=== PATIENT | female | born 1935 | race Caucasian/White ===

== ENCOUNTER 2017-02-03 12:07 | Inpatient (IN) | payer MEDICARE ==
[~2017-02-03] VITALS: Ht 172.7 cm; Wt 65.2 kg
[~2017-02-03 12:07] MED LIST: AMIO200T PO; ASCO500C PO; ASPI81CH CHEW; CALCCHW9 CHEW; CART180C PO; CERTTAB2 PO; COUM3TAB PO; ENOX80P SQ; FERR1TAB36 PO; FLUT1SPR9 EACH NARE; FORM20NE INH; GABA100C4 PO; METO-426 PO; MONT10TA4 PO; SLOWTAB PO
[2017-02-03] MEDS ORDERED: MORPHINE SULFATE 4 MG/ML INJ IV PUSH ONE (13:15)
[2017-02-03] MEDS ORDERED: ONDANSETRON HCL 4 MG/2 ML VIAL IVP ONE (13:15)
[2017-02-03] MEDS ORDERED: SODIUM CHLORIDE 0.9% FLUSH 10 ML FLUSH IV FLUSH PRN ×2 (13:15→16:00)
[2017-02-03] MEDS ORDERED: SODIUM CHLORID 0.9% 500 ML INJ 500 ML IV ONE (13:15)
--- NOTE | 2017-02-03 13:16 | PD ---
HPI Chief Complaint: FALL Time Seen by Provider: 13:16 Travel History International Travel<30 days: No Contact w/Intl Traveler<30days: No History of Present Illness HPI 81-year-old female with a history of hypertension, hyperlipidemia, A. fib anticoagulated on Coumadin presents to the emergency department by EMS for evaluation of fall with right hip pain. Patient states that she was sitting in the recliner in her living room and scooted to the edge, leaning forward to grab her phone off the table when she accidentally fell from the chair onto her right side. States that she landed on her right hip and hit the right side of her head on the ground. Denies loss of consciousness. States that she was unable to get up from the ground secondary to severe pain in her right hip. States that she has a hematoma on the right side of her head that is formed since the fall. Pain in the hip is aggravated with movement and alleviated with sitting still. Denies any lightheadedness, dizziness, nausea, vomiting, numbness or tingling, weakness, chest pain, shortness breath, abdominal pain. PCP is Dr. Dodd. No other complaints. 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) Deep Vein Thrombosis: Yes (LEFT LEG) Endocrine: No Gastrointestinal Disorders: Yes ((HX ONLY)BLOOD IN STOOL 2 YRS AGO) GERD: No Glaucoma: No Genitourinary: Yes Headaches: No Hepatitis: No Hiatal Hernia: No Hypertension: Yes Immune Disorder: No Implanted Vascular Access Dvce: Yes (LEFT CHEST) Kidney Stones: No Musculoskeletal: Yes Psychiatric: No Reproductive: No Respiratory: Yes Immunizations Current: Yes Migraines: No Pneumonia: Yes Radiation Therapy: Yes Renal Failure: No Seizures: No Sickle Cell Disease: No Sleep Apnea: No Thyroid Disease: No Ulcer: No Menopausal: Yes : 4 Para: 3 Miscarriage: 1 Past Surgical History Abdominal Surgery: Yes (COLOSTOMY, COLON/UTERUS ABSCESS DRAINED) AICD: No Appendectomy: No Arteriovenous Shunt: No Body Medical Devices: LEFT CHEST PORT Cardiac Surgery: No Section: Yes (x 2) Cholecystectomy: No Ear Surgery: No Endocrine Surgery: No Eye Surgery: Yes (CATARACT) Genitourinary Surgery: No Gynecologic Surgery: Yes (C- SECTION X 2) Insulin Pump: No Joint Replacement: Yes (RIGHT ELBOW WIRES AND SCREWS) Oral Surgery: No Pacemaker: No Thoracic Surgery: No Other Surgery: Yes (PORT INSERTION-LEFT CHEST) Social History Alcohol Use: No Tobacco Use: No (QUIT 2008) Substance Use: No Allergies-Medications (Allergen,Severity, Reaction): Coded Allergies: Adhesives (Verified Allergy, Severe, 02/03/17) Codeine (Verified Allergy, Severe, N/V, 02/03/17) Penicillin (Verified Allergy, Intermediate, rash, 02/03/17) Robitussin (Verified Adverse Reaction, Mild, Flushing, 02/03/17) PATIENT STATES THAT AFTER SHE WAS ADMINISTERED ROBITSSIN, BL PALM OF HER HANDS TURNED RED. 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 Uncoded Allergies: plastic bandages (Adverse Reaction, Intermediate, reddness , 10/01/14) Reported Meds & Prescriptions Reported Meds & Active Scripts Active Metoprolol Tartrate 75 Mg Tab 75 Mg PO BID Coumadin (Warfarin) 3 Mg Tab 3.5 Mg PO DAILY Reported Propranolol (Propranolol HCl) 60 Mg Tab 60 Mg PO Q8HR Perforomist Neb (Formoterol Fumarate) 20 Mcg/2 Ml Neb 1 Nebule INH BID Vitamin C (Ascorbic Acid) 500 Mg Cap 500 Mg PO DAILY Slow-Mag (Magnesium Chloride-Calcium Carbonate) 71.5-119 Mg Tab 143 Mg PO DAILY Certavite/Antioxidants (Multiple Vitamins W/ Minerals) 1 Tab Tab 1 Tab PO DAILY Calcium 1200 (Calcium Carbonate-Vitamin D W/Minerals) 1,200-1,000 Mg-Unit Chew 1 Tab CHEW BID Aspirin 81 Mg Chew 81 Mg CHEW DAILY Montelukast (Montelukast Sodium) 10 Mg Tab 10 Mg PO DAILY Gabapentin 100 Mg Cap 100 Mg PO TID Cartia Xt (Diltiazem ER 24 HR) 180 Mg Caper 180 Mg PO DAILY Amiodarone (Amiodarone HCl) 200 Mg Tab 200 Mg PO DAILY Review of Systems Except as stated in HPI: all other systems reviewed are Neg Physical Exam Narrative GENERAL: Well-nourished and well-developed pleasant elderly female patient in no acute distress. SKIN: No obvious lacerations or abrasions noted. HEAD: Normocephalic and atraumatic. Contusion noted to right scalp with tenderness to palpation. EYES: No scleral icterus, injection, or drainage. PERRLA. EOMI. No hyphema present. ENT: No septal hematoma or hemotympanum noted. Oropharynx is clear and the airway is patent. NECK: Supple and the trachea is midline. No obvious deformities, crepitus, or midline tenderness noted. CARDIOVASCULAR: Regular rate and rhythm. RESPIRATORY: Breath sounds are equal bilaterally with no accessory muscle use, wheezing, rhonchi, or crackles. GASTROINTESTINAL: Abdomen is soft, non-tender, and nondistended. MUSCULOSKELETAL: Tenderness to palpation of right hip with decreased range of motion. Right leg is slightly externally rotated. DP pulses are palpable bilaterally. Capillary refill and sensation is within normal limits. No obvious deformities, swelling, cyanosis, or ecchymosis is present throughout the upper and lower extremities. Patient has full range of motion in all other extremities without any signs of neurovascular compromise. NEUROLOGICAL: Awake, alert, and oriented. Normal speech. Cranial nerves are grossly intact. Data Data Last Documented VS Vital Signs Date Time Temp Pulse Resp B/P Pulse Ox O2 Delivery O2 Flow Rate FiO2 02/03/17 14:18 63 16 95 Nasal Cannula 2 02/03/17 14:09 98.5 226/93 Orders Chest, Single Ap (02/03/17 13:12) Pelvis, Ap Only (Routine) (02/03/17 13:12) Femur (Ap & Lat/2vws) (02/03/17 13:12) Ct Brain W/O Iv Contrast(Rout) (02/03/17 13:12) Ct Cerv Spine W/O Contrast (02/03/17 13:12) Complete Blood Count With Diff (02/03/17 13:12) Comprehensive Metabolic Panel (02/03/17 13:12) Prothrombin Time / Inr (Pt) (02/03/17 13:12) Act Partial Throm Time (Ptt) (02/03/17 13:12) Iv Access Insert/Monitor (02/03/17 13:12) Ecg Monitoring (02/03/17 13:12) Oximetry (02/03/17 13:12) Morphine Inj (Morphine Inj) (02/03/17 13:15) Ondansetron Inj (Zofran Inj) (02/03/17 13:15) Sodium Chloride 0.9% Flush (Ns Flush) (02/03/17 13:15) Sodium Chlorid 0.9% 500 Ml Inj (Ns 500 M (02/03/17 13:15) Urinary Catheter Insert/Apply (02/03/17 14:37) Admit To Inpatient (02/03/17 ) Code Status (02/03/17 15:52) Vital Signs (Adult) Q4H (02/03/17 15:52) Activity Bed Rest (02/03/17 15:52) Diet Npo (02/03/17 Dinner) Sodium Chloride 0.9% Flush (Ns Flush) (02/03/17 16:00) Sodium Chloride 0.9% Flush (Ns Flush) (02/03/17 21:00) Acetaminophen (Tylenol) (02/03/17 16:00) Ondansetron Inj (Zofran Inj) (02/03/17 16:00) Bisacodyl Supp (Dulcolax Supp) (02/03/17 16:00) Magnesium Hydroxide Liq (Milk Of Magnesi (02/03/17 16:00) Temazepam (Restoril) (02/03/17 16:00) Basic Metabolic Panel (Bmp) (02/04/17 06:00) Complete Blood Count With Diff (02/04/17 06:00) Electrocardiogram (02/03/17 15:52) Pt Request For Service (02/03/17 15:52) Scd Bilateral/Knee High SHARI.BID (02/03/17 15:52) Naloxone Inj (Narcan Inj) (02/03/17 16:00) Inpatient Certification (02/03/17 ) Consult Orthopedic (02/03/17 ) Admit Order (Ed Use Only) (02/03/17 15:55) 1/2 Ns + Kcl 20 Meq Inj (1/2 Ns + Kcl 20 (02/03/17 17:00) Labs Laboratory Tests Test 02/03/17 13:36 White Blood Count 12.2 TH/MM3 Red Blood Count 4.31 MIL/MM3 Hemoglobin 12.0 GM/DL Hematocrit 37.8 % Mean Corpuscular Volume 87.7 FL Mean Corpuscular Hemoglobin 27.9 PG Mean Corpuscular Hemoglobin 31.8 % Concent Red Cell Distribution Width 16.1 % Platelet Count 172 TH/MM3 Mean Platelet Volume 8.7 FL Neutrophils (%) (Auto) 83.3 % Lymphocytes (%) (Auto) 8.6 % Monocytes (%) (Auto) 6.0 % Eosinophils (%) (Auto) 1.6 % Basophils (%) (Auto) 0.5 % Neutrophils # (Auto) 10.2 TH/MM3 Lymphocytes # (Auto) 1.0 TH/MM3 Monocytes # (Auto) 0.7 TH/MM3 Eosinophils # (Auto) 0.2 TH/MM3 Basophils # (Auto) 0.1 TH/MM3 CBC Comment DIFF FINAL Differential Comment Prothrombin Time 29.3 SEC Prothromb Time International 2.5 RATIO Ratio Activated Partial 37.3 SEC Thromboplast Time Sodium Level 141 MEQ/L Potassium Level 3.9 MEQ/L Chloride Level 102 MEQ/L Carbon Dioxide Level 33.7 MEQ/L Anion Gap 5 MEQ/L Blood Urea Nitrogen 17 MG/DL Creatinine 1.13 MG/DL Estimat Glomerular Filtration 46 ML/MIN Rate Random Glucose 83 MG/DL Calcium Level 8.6 MG/DL Total Bilirubin 0.6 MG/DL Aspartate Amino Transf 36 U/L (AST/SGOT) Alanine Aminotransferase 27 U/L (ALT/SGPT) Alkaline Phosphatase 84 U/L Total Protein 6.7 GM/DL Albumin 2.7 GM/DL [facility] Medical Decision Making Medical Screen Exam Complete: Yes Emergency Medical Condition: Yes Differential Diagnosis Hip fracture versus intracranial hemorrhage versus contusion Narrative Course 81-year-old female presents to the emergency room by EMS for evaluation of mechanical fall with right hip pain and right scalp contusion. Patient is afebrile, vital signs are stable. She has significant pain in the right hip and is unable to move it, slight external rotation noted. IV access is obtained , labs were drawn and sent. Patient is placed on cart telemetry and pulse oximetry monitoring. X-ray and CT imaging has been ordered and is pending. Patient is administered IV morphine and Zofran. CBC is unremarkable. CMP is unremarkable. Coags show INR is therapeutic at 2.5. X-ray of the right femur and pelvis shows right intertrochanteric femur fracture. Head CT shows right frontal scalp hematoma but is otherwise unremarkable. CT of the cervical spine is negative for any acute abnormalities. Patient will be admitted to medicine service with orthopedic consultation for hip fracture. I discussed the case with my attending physician Dr. Cobb who is aware of the patients history, physical examination findings, and treatment plan. Physician Communication Physician Communication I spoke with Dr. Elena [facility] plans who agrees to admit the patient to his service. I spoke with Dr. Pichardo orthopedic surgeon who states that because patient is anticoagulated they will not operate tonight and therefore she can be NPO at midnight. Diagnosis Primary Impression: Closed right hip fracture Qualified Code: S72.001A - Closed right hip fracture, initial encounter Additional Impression: Scalp hematoma Qualified Code: S00.03XA - Scalp hematoma, initial encounter Admitting Information Admitting Physician Requests: Admit Sasha Lerma Feb 03, 2017 13:16
[2017-02-03 13:50] LABS: AUTOMATED NEUTROPHIL # 10.2 TH/MM3 (1.8-7.7); BASOPHIL # 0.1 TH/MM3 (0-0.2); BASOPHIL % 0.5 % (0.0-2.0); EOSINOPHIL # 0.2 TH/MM3 (0-0.4); EOSINOPHIL % 1.6 % (0.0-4.0); HEMATOCRIT 37.8 % (35.0-46.0); HEMO FLAGS DIFF FINAL; LYMPH % 8.6 % (9.0-44.0); MEAN CELL VOLUME 87.7 FL (80.0-100.0); MEAN CORPUSCULAR HEMOGLOBIN 27.9 PG (27.0-34.0); MEAN CORPUSCULAR HGB CONC 31.8 % (32.0-36.0); NEUT % 83.3 % (16.0-70.0); PLATELET COUNT 172 TH/MM3 (150-450); RED BLOOD COUNT 4.31 MIL/MM3 (4.00-5.30); RED CELL DISTRIBUTION WIDTH 16.1 % (11.6-17.2); WHITE BLOOD COUNT 12.2 TH/MM3 (4.0-11.0)
[2017-02-03 14:05] LABS: ANION GAP 5 MEQ/L (5-15); AST (GOT) 36 U/L (15-37); BICARBONATE 33.7 MEQ/L (21.0-32.0); BLOOD UREA NITROGEN 17 MG/DL (7-18); CHLORIDE 102 MEQ/L (98-107); GLOMERULAR FILTRATION RATE 46 ML/MIN (>89); POTASSIUM 3.9 MEQ/L (3.5-5.1); SODIUM (NA) 141 MEQ/L (136-145)
[2017-02-03 14:06] LABS: APTT (PATIENT) 37.3 SEC (24.3-30.1); INTERNATIONAL NORMALIZED RATIO 2.5 RATIO; PROTHROMBIN TIME - PATIENT 29.3 SEC (9.8-11.6)
[2017-02-03 14:08] LABS: ALKALINE PHOSPHATASE 84 U/L (45-117); ALT (GPT) 27 U/L (10-53); TOTAL BILIRUBIN ADULT 0.6 MG/DL (0.2-1.0)
[2017-02-03 14:09] VITALS: BP 226/93; PULSE 63; RESP 18; TEMP 98.5; O2SAT 89
[2017-02-03 14:15] VITALS: O2SAT 93
--- NOTE | 2017-02-03 14:15 | RADRPT ---
EXAM DATE/TIME: 02/03/2017 13:47 [facility] COMPARISON: CHEST SINGLE AP, September 02, 2016, 20:29. INDICATIONS : Short of breath MEDICAL HISTORY : Carcinoma, lung. SURGICAL HISTORY : None. ENCOUNTER: Initial ACUITY: 1 day PAIN SCORE: 0/10 LOCATION: Bilateral chest FINDINGS: Left-sided portacatheter is noted in the right SVC. The patient has a known right lung malignancy the upper lobe with right upper lobe collapse. There is cardiomegaly. Kyphoplasty has been performed at the mid thoracic spine. CONCLUSION: Right upper lobe collapse and right upper lobe lung cancer. Demar Booth MD on February 03, 2017 at 14:12 Board Certified Radiologist. This report was verified electronically.
--- NOTE | 2017-02-03 14:19 | RADRPT ---
EXAM DATE/TIME: 02/03/2017 13:48 [facility] COMPARISON: No previous studies available for comparison. INDICATIONS : Right side pelvic pain after fall MEDICAL HISTORY : Carcinoma, lung. 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 Prominent calcifications of the aorta and iliac vessels are see n. Calcified uterine fibroid overlies the pelvis. There is a comminuted fracture of the right proxima l femur at the trochanteric level. There is mild displacement. CONCLUSION: Right proximal femur fracture. Demar Booth MD on February 03, 2017 at 14:16 Board Certified Radiologist. This report was verified electronically.
--- NOTE | 2017-02-03 14:21 | RADRPT ---
EXAM DATE/TIME: 02/03/2017 13:50 [facility] COMPARISON: PELVIS AP ONLY, February 03, 2017, 13:48. INDICATIONS : Right side leg pain after fall MEDICAL HISTORY : Carcinoma, lung. SURGICAL HISTORY : Colostomy bag ENCOUNTER: Initial ACUITY: 1 day PAIN SCORE: 10/10 LOCATION: Right hip FINDINGS: Vertebral and iliac artery calcifications. There is an intramedullary sclerotic lesion of the right f emoral head laterally which is nonspecific. There is a comminuted mildly displaced fracture of the ri ght proximal femur at the level of the trochanters. CONCLUSION: Indeterminate sclerotic narrow zone of transition lesion right proximal femur. Comminuted right femor al trochanteric fracture. Demar Booth MD on February 03, 2017 at 14:17 Board Certified Radiologist. This report was verified electronically.
--- NOTE | 2017-02-03 15:18 | RADRPT ---
EXAM DATE/TIME: 02/03/2017 15:00 [facility] COMPARISON: CT BRAIN W/O CONTRAST, October 11, 2015, 21:42. INDICATIONS : Trauma. Patient fell today, hit head. RADIATION DOSE: 56.36 CTDIvol (mGy) MEDICAL HISTORY : Hypertension. Carcinoma, lung. A-Fib. SURGICAL HISTORY : None. ENCOUNTER: Initial ACUITY: 1 day PAIN SCALE: 5/10 LOCATION: cranial TECHNIQUE: Multiple contiguous axial images were obtained of the head. Using automated exposure control and adj ustment of the mA and/or kV according to patient size, radiation dose was kept as low as reasonably a chievable to obtain optimal diagnostic quality images. FINDINGS: There is mild line loss and patchy periventricular white matter disease which is stable. No signs of acute infarct, hemorrhage, or mass. No fractures. Right frontal scalp hematoma. CONCLUSION: Mild atrophy and white matter disease. Right frontal scalp hematoma. Demar Booth MD on February 03, 2017 at 15:16 Board Certified Radiologist. This report was verified electronically.
--- NOTE | 2017-02-03 15:40 | RADRPT ---
EXAM DATE/TIME: 02/03/2017 15:02 [facility] COMPARISON: No previous studies available for comparison. INDICATIONS : Trauma. Fell today. RADIATION DOSE: 31.71 CTDIvol (mGy) MEDICAL HISTORY : Hypertension. Carcinoma, lung. A-fib. SURGICAL HISTORY : None. ENCOUNTER: Initial ACUITY: 1 day PAIN SCALE: 5/10 LOCATION: neck TECHNIQUE: Volumetric scanning of the cervical spine was performed. Multiplanar reconstructions in the sagittal, coronal and oblique axial planes were performed. Using automated exposure control and adjustment o f the mA and/or kV according to patient size, radiation dose was kept as low as reasonably achievable to obtain optimal diagnostic quality images. FINDINGS: Normal alignment. No prevertebral soft tissue swelling or compression deformity. The odontoid process is intact. Uncovertebral hypertrophy at C5-6 identified. Cervicothoracic junction is approximated. N o fractures are seen. There is a known history of lung carcinoma and visualized lungs demonstrate com plete opacification of the right lung apex with soft tissue density. CONCLUSION: Right upper lobe collapse this patient with history of lung carcinoma. No fractures are seen. Mild de generative changes of the spine. Demar Booth MD on February 03, 2017 at 15:36 Board Certified Radiologist. This report was verified electronically.
[2017-02-03 16:00] VITALS: BP 172/80; PULSE 62; RESP 18; O2SAT 94
[2017-02-03] MEDS ORDERED: TEMAZEPAM 15 MG CAP PO PRN (16:00)
[2017-02-03] MEDS ORDERED: ACETAMINOPHEN 325 MG TAB PO PRN (16:00)
[2017-02-03] MEDS ORDERED: NALOXONE HCL 0.4 MG/ML AMP IV PRN (16:00)
[2017-02-03] MEDS ORDERED: MAGNESIUM HYDROXIDE SUSP 30 ML CUP PO PRN (16:00)
[2017-02-03] MEDS ORDERED: BISACODYL 10 MG SUPP RECTAL PRN (16:00)
[2017-02-03] MEDS ORDERED: PROP60TA PO (16:33)
--- NOTE | 2017-02-03 17:20 | PD.CONS ---
cc: Ghanshyam Pichardo MD HPI Service Orthopedic Surgeons Consult Requested By ED physician Reason for Consult Right hip fracture Primary Care Physician Muna Perea MD Admission Diagnosis Right Hip Fracture, Scalp Hematoma, Fall Diagnoses: (1) Intertrochanteric fracture of right femur (2) Atrial fibrillation (3) COPD (chronic obstructive pulmonary disease) (4) HTN (hypertension) (5) H/O: lung cancer Chief Complaint: Right hip pain History of Present Illness This 81-year-old female fell reaching for her phone well-seated. She had immediate pain in the right hip with inability ambulate. She presented to [facility]. X-rays revealed an intertrochanteric fracture of the right proximal femur. She was admitted to the medical service with orthopedic consultation requested. Patient has multiple other medical problems including atrial fibrillation and is anticoagulated. She denies other extremity injury at the time of her fall. She states she is walking normally without limitation prior to her fall. Review of Systems Reviewed and well outlined in the medical record Past Family Social History Past Medical History PFSH Past Medical History Hx Anticoagulant Therapy: Yes (coumadin) Arthritis: No Asthma: Yes Atrial Fibrillation: Yes Autoimmune Disease: No Blood Disorders: No Anxiety: Yes Depression: No Heart Rhythm Problems: Yes (AFIB) Cancer: Yes (LUNG CANCER) Cardiac Catheterization: Yes Cardiovascular Problems: Yes High Cholesterol: Yes Chemotherapy: Yes Chest Pain: No Congestive Heart Failure: No COPD: Yes Cerebrovascular Accident: No Diabetes: No Diminished Hearing: Yes ([facility]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) Deep Vein Thrombosis: Yes (LEFT LEG) Endocrine: No Gastrointestinal Disorders: Yes ((HX ONLY)BLOOD IN STOOL 2 YRS AGO) GERD: No Glaucoma: No Genitourinary: Yes Headaches: No Hepatitis: No Hiatal Hernia: No Hypertension: Yes Immune Disorder: No Implanted Vascular Access Dvce: Yes (LEFT CHEST) Kidney Stones: No Musculoskeletal: Yes Psychiatric: No Reproductive: No Respiratory: Yes Immunizations Current: Yes Migraines: No Pneumonia: Yes Radiation Therapy: Yes Renal Failure: No Seizures: No Sickle Cell Disease: No Sleep Apnea: No Thyroid Disease: No Ulcer: No Menopausal: Yes : 4 Para: 3 Miscarriage: 1 Past Surgical History Abdominal Surgery: Yes (COLOSTOMY, COLON/UTERUS ABSCESS DRAINED) AICD: No Appendectomy: No Arteriovenous Shunt: No Body Medical Devices: LEFT CHEST PORT Cardiac Surgery: No Section: Yes (x 2) Cholecystectomy: No Ear Surgery: No Endocrine Surgery: No Eye Surgery: Yes (CATARACT) Genitourinary Surgery: No Gynecologic Surgery: Yes (C- SECTION X 2) Insulin Pump: No Joint Replacement: Yes (RIGHT ELBOW WIRES AND SCREWS) Oral Surgery: No Pacemaker: No Thoracic Surgery: No Other Surgery: Yes (PORT INSERTION-LEFT CHEST) Social History Alcohol Use: No Tobacco Use: No (QUIT 2008) Substance Use: No Allergies-Medications (Allergen,Severity, Reaction): Coded Allergies: Adhesives (Verified Allergy, Severe, 02/03/17) Codeine (Verified Allergy, Severe, N/V, 02/03/17) Penicillin (Verified Allergy, Intermediate, rash, 02/03/17) Robitussin (Verified Adverse Reaction, Mild, Flushing, 02/03/17) PATIENT STATES THAT AFTER SHE WAS ADMINISTERED ROBITSSIN, BL PALM OF HER HANDS TURNED RED. 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 Uncoded Allergies: plastic bandages (Adverse Reaction, Intermediate, reddness , 10/01/14) Reported Meds & Prescriptions Reported Meds & Active Scripts Active Metoprolol Tartrate 75 Mg Tab 75 Mg PO BID Coumadin (Warfarin) 3 Mg Tab 3.5 Mg PO DAILY Reported Propranolol (Propranolol HCl) 60 Mg Tab 60 Mg PO Q8HR Perforomist Neb (Formoterol Fumarate) 20 Mcg/2 Ml Neb 1 Nebule INH BID Vitamin C (Ascorbic Acid) 500 Mg Cap 500 Mg PO DAILY Slow-Mag (Magnesium Chloride-Calcium Carbonate) 71.5-119 Mg Tab 143 Mg PO DAILY Certavite/Antioxidants (Multiple Vitamins W/ Minerals) 1 Tab Tab 1 Tab PO DAILY Calcium 1200 (Calcium Carbonate-Vitamin D W/Minerals) 1,200-1,000 Mg-Unit Chew 1 Tab CHEW BID Aspirin 81 Mg Chew 81 Mg CHEW DAILY Montelukast (Montelukast Sodium) 10 Mg Tab 10 Mg PO DAILY Gabapentin 100 Mg Cap 100 Mg PO TID Cartia Xt (Diltiazem ER 24 HR) 180 Mg Caper 180 Mg PO DAILY Amiodarone (Amiodarone HCl) 200 Mg Tab 200 Mg PO DAILY Review of Systems Except as stated in HPI: all other systems reviewed are Neg Allergies: Coded Allergies: Adhesives (Verified Allergy, Severe, 02/03/17) Codeine (Verified Allergy, Severe, N/V, 02/03/17) Penicillin (Verified Allergy, Intermediate, rash, 02/03/17) Robitussin (Verified Adverse Reaction, Mild, Flushing, 02/03/17) PATIENT STATES THAT AFTER SHE WAS ADMINISTERED ROBITSSIN, BL PALM OF HER HANDS TURNED RED. 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4 mg UNSCH PRN IV 02/03/17 16:00 (1/2 NS + KCl 20 Meq Inj) 1,000 ml @ 84 mls/hr [id number] IV 02/03/17 17:00 Reported Meds & Active Scripts Active Metoprolol Tartrate 75 Mg Tab 75 Mg PO BID Coumadin (Warfarin) 3 Mg Tab 3.5 Mg PO DAILY Reported Propranolol (Propranolol HCl) 60 Mg Tab 60 Mg PO Q8HR Perforomist Neb (Formoterol Fumarate) 20 Mcg/2 Ml Neb 1 Nebule INH BID Vitamin C (Ascorbic Acid) 500 Mg Cap 500 Mg PO DAILY Slow-Mag (Magnesium Chloride-Calcium Carbonate) 71.5-119 Mg Tab 143 Mg PO DAILY Certavite/Antioxidants (Multiple Vitamins W/ Minerals) 1 Tab Tab 1 Tab PO DAILY Calcium 1200 (Calcium Carbonate-Vitamin D W/Minerals) 1,200-1,000 Mg-Unit Chew 1 Tab CHEW BID Aspirin 81 Mg Chew 81 Mg CHEW DAILY Montelukast (Montelukast Sodium) 10 Mg Tab 10 Mg PO DAILY Gabapentin 100 Mg Cap 100 Mg PO TID Cartia Xt (Diltiazem ER 24 HR) 180 Mg Caper 180 Mg PO DAILY Amiodarone (Amiodarone HCl) 200 Mg Tab 200 Mg PO DAILY Physical Exam Vital Signs Vital Signs Date Time Temp Pulse Resp B/P Pulse Ox O2 Delivery O2 Flow Rate FiO2 02/03/17 16:00 62 18 172/80 94 Nasal Cannula 2 02/03/17 14:18 63 16 95 Nasal Cannula 2 02/03/17 14:15 93 Nasal Cannula 2 02/03/17 14:09 98.5 63 18 226/93 89 Physical Exam The patient is awake and alert and answers questions appropriately. There is family at the bedside. She has pain with any attempted range of motion of the right hip. The leg lengths are equal although the right side is slightly internally rotated. There is no overlying skin change. She moves her toes and ankle freely and has good capillary refill and sensation. There are no other localizing signs of extremity injury. Laboratory Laboratory Tests Test 02/03/17 13:36 White Blood Count 12.2 Red Blood Count 4.31 Hemoglobin 12.0 Hematocrit 37.8 Mean Corpuscular Volume 87.7 Mean Corpuscular Hemoglobin 27.9 Mean Corpuscular Hemoglobin 31.8 Concent Red Cell Distribution Width 16.1 Platelet Count 172 Mean Platelet Volume 8.7 Neutrophils (%) (Auto) 83.3 Lymphocytes (%) (Auto) 8.6 Monocytes (%) (Auto) 6.0 Eosinophils (%) (Auto) 1.6 Basophils (%) (Auto) 0.5 Neutrophils # (Auto) 10.2 Lymphocytes # (Auto) 1.0 Monocytes # (Auto) 0.7 Eosinophils # (Auto) 0.2 Basophils # (Auto) 0.1 CBC Comment DIFF FINAL Differential Comment Prothrombin Time 29.3 Prothromb Time International 2.5 Ratio Activated Partial 37.3 Thromboplast Time Sodium Level 141 Potassium Level 3.9 Chloride Level 102 Carbon Dioxide Level 33.7 Anion Gap 5 Blood Urea Nitrogen 17 Creatinine 1.13 Estimat Glomerular Filtration 46 Rate Random Glucose 83 Calcium Level 8.6 Total Bilirubin 0.6 Aspartate Amino Transf 36 (AST/SGOT) Alanine Aminotransferase 27 (ALT/SGPT) Alkaline Phosphatase 84 Total Protein 6.7 Albumin 2.7 Result Diagram: 02/03/17 1336 02/03/17 1336 Imaging Last 24 hours Impressions Pelvis X-Ray 02/03/171311 Signed Impressions: Service Date/Time: Friday, February 03, 2017 13:48 - CONCLUSION: Right proximal femur fracture. Demar Booth MD Head CT 02/03/171311 Signed Impressions: Service Date/Time: Friday, February 03, 2017 15:00 - CONCLUSION: Mild atrophy and white matter disease. Right frontal scalp hematoma. Demar Booth MD Femur X-Ray 02/03/171311 Signed Impressions: Service Date/Time: Friday, February 03, 2017 13:50 - CONCLUSION: Indeterminate sclerotic narrow zone of transition lesion right proximal femur. Comminuted right femoral trochanteric fracture. Demar Booth MD Chest X-Ray 02/03/171311 Signed Impressions: Service Date/Time: Friday, February 03, 2017 13:47 - CONCLUSION: Right upper lobe collapse and right upper lobe lung cancer. Demar Booth MD Cervical Spine CT 02/03/171311 Signed Impressions: Service Date/Time: Friday, February 03, 2017 15:02 - CONCLUSION: Right upper lobe collapse this patient with history of lung carcinoma. No fractures are seen. Mild degenerative changes of the spine. Demar Booth MD Assessment & Plan Problem List: (1) Intertrochanteric fracture of right femur (2) Afib (3) COPD (chronic obstructive pulmonary disease) (4) HTN (hypertension) (5) Atrial fibrillation (6) COPD (chronic obstructive pulmonary disease) (7) H/O: lung cancer Assessment and Plan The findings were discussed with the patient and her family. Recommendations are given for internal fixation to allow mobilization and pain control. The nature of the planned surgical procedure, the risks, the expected benefits, as well as the postoperative expectations have been discussed with him in detail. In addition, the alternatives to treatment and risk of same were discussed. They acknowledged full understanding and consent to it. The patient currently is anticoagulated with an INR of 2.5. The medical service as not evaluated the patient yet and medical clearance will be required as well as possible cardiology clearance. They understand she may require chemical reversal of her anticoagulation. Ghanshyam Pichardo MD Feb 03, 2017 17:20
[2017-02-03 18:13] VITALS: BP 186/81; PULSE 59; RESP 17; TEMP 97.2; O2SAT 90
[2017-02-03] MEDS: ONDANSETRON HCL 4 MG/2 ML VIAL IVP PRN (18:13)
[2017-02-03] MEDS: 1/2 NS + KCL 20 MEQ INJ 1,000 ML IV SCH (18:14)
[2017-02-03] MEDS ORDERED: HYDROmorphone HCL PF 1 MG/ML VIAL IV PUSH PRN (18:45)
[2017-02-03 19:13] LABS: AUTOMATED NEUTROPHIL # 13.7 TH/MM3 (1.8-7.7); BASOPHIL # 0.1 TH/MM3 (0-0.2); BASOPHIL % 0.3 % (0.0-2.0); EOSINOPHIL # 0.1 TH/MM3 (0-0.4); EOSINOPHIL % 0.8 % (0.0-4.0); HEMO FLAGS DIFF FINAL; LYMPH % 5.9 % (9.0-44.0); LYMPHOCYTE # 0.9 TH/MM3 (1.0-4.8); MEAN CELL VOLUME 88.2 FL (80.0-100.0); MEAN CORPUSCULAR HEMOGLOBIN 28.4 PG (27.0-34.0); MEAN CORPUSCULAR HGB CONC 32.2 % (32.0-36.0); MONO % 6.3 % (0.0-8.0); NEUT % 86.7 % (16.0-70.0); PLATELET COUNT 146 TH/MM3 (150-450); RED BLOOD COUNT 4.31 MIL/MM3 (4.00-5.30); WHITE BLOOD COUNT 15.8 TH/MM3 (4.0-11.0)
[2017-02-03] MEDS: PHYTONADIONE 5 MG TAB PO SCH (19:27)
[2017-02-03] MEDS: traMADol HCL 50 MG TAB PO PRN (19:27)
--- NOTE | 2017-02-03 19:35 | HHI.HP ---
HPI Service [facility] Hospitalists Primary Care Physician Muna Perea MD Admission Diagnosis Right Hip Fracture, Scalp Hematoma, Fall Chief Complaint: right hip pain Travel History International Travel<30 Days: No Contact w/Intl Traveler <30 Da: No Traveled to Known Affected Are: No History of Present Illness Pt is a 81 y/o F with h/o multiple medical problems including history of lung cancer, history DVT history of pelvic abscess history of diverticular disease with diverting sigmoid colostomy and chronic abdominal open wounds, COPD with chronic respiratory failure requiring supplemental oxygen and paroxysmal Atrial fibrillation. Pt was most recently admitted at [place] d/t pneumonia 08/01/16 to 08/09/16. Pt has chronic b/l pleural effusions and changes at RUL. These findings were reviewed with Radiology and are unchanged from prior admission. Pt has colostomy and chronic abdominal wound. On this occasion, pt fell at home with right hip pain. Pt fell off of her recliner while scooting forward to get her phone off a table. Pt landed on her right hip with immediate pain. Pt also struck the right side of her head with resulting hematoma. Pt denies LOC. Pt could NOT get off the floor d/t her right hip pain. Pelvic x-ray in the ER confirmed right hip fracture. Pt admitted to [place] for surgical repair of her right hip fracture. Pt on coumadin therapy for chronic atrial fibrillation. On admission pt was give Vitamin K 5mg for an INR of 2.5. Review of Systems Constitutional: DENIES: Diaphoretic episodes, Fatigue, Fever, Weight gain, Weight loss, Chills, Dizziness, Change in appetite, Night Sweats Endocrine: DENIES: Heat/cold intolerance, Polydipsia, Polyuria, Polyphagia Eyes: DENIES: Blurred vision, Diplopia, Eye inflammation, Eye pain, Vision loss , Photosensitivity, Double Vision Ears, nose, mouth, throat: DENIES: Tinnitus, Hearing loss, Vertigo, Nasal discharge, Oral lesions, Throat pain, Hoarseness, Ear Pain, Running Nose, Epistaxis, Sinus Pain, Toothache, Odynophagia Respiratory: DENIES: Apneas, Cough, Snoring, Wheezing, Hemoptysis, Sputum production, Shortness of breath Cardiovascular: DENIES: Chest pain, Palpitations, Syncope, Dyspnea on Exertion , PND, Lower Extremity Edema, Orthopnea, Claudication Gastrointestinal: DENIES: Abdominal pain, Black stools, Bloody stools, BRB per rectum, Constipation, Diarrhea, GERD, Nausea, Reflux, Vomiting, Difficulty Swallowing, Anorexia Genitourinary: DENIES: Urinary frequency, Urinary incontinence, Urgency, Hematuria, Dysuria, Nocturia Musculoskeletal: COMPLAINS OF: Joint pain, DENIES: Muscle aches, Stiffness, Joint Swelling, Back pain, Neck pain Integumentary: DENIES: Abnormal pigmentation, Pruritus, Rash, Nail changes, Breast masses, Breast skin changes, Nipple discharge Hematologic/lymphatic: DENIES: Bruising, Lymphadenopathy Immunologic/allergic: DENIES: Eczema, Urticaria Neurologic: COMPLAINS OF: Abnormal gait, DENIES: Headache, Localized weakness , Paresthesias, Seizures, Speech Problems, Tremor, Poor Balance Psychiatric: DENIES: Anxiety, Confusion, Mood changes, Depression, Hallucinations, Agitation, Suicidal Ideation, Homicidal Ideation, Delusions, History of Bipolar, History of Schizophrenia Past Family Social History Past Medical History Aortic atherosclerosis Anxiety Essential tremor Coronary artery disease Chronic DVT of lower extremity COPD with chronic respiratory failure Chronic kidney disease stage III GERD Hyperlipidemia Hypertensive chronic kidney disease Paroxysmal atrial fibrillation Osteoporosis Chronic open wound Pulmonary hypertension h/o sepsis hypertension Past Surgical History Diverting sigmoid colostomy performed in February 2015 with subsequent revision to transverse colostomy March 2015 Chronic abdominal wounds and prior incision and drainage Lipoma removal right arm Lumbar laminectomy 1974 Cataract surgery section Excision of malignant melanoma from the neck Reported Medications Reported Meds & Active Scripts Active Metoprolol Tartrate 75 Mg Tab 75 Mg PO BID Coumadin (Warfarin) 3 Mg Tab 3.5 Mg PO DAILY Reported Propranolol (Propranolol HCl) 60 Mg Tab 60 Mg PO Q8HR Perforomist Neb (Formoterol Fumarate) 20 Mcg/2 Ml Neb 1 Nebule INH BID Vitamin C (Ascorbic Acid) 500 Mg Cap 500 Mg PO DAILY Slow-Mag (Magnesium Chloride-Calcium Carbonate) 71.5-119 Mg Tab 143 Mg PO DAILY Certavite/Antioxidants (Multiple Vitamins W/ Minerals) 1 Tab Tab 1 Tab PO DAILY Calcium 1200 (Calcium Carbonate-Vitamin D W/Minerals) 1,200-1,000 Mg-Unit Chew 1 Tab CHEW BID Aspirin 81 Mg Chew 81 Mg CHEW DAILY Montelukast (Montelukast Sodium) 10 Mg Tab 10 Mg PO DAILY Gabapentin 100 Mg Cap 100 Mg PO TID Cartia Xt (Diltiazem ER 24 HR) 180 Mg Caper 180 Mg PO DAILY Amiodarone (Amiodarone HCl) 200 Mg Tab 200 Mg PO DAILY Allergies: Coded Allergies: Adhesives (Verified Allergy, Severe, 02/03/17) Codeine (Verified Allergy, Severe, N/V, 02/03/17) Penicillin (Verified Allergy, Intermediate, rash, 02/03/17) Robitussin (Verified Adverse Reaction, Mild, Flushing, 02/03/17) PATIENT STATES THAT AFTER SHE WAS ADMINISTERED ROBITSSIN, BL PALM OF HER HANDS TURNED RED. 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 SKIN: No rashes, ecchymoses or lesions. Cool and dry. HEAD: Atraumatic. Normocephalic. No temporal or scalp tenderness. EYES: Pupils equal round and reactive. Extraocular motions intact. No scleral icterus. No injection or drainage. ENT: Nose without bleeding, purulent drainage or septal hematoma. Throat without erythema, tonsillar hypertrophy or exudate. Uvula midline. Airway patent. NECK: Trachea midline. No JVD or lymphadenopathy. Supple, nontender, no meningeal signs. CARDIOVASCULAR: Regular rate and rhythm without murmurs, gallops, or rubs. RESPIRATORY: Clear to auscultation. Breath sounds equal bilaterally. No wheezes , rales, or rhonchi. GASTROINTESTINAL: Abdomen soft, non-tender, nondistended. No hepato-splenomegaly , or palpable masses. No guarding. MUSCULOSKELETAL: Extremities without clubbing, cyanosis, or edema. No joint tenderness, effusion, or edema noted. No calf tenderness. Negative Homans sign bilaterally. NEUROLOGICAL: Awake and alert. Cranial nerves II through XII intact. Motor and sensory grossly within normal limits. Five out of 5 muscle strength in all muscle groups. Normal speech. Laboratory Laboratory Tests Test 02/03/17 02/03/17 13:36 19:03 White Blood Count 12.2 15.8 Red Blood Count 4.31 4.31 Hemoglobin 12.0 12.2 Hematocrit 37.8 38.0 Mean Corpuscular Volume 87.7 88.2 Mean Corpuscular Hemoglobin 27.9 28.4 Mean Corpuscular Hemoglobin 31.8 32.2 Concent Red Cell Distribution Width 16.1 16.0 Platelet Count 172 146 Mean Platelet Volume 8.7 8.5 Neutrophils (%) (Auto) 83.3 86.7 Lymphocytes (%) (Auto) 8.6 5.9 Monocytes (%) (Auto) 6.0 6.3 Eosinophils (%) (Auto) 1.6 0.8 Basophils (%) (Auto) 0.5 0.3 Neutrophils # (Auto) 10.2 13.7 Lymphocytes # (Auto) 1.0 0.9 Monocytes # (Auto) 0.7 1.0 Eosinophils # (Auto) 0.2 0.1 Basophils # (Auto) 0.1 0.1 CBC Comment DIFF FINAL DIFF FINAL Differential Comment Prothrombin Time 29.3 Prothromb Time International 2.5 Ratio Activated Partial 37.3 Thromboplast Time Sodium Level 141 Potassium Level 3.9 Chloride Level 102 Carbon Dioxide Level 33.7 Anion Gap 5 Blood Urea Nitrogen 17 Creatinine 1.13 Estimat Glomerular Filtration 46 Rate Random Glucose 83 Calcium Level 8.6 Total Bilirubin 0.6 Aspartate Amino Transf 36 (AST/SGOT) Alanine Aminotransferase 27 (ALT/SGPT) Alkaline Phosphatase 84 Total Protein 6.7 Albumin 2.7 Result Diagram: 02/03/17 19002/03/17 1336 Imaging Last Impressions Pelvis X-Ray 02/03/17 1312 Signed Impressions: Service Date/Time: Friday, February 03, 2017 13:48 - CONCLUSION: Right proximal femur fracture. Demar Booth MD Head CT 02/03/17 1312 Signed Impressions: Service Date/Time: Friday, February 03, 2017 15:00 - CONCLUSION: Mild atrophy and white matter disease. Right frontal scalp hematoma. Demar Booth MD Femur X-Ray 02/03/172 Signed Impressions: Service Date/Time: Friday, February 03, 2017 13:50 - CONCLUSION: Indeterminate sclerotic narrow zone of transition lesion right proximal femur. Comminuted right femoral trochanteric fracture. Demar Booth MD Chest X-Ray 02/03/171311 Signed Impressions: Service Date/Time: Friday, February 03, 2017 13:47 - CONCLUSION: Right upper lobe collapse and right upper lobe lung cancer. Demar Booth MD Cervical Spine CT 02/03/172 Signed Impressions: Service Date/Time: Friday, February 03, 2017 15:02 - CONCLUSION: Right upper lobe collapse this patient with history of lung carcinoma. No fractures are seen. Mild degenerative changes of the spine. Demar Booth MD Septic Shock Reassessment Heart: Regular rate and rhythm Lungs: Clear Skin: Warm Peripheral Pulses: Bounding Right Radial Bounding Left Radial Bounding Right Popliteal Bounding Left Popliteal Bounding Right Dorsalis Pedis Bounding Left Dorsalis Pedis Bounding Right Posterior Tibial Bounding Left Posterior Tibial Capillary Refill: Brisk Assessment and Plan Problem List: (1) Intertrochanteric fracture of right femur Status: Acute Plan: - pt to undergo surgical repair with Dr. Pichardo - INR on admission 2.5 (02/04/16). Pt received Vitamin K 5mg. - INR 2.1 (02/05/16). Pt will receive additional 5mg Vitamin K. - repeat INR in AM - Pt has been cleared for surgery by Cardiology - I agree that pt requires surgical repair of right hip, but patient has a moderately increased risk of perioperative morbidity and mortality due to her advanced age and multiple chronic medical problems. - toradol/dilaudid prn (2) Atrial fibrillation Status: Chronic Plan: - rate is controlled - coumadin is being reversed for surgery - anticoagulation will need to be resumed after surgery - metoprolol, Diltiazem ER (3) COPD (chronic obstructive pulmonary disease) Status: Chronic Plan: - Formoterol - duonebs prn (4) HTN (hypertension) Status: Chronic Plan: - metoprolol, diltiazem ER (5) H/O: lung cancer Status: Chronic Plan: - cxr reviewed with radiology & findings are unchanged from prior hospitalization - Pt follows with Dr. Box Physician Certification 2 Midnight Certification Type: Admission for Inpatient Services Order for Inpatient Services The services are ordered in accordance with Medicare regulations or non- Medicare payer requirements, as applicable. In the case of services not specified as inpatient-only, they are appropriately provided as inpatient services in accordance with the 2-midnight benchmark. Estimated LOS (days): 3 3 days is the estimated time the patient will need to remain in the hospital, assuming treatment plan goals are met and no additional complications. Post-Hospital Plan: SNF Problem Qualifiers (1) Intertrochanteric fracture of right femur: Qualified Code: S72.141A - Intertrochanteric fracture of right femur, closed, initial encounter (2) Atrial fibrillation: Qualified Code: I48.2 - Chronic atrial fibrillation (3) HTN (hypertension): Qualified Code: I10 - Essential hypertension Papito Elena DO Feb 03, 2017 19:35
[2017-02-03 20:00] VITALS: BP 139/59; PULSE 58; RESP 22; TEMP 97.3; O2SAT 96
[2017-02-03 20:09] VITALS: O2SAT 97
[2017-02-04] VITALS (10 sets, daily range): BP systolic 117–183; BP diastolic 54–80; PULSE 57–75; RESP 16–22; TEMP 96.9–99; O2SAT 91–96
[2017-02-04] MEDS: traMADol HCL 50 MG TAB PO PRN ×2 (01:28→11:33)
[2017-02-04] MEDS: SODIUM CHLORIDE 0.9% FLUSH 10 ML FLUSH IV FLUSH SCH ×3 (01:28→19:56)
[2017-02-04] MEDS: 1/2 NS + KCL 20 MEQ INJ 1,000 ML IV SCH ×2 (04:55→13:15)
[2017-02-04 07:27] LABS: INTERNATIONAL NORMALIZED RATIO 2.1 RATIO; PROTHROMBIN TIME - PATIENT 24.1 SEC (9.8-11.6)
[2017-02-04 07:35] LABS: BASOPHIL # 0.1 TH/MM3 (0-0.2); BASOPHIL % 0.8 % (0.0-2.0); EOSINOPHIL # 0.4 TH/MM3 (0-0.4); EOSINOPHIL % 3.8 % (0.0-4.0); HEMATOCRIT 33.3 % (35.0-46.0); HEMO FLAGS DIFF FINAL; LYMPH % 6.9 % (9.0-44.0); LYMPHOCYTE # 0.8 TH/MM3 (1.0-4.8); MEAN CELL VOLUME 87.6 FL (80.0-100.0); MEAN CORPUSCULAR HEMOGLOBIN 29.1 PG (27.0-34.0); MEAN CORPUSCULAR HGB CONC 33.2 % (32.0-36.0); MONO % 6.7 % (0.0-8.0); NEUT % 81.8 % (16.0-70.0); PLATELET COUNT 138 TH/MM3 (150-450)
[2017-02-04 07:41] LABS: BICARBONATE 33.4 MEQ/L (21.0-32.0); POTASSIUM 3.8 MEQ/L (3.5-5.1)
--- NOTE | 2017-02-04 08:50 | PD.ORT.PN ---
Subjective Subjective Remarks Patient laying comfortably in bed, accompanied by son. Patient NPO. Awaiting medical and cardiac clearance for orthopedic surgery. Admits right hip pain is controlled at this point. No new complaints. Objective Vitals Vital Signs Date Time Temp Pulse Resp B/P Pulse Ox O2 Delivery O2 Flow Rate FiO2 02/04/17 04:00 98.0 59 22 119/54 96 02/04/17 00:00 96.9 57 20 123/56 96 02/03/17 20:09 97 Nasal Cannula 3.00 02/03/17 20:00 97.3 58 22 139/59 96 02/03/17 18:13 97.2 59 17 186/81 90 02/03/17 16:00 62 18 172/80 94 Nasal Cannula 2 02/03/17 14:18 63 16 95 Nasal Cannula 2 02/03/17 14:15 93 Nasal Cannula 2 02/03/17 14:09 98.5 63 18 226/93 89 I/O 02/03/17 02/03/17 02/03/17 02/04/17 02/04/17 02/04/17 07:00 15:00 23:00 07:00 15:00 23:00 Intake Total 240 ml Output Total 100 ml 225 ml Balance 140 ml -225 ml Intake Oral 240 ml Output Urine Total 100 ml 225 ml # Bowel Movements 0 Result Diagram: 02/04/17 0707 02/04/17 0707 Other Results Laboratory Tests Test 02/03/17 02/04/17 13:36 07:07 Prothrombin Time 29.3 SEC 24.1 SEC (9.8-11.6) (9.8-11.6) Prothromb Time International 2.5 RATIO 2.1 RATIO Ratio Imaging Last 24 hours Impressions Pelvis X-Ray 02/03/171311 Signed Impressions: Service Date/Time: Friday, February 03, 2017 13:48 - CONCLUSION: Right proximal femur fracture. Demar Booth MD Head CT 02/03/171311 Signed Impressions: Service Date/Time: Friday, February 03, 2017 15:00 - CONCLUSION: Mild atrophy and white matter disease. Right frontal scalp hematoma. Demar Booth MD Femur X-Ray 02/03/171311 Signed Impressions: Service Date/Time: Friday, February 03, 2017 13:50 - CONCLUSION: Indeterminate sclerotic narrow zone of transition lesion right proximal femur. Comminuted right femoral trochanteric fracture. Demar Booth MD Chest X-Ray 02/03/172 Signed Impressions: Service Date/Time: Friday, February 03, 2017 13:47 - CONCLUSION: Right upper lobe collapse and right upper lobe lung cancer. Demar Booth MD Cervical Spine CT 02/03/172 Signed Impressions: Service Date/Time: Friday, February 03, 2017 15:02 - CONCLUSION: Right upper lobe collapse this patient with history of lung carcinoma. No fractures are seen. Mild degenerative changes of the spine. Demar Booth MD Objective Remarks RLE: Swelling and tenderness noted over right hip. NVI. Assessment & Plan Problem List: (1) Intertrochanteric fracture of right femur (2) Afib (3) COPD (chronic obstructive pulmonary disease) (4) HTN (hypertension) (5) Atrial fibrillation (6) COPD (chronic obstructive pulmonary disease) (7) H/O: lung cancer Assessment and Plan Recommendations are given for internal fixation of right hip to allow mobilization and pain control. Awaiting cardiac and medical clearance. The patient currently is anticoagulated with an INR of 2.1. Vitamin K was given last night. Further chemical reversal of her anticoagulation may be necessary this AM per medical's recommendation. Would like to proceed forward with orthopedic surgery this afternoon once her INR levels are at an appropriate level. Toya Valadez Feb 04, 2017 08:50
[2017-02-04] MEDS ORDERED: PHYTONADIONE 5 MG TAB PO ONE (09:30)
[2017-02-04] MEDS ORDERED: PERFOROMIST INH SCH (09:45)
[2017-02-04] MEDS: METOPROLOL TARTRATE 25 MG TAB PO SCH ×2 (09:59→19:56)
[2017-02-04] MEDS: DILTIAZEM-CD 180 MG CAP ER PO SCH (09:59)
[2017-02-04] MEDS: AMIODARONE 200 MG TAB PO SCH (09:59)
[2017-02-04] MEDS: PHYTONADIONE 5 MG TAB PO SCH (09:59)
[2017-02-04] MEDS ORDERED: PROPOFOL 200 MG/20 ML AMP IV ONE (10:21)
[2017-02-04] MEDS ORDERED: SODIUM CHLOR 0.9% 250 ML INJ 250 ML IV ONE (10:21)
[2017-02-04] MEDS: GABAPENTIN 100 MG CAP PO SCH ×2 (11:36→16:36)
[2017-02-04] MEDS ORDERED: PROTHROMBIN COMPLEX CONC INJ 1,500 UNITS in SYRINGE/BAG 1 EA IV ONE (12:00)
[2017-02-04] MEDS: RESP: ALBUTEROL 2.5 MG/IPRATROPIUM 0.5 MG NEB (PRN) NEB ×2 (12:56→23:11)
[2017-02-04 13:45] LABS: PROTHROMBIN TIME - PATIENT 11.6 SEC (9.8-11.6)
--- NOTE | 2017-02-04 13:58 | EKG ---
Date Performed: 02/03/2017 Time Performed: 21:17:13 PTAGE: 81 years EKG: SINUS BRADYCARDIA WITH FIRST DEGREE AV BLOCK NONSPECIFIC T-WAVE ABNORMALITY Since previous tracing, no significant change noted ABNORMAL ECG PREVIOUS TRACING : 09/02/2016 21.20 DOCTOR: Ghanshyam Harley Interpretating Date/Time 02/04/2017 13:58:26
--- NOTE | 2017-02-04 15:52 | HHI.PR ---
Subjective Remarks right hip pain controlled with narcotics Objective Vitals Vital Signs Date Time Temp Pulse Resp B/P Pulse Ox O2 Delivery O2 Flow Rate FiO2 02/04/17 12:58 92 Nasal Cannula 2.00 02/04/17 11:36 98.6 63 18 160/61 92 02/04/17 08:15 97.9 64 18 149/62 92 02/04/17 04:00 98.0 59 22 119/54 96 02/04/17 00:00 96.9 57 20 123/56 96 02/03/17 20:09 97 Nasal Cannula 3.00 02/03/17 20:00 97.3 58 22 139/59 96 02/03/17 18:13 97.2 59 17 186/81 90 02/03/17 16:00 62 18 172/80 94 Nasal Cannula 2 02/03/17 02/03/17 02/04/17 15:00 23:00 07:00 Intake Total 240 ml 758 ml Output Total 100 ml 225 ml Balance 140 ml 533 ml Intake Oral 240 ml IV Total 758 ml Output Urine Total 100 ml 225 ml # Bowel Movements 0 Result Diagram: 02/04/17 0707 02/04/17 0707 Imaging Last Impressions Pelvis X-Ray 02/03/171311 Signed Impressions: Service Date/Time: Friday, February 03, 2017 13:48 - CONCLUSION: Right proximal femur fracture. Demar Booth MD Head CT 02/03/171311 Signed Impressions: Service Date/Time: Friday, February 03, 2017 15:00 - CONCLUSION: Mild atrophy and white matter disease. Right frontal scalp hematoma. Demar Booth MD Femur X-Ray 02/03/171311 Signed Impressions: Service Date/Time: Friday, February 03, 2017 13:50 - CONCLUSION: Indeterminate sclerotic narrow zone of transition lesion right proximal femur. Comminuted right femoral trochanteric fracture. Demar Booth MD Chest X-Ray 02/03/171311 Signed Impressions: Service Date/Time: Friday, February 03, 2017 13:47 - CONCLUSION: Right upper lobe collapse and right upper lobe lung cancer. Demar Booth MD Cervical Spine CT 02/03/171311 Signed Impressions: Service Date/Time: [place], February 03, 2017 15:02 - CONCLUSION: Right upper lobe collapse this patient with history of lung carcinoma. No fractures are seen. Mild degenerative changes of the spine. Demar Booth MD Objective Remarks GENERAL: This is a well-nourished, well-developed patient, in no apparent distress. CARDIOVASCULAR: Regular rate and rhythm without murmurs, gallops, or rubs. RESPIRATORY: Clear to auscultation. Breath sounds equal bilaterally. No wheezes , rales, or rhonchi. GASTROINTESTINAL: Abdomen soft, non-tender, nondistended. Normal active bowel sounds, colostomy noted, MUSCULOSKELETAL: Extremities without clubbing, cyanosis, or edema. NEURO: Alert & Oriented x4 to person, place, time, situation. Moves all ext x4 A/P Problem List: (1) Intertrochanteric fracture of right femur Status: Acute Plan: - pt to undergo surgical repair with Dr. Pichardo - INR on admission 2.5 (02/04/16). Pt received Vitamin K 5mg. - INR 2.1 (02/05/16). - Pt received Vitamin K 10mg, and kcentra - repeat INR 1.0 (02/04/17) - Pt has been cleared for surgery by Cardiology - I agree that pt requires surgical repair of right hip, but patient has a moderately increased risk of perioperative morbidity and mortality due to her advanced age and multiple chronic medical problems. - toradol/dilaudid prn - surgery planned for this afternoon (2) Atrial fibrillation Status: Chronic Plan: - rate is controlled - coumadin is being reversed for surgery - anticoagulation will need to be resumed after surgery - metoprolol, Diltiazem ER (3) COPD (chronic obstructive pulmonary disease) Status: Chronic Plan: - Formoterol - duonebs prn (4) HTN (hypertension) Status: Chronic Plan: - metoprolol, diltiazem ER (5) H/O: lung cancer Status: Chronic Plan: - cxr reviewed with radiology & findings are unchanged from prior hospitalization - Pt follows with Dr. Box Problem Qualifiers (1) Intertrochanteric fracture of right femur: Qualified Code: S72.141A - Intertrochanteric fracture of right femur, closed, initial encounter (2) Atrial fibrillation: Qualified Code: I48.2 - Chronic atrial fibrillation (3) HTN (hypertension): Qualified Code: I10 - Essential hypertension Papito Elena DO Feb 04, 2017 15:52
[2017-02-04] MEDS: ONDANSETRON HCL 4 MG/2 ML VIAL IVP PRN (16:37)
[2017-02-04] MEDS ORDERED: GENTAMICIN SULFATE 80 MG/2 ML VIAL IRRIGATION ONE (22:17)
--- NOTE | 2017-02-04 22:39 | PD.OP ---
cc: Ghanshyam Pichardo MD Operative Report Preoperative Diagnosis: (1) Intertrochanteric fracture of right femur Postoperative Diagnosis: (1) Intertrochanteric fracture of right femur Procedure: Closed reduction with trochanteric nail fixation right proximal femur fracture Implants used: Synthes trochanteric nail 10 x 125 Anesthesia: Gen. Surgeon: Ghanshyam Pichardo Automation Qa Tester(s): Toya Valadez PA-C ([place]) The surgical procedure was assisted by my physician's sales and marketing assistant. Her presence was necessary throughout the case for manipulation and positioning of the surgical extremity. My PA was assisting me throughout the duration of this procedure. The skill set of the physician sales and marketing assistant was medically necessary to complete this procedure. During the surgical case the surgical assistant certified was working at the back table and the physician sales and marketing assistant was directly assisting me. Operation and Findings: Indications: This 81-year-old female fell injuring her right hip. She had pain and inability ambulate. She presented to [facility]. X-rays revealed an intertrochanteric fracture of the right proximal femur. Her surgery was delayed secondary to being anticoagulated for atrial fibrillation. Given the alternatives of the treatment she presents for internal fixation to allow mobilization and pain control. Procedure and findings: The patient was taken to the operative suite and after undergoing an adequate level of general anesthesia was placed supine on the fracture table. The right lower extremity was positioned in skin traction and the preoperative reduction checked in both the AP and lateral planes with the C- arm. It was then prepped and draped in usual sterile fashion with alcohol, Hibiclens and ChloraPrep. Preoperative antibiotic consisted of Ancef 2 g IV. An incision was made over the lateral aspect of the hip extending from the greater trochanter for distance approximately 3 cm. This was carried down to skin and subcutaneous tense tissue with a knife. Hemostasis was obtained electrocautery. The muscular fascia was incised and split longitudinally. An entry point was selected at the tip of the greater trochanter. This was entered with a threaded guidepin. The position was checked in both the AP and lateral planes with the C-arm. It was subsequently overdrilled. An 10 x 125 Synthes trochanteric nail was then impacted in the place. Utilizing the outrigger device an additional incision was made distally. A threaded guidepin was advanced through the lateral cortex, across the nail, into the femoral neck and seated in the subchondral bone of the femoral head. The position was checked in both the AP and lateral planes with the C-arm. A measurement was then made. An 85 helical blade was selected. The lateral cortex was overdrilled. The helical blade was then impacted in the place. The locking mechanism was then seated proximally. Utilizing the outrigger device a percutaneous incision was made distally. A trocar was placed against the lateral cortex. The distal interlocking screw hole was drilled and the appropriate length screw placed. The position of the fracture reduction and placement of the internal fixation were checked in both the AP and lateral planes with the C-arm. The wounds were then thoroughly irrigated. They were closed in layers utilizing 0 Vicryl suture on the muscular fascia, 2-0 Vicryl suture on the subcutaneous tense tissue and mariya on the skin. Sterile dressings were applied, the patient was awakened, transferred to the hospital bed and taken to the recovery room in stable condition. Estimated blood loss: 75 cc Complications: None Ghanshyam Pichardo MD Feb 04, 2017 22:38
[2017-02-04] MEDS ORDERED: TEMAZEPAM 15 MG CAP PO PRN (22:45)
[2017-02-04] MEDS ORDERED: ONDANSETRON HCL 4 MG/2 ML VIAL IVP PRN (22:45)
[2017-02-04] MEDS ORDERED: Post-op Orders (for Pharmacy) MISC XX ONE (22:45)
[2017-02-04] MEDS ORDERED: BISACODYL 10 MG SUPP RECTAL PRN (22:45)
[2017-02-04] MEDS ORDERED: SODIUM CHLORIDE 0.9% FLUSH 10 ML FLUSH IV FLUSH PRN (22:45)
[2017-02-04] MEDS ORDERED: MORPHINE SULFATE 8 MG/ML INJ IV PUSH PRN (22:45)
[2017-02-04] MEDS ORDERED: ACETAMINOPHEN/HYDROcodone 325 MG/5 MG TAB PO PRN ×2 (22:45)
[2017-02-04] MEDS ORDERED: ALUMINUM/MAGNESIUM/SIMETH 30 ML CUP PO PRN (22:45)
[2017-02-04] MEDS ORDERED: POVIDONE IODINE 10% SOLN 118 ML BOTTLE TOPICAL PRN (22:45)
[2017-02-04] MEDS ORDERED: fentaNYL CITRATE 250 MCG/5 ML AMP ONE (23:00)
[2017-02-04] MEDS ORDERED: *morphine SULFATE 8 MG/ML PERIprocedure ONLY ONE (23:12)
--- NOTE | 2017-02-04 23:16 | RADRPT ---
EXAM DATE/TIME: 02/04/2017 22:18 [facility] COMPARISON: No previous studies available for comparison. INDICATIONS : Open reduction right hip. MEDICAL HISTORY : None. SURGICAL HISTORY : None. ENCOUNTER: Subsequent ACUITY: 2 days PAIN SCORE: Non-responsive. LOCATION: Right pelvis FINDINGS: There are postsurgical changes with operative reduction and internal fixation of the previously seen fracture. The alignment is anatomic. CONCLUSION: Postsurgical changes as above. Liban Garnica MD on February 04, 2017 at 23:14 Board Certified Radiologist. This report was verified electronically.
[2017-02-04] MEDS: LACTATED RINGER'S 1000 ML INJ 1,000 ML IV SCH (23:17)
[2017-02-05] VITALS (11 sets, daily range): BP systolic 136–166; BP diastolic 53–71; PULSE 58–64; RESP 16–20; TEMP 95.6–98.7; O2SAT 91–98
[2017-02-05] MEDS ORDERED: *ONDANSETRON 4 MG VIAL PERIprocedural Use ONLY ONE (00:03)
[2017-02-05] MEDS: ceFAZolin 2 GM PREMIX 50 ML IV SCH ×3 (01:39→14:04)
[2017-02-05 07:43] LABS: AUTOMATED NEUTROPHIL # 12.7 TH/MM3 (1.8-7.7); BASOPHIL # 0.1 TH/MM3 (0-0.2); BASOPHIL % 0.4 % (0.0-2.0); EOSINOPHIL # 0.3 TH/MM3 (0-0.4); EOSINOPHIL % 1.8 % (0.0-4.0); HEMATOCRIT 29.9 % (35.0-46.0); HEMO FLAGS DIFF FINAL; LYMPH % 6.3 % (9.0-44.0); LYMPHOCYTE # 0.9 TH/MM3 (1.0-4.8); MEAN CELL VOLUME 87.5 FL (80.0-100.0); MEAN CORPUSCULAR HEMOGLOBIN 29.5 PG (27.0-34.0); MEAN CORPUSCULAR HGB CONC 33.7 % (32.0-36.0); MONO % 6.8 % (0.0-8.0); NEUT % 84.7 % (16.0-70.0); PLATELET COUNT 125 TH/MM3 (150-450); RED BLOOD COUNT 3.41 MIL/MM3 (4.00-5.30); RED CELL DISTRIBUTION WIDTH 16.1 % (11.6-17.2); WHITE BLOOD COUNT 14.9 TH/MM3 (4.0-11.0)
[2017-02-05 07:48] LABS: INTERNATIONAL NORMALIZED RATIO 1.1 RATIO
[2017-02-05 08:06] LABS: MAGNESIUM 1.6 MG/DL (1.5-2.5); POTASSIUM 4.3 MEQ/L (3.5-5.1)
--- NOTE | 2017-02-05 08:15 | PD.ORT.PN ---
Subjective Post Op Day #: 1 Subjective Remarks Patient laying comfortably in bed, answering questions appropriately. Admits right hip pain is controlled at this point. Admits to nausea. Rebreather mask on. No new complaints. Objective Vitals Vital Signs Date Time Temp Pulse Resp B/P Pulse Ox O2 Delivery O2 Flow Rate FiO2 02/05/17 04:54 95 Venturi Mask 6.00 40 02/05/17 04:00 96.2 59 18 152/67 95 02/05/17 01:37 98 Venturi Mask 6.00 40 02/05/17 01:00 95 Venturi Mask 40 02/05/17 00:54 95 02/05/17 00:40 95.6 60 18 142/59 96 02/05/17 00:00 97.7 60 15 158/69 94 Venturi Mask 40 02/04/17 23:45 59 15 158/70 93 Venturi Mask 40 02/04/17 23:30 58 15 165/74 92 Venturi Mask 40 02/04/17 23:17 15 02/04/17 23:15 60 14 162/76 93 Nasal Cannula 3 02/04/17 23:00 76 14 179/73 92 Nasal Cannula 3 02/04/17 22:52 98.0 96 16 163/70 100 Simple Mask 10 02/04/17 20:59 98.8 69 19 162/77 94 02/04/17 20:00 94 Nasal Cannula 3.00 02/04/17 19:20 99.0 67 20 183/77 94 02/04/17 18:00 Nasal Cannula 2.00 02/04/17 17:48 92 Nasal Cannula 2.00 02/04/17 16:18 97.6 60 18 142/64 91 02/04/17 12:58 92 Nasal Cannula 2.00 02/04/17 11:36 98.6 63 18 160/61 92 02/04/17 08:15 97.9 64 18 149/62 92 I/O 02/04/17 02/04/17 02/04/17 02/05/17 02/05/17 02/05/17 07:00 15:00 23:00 07:00 15:00 23:00 Intake Total 758 ml 295 ml 1000 ml 1237 ml Output Total 225 ml 325 ml 400 ml 475 ml Balance 533 ml -30 ml 600 ml 762 ml Intake Oral 240 ml IV Total 758 ml 295 ml 997 ml Other 1000 ml Output Urine Total 225 ml 325 ml 300 ml 475 ml Estimated Blood Loss 100 ml Result Diagram: 02/05/17 0701 02/05/17 07 Other Results Laboratory Tests Test 02/04/17 02/05/17 12:37 07:01 Prothrombin Time 11.6 SEC 12.0 SEC (9.8-11.6) (9.8-11.6) Prothromb Time International 1.0 RATIO 1.1 RATIO Ratio Imaging Last 24 hours Impressions Pelvis X-Ray 02/03/171311 Signed Impressions: Service Date/Time: Friday, February 03, 2017 13:48 - CONCLUSION: Right proximal femur fracture. Demar Booth MD Head CT 02/03/171311 Signed Impressions: Service Date/Time: Friday, February 03, 2017 15:00 - CONCLUSION: Mild atrophy and white matter disease. Right frontal scalp hematoma. Demar Booth MD Femur X-Ray 02/03/171311 Signed Impressions: Service Date/Time: Friday, February 03, 2017 13:50 - CONCLUSION: Indeterminate sclerotic narrow zone of transition lesion right proximal femur. Comminuted right femoral trochanteric fracture. Demar Booth MD Chest X-Ray 02/03/171311 Signed Impressions: Service Date/Time: Friday, February 03, 2017 13:47 - CONCLUSION: Right upper lobe collapse and right upper lobe lung cancer. Demar Booth MD Cervical Spine CT 02/03/171311 Signed Impressions: Service Date/Time: Friday, February 03, 2017 15:02 - CONCLUSION: Right upper lobe collapse this patient with history of lung carcinoma. No fractures are seen. Mild degenerative changes of the spine. Demar Booth MD Procedures Closed reduction with trochanteric nail fixation left proximal femur fracture () Objective Remarks RLE: Dressing dry and intact.Tender to palpation with mild swelling around incision site. Appropriate range of motion expected post operatively. Freely able to move distal digits. No calf pain. Negative Leti's sign. Good cap refill. 2+ pedal pulses. Neurovascular intact. Assessment & Plan Ortho Post Op Day #: 1 Problem List: (1) Intertrochanteric fracture of right femur (2) Afib (3) COPD (chronic obstructive pulmonary disease) (4) HTN (hypertension) (5) Atrial fibrillation (6) COPD (chronic obstructive pulmonary disease) (7) H/O: lung cancer Assessment and Plan Closed reduction with trochanteric nail fixation left proximal femur fracture Ortho status stable POD #1. Weight bearing to tolerance. Progress rehab. Coumadin for DVT prophylaxis per medical's recommendation. Zofran for nausea. CM for HHC vs rehab. Discharge planning. Toya Valadez Feb 05, 2017 08:15
[2017-02-05] MEDS: SODIUM CHLORIDE 0.9% FLUSH 10 ML FLUSH IV FLUSH SCH ×2 (08:32→21:00)
[2017-02-05] MEDS: GABAPENTIN 100 MG CAP PO SCH ×3 (08:33→19:04)
[2017-02-05] MEDS: AMIODARONE 200 MG TAB PO SCH (08:34)
[2017-02-05] MEDS: DILTIAZEM-CD 180 MG CAP ER PO SCH (08:34)
[2017-02-05] MEDS: MONTELUKAST SODIUM 10 MG TAB PO SCH (08:35)
[2017-02-05] MEDS: ASPIRIN 81 MG CHEW TAB CHEW SCH (08:35)
[2017-02-05] MEDS: METOPROLOL TARTRATE 25 MG TAB PO SCH ×2 (08:35→21:12)
[2017-02-05] MEDS ORDERED: MULTIVITAMINS/MINERALS THERAPEUTIC TAB PO SCH (09:00)
[2017-02-05] MEDS ORDERED: ONDANSETRON HCL 4 MG/2 ML VIAL IV PUSH ONE (10:00)
--- NOTE | 2017-02-05 10:13 | HHI.PR ---
Subjective Remarks Following surgery pt extubated, but remained on Venti mask. Pt weaned to 4L NC this AM with oxygen saturation running in the low 90s Pt refusing PO pain mediations. Pt using morphine for pain. Pt c/o nausea despite zofran 4mg. Objective Vitals Vital Signs Date Time Temp Pulse Resp B/P Pulse Ox O2 Delivery O2 Flow Rate FiO2 02/05/17 09:43 91 Nasal Cannula 4.00 Humidified 02/05/17 09:27 95 Nasal Cannula 4.00 02/05/17 09:21 95 Nasal Cannula 4.00 02/05/17 04:54 95 Venturi Mask 6.00 40 02/05/17 04:00 96.2 59 18 152/67 95 02/05/17 01:37 98 Venturi Mask 6.00 40 02/05/17 01:00 95 Venturi Mask 40 02/05/17 00:54 95 02/05/17 00:40 95.6 60 18 142/59 96 02/05/17 00:00 97.7 60 15 158/69 94 Venturi Mask 40 02/04/17 23:45 59 15 158/70 93 Venturi Mask 40 02/04/17 23:30 58 15 165/74 92 Venturi Mask 40 02/04/17 23:17 15 02/04/17 23:15 60 14 162/76 93 Nasal Cannula 3 02/04/17 23:00 76 14 179/73 92 Nasal Cannula 3 02/04/17 22:52 98.0 96 16 163/70 100 Simple Mask 10 02/04/17 20:59 98.8 69 19 162/77 94 02/04/17 20:00 94 Nasal Cannula 3.00 02/04/17 19:20 99.0 67 20 183/77 94 02/04/17 18:00 Nasal Cannula 2.00 02/04/17 17:48 92 Nasal Cannula 2.00 02/04/17 16:18 97.6 60 18 142/64 91 02/04/17 12:58 92 Nasal Cannula 2.00 02/04/17 11:36 98.6 63 18 160/61 92 02/04/17 02/04/17 02/05/17 15:00 23:00 07:00 Intake Total 295 ml 1000 ml 1237 ml Output Total 325 ml 400 ml 475 ml Balance -30 ml 600 ml 762 ml Intake Oral 240 ml IV Total 295 ml 997 ml Other 1000 ml Output Urine Total 325 ml 300 ml 475 ml Estimated Blood Loss 100 ml Result Diagram: 02/05/17 0701 02/05/17 0701 Imaging Last Impressions Hip X-Ray 02/04/17 0000 Signed Impressions: Service Date/Time: Saturday, February 04, 2017 22:18 - CONCLUSION: Postsurgical changes as above. Liban Garnica MD Pelvis X-Ray 02/03/171311 Signed Impressions: Service Date/Time: Friday, February 03, 2017 13:48 - CONCLUSION: Right proximal femur fracture. Demar Booth MD Head CT 02/03/171311 Signed Impressions: Service Date/Time: Friday, February 03, 2017 15:00 - CONCLUSION: Mild atrophy and white matter disease. Right frontal scalp hematoma. Demar Booth MD Femur X-Ray 02/03/171311 Signed Impressions: Service Date/Time: Friday, February 03, 2017 13:50 - CONCLUSION: Indeterminate sclerotic narrow zone of transition lesion right proximal femur. Comminuted right femoral trochanteric fracture. Demar Booth MD Chest X-Ray 02/03/171311 Signed Impressions: Service Date/Time: Friday, February 03, 2017 13:47 - CONCLUSION: Right upper lobe collapse and right upper lobe lung cancer. Demar Booth MD Cervical Spine CT 02/03/171311 Signed Impressions: Service Date/Time: Friday, February 03, 2017 15:02 - CONCLUSION: Right upper lobe collapse this patient with history of lung carcinoma. No fractures are seen. Mild degenerative changes of the spine. Demar Booth MD Objective Remarks GENERAL: This is a well-nourished, well-developed patient, in no apparent distress. CARDIOVASCULAR: Regular rate and rhythm without murmurs, gallops, or rubs. RESPIRATORY: Clear to auscultation. Breath sounds equal bilaterally. No wheezes , rales, or rhonchi. GASTROINTESTINAL: Abdomen soft, non-tender, nondistended. Normal active bowel sounds, colostomy noted, MUSCULOSKELETAL: Extremities without clubbing, cyanosis, or edema. NEURO: Alert & Oriented x4 to person, place, time, situation. Moves all ext x4 A/P Problem List: (1) Intertrochanteric fracture of right femur Status: Acute Plan: - Closed reduction with trochanteric nail fixation left proximal femur fracture (02/04/17) performed by Dr. Ghanshyam Pichardo 02/04/17 - POD #1 - INR was reversed prior to surgery with Vitamin K and Kcentra - repeat INR in AM - Pt was cleared for surgery by Cardiology prior to procedure. - dilaudid/norco/ultram prn pain - constipation precautions - pt has h/o lung CA - Pt required venti mask postoperatively, and now on 4L - obtain f/u CXR - encourage incentive spirometer - closely monitor oxygen saturation - constipation precautions - DVT prophylaxis - start lovenox 30mg SubQ this evening - will resume pt's outpt coumadin dosing - follow INR, stop lovenox when INR above 2 - May take a few days for coumadin to become therapeutic since pt received Vitamin K (2) Atrial fibrillation Status: Chronic Plan: - rate is controlled - resume coumadin - metoprolol, Diltiazem ER (3) COPD (chronic obstructive pulmonary disease) Status: Acute Plan: - Formoterol - duonebs prn (4) HTN (hypertension) Status: Chronic Plan: - metoprolol, diltiazem ER (5) H/O: lung cancer Status: Chronic Plan: - cxr reviewed with radiology & findings are unchanged from prior hospitalization - Pt follows with Dr. Box Problem Qualifiers (1) Intertrochanteric fracture of right femur: Qualified Code: S72.141A - Intertrochanteric fracture of right femur, closed, initial encounter (2) Atrial fibrillation: Qualified Code: I48.2 - Chronic atrial fibrillation (3) HTN (hypertension): Qualified Code: I10 - Essential hypertension Papito Elena DO Feb 05, 2017 10:12
--- NOTE | 2017-02-05 10:41 | RADRPT ---
EXAM DATE/TIME: 02/05/2017 10:12 [facility] COMPARISON: CHEST SINGLE AP, February 03, 2017, 13:47. INDICATIONS : Shortness of breath. MEDICAL HISTORY : Hypertension. Carcinoma, lung. A-fib. SURGICAL HISTORY : Colostomy. ENCOUNTER: Subsequent ACUITY: 1 day PAIN SCORE: 2/10 LOCATION: Bilateral chest FINDINGS: Left subclavian [id number] is present with tip overlapping the expected region of the SVC. Right a pical density, tenting of the hemidiaphragm and vertebroplasty of upper thoracic vertebra have not ch anged. There is mild interstitial process not significantly changed. CONCLUSION: No appreciable change. Roselyn Brooke MD on February 05, 2017 at 10:36 Board Certified Radiologist. This report was verified electronically.
[2017-02-05] MEDS ORDERED: ONDANSETRON HCL 4 MG/2 ML VIAL IVP PRN (10:45)
[2017-02-05] MEDS ORDERED: ONDANSETRON INJ 8 MG in DEXTROSE 5% IN WATER INJ 50 ML IV PRN ×2 (16:00)
[2017-02-05] MEDS: LACTATED RINGER'S 1000 ML INJ 1,000 ML IV SCH (18:48)
[2017-02-05] MEDS: WARFARIN SOD 3 MG TAB PO SCH (19:04)
[2017-02-05] MEDS: ENOXAPARIN SODIUM 30 MG/0.3 ML SYRINGE SQ SCH (19:04)
[2017-02-05] MEDS ORDERED: SODIUM CHLORIDE FLUSH IV FLUSH PRN (20:15)
[2017-02-05] MEDS: MAGNESIUM HYDROXIDE SUSP 30 ML CUP PO PRN (21:12)
[2017-02-05] MEDS ORDERED: SODIUM CHLORID 0.9% 500 ML INJ 500 ML IV PRN (22:45)
[2017-02-06] VITALS (9 sets, daily range): BP systolic 107–160; BP diastolic 50–74; PULSE 63–76; RESP 16–22; TEMP 97.5–99.7; O2SAT 92–97
--- NOTE | 2017-02-06 07:29 | PD.ORT.PN ---
Subjective Post Op Day #: 2 Subjective Remarks Patient laying comfortably in bed, answering questions appropriately. Admits right hip pain is controlled at this point. Admits to nausea and feeling faint the last 24 hours. She has not tried walking yet. No new complaints. Objective Vitals Vital Signs Date Time Temp Pulse Resp B/P Pulse Ox O2 Delivery O2 Flow Rate FiO2 02/06/17 04:00 99.6 74 22 160/53 92 02/06/17 00:00 99.7 70 20 154/68 93 02/05/17 21:11 92 Nasal Cannula 4.00 Humidified 02/05/17 20:35 94 Nasal Cannula 4.00 02/05/17 20:00 98.5 64 16 142/67 92 02/05/17 17:00 98.7 58 20 139/53 91 02/05/17 12:28 95.7 61 18 136/58 92 02/05/17 09:43 91 Nasal Cannula 4.00 Humidified 02/05/17 09:27 95 Nasal Cannula 4.00 02/05/17 09:21 95 Nasal Cannula 4.00 02/05/17 08:06 98.3 63 17 166/71 96 I/O 02/05/17 02/05/17 02/05/17 02/06/17 02/06/17 02/06/17 07:00 15:00 23:00 07:00 15:00 23:00 Intake Total 1237 ml 240 ml Output Total 475 ml 100 ml 175 ml 80 ml Balance 762 ml 140 ml -175 ml -80 ml Intake Oral 240 ml 240 ml IV Total 997 ml Output Urine Total 475 ml 100 ml 175 ml 80 ml Result Diagram: 02/05/17 0702/05/17 07 Imaging Last 24 hours Impressions Pelvis X-Ray 02/03/171311 Signed Impressions: Service Date/Time: Friday, February 03, 2017 13:48 - CONCLUSION: Right proximal femur fracture. Demar Booth MD Head CT 02/03/171311 Signed Impressions: Service Date/Time: Friday, February 03, 2017 15:00 - CONCLUSION: Mild atrophy and white matter disease. Right frontal scalp hematoma. Demar Booth MD Femur X-Ray 02/03/171311 Signed Impressions: Service Date/Time: Friday, February 03, 2017 13:50 - CONCLUSION: Indeterminate sclerotic narrow zone of transition lesion right proximal femur. Comminuted right femoral trochanteric fracture. Demar Booth MD Chest X-Ray 02/03/17 1312 Signed Impressions: Service Date/Time: Friday, February 03, 2017 13:47 - CONCLUSION: Right upper lobe collapse and right upper lobe lung cancer. Demar Booth MD Cervical Spine CT 02/03/17 1312 Signed Impressions: Service Date/Time: Friday, February 03, 2017 15:02 - CONCLUSION: Right upper lobe collapse this patient with history of lung carcinoma. No fractures are seen. Mild degenerative changes of the spine. Demar Booth MD Procedures Closed reduction with trochanteric nail fixation left proximal femur fracture () Objective Remarks RLE: Dressing dry and intact.Tender to palpation with mild swelling around incision site. Appropriate range of motion expected post operatively. Freely able to move distal digits. No calf pain. Negative Leti's sign. Good cap refill. 2+ pedal pulses. Neurovascular intact. Assessment & Plan Ortho Post Op Day #: 2 Problem List: (1) Intertrochanteric fracture of right femur (2) Afib (3) COPD (chronic obstructive pulmonary disease) (4) HTN (hypertension) (5) Atrial fibrillation (6) COPD (chronic obstructive pulmonary disease) (7) H/O: lung cancer Assessment and Plan Closed reduction with trochanteric nail fixation left proximal femur fracture Ortho status stable POD #2. Weight bearing to tolerance. Progress rehab. Daily dressing changes. Coumadin for DVT prophylaxis per medical's recommendation. Zofran for nausea. Discharge planning - d/c when medically stable, most likely rehab. Toya Valadez Feb 06, 2017 07:29
[2017-02-06 07:43] LABS: AUTOMATED NEUTROPHIL # 10.7 TH/MM3 (1.8-7.7); BASOPHIL % 0.3 % (0.0-2.0); EOSINOPHIL # 0.2 TH/MM3 (0-0.4); EOSINOPHIL % 1.8 % (0.0-4.0); HEMO FLAGS DIFF FINAL; LYMPH % 5.1 % (9.0-44.0); LYMPHOCYTE # 0.7 TH/MM3 (1.0-4.8); MEAN CELL VOLUME 87.5 FL (80.0-100.0); MEAN CORPUSCULAR HEMOGLOBIN 29.6 PG (27.0-34.0); MEAN CORPUSCULAR HGB CONC 33.9 % (32.0-36.0); NEUT % 83.8 % (16.0-70.0); PLATELET COUNT 123 TH/MM3 (150-450); RED BLOOD COUNT 3.08 MIL/MM3 (4.00-5.30); RED CELL DISTRIBUTION WIDTH 15.5 % (11.6-17.2); WHITE BLOOD COUNT 12.8 TH/MM3 (4.0-11.0)
[2017-02-06 07:49] LABS: INTERNATIONAL NORMALIZED RATIO 1.1 RATIO; PROTHROMBIN TIME - PATIENT 12.4 SEC (9.8-11.6)
[2017-02-06] MEDS: MONTELUKAST SODIUM 10 MG TAB PO SCH (07:54)
[2017-02-06] MEDS: GABAPENTIN 100 MG CAP PO SCH ×3 (07:54→17:07)
[2017-02-06] MEDS: DOCUSATE SODIUM 100 MG CAP PO SCH ×2 (07:54→19:45)
[2017-02-06] MEDS: AMIODARONE 200 MG TAB PO SCH (07:54)
[2017-02-06] MEDS: MULTIVITAMINS/MINERALS THERAPEUTIC TAB PO SCH ×2 (07:54→19:45)
[2017-02-06] MEDS: PROMETHAZINE HCL 25 MG TAB PO PRN (07:55)
[2017-02-06] MEDS: ASPIRIN 81 MG CHEW TAB CHEW SCH (07:55)
[2017-02-06] MEDS: DILTIAZEM-CD 180 MG CAP ER PO SCH (07:55)
[2017-02-06] MEDS: METOPROLOL TARTRATE 25 MG TAB PO SCH ×2 (07:56→19:45)
[2017-02-06] MEDS: MAGNESIUM HYDROXIDE SUSP 30 ML CUP PO PRN (07:56)
[2017-02-06 08:04] LABS: BICARBONATE 31.5 MEQ/L (21.0-32.0); MAGNESIUM 1.7 MG/DL (1.5-2.5); POTASSIUM 3.6 MEQ/L (3.5-5.1)
[2017-02-06] MEDS: SODIUM CHLORIDE 0.9% FLUSH 10 ML FLUSH IV FLUSH SCH ×2 (09:00→19:46)
[2017-02-06 10:09] LABS: BLOOD GAS BASE EXCESS 4.1 mmol/L (-2-2); BLOOD GAS CARBOXYHEMOGLOBIN 2.3 % (0-4); BLOOD GAS HCO3 29 mmol/L (22-26); BLOOD GAS METHEMOGLOBIN 0.6 % (0-2); BLOOD GAS O2 HGB SATURATION 78 % (90-100); BLOOD GAS OXYGEN CONTENT 11.4 Vol % (12.0-20.0); BLOOD GAS PCO2 48 mmHg (38-42); BLOOD GAS PO2 46 mmHg (61-120); BLOOD GAS TOTAL HGB 10.3 G/DL (12.0-16.0); CRITICAL VALUE YES; DRAW SITE RRA; LITER FLOW 6 L/M; NUMBER OF ARTERIAL PUNCTURES 1; OXYGEN DEVICE MASK; TEMP CORR TO 98.6
[2017-02-06 10:10] LABS: STAT YES; ULNAR PULSE PRESENT
--- NOTE | 2017-02-06 10:40 | HHI.PR ---
Subjective Remarks Pt had an episode this morning of increased SOB and increased O2 requirements with lethargy She was seen by respiratory therapy for deep suctioning and a large mucous plug was removed. Pt has been more alert and has been able to be weaned back down to simple mask but with increased crackles at the bases bilaterally. Pt is not eating much and requesting nutrition supplements Objective Vitals Vital Signs Date Time Temp Pulse Resp B/P Pulse Ox O2 Delivery O2 Flow Rate FiO2 02/06/17 08:59 94 Nasal Cannula 4.00 02/06/17 07:42 99.0 76 17 142/61 92 02/06/17 07:35 91 Nasal Cannula 4.00 Humidified 02/06/17 04:00 99.6 74 22 160/53 92 02/06/17 00:00 99.7 70 20 154/68 93 02/05/17 21:11 92 Nasal Cannula 4.00 Humidified 02/05/17 20:35 94 Nasal Cannula 4.00 02/05/17 20:00 98.5 64 16 142/67 92 02/05/17 17:00 98.7 58 20 139/53 91 02/05/17 12:28 95.7 61 18 136/58 92 02/05/17 02/05/17 02/06/17 15:00 23:00 07:00 Intake Total 240 ml 1027 ml Output Total 100 ml 175 ml 80 ml Balance 140 ml -175 ml 947 ml Intake Oral 240 ml IV Total 1027 ml Output Urine Total 100 ml 175 ml 80 ml Result Diagram: 02/06/17 0715 02/06/17 0715 Other Results Laboratory Tests Test 02/04/17 02/05/17 02/06/17 02/06/17 12:37 07:01 07:15 09:54 Prothrombin Time 11.6 SEC 12.0 SEC 12.4 SEC Prothromb Time International 1.0 RATIO 1.1 RATIO 1.1 RATIO Ratio White Blood Count 14.9 TH/MM3 12.8 TH/MM3 Red Blood Count 3.41 MIL/MM3 3.08 MIL/MM3 Hemoglobin 10.1 GM/DL 9.1 GM/DL Hematocrit 29.9 % 27.0 % Mean Corpuscular Volume 87.5 FL 87.5 FL Mean Corpuscular Hemoglobin 29.5 PG 29.6 PG Mean Corpuscular Hemoglobin 33.7 % 33.9 % Concent Red Cell Distribution Width 16.1 % 15.5 % Platelet Count 125 TH/MM3 123 TH/MM3 Mean Platelet Volume 9.3 FL 9.3 FL Neutrophils (%) (Auto) 84.7 % 83.8 % Lymphocytes (%) (Auto) 6.3 % 5.1 % Monocytes (%) (Auto) 6.8 % 9.0 % Eosinophils (%) (Auto) 1.8 % 1.8 % Basophils (%) (Auto) 0.4 % 0.3 % Neutrophils # (Auto) 12.7 TH/MM3 10.7 TH/MM3 Lymphocytes # (Auto) 0.9 TH/MM3 0.7 TH/MM3 Monocytes # (Auto) 1.0 TH/MM3 1.2 TH/MM3 Eosinophils # (Auto) 0.3 TH/MM3 0.2 TH/MM3 Basophils # (Auto) 0.1 TH/MM3 0.0 TH/MM3 CBC Comment DIFF FINAL DIFF FINAL Differential Comment Sodium Level 138 MEQ/L 139 MEQ/L Potassium Level 4.3 MEQ/L 3.6 MEQ/L Chloride Level 102 MEQ/L 102 MEQ/L Carbon Dioxide Level 30.0 MEQ/L 31.5 MEQ/L Anion Gap 6 MEQ/L 6 MEQ/L Blood Urea Nitrogen 19 MG/DL 18 MG/DL Creatinine 0.92 MG/DL 0.84 MG/DL Estimat Glomerular Filtration 59 ML/MIN 65 ML/MIN Rate Random Glucose 91 MG/DL 144 MG/DL Calcium Level 8.1 MG/DL 7.7 MG/DL Magnesium Level 1.6 MG/DL 1.7 MG/DL Blood Gas Puncture Site RRA Blood Gas Patient Temperature 98.6 Blood Gas HCO3 29 mmol/L Blood Gas Base Excess 4.1 mmol/L Blood Gas Oxygen Saturation 78 % Arterial Blood pH 7.39 Arterial Blood Partial 48 mmHg Pressure CO2 Arterial Blood Partial 46 mmHg Pressure O2 Arterial Blood Oxygen Content 11.4 Vol % Arterial Blood 2.3 % Carboxyhemoglobin Arterial Blood Methemoglobin 0.6 % Blood Gas Hemoglobin 10.3 G/DL Oxygen Delivery Device MASK Blood Gas Liter Flow 6 L/M Imaging Last Impressions Hip X-Ray 02/04/17 0000 Signed Impressions: Service Date/Time: Saturday, February 04, 2017 22:18 - CONCLUSION: Postsurgical changes as above. Liban Garnica MD Pelvis X-Ray 4/14/17 1312 Signed Impressions: Service Date/Time: Friday, February 03, 2017 13:48 - CONCLUSION: Right proximal femur fracture. Demar Booth MD Head CT 02/03/171311 Signed Impressions: Service Date/Time: Friday, February 03, 2017 15:00 - CONCLUSION: Mild atrophy and white matter disease. Right frontal scalp hematoma. Demar Booth MD Femur X-Ray 02/03/171311 Signed Impressions: Service Date/Time: Friday, February 03, 2017 13:50 - CONCLUSION: Indeterminate sclerotic narrow zone of transition lesion right proximal femur. Comminuted right femoral trochanteric fracture. Demar Booth MD Chest X-Ray 02/03/171311 Signed Impressions: Service Date/Time: Friday, February 03, 2017 13:47 - CONCLUSION: Right upper lobe collapse and right upper lobe lung cancer. Demar Booth MD Cervical Spine CT 02/03/171311 Signed Impressions: Service Date/Time: Friday, February 03, 2017 15:02 - CONCLUSION: Right upper lobe collapse this patient with history of lung carcinoma. No fractures are seen. Mild degenerative changes of the spine. Demar Booth MD Objective Remarks General: NAD, AAOx3 Chest: Crackles at the bases (L>R) Cardiac: Irregular Abd: +BS, soft ND/NT Ext: No edema A/P Problem List: (1) Intertrochanteric fracture of right femur Status: Acute Plan: - Closed reduction with trochanteric nail fixation left proximal femur fracture (02/04/17) performed by Dr. Ghanshyam Pichardo - POD #2 - INR was reversed prior to surgery with Vitamin K and K-centra - repeat INR in AM - Pt was cleared for surgery by Cardiology prior to procedure. - Dilaudid/Henderson/Ultram prn pain - constipation precautions - pt has h/o lung CA - Pt required venti mask postoperatively, and now on 4L - Post-op CXR stable - encourage incentive spirometer - closely monitor oxygen saturation - Lovenox 30mg SubQ started on 02/05 - Coumadin 3mg po daily resumed on 02/05 - follow INR, stop Lovenox when INR above 2 - May take a few days for Coumadin to become therapeutic since pt received Vitamin K - DVT prophylaxis (2) Atrial fibrillation Status: Chronic Plan: - rate is controlled - Coumadin resumed - metoprolol, Diltiazem ER (3) COPD (chronic obstructive pulmonary disease) Status: Chronic Plan: - Pt had increased O2 requirements and some mucous plugging requiring deep suctioning this morning - RT following and pt given Duonebs and O2 requirements back to simple mask - CXR with left perihilar infiltrate - Start Levaquin - Formoterol - duonebs prn (4) HTN (hypertension) Status: Chronic Plan: - metoprolol, diltiazem ER (5) H/O: lung cancer Status: Chronic Plan: - cxr reviewed with radiology & findings are unchanged from prior hospitalization - Pt follows with Dr. Box Assessment and Plan Patient examined. Assessment and plan formulated with Nat Dickerson PA-C. I agree with the above. more lung congestion today. hypoxia and nrb placed. mucus plugging suctioned. nebs given question pna left lung. abx initiated. weaning down on o2. will plan for snf once down to nasal cannula. Problem Qualifiers (1) Intertrochanteric fracture of right femur: Qualified Code: S72.141A - Intertrochanteric fracture of right femur, closed, initial encounter (2) Atrial fibrillation: Qualified Code: I48.2 - Chronic atrial fibrillation (3) HTN (hypertension): Qualified Code: I10 - Essential hypertension Nat Dickerson Feb 06, 2017 10:40 Ghanshyam Mock MD Feb 06, 2017 19:39
--- NOTE | 2017-02-06 11:17 | RADRPT ---
EXAM DATE/TIME: 02/06/2017 10:23 [facility] COMPARISON: CHEST SINGLE AP, February 05, 2017, 10:12. INDICATIONS : Short of breath MEDICAL HISTORY : None. SURGICAL HISTORY : None. ENCOUNTER: Initial ACUITY: 1 day PAIN SCORE: 0/10 LOCATION: Bilateral chest FINDINGS: A left subclavian Laxuax-T-Sgla has its tip in the superior vena cava. No pneumothorax is noted. Th ere is persistent right apical consolidation which is unchanged. Right basilar scarring is also unch anged. The heart is mildly prominent. Minimal scattered left perihilar infiltrate is noted consiste nt with possible developing pneumonia. CONCLUSION: 1. Minimal scattered left perihilar infiltrate consistent with possible developing pneumonia. Clini riky correlation is recommended. 2. Cardiomegaly. Indio Cuevas MD on February 06, 2017 at 11:10 Board Certified Radiologist. This report was verified electronically.
[2017-02-06] MEDS: RESP: ALBUTEROL 2.5 MG/IPRATROPIUM 0.5 MG NEB (SCH) NEB ×4 (11:54→23:47)
[2017-02-06] MEDS: ACETAMINOPHEN 325 MG TAB PO PRN (12:23)
[2017-02-06] MEDS: WARFARIN SOD 3 MG TAB PO SCH (15:20)
[2017-02-06] MEDS: LEVOFLOXACIN 500 MG PREMIX INJ 100 ML IV SCH (15:21)
[2017-02-06] MEDS: traMADol HCL 50 MG TAB PO PRN (17:07)
[2017-02-06] MEDS: ENOXAPARIN SODIUM 30 MG/0.3 ML SYRINGE SQ SCH (17:07)
[2017-02-07] VITALS (8 sets, daily range): BP systolic 100–162; BP diastolic 50–72; PULSE 72–87; RESP 16–22; TEMP 96.5–99.6; O2SAT 91–100
[2017-02-07] MEDS: RESP: ALBUTEROL 2.5 MG/IPRATROPIUM 0.5 MG NEB (SCH) NEB ×6 (03:28→23:37)
[2017-02-07 06:03] LABS: AUTOMATED NEUTROPHIL # 10.2 TH/MM3 (1.8-7.7); BASOPHIL % 0.4 % (0.0-2.0); EOSINOPHIL # 0.3 TH/MM3 (0-0.4); EOSINOPHIL % 2.3 % (0.0-4.0); HEMATOCRIT 26.1 % (35.0-46.0); HEMO FLAGS DIFF FINAL; LYMPH % 5.2 % (9.0-44.0); LYMPHOCYTE # 0.6 TH/MM3 (1.0-4.8); MEAN CELL VOLUME 88.8 FL (80.0-100.0); MEAN CORPUSCULAR HEMOGLOBIN 28.9 PG (27.0-34.0); MEAN CORPUSCULAR HGB CONC 32.6 % (32.0-36.0); MONO % 7.4 % (0.0-8.0); NEUT % 84.7 % (16.0-70.0); PLATELET COUNT 110 TH/MM3 (150-450); RED BLOOD COUNT 2.94 MIL/MM3 (4.00-5.30); RED CELL DISTRIBUTION WIDTH 15.7 % (11.6-17.2)
[2017-02-07 06:08] LABS: INTERNATIONAL NORMALIZED RATIO 1.1 RATIO; PROTHROMBIN TIME - PATIENT 12.2 SEC (9.8-11.6)
[2017-02-07 06:34] LABS: BICARBONATE 33.5 MEQ/L (21.0-32.0); POTASSIUM 3.6 MEQ/L (3.5-5.1)
--- NOTE | 2017-02-07 06:49 | PD.ORT.PN ---
Subjective Post Op Day #: 3 Subjective Remarks Patient laying comfortably in bed, answering questions appropriately. Admits right hip pain is controlled at this point. She admits she is feeling much better, and is able to move around better. She has interest in being discharged to rehab. No new complaints. Objective Vitals Vital Signs Date Time Temp Pulse Resp B/P Pulse Ox O2 Delivery O2 Flow Rate FiO2 02/07/17 04:00 99.4 81 16 133/62 100 02/07/17 00:40 99.6 75 18 123/57 100 02/06/17 20:58 94 Partial Rebreather 10.00 02/06/17 19:00 99.2 76 16 136/74 97 02/06/17 16:36 97.5 64 16 107/50 92 02/06/17 15:05 63 02/06/17 11:32 99.4 70 18 133/61 96 02/06/17 10:10 Non-Rebreather 02/06/17 08:59 94 Nasal Cannula 4.00 02/06/17 07:42 99.0 76 17 142/61 92 02/06/17 07:35 91 Nasal Cannula 4.00 Humidified I/O 02/06/17 02/06/17 02/06/17 02/07/17 02/07/17 02/07/17 07:00 15:00 23:00 07:00 15:00 23:00 Intake Total 1027 ml 120 ml 240 ml 250 ml Output Total 80 ml 150 ml Balance 947 ml 120 ml 90 ml 250 ml Intake Oral 120 ml 240 ml 250 ml IV Total 1027 ml Output Urine Total 80 ml Stool Total 150 ml # Voids 1 2 3 # Bowel Movements 0 0 Result Diagram: 02/07/17 0550 02/07/17 0550 Other Results Laboratory Tests Test 02/06/17 02/07/17 07:15 05:50 Prothrombin Time 12.4 SEC 12.2 SEC (9.8-11.6) (9.8-11.6) Prothromb Time International 1.1 RATIO 1.1 RATIO Ratio Imaging Last 24 hours Impressions Pelvis X-Ray 02/03/17 1312 Signed Impressions: Service Date/Time: Friday, February 03, 2017 13:48 - CONCLUSION: Right proximal femur fracture. Demar Booth MD Head CT 4/14/17 1312 Signed Impressions: Service Date/Time: Friday, February 03, 2017 15:00 - CONCLUSION: Mild atrophy and white matter disease. Right frontal scalp hematoma. Demar Booth MD Femur X-Ray 02/03/171311 Signed Impressions: Service Date/Time: Friday, February 03, 2017 13:50 - CONCLUSION: Indeterminate sclerotic narrow zone of transition lesion right proximal femur. Comminuted right femoral trochanteric fracture. Demar Booth MD Chest X-Ray 02/03/171311 Signed Impressions: Service Date/Time: Friday, February 03, 2017 13:47 - CONCLUSION: Right upper lobe collapse and right upper lobe lung cancer. Demar Booth MD Cervical Spine CT 02/03/171311 Signed Impressions: Service Date/Time: Friday, February 03, 2017 15:02 - CONCLUSION: Right upper lobe collapse this patient with history of lung carcinoma. No fractures are seen. Mild degenerative changes of the spine. Demar Booth MD Procedures Closed reduction with trochanteric nail fixation left proximal femur fracture () Objective Remarks RLE: Dressing dry and intact.Tender to palpation with mild swelling around incision site. Appropriate range of motion expected post operatively. Freely able to move distal digits. No calf pain. Negative Leti's sign. Good cap refill. 2+ pedal pulses. Neurovascular intact. Assessment & Plan Ortho Post Op Day #: 3 Problem List: (1) Intertrochanteric fracture of right femur (2) Afib (3) COPD (chronic obstructive pulmonary disease) (4) HTN (hypertension) (5) Atrial fibrillation (6) COPD (chronic obstructive pulmonary disease) (7) H/O: lung cancer Assessment and Plan Closed reduction with trochanteric nail fixation left proximal femur fracture Ortho status stable POD #3. Weight bearing to tolerance. Progress rehab. Daily dressing changes. Coumadin for DVT prophylaxis per medical's recommendation. Discharge from an orthopedic standpoint - d/c when medically stable, most likely rehab. Toya Valadez Feb 07, 2017 06:49
[2017-02-07] MEDS: GABAPENTIN 100 MG CAP PO SCH ×3 (09:52→17:06)
[2017-02-07] MEDS: DOCUSATE SODIUM 100 MG CAP PO SCH ×2 (09:52→21:56)
[2017-02-07] MEDS: ASPIRIN 81 MG CHEW TAB CHEW SCH (09:52)
[2017-02-07] MEDS: MAGNESIUM HYDROXIDE SUSP 30 ML CUP PO PRN (09:52)
[2017-02-07] MEDS: METOPROLOL TARTRATE 25 MG TAB PO SCH ×2 (09:52→21:56)
[2017-02-07] MEDS: DILTIAZEM-CD 180 MG CAP ER PO SCH (09:53)
[2017-02-07] MEDS: MULTIVITAMINS/MINERALS THERAPEUTIC TAB PO SCH ×2 (09:53→21:56)
[2017-02-07] MEDS: SODIUM CHLORIDE 0.9% FLUSH 10 ML FLUSH IV FLUSH SCH ×2 (09:53→21:56)
[2017-02-07] MEDS: AMIODARONE 200 MG TAB PO SCH (09:53)
[2017-02-07] MEDS: MONTELUKAST SODIUM 10 MG TAB PO SCH (09:53)
--- NOTE | 2017-02-07 12:05 | HHI.PR ---
Subjective Remarks Pt states that she is feeling better but still requiring nonrebreather this morning but is weaned down to simple mask currently @ 6L. She states that she coughed up some yellow mucous this morning Afebrile Objective Vitals Vital Signs Date Time Temp Pulse Resp B/P Pulse Ox O2 Delivery O2 Flow Rate FiO2 02/07/17 08:00 98.7 77 18 121/55 99 02/07/17 07:48 99 Partial Rebreather 13.00 02/07/17 04:00 99.4 81 16 133/62 100 02/07/17 00:40 99.6 75 18 123/57 100 02/06/17 20:58 94 Partial Rebreather 10.00 02/06/17 19:00 99.2 76 16 136/74 97 02/06/17 16:36 97.5 64 16 107/50 92 02/06/17 15:05 63 02/06/17 02/06/17 02/07/17 15:00 23:00 07:00 Intake Total 120 ml 240 ml 250 ml Output Total 150 ml Balance 120 ml 90 ml 250 ml Intake Oral 120 ml 240 ml 250 ml Stool Total 150 ml # Voids 1 2 3 # Bowel Movements 0 0 Result Diagram: 02/07/17 0550 02/07/17 0550 Other Results Laboratory Tests Test 02/06/17 02/06/17 02/07/17 07:15 09:54 05:50 White Blood Count 12.8 TH/MM3 12.0 TH/MM3 Red Blood Count 3.08 MIL/MM3 2.94 MIL/MM3 Hemoglobin 9.1 GM/DL 8.5 GM/DL Hematocrit 27.0 % 26.1 % Mean Corpuscular Volume 87.5 FL 88.8 FL Mean Corpuscular Hemoglobin 29.6 PG 28.9 PG Mean Corpuscular Hemoglobin 33.9 % 32.6 % Concent Red Cell Distribution Width 15.5 % 15.7 % Platelet Count 123 TH/MM3 110 TH/MM3 Mean Platelet Volume 9.3 FL 9.5 FL Neutrophils (%) (Auto) 83.8 % 84.7 % Lymphocytes (%) (Auto) 5.1 % 5.2 % Monocytes (%) (Auto) 9.0 % 7.4 % Eosinophils (%) (Auto) 1.8 % 2.3 % Basophils (%) (Auto) 0.3 % 0.4 % Neutrophils # (Auto) 10.7 TH/MM3 10.2 TH/MM3 Lymphocytes # (Auto) 0.7 TH/MM3 0.6 TH/MM3 Monocytes # (Auto) 1.2 TH/MM3 0.9 TH/MM3 Eosinophils # (Auto) 0.2 TH/MM3 0.3 TH/MM3 Basophils # (Auto) 0.0 TH/MM3 0.0 TH/MM3 CBC Comment DIFF FINAL DIFF FINAL Differential Comment Prothrombin Time 12.4 SEC 12.2 SEC Prothromb Time International 1.1 RATIO 1.1 RATIO Ratio Sodium Level 139 MEQ/L 141 MEQ/L Potassium Level 3.6 MEQ/L 3.6 MEQ/L Chloride Level 102 MEQ/L 102 MEQ/L Carbon Dioxide Level 31.5 MEQ/L 33.5 MEQ/L Anion Gap 6 MEQ/L 6 MEQ/L Blood Urea Nitrogen 18 MG/DL 17 MG/DL Creatinine 0.84 MG/DL 0.83 MG/DL Estimat Glomerular Filtration 65 ML/MIN 66 ML/MIN Rate Random Glucose 144 MG/DL 86 MG/DL Calcium Level 7.7 MG/DL 7.6 MG/DL Magnesium Level 1.7 MG/DL 2.0 MG/DL Blood Gas Puncture Site RRA Blood Gas Patient Temperature 98.6 Blood Gas HCO3 29 mmol/L Blood Gas Base Excess 4.1 mmol/L Blood Gas Oxygen Saturation 78 % Arterial Blood pH 7.39 Arterial Blood Partial 48 mmHg Pressure CO2 Arterial Blood Partial 46 mmHg Pressure O2 Arterial Blood Oxygen Content 11.4 Vol % Arterial Blood 2.3 % Carboxyhemoglobin Arterial Blood Methemoglobin 0.6 % Blood Gas Hemoglobin 10.3 G/DL Oxygen Delivery Device MASK Blood Gas Liter Flow 6 L/M Imaging Last Impressions Hip X-Ray 02/04/17 0000 Signed Impressions: Service Date/Time: Saturday, February 04, 2017 22:18 - CONCLUSION: Postsurgical changes as above. Liban Garnica MD Pelvis X-Ray 02/03/171311 Signed Impressions: Service Date/Time: Friday, February 03, 2017 13:48 - CONCLUSION: Right proximal femur fracture. Demar Booth MD Head CT 02/03/171311 Signed Impressions: Service Date/Time: Friday, February 03, 2017 15:00 - CONCLUSION: Mild atrophy and white matter disease. Right frontal scalp hematoma. Demar Booth MD Femur X-Ray 02/03/172 Signed Impressions: Service Date/Time: Friday, February 03, 2017 13:50 - CONCLUSION: Indeterminate sclerotic narrow zone of transition lesion right proximal femur. Comminuted right femoral trochanteric fracture. Demar Booth MD Chest X-Ray 02/03/172 Signed Impressions: Service Date/Time: Friday, February 03, 2017 13:47 - CONCLUSION: Right upper lobe collapse and right upper lobe lung cancer. Demar Booth MD Cervical Spine CT 02/03/171311 Signed Impressions: Service Date/Time: Friday, February 03, 2017 15:02 - CONCLUSION: Right upper lobe collapse this patient with history of lung carcinoma. No fractures are seen. Mild degenerative changes of the spine. Demar Booth MD Objective Remarks General: NAD, AAOx3 Chest: Crackles at the bases (L>R) Cardiac: Irregular Abd: +BS, soft ND/NT Ext: No edema A/P Problem List: (1) Intertrochanteric fracture of right femur Status: Acute Plan: - Closed reduction with trochanteric nail fixation left proximal femur fracture (02/04/17) performed by Dr. Ghanshyam Pichardo - POD #2 - INR was reversed prior to surgery with Vitamin K and K-centra - repeat INR in AM - Pt was cleared for surgery by Cardiology prior to procedure. - Dilaudid/Harvey/Ultram prn pain - constipation precautions - pt has h/o lung CA - Post-op CXR stable - encourage incentive spirometer - Lovenox 30mg SubQ started on 02/05 - Coumadin 3mg po daily resumed on 02/05 - follow INR, stop Lovenox when INR above 2 - May take a few days for Coumadin to become therapeutic since pt received Vitamin K - DVT prophylaxis (2) Atrial fibrillation Status: Chronic Plan: - rate is controlled - Coumadin resumed - metoprolol, Diltiazem ER (3) COPD (chronic obstructive pulmonary disease) Status: Chronic Plan: - Pt had increased O2 requirements and some mucous plugging requiring deep suctioning on 02/06 - Pt has had - RT following and pt given Duonebs and O2 requirements back to simple mask - CXR with left perihilar infiltrate - Levaquin 500mg started on on 02/06 - Check sputum culture - Formoterol - Duonebs Q4H - Pt has been requiring either partial nonrebreather or simple mask (4) HTN (hypertension) Status: Chronic Plan: - metoprolol, diltiazem ER (5) H/O: lung cancer Status: Chronic Plan: - cxr reviewed with radiology & findings are unchanged from prior hospitalization - Pt follows with Dr. Box Assessment and Plan Patient examined. Assessment and plan formulated with Nat Dickerson PA-C. I agree with the above. left lung pna. hypoxia. nebs. abx. added mucomyst. consider chest ct. Problem Qualifiers (1) Intertrochanteric fracture of right femur: Qualified Code: S72.141A - Intertrochanteric fracture of right femur, closed, initial encounter (2) Atrial fibrillation: Qualified Code: I48.2 - Chronic atrial fibrillation (3) HTN (hypertension): Qualified Code: I10 - Essential hypertension Nat Dickerson Feb 07, 2017 12:05 Ghanshyam Mock MD Feb 07, 2017 16:43
[2017-02-07] MEDS: guaiFENesin E.R. 600 MG TAB PO SCH ×2 (14:57→21:56)
[2017-02-07] MEDS: LEVOFLOXACIN 500 MG PREMIX INJ 100 ML IV SCH (14:57)
[2017-02-07] MEDS: RESP: ACETYLCYSTEINE 20% 30 ML NEB NEB SCH ×3 (16:00→23:37)
[2017-02-07] MEDS: ENOXAPARIN SODIUM 30 MG/0.3 ML SYRINGE SQ SCH (17:06)
[2017-02-07] MEDS: WARFARIN SOD 3 MG TAB PO SCH (17:06)
[2017-02-08] VITALS (10 sets, daily range): BP systolic 108–132; BP diastolic 46–63; PULSE 67–83; RESP 18–22; TEMP 97–99.4; O2SAT 93–98
[2017-02-08] MEDS: ACETAMINOPHEN 325 MG TAB PO PRN (02:29)
[2017-02-08] MEDS: RESP: ACETYLCYSTEINE 20% 30 ML NEB NEB SCH ×5 (03:44→20:00)
[2017-02-08] MEDS: RESP: ALBUTEROL 2.5 MG/IPRATROPIUM 0.5 MG NEB (SCH) NEB ×5 (03:44→20:35)
--- NOTE | 2017-02-08 07:54 | PD.ORT.PN ---
Subjective Post Op Day #: 4 Subjective Remarks Patient laying comfortably in bed, answering questions appropriately. Admits right hip pain is controlled at this point. She admits she is feeling much better, and is able to move around better. She has interest in being discharged to rehab. No new complaints. Objective Vitals Vital Signs Date Time Temp Pulse Resp B/P Pulse Ox O2 Delivery O2 Flow Rate FiO2 02/08/17 07:49 Venturi Mask 6.00 02/08/17 05:50 72 02/08/17 04:44 97.0 77 18 126/61 94 02/08/17 00:40 99.4 81 19 132/63 93 02/07/17 21:56 Venturi Mask 6.00 02/07/17 20:10 98.9 87 22 162/72 95 02/07/17 16:26 96.5 72 18 136/63 95 02/07/17 16:25 91 Venturi Mask 6.00 50 02/07/17 12:00 99.2 73 18 100/50 98 02/07/17 12:00 74 02/07/17 08:00 77 02/07/17 08:00 98.7 77 18 121/55 99 I/O 02/07/17 02/07/17 02/07/17 02/08/17 02/08/17 02/08/17 07:00 15:00 23:00 07:00 15:00 23:00 Intake Total 250 ml 480 ml 240 ml 60 ml Balance 250 ml 480 ml 240 ml 60 ml Intake Oral 250 ml 480 ml 240 ml 60 ml # Voids 3 2 1 2 # Bowel Movements 0 0 0 0 Result Diagram: 02/07/17 0550 02/07/17 0550 Imaging Last 24 hours Impressions Pelvis X-Ray 02/03/171311 Signed Impressions: Service Date/Time: Friday, February 03, 2017 13:48 - CONCLUSION: Right proximal femur fracture. Demar Booth MD Head CT 02/03/171311 Signed Impressions: Service Date/Time: Friday, February 03, 2017 15:00 - CONCLUSION: Mild atrophy and white matter disease. Right frontal scalp hematoma. Demar Booth MD Femur X-Ray 02/03/171311 Signed Impressions: Service Date/Time: Friday, February 03, 2017 13:50 - CONCLUSION: Indeterminate sclerotic narrow zone of transition lesion right proximal femur. Comminuted right femoral trochanteric fracture. Demar Booth MD Chest X-Ray 02/03/17 1312 Signed Impressions: Service Date/Time: Friday, February 03, 2017 13:47 - CONCLUSION: Right upper lobe collapse and right upper lobe lung cancer. Demar Booth MD Cervical Spine CT 02/03/17 1312 Signed Impressions: Service Date/Time: Friday, February 03, 2017 15:02 - CONCLUSION: Right upper lobe collapse this patient with history of lung carcinoma. No fractures are seen. Mild degenerative changes of the spine. Demar Booth MD Procedures Closed reduction with trochanteric nail fixation left proximal femur fracture () Objective Remarks RLE: Dressing dry and intact.Tender to palpation with mild swelling around incision site. Appropriate range of motion expected post operatively. Freely able to move distal digits. No calf pain. Negative Leti's sign. Good cap refill. 2+ pedal pulses. Neurovascular intact. Assessment & Plan Ortho Post Op Day #: 4 Problem List: (1) Intertrochanteric fracture of right femur (2) Afib (3) COPD (chronic obstructive pulmonary disease) (4) HTN (hypertension) (5) Atrial fibrillation (6) COPD (chronic obstructive pulmonary disease) (7) H/O: lung cancer Assessment and Plan Closed reduction with trochanteric nail fixation left proximal femur fracture Ortho status stable POD #4. Weight bearing to tolerance. Progress rehab. Daily dressing changes. Coumadin for DVT prophylaxis per medical's recommendation. Discharge from an orthopedic standpoint - d/c when medically stable, most likely rehab. Toya Valadez Feb 08, 2017 07:54
--- NOTE | 2017-02-08 08:20 | RADRPT ---
EXAM DATE/TIME: 02/08/2017 06:39 [facility] COMPARISON: CHEST SINGLE AP, February 06, 2017, 10:23. INDICATIONS : Short of breath. MEDICAL HISTORY : None. SURGICAL HISTORY : None. ENCOUNTER: Subsequent ACUITY: 2 days PAIN SCORE: 0/10 LOCATION: Bilateral chest FINDINGS: The heart is mildly enlarged. There is persistent right apical opacification which is stable. Small bilateral pleural effusions are noted. a left subclavian Dingvg-[id number]-Glua has its tip in the superior vena cava. CONCLUSION: 1. Small bilateral pleural effusions. 2. Cardiomegaly. 3. Persistent right apical consolidation. Indio Cuevas MD on February 08, 2017 at 7:33 Board Certified Radiologist. This report was verified electronically.
[2017-02-08] MEDS: MULTIVITAMINS/MINERALS THERAPEUTIC TAB PO SCH ×2 (09:36→20:57)
[2017-02-08] MEDS: AMIODARONE 200 MG TAB PO SCH (09:36)
[2017-02-08] MEDS: guaiFENesin E.R. 600 MG TAB PO SCH ×2 (09:36→20:57)
[2017-02-08] MEDS: DOCUSATE SODIUM 100 MG CAP PO SCH ×2 (09:36→20:57)
[2017-02-08] MEDS: ASPIRIN 81 MG CHEW TAB CHEW SCH (09:36)
[2017-02-08] MEDS: DILTIAZEM-CD 180 MG CAP ER PO SCH (09:36)
[2017-02-08] MEDS: METOPROLOL TARTRATE 25 MG TAB PO SCH ×2 (09:37→20:57)
[2017-02-08] MEDS: GABAPENTIN 100 MG CAP PO SCH ×3 (09:37→17:30)
[2017-02-08] MEDS: MONTELUKAST SODIUM 10 MG TAB PO SCH (09:37)
[2017-02-08] MEDS: SODIUM CHLORIDE 0.9% FLUSH 10 ML FLUSH IV FLUSH SCH ×2 (09:37→20:57)
--- NOTE | 2017-02-08 11:17 | HHI.PR ---
Subjective Remarks still with sob/congestion. Objective Vitals heart reg more left lung crackles abd s/nt ext no edema Vital Signs Date Time Temp Pulse Resp B/P Pulse Ox O2 Delivery O2 Flow Rate FiO2 02/08/17 08:20 94 Venturi Mask 6.00 50 02/08/17 08:00 97.2 73 18 111/54 96 02/08/17 07:49 Venturi Mask 6.00 02/08/17 05:50 72 02/08/17 04:44 97.0 77 18 126/61 94 02/08/17 00:40 99.4 81 19 132/63 93 02/07/17 21:56 Venturi Mask 6.00 02/07/17 20:10 98.9 87 22 162/72 95 02/07/17 16:26 96.5 72 18 136/63 95 02/07/17 16:25 91 Venturi Mask 6.00 50 02/07/17 12:00 99.2 73 18 100/50 98 02/07/17 12:00 74 02/07/17 02/07/17 02/08/17 15:00 23:00 07:00 Intake Total 480 ml 240 ml 60 ml Balance 480 ml 240 ml 60 ml Intake Oral 480 ml 240 ml 60 ml # Voids 2 1 2 # Bowel Movements 0 0 0 Result Diagram: 02/07/17 0550 02/07/17 0550 Imaging Last Impressions Hip X-Ray 02/04/17 0000 Signed Impressions: Service Date/Time: Saturday, February 04, 2017 22:18 - CONCLUSION: Postsurgical changes as above. Liban Garnica MD Pelvis X-Ray 02/03/171311 Signed Impressions: Service Date/Time: Friday, February 03, 2017 13:48 - CONCLUSION: Right proximal femur fracture. Demar Booth MD Head CT 02/03/171311 Signed Impressions: Service Date/Time: Friday, February 03, 2017 15:00 - CONCLUSION: Mild atrophy and white matter disease. Right frontal scalp hematoma. Demar Booth MD Femur X-Ray 02/03/171311 Signed Impressions: Service Date/Time: Friday, February 03, 2017 13:50 - CONCLUSION: Indeterminate sclerotic narrow zone of transition lesion right proximal femur. Comminuted right femoral trochanteric fracture. Demar Booth MD Chest X-Ray 02/03/17 1312 Signed Impressions: Service Date/Time: Friday, February 03, 2017 13:47 - CONCLUSION: Right upper lobe collapse and right upper lobe lung cancer. Demar Booth MD Cervical Spine CT 02/03/17 1312 Signed Impressions: Service Date/Time: Friday, February 03, 2017 15:02 - CONCLUSION: Right upper lobe collapse this patient with history of lung carcinoma. No fractures are seen. Mild degenerative changes of the spine. Demar Booth MD A/P Problem List: (1) Intertrochanteric fracture of right femur Status: Acute Plan: - Closed reduction with trochanteric nail fixation left proximal femur fracture (02/04/17) performed by Dr. Ghanshyam Pichardo - INR was reversed prior to surgery with Vitamin K and K-centra - Dilaudid/[place]/Ultram prn pain - constipation precautions - encourage incentive spirometer - Lovenox 30mg SubQ started on 02/05 - Coumadin 3mg po daily resumed on 02/05 - follow INR, stop Lovenox when INR above 2 - May take a few days for Coumadin to become therapeutic since pt received Vitamin K - DVT prophylaxis (2) COPD (chronic obstructive pulmonary disease) Status: Acute Plan: - Pt developed post op sob/hypoxia. left lung crackles concerning for pna - Pt had increased O2 requirements and some mucous plugging requiring deep suctioning on 02/06 - RT following and pt given Duonebs and O2 requirements back to simple mask - - Levaquin 500mg started on on 02/06 - Duonebs Q4H - Pt has been requiring either partial nonrebreather or simple mask -chest ct today to clarify if any need for diuretic. and extend of pna. (3) Atrial fibrillation Status: Chronic Plan: - rate is controlled - Coumadin resumed - metoprolol, Diltiazem ER (4) HTN (hypertension) Status: Chronic Plan: - metoprolol, diltiazem ER (5) H/O: lung cancer Status: Chronic Plan: - cxr reviewed with radiology & findings are unchanged from prior hospitalization - Pt follows with Dr. Box Problem Qualifiers (1) Intertrochanteric fracture of right femur: Qualified Code: S72.141A - Intertrochanteric fracture of right femur, closed, initial encounter (2) Atrial fibrillation: Qualified Code: I48.2 - Chronic atrial fibrillation (3) HTN (hypertension): Qualified Code: I10 - Essential hypertension Ghanshyam Mock MD Feb 08, 2017 11:17
--- NOTE | 2017-02-08 14:13 | RADRPT ---
EXAM DATE/TIME: 02/08/2017 12:23 [facility] COMPARISON: CT THORAX W/O CONTRAST, September 04, 2016, 17:21. INDICATIONS : Shortness of breath after hip surgery ,history of lung cancer. RADIATION DOSE: 5.1 CTDIvol (mGy) MEDICAL HISTORY : Carcinoma, lung. Cardiovascular disease Chronic obstructive pulmonary disease. Hypertension SURGICAL HISTORY : Colostomy. ENCOUNTER: Initial ACUITY: 2 days PAIN SCALE: 0/10 LOCATION: chest TECHNIQUE: Volumetric scanning of the chest was performed. Using automated exposure control and adjustment of t he mA and/or kV according to patient size, radiation dose was kept as low as reasonably achievable to obtain optimal diagnostic quality images. FINDINGS: Patient has history of right lung cancer with radiation therapy. Comparison made to prior CT 6. Hyperdense mass in the right apex, right hilar mass, and pleural thickening the right thorax and is similar in configuration to prior examination. The right hilar mass measures in excess of 4 cm in width. Cannot be fully characterized on noncontrast study. There are moderate-sized bilateral pleu ral effusions which are similar in size to prior CT. In the left chest, there is some atelectasis wi th consolidation at the left base, stable from prior. There are also some scattered interstitial inf iltrates in the lateral left midlung similar in distribution to prior CT.. Both adrenal glands are normal in configuration. Wide windows 4 bony detail demonstrate diffuse oste openia. Vertebral plasty cement T6 vertebral body. Athffz-x-Flft catheter tip in superior vena cava . CONCLUSION: Overall, multiple findings in the thorax bilaterally have very similar features to prior CT on , including large right hilar mass, right apical mass, radiation therapy changes, bilateral pleural effusions, and left basilar atelectasis. Teodoro Wheatley MD on February 08, 2017 at 13:56 Board Certified Radiologist. This report was verified electronically.
[2017-02-08] MEDS: LEVOFLOXACIN 500 MG PREMIX INJ 100 ML IV SCH (15:16)
[2017-02-08] MEDS ORDERED: FUROSEMIDE 20 MG TAB PO ONE (16:00)
[2017-02-08] MEDS ORDERED: POTASSIUM CHLORIDE 20 MEQ CONTROLLED RELEASE TAB PO ONE (16:00)
[2017-02-08] MEDS: ENOXAPARIN SODIUM 30 MG/0.3 ML SYRINGE SQ SCH (17:30)
[2017-02-08 18:00] LABS: INTERNATIONAL NORMALIZED RATIO 1.4 RATIO; PROTHROMBIN TIME - PATIENT 15.5 SEC (9.8-11.6)
[2017-02-08] MEDS: WARFARIN SOD 3 MG TAB PO SCH (18:17)
[2017-02-09] VITALS (10 sets, daily range): BP systolic 110–150; BP diastolic 55–82; PULSE 71–89; RESP 18–20; TEMP 97–99.8; O2SAT 95–99
[2017-02-09] MEDS: RESP: ACETYLCYSTEINE 20% 30 ML NEB NEB SCH ×7 (01:33→23:42)
[2017-02-09] MEDS: RESP: ALBUTEROL 2.5 MG/IPRATROPIUM 0.5 MG NEB (SCH) NEB ×7 (01:33→23:42)
[2017-02-09 05:26] LABS: AUTOMATED NEUTROPHIL # 9.7 TH/MM3 (1.8-7.7); BASOPHIL % 0.3 % (0.0-2.0); EOSINOPHIL # 0.3 TH/MM3 (0-0.4); EOSINOPHIL % 2.8 % (0.0-4.0); HEMATOCRIT 26.1 % (35.0-46.0); HEMO FLAGS DIFF FINAL; LYMPH % 8.3 % (9.0-44.0); MEAN CELL VOLUME 88.8 FL (80.0-100.0); MEAN CORPUSCULAR HEMOGLOBIN 29.5 PG (27.0-34.0); MEAN CORPUSCULAR HGB CONC 33.2 % (32.0-36.0); MONO % 9.3 % (0.0-8.0); NEUT % 79.3 % (16.0-70.0); PLATELET COUNT 138 TH/MM3 (150-450); RED BLOOD COUNT 2.94 MIL/MM3 (4.00-5.30); RED CELL DISTRIBUTION WIDTH 15.8 % (11.6-17.2); WHITE BLOOD COUNT 12.2 TH/MM3 (4.0-11.0)
[2017-02-09] MEDS: DILTIAZEM-CD 180 MG CAP ER PO SCH (08:41)
[2017-02-09] MEDS: guaiFENesin E.R. 600 MG TAB PO SCH ×2 (08:41→20:18)
[2017-02-09] MEDS: METOPROLOL TARTRATE 25 MG TAB PO SCH ×2 (08:41→20:17)
[2017-02-09] MEDS: DOCUSATE SODIUM 100 MG CAP PO SCH ×2 (08:42→20:17)
[2017-02-09] MEDS: GABAPENTIN 100 MG CAP PO SCH ×3 (08:42→17:24)
[2017-02-09] MEDS: MONTELUKAST SODIUM 10 MG TAB PO SCH (08:42)
[2017-02-09] MEDS: MULTIVITAMINS/MINERALS THERAPEUTIC TAB PO SCH ×2 (08:42→20:18)
[2017-02-09] MEDS: ASPIRIN 81 MG CHEW TAB CHEW SCH (08:42)
[2017-02-09] MEDS: AMIODARONE 200 MG TAB PO SCH (08:42)
[2017-02-09] MEDS: SODIUM CHLORIDE 0.9% FLUSH 10 ML FLUSH IV FLUSH SCH ×2 (08:43→20:18)
--- NOTE | 2017-02-09 10:43 | HHI.PR ---
Subjective Remarks Pt reports that she has not noticed much improvement in her breathing with the Lasix Pt is still on 6L ventimask She did urinate quite a bit last night and this morning. She states that she has not been eating much Pt has not had much of any output from her ostomy Objective Vitals Vital Signs Date Time Temp Pulse Resp B/P Pulse Ox O2 Delivery O2 Flow Rate FiO2 02/09/17 08:00 Venturi Mask 6.00 02/09/17 08:00 Venturi Mask 8.00 02/09/17 07:55 96 Venturi Mask 50 02/09/17 07:38 98.9 87 19 130/60 96 02/09/17 05:09 95 Venturi Mask 6.00 50 02/09/17 04:00 98.7 88 20 110/55 95 02/09/17 00:00 99.8 72 20 150/67 97 02/08/17 21:02 Venturi Mask 5.00 02/08/17 20:00 99.2 67 22 127/56 96 02/08/17 16:52 94 Venturi Mask 6.00 50 02/08/17 16:43 97.6 72 18 123/52 98 02/08/17 13:00 78 02/08/17 12:00 97.7 83 18 108/46 95 02/08/17 02/08/17 02/09/17 15:00 23:00 07:00 Intake Total 480 ml 240 ml Balance 480 ml 240 ml Intake Oral 480 ml 240 ml # Voids 2 1 3 # Bowel Movements 0 0 0 Result Diagram: 02/09/17 0500 02/07/17 0550 Other Results Laboratory Tests Test 02/08/17 02/09/17 17:40 05:00 Prothrombin Time 15.5 SEC Prothromb Time International 1.4 RATIO Ratio White Blood Count 12.2 TH/MM3 Red Blood Count 2.94 MIL/MM3 Hemoglobin 8.7 GM/DL Hematocrit 26.1 % Mean Corpuscular Volume 88.8 FL Mean Corpuscular Hemoglobin 29.5 PG Mean Corpuscular Hemoglobin 33.2 % Concent Red Cell Distribution Width 15.8 % Platelet Count 138 TH/MM3 Mean Platelet Volume 9.4 FL Neutrophils (%) (Auto) 79.3 % Lymphocytes (%) (Auto) 8.3 % Monocytes (%) (Auto) 9.3 % Eosinophils (%) (Auto) 2.8 % Basophils (%) (Auto) 0.3 % Neutrophils # (Auto) 9.7 TH/MM3 Lymphocytes # (Auto) 1.0 TH/MM3 Monocytes # (Auto) 1.1 TH/MM3 Eosinophils # (Auto) 0.3 TH/MM3 Basophils # (Auto) 0.0 TH/MM3 CBC Comment DIFF FINAL Differential Comment Imaging Last Impressions Chest X-Ray 02/08/17 0600 Signed Impressions: Service Date/Time: Wednesday, February 08, 2017 06:39 - CONCLUSION: 1. Small bilateral pleural effusions. 2. Cardiomegaly. 3. Persistent right apical consolidation. Indio Cuevas MD Chest CT 02/08/17 0000 Signed Impressions: Service Date/Time: Wednesday, February 08, 2017 12:23 - CONCLUSION: Overall, multiple findings in the thorax bilaterally have very similar features to prior CT on 09/04/16, including large right hilar mass, right apical mass, radiation therapy changes, bilateral pleural effusions, and left basilar atelectasis. Teodoro Wheatley MD Hip X-Ray 02/04/17 0000 Signed Impressions: Service Date/Time: Saturday, February 04, 2017 22:18 - CONCLUSION: Postsurgical changes as above. Liban Garnica MD Pelvis X-Ray 02/03/17 1312 Signed Impressions: Service Date/Time: Friday, February 03, 2017 13:48 - CONCLUSION: Right proximal femur fracture. Demar Booth MD Head CT 02/03/17 1312 Signed Impressions: Service Date/Time: Friday, February 03, 2017 15:00 - CONCLUSION: Mild atrophy and white matter disease. Right frontal scalp hematoma. Demar Booth MD Femur X-Ray 02/03/17 1312 Signed Impressions: Service Date/Time: Friday, February 03, 2017 13:50 - CONCLUSION: Indeterminate sclerotic narrow zone of transition lesion right proximal femur. Comminuted right femoral trochanteric fracture. Demar Booth MD Cervical Spine CT 02/03/17 1312 Signed Impressions: Service Date/Time: Friday, February 03, 2017 15:02 - CONCLUSION: Right upper lobe collapse this patient with history of lung carcinoma. No fractures are seen. Mild degenerative changes of the spine. Demar Booth MD Last Impressions Hip X-Ray 02/04/17 0000 Signed Impressions: Service Date/Time: Saturday, February 04, 2017 22:18 - CONCLUSION: Postsurgical changes as above. Liban Garncia MD Pelvis X-Ray 02/03/17 1312 Signed Impressions: Service Date/Time: Friday, February 03, 2017 13:48 - CONCLUSION: Right proximal femur fracture. Demar Booth MD Head CT 02/03/17 1312 Signed Impressions: Service Date/Time: Friday, February 03, 2017 15:00 - CONCLUSION: Mild atrophy and white matter disease. Right frontal scalp hematoma. Demar Booth MD Femur X-Ray 02/03/17 131 Signed Impressions: Service Date/Time: Friday, February 03, 2017 13:50 - CONCLUSION: Indeterminate sclerotic narrow zone of transition lesion right proximal femur. Comminuted right femoral trochanteric fracture. Demar Booth MD Chest X-Ray 02/03/171311 Signed Impressions: Service Date/Time: Friday, February 03, 2017 13:47 - CONCLUSION: Right upper lobe collapse and right upper lobe lung cancer. Demar Booth MD Cervical Spine CT 02/03/17 1312 Signed Impressions: Service Date/Time: Friday, February 03, 2017 15:02 - CONCLUSION: Right upper lobe collapse this patient with history of lung carcinoma. No fractures are seen. Mild degenerative changes of the spine. Demar Booth MD Objective Remarks General: NAD, AAOx3 Chest: Course breath sounds throughout Cardiac: Regular Abd: +BS, soft ND/NT Ext: No edema A/P Problem List: (1) Intertrochanteric fracture of right femur Status: Acute Plan: - Closed reduction with trochanteric nail fixation left proximal femur fracture (02/04/17) performed by Dr. Ghanshyam Pichardo - INR was reversed prior to surgery with Vitamin K and K-centra - Dilaudid/[place]/Ultram prn pain - constipation precautions - encourage incentive spirometer - Lovenox 30mg SubQ started on 02/05 - Coumadin 3mg po daily resumed on 02/05 - follow INR, stop Lovenox when INR above 2 - May take a few days for Coumadin to become therapeutic since pt received Vitamin K - DVT prophylaxis (2) COPD (chronic obstructive pulmonary disease) Status: Acute Plan: - Pt developed post op sob/hypoxia. left lung crackles concerning for pna - Pt had increased O2 requirements and some mucous plugging requiring deep suctioning on 02/06 - RT following - Cont. Levaquin 500mg started on on 02/06 - Duonebs Q4H - Mucomyst Q4H - Mucinex - Pt has been requiring either partial nonrebreather or simple mask - Sputum culture is pending. - Chest Ct (02/08) --> Overall, multiple findings in the thorax bilaterally have very similar features to prior CT on 09/04/16, including large right hilar mass, right apical mass, radiation therapy changes, bilateral pleural effusions, and left basilar atelectasis. - Pt was given Lasix 40mg IV x one dose on 02/08 (3) Atrial fibrillation Status: Chronic Plan: - rate is controlled - Coumadin resumed - metoprolol, Diltiazem ER (4) HTN (hypertension) Status: Chronic Plan: - metoprolol, diltiazem ER (5) H/O: lung cancer Status: Chronic Plan: - cxr reviewed with radiology & findings are unchanged from prior hospitalization - Pt follows with Dr. Box Assessment and Plan Patient examined. Assessment and plan formulated with Nat Dickerson PA-C. I agree with the above. still hypoxic on facemask. on nebs/abx. give iv lasix..pt will only take if she has a pinto. monitor bmp. Problem Qualifiers (1) Intertrochanteric fracture of right femur: Qualified Code: S72.141A - Intertrochanteric fracture of right femur, closed, initial encounter (2) Atrial fibrillation: Qualified Code: I48.2 - Chronic atrial fibrillation (3) HTN (hypertension): Qualified Code: I10 - Essential hypertension Nat Dickerson Feb 09, 2017 10:43 Ghanshyam Mock MD Feb 09, 2017 15:45
[2017-02-09] MEDS ORDERED: POTASSIUM CHLORIDE 20 MEQ CONTROLLED RELEASE TAB PO ONE (12:30)
[2017-02-09] MEDS ORDERED: FUROSEMIDE 20 MG/2 ML VIAL IV PUSH ONE (12:30)
[2017-02-09] MEDS: LEVOFLOXACIN 500 MG PREMIX INJ 100 ML IV SCH (13:48)
[2017-02-09 15:29] LABS: BICARBONATE 35.7 MEQ/L (21.0-32.0); POTASSIUM 3.6 MEQ/L (3.5-5.1)
[2017-02-09] MEDS: ENOXAPARIN SODIUM 30 MG/0.3 ML SYRINGE SQ SCH (17:25)
[2017-02-09] MEDS: WARFARIN SOD 3 MG TAB PO SCH (17:25)
[2017-02-09] MEDS: PROMETHAZINE HCL 25 MG TAB PO PRN (19:25)
[2017-02-10] VITALS (8 sets, daily range): BP systolic 92–138; BP diastolic 40–63; PULSE 72–86; RESP 18–21; TEMP 95.7–99; O2SAT 95–99
[2017-02-10] MEDS: RESP: ALBUTEROL 2.5 MG/IPRATROPIUM 0.5 MG NEB (SCH) NEB ×5 (02:46→19:06)
[2017-02-10] MEDS: RESP: ACETYLCYSTEINE 20% 30 ML NEB NEB SCH ×5 (02:47→19:06)
[2017-02-10 04:21] LABS: AUTOMATED NEUTROPHIL # 8.1 TH/MM3 (1.8-7.7); BASOPHIL # 0.1 TH/MM3 (0-0.2); BASOPHIL % 0.6 % (0.0-2.0); EOSINOPHIL # 0.4 TH/MM3 (0-0.4); EOSINOPHIL % 3.5 % (0.0-4.0); HEMATOCRIT 26.5 % (35.0-46.0); HEMO FLAGS DIFF FINAL; LYMPH % 9.6 % (9.0-44.0); MEAN CELL VOLUME 88.2 FL (80.0-100.0); MEAN CORPUSCULAR HEMOGLOBIN 29.7 PG (27.0-34.0); MEAN CORPUSCULAR HGB CONC 33.7 % (32.0-36.0); MONO % 9.9 % (0.0-8.0); NEUT % 76.4 % (16.0-70.0); PLATELET COUNT 161 TH/MM3 (150-450); RED CELL DISTRIBUTION WIDTH 15.6 % (11.6-17.2); WHITE BLOOD COUNT 10.6 TH/MM3 (4.0-11.0)
[2017-02-10 04:32] LABS: INTERNATIONAL NORMALIZED RATIO 1.5 RATIO; PROTHROMBIN TIME - PATIENT 16.4 SEC (9.8-11.6)
[2017-02-10 05:02] LABS: BICARBONATE 36.4 MEQ/L (21.0-32.0); POTASSIUM 3.9 MEQ/L (3.5-5.1)
[2017-02-10] MEDS ORDERED: FUROSEMIDE 20 MG/2 ML VIAL IV PUSH SCH (09:00)
[2017-02-10] MEDS ORDERED: POTASSIUM CHLORIDE 20 MEQ CONTROLLED RELEASE TAB PO SCH (09:00)
[2017-02-10] MEDS: FUROSEMIDE 20 MG/2 ML VIAL IV PUSH SCH ×2 (09:46→17:34)
[2017-02-10] MEDS: METOPROLOL TARTRATE 25 MG TAB PO SCH ×2 (09:46→20:40)
[2017-02-10] MEDS: guaiFENesin E.R. 600 MG TAB PO SCH ×2 (09:46→20:43)
[2017-02-10] MEDS: MULTIVITAMINS/MINERALS THERAPEUTIC TAB PO SCH ×2 (09:47→20:43)
[2017-02-10] MEDS: ASPIRIN 81 MG CHEW TAB CHEW SCH (09:47)
[2017-02-10] MEDS: GABAPENTIN 100 MG CAP PO SCH ×3 (09:47→17:35)
[2017-02-10] MEDS: DILTIAZEM-CD 180 MG CAP ER PO SCH (09:47)
[2017-02-10] MEDS: MONTELUKAST SODIUM 10 MG TAB PO SCH (09:47)
[2017-02-10] MEDS: AMIODARONE 200 MG TAB PO SCH (09:47)
[2017-02-10] MEDS: DOCUSATE SODIUM 100 MG CAP PO SCH ×2 (09:47→20:42)
[2017-02-10] MEDS: SODIUM CHLORIDE 0.9% FLUSH 10 ML FLUSH IV FLUSH SCH ×2 (09:55→20:44)
--- NOTE | 2017-02-10 10:20 | HHI.PR ---
Subjective Remarks Pt is still on the ventimask at 6L She did start passing stool into her colostomy this morning. Pt denies any productive cough but still some occasional coughing. Objective Vitals Vital Signs Date Time Temp Pulse Resp B/P Pulse Ox O2 Delivery O2 Flow Rate FiO2 02/10/17 08:06 98 Venturi Mask 6.00 50 02/10/17 07:35 95.7 84 21 138/63 95 02/10/17 04:45 98.6 81 18 135/55 97 02/10/17 00:45 98.9 75 19 138/62 99 02/09/17 20:50 98.6 89 18 136/82 95 02/09/17 20:23 Venturi Mask 6.00 50 02/09/17 15:54 98 Venturi Mask 6.00 50 02/09/17 15:27 97.0 71 19 127/60 99 02/09/17 11:38 99.0 75 19 127/62 96 02/09/17 02/09/17 02/10/17 15:00 23:00 07:00 Intake Total 300 ml 540 ml 120 ml Output Total 1250 ml 1000 ml Balance 300 ml -710 ml -880 ml Intake Oral 300 ml 240 ml 120 ml IV Total 300 ml Output Urine Total 1250 ml 1000 ml # Voids 3 # Bowel Movements 0 0 Result Diagram: 02/10/17 0400 02/10/17 0400 Other Results Laboratory Tests Test 02/08/17 02/09/17 02/09/17 02/10/17 17:40 05:00 14:46 04:00 Prothrombin Time 15.5 SEC 16.4 SEC Prothromb Time International 1.4 RATIO 1.5 RATIO Ratio White Blood Count 12.2 TH/MM3 10.6 TH/MM3 Red Blood Count 2.94 MIL/MM3 3.00 MIL/MM3 Hemoglobin 8.7 GM/DL 8.9 GM/DL Hematocrit 26.1 % 26.5 % Mean Corpuscular Volume 88.8 FL 88.2 FL Mean Corpuscular Hemoglobin 29.5 PG 29.7 PG Mean Corpuscular Hemoglobin 33.2 % 33.7 % Concent Red Cell Distribution Width 15.8 % 15.6 % Platelet Count 138 TH/MM3 161 TH/MM3 Mean Platelet Volume 9.4 FL 9.3 FL Neutrophils (%) (Auto) 79.3 % 76.4 % Lymphocytes (%) (Auto) 8.3 % 9.6 % Monocytes (%) (Auto) 9.3 % 9.9 % Eosinophils (%) (Auto) 2.8 % 3.5 % Basophils (%) (Auto) 0.3 % 0.6 % Neutrophils # (Auto) 9.7 TH/MM3 8.1 TH/MM3 Lymphocytes # (Auto) 1.0 TH/MM3 1.0 TH/MM3 Monocytes # (Auto) 1.1 TH/MM3 1.1 TH/MM3 Eosinophils # (Auto) 0.3 TH/MM3 0.4 TH/MM3 Basophils # (Auto) 0.0 TH/MM3 0.1 TH/MM3 CBC Comment DIFF FINAL DIFF FINAL Differential Comment Sodium Level 138 MEQ/L 139 MEQ/L Potassium Level 3.6 MEQ/L 3.9 MEQ/L Chloride Level 96 MEQ/L 98 MEQ/L Carbon Dioxide Level 35.7 MEQ/L 36.4 MEQ/L Anion Gap 6 MEQ/L 5 MEQ/L Blood Urea Nitrogen 19 MG/DL 17 MG/DL Creatinine 0.98 MG/DL 0.87 MG/DL Estimat Glomerular Filtration 55 ML/MIN 63 ML/MIN Rate Random Glucose 137 MG/DL 93 MG/DL Calcium Level 7.5 MG/DL 8.1 MG/DL Imaging Last Impressions Chest X-Ray 02/08/17 0600 Signed Impressions: Service Date/Time: Wednesday, February 08, 2017 06:39 - CONCLUSION: 1. Small bilateral pleural effusions. 2. Cardiomegaly. 3. Persistent right apical consolidation. Indio Cuevas MD Chest CT 02/08/17 0000 Signed Impressions: Service Date/Time: Wednesday, February 08, 2017 12:23 - CONCLUSION: Overall, multiple findings in the thorax bilaterally have very similar features to prior CT on 09/04/16, including large right hilar mass, right apical mass, radiation therapy changes, bilateral pleural effusions, and left basilar atelectasis. Teodoro Wheatley MD Hip X-Ray 02/04/17 0000 Signed Impressions: Service Date/Time: Saturday, February 04, 2017 22:18 - CONCLUSION: Postsurgical changes as above. Liban Garnica MD Pelvis X-Ray 02/03/17 1312 Signed Impressions: Service Date/Time: Friday, February 03, 2017 13:48 - CONCLUSION: Right proximal femur fracture. Demar Booth MD Head CT 02/03/17 1312 Signed Impressions: Service Date/Time: Friday, February 03, 2017 15:00 - CONCLUSION: Mild atrophy and white matter disease. Right frontal scalp hematoma. Demar Booth MD Femur X-Ray 02/03/17 1312 Signed Impressions: Service Date/Time: Friday, February 03, 2017 13:50 - CONCLUSION: Indeterminate sclerotic narrow zone of transition lesion right proximal femur. Comminuted right femoral trochanteric fracture. Demar Booth MD Cervical Spine CT 02/03/17 1312 Signed Impressions: Service Date/Time: Friday, February 03, 2017 15:02 - CONCLUSION: Right upper lobe collapse this patient with history of lung carcinoma. No fractures are seen. Mild degenerative changes of the spine. Demar Booth MD Last Impressions Hip X-Ray 02/04/17 0000 Signed Impressions: Service Date/Time: Saturday, February 04, 2017 22:18 - CONCLUSION: Postsurgical changes as above. Liban Garnica MD Pelvis X-Ray 02/03/17 1312 Signed Impressions: Service Date/Time: Friday, February 03, 2017 13:48 - CONCLUSION: Right proximal femur fracture. Demar Booth MD Head CT 02/03/17 1312 Signed Impressions: Service Date/Time: Friday, February 03, 2017 15:00 - CONCLUSION: Mild atrophy and white matter disease. Right frontal scalp hematoma. Demar Booth MD Femur X-Ray 02/03/17 131 Signed Impressions: Service Date/Time: Friday, February 03, 2017 13:50 - CONCLUSION: Indeterminate sclerotic narrow zone of transition lesion right proximal femur. Comminuted right femoral trochanteric fracture. Demar Booth MD Chest X-Ray 02/03/17 131 Signed Impressions: Service Date/Time: Friday, February 03, 2017 13:47 - CONCLUSION: Right upper lobe collapse and right upper lobe lung cancer. Demar Booth MD Cervical Spine CT 02/03/17 1312 Signed Impressions: Service Date/Time: Friday, February 03, 2017 15:02 - CONCLUSION: Right upper lobe collapse this patient with history of lung carcinoma. No fractures are seen. Mild degenerative changes of the spine. Demar Booth MD Objective Remarks General: NAD, AAOx3 Chest: Course breath sounds throughout Cardiac: Regular Abd: +BS, soft ND/NT Ext: No edema A/P Problem List: (1) Intertrochanteric fracture of right femur Status: Acute Plan: - Closed reduction with trochanteric nail fixation left proximal femur fracture (02/04/17) performed by Dr. Ghanshyam Pichardo - INR was reversed prior to surgery with Vitamin K and K-centra - Dilaudid/[place]/Ultram prn pain - constipation precautions - encourage incentive spirometer - Lovenox 30mg SubQ started on 02/05 - Coumadin 3mg po daily resumed on 02/05 - follow INR, stop Lovenox when INR above 2 - May take a few days for Coumadin to become therapeutic since pt received Vitamin K - DVT prophylaxis (2) COPD (chronic obstructive pulmonary disease) Status: Acute Plan: - Pt developed post op sob/hypoxia. left lung crackles concerning for pna - Pt had increased O2 requirements and some mucous plugging requiring deep suctioning on 02/06 - RT following - Cont. Levaquin 500mg started on on 02/06 - Duonebs Q4H - Mucomyst Q4H - Mucinex - Pt has been requiring either partial nonrebreather or simple mask - Sputum culture is pending. - Chest Ct (02/08) --> Overall, multiple findings in the thorax bilaterally have very similar features to prior CT on 09/04/16, including large right hilar mass, right apical mass, radiation therapy changes, bilateral pleural effusions, and left basilar atelectasis. - Pt was given Lasix 40mg IV x one dose on 02/08 and was given another dose on . - Her renal function is holding so we will continue the Lasix today - Monitor I&Os and daily weight - Try to wean down supplemental O2 (3) Atrial fibrillation Status: Chronic Plan: - rate is controlled - Coumadin resumed - metoprolol, Diltiazem ER (4) HTN (hypertension) Status: Chronic Plan: - metoprolol, diltiazem ER (5) H/O: lung cancer Status: Chronic Plan: - cxr reviewed with radiology & findings are unchanged from prior hospitalization - Pt follows with Dr. Box Assessment and Plan Patient examined. Assessment and plan formulated with Nat Dickerson PA-C. I agree with the above. Pt with hypoxic respiratory distress. hx lung ca and now with alot of scar/fibrosis. seems to have superimposed pna...?edema cont nebs/abx. lasix added and monitor bmp. wean down as tolerated on o2. still high flow. Problem Qualifiers (1) Intertrochanteric fracture of right femur: Qualified Code: S72.141A - Intertrochanteric fracture of right femur, closed, initial encounter (2) Atrial fibrillation: Qualified Code: I48.2 - Chronic atrial fibrillation (3) HTN (hypertension): Qualified Code: I10 - Essential hypertension Nat Dickerson Feb 10, 2017 10:20 Ghanshyam Mock MD Feb 10, 2017 18:24
[2017-02-10] MEDS ORDERED: ALBUTEROL SULFATE 90 MCG/ACT HFA 18 GM INHALER INH PRN (14:30)
[2017-02-10] MEDS: WARFARIN SOD 3 MG TAB PO SCH (15:52)
[2017-02-10] MEDS: LEVOFLOXACIN 500 MG PREMIX INJ 100 ML IV SCH (15:52)
[2017-02-10] MEDS: ENOXAPARIN SODIUM 30 MG/0.3 ML SYRINGE SQ SCH (17:34)
[2017-02-11] VITALS (10 sets, daily range): BP systolic 105–124; BP diastolic 45–69; PULSE 57–111; RESP 16–18; TEMP 95.9–99; O2SAT 93–100
[2017-02-11] MEDS: RESP: ALBUTEROL 2.5 MG/IPRATROPIUM 0.5 MG NEB (SCH) NEB ×6 (00:07→21:27)
[2017-02-11] MEDS: RESP: ACETYLCYSTEINE 20% 30 ML NEB NEB SCH ×4 (04:00→12:00)
[2017-02-11 05:32] LABS: BICARBONATE 35.7 MEQ/L (21.0-32.0); MAGNESIUM 1.8 MG/DL (1.5-2.5); POTASSIUM 3.7 MEQ/L (3.5-5.1)
[2017-02-11] MEDS: DILTIAZEM-CD 180 MG CAP ER PO SCH (08:52)
[2017-02-11] MEDS: AMIODARONE 200 MG TAB PO SCH (08:52)
[2017-02-11] MEDS: DOCUSATE SODIUM 100 MG CAP PO SCH ×2 (08:52→20:13)
[2017-02-11] MEDS: METOPROLOL TARTRATE 25 MG TAB PO SCH ×2 (08:52→20:13)
[2017-02-11] MEDS: MULTIVITAMINS/MINERALS THERAPEUTIC TAB PO SCH ×2 (08:52→20:13)
[2017-02-11] MEDS: GABAPENTIN 100 MG CAP PO SCH ×3 (08:52→17:46)
[2017-02-11] MEDS: guaiFENesin E.R. 600 MG TAB PO SCH ×2 (08:53→20:13)
[2017-02-11] MEDS: ASPIRIN 81 MG CHEW TAB CHEW SCH (08:53)
[2017-02-11] MEDS: SODIUM CHLORIDE 0.9% FLUSH 10 ML FLUSH IV FLUSH SCH ×2 (08:58→20:14)
[2017-02-11] MEDS: MONTELUKAST SODIUM 10 MG TAB PO SCH (09:00)
--- NOTE | 2017-02-11 11:33 | HHI.PR ---
Subjective Remarks feels better down to 4lnc she says her home baseline is 3lnc she wants to go home Monday and not snf. Objective Vitals nad. 4lnc leonardo rhonci but improved heart reg abd s/nt ext no edema pinto Vital Signs Date Time Temp Pulse Resp B/P Pulse Ox O2 Delivery O2 Flow Rate FiO2 02/11/17 09:01 93 Nasal Cannula 6.00 02/11/17 08:00 97.6 111 18 124/69 95 02/11/17 05:47 97.6 88 16 116/52 98 02/11/17 04:46 99 Venturi Mask 6.00 35 02/11/17 01:19 97.0 82 18 106/53 96 02/11/17 00:11 100 Venturi Mask 6.00 40 02/10/17 22:10 99.0 72 18 92/40 97 02/10/17 21:00 Venturi Mask 6.00 02/10/17 15:47 99 Venturi Mask 6.00 40 02/10/17 15:21 97.6 78 21 115/56 99 02/10/17 02/10/17 02/11/17 15:00 23:00 07:00 Intake Total 240 ml Output Total 650 ml 400 ml Balance -410 ml -400 ml Intake Oral 240 ml Output Urine Total 650 ml 400 ml # Bowel Movements 1 Result Diagram: 02/10/17 0400 02/11/17 0445 Imaging Last Impressions Chest X-Ray 02/08/17 0600 Signed Impressions: Service Date/Time: Wednesday, February 08, 2017 06:39 - CONCLUSION: 1. Small bilateral pleural effusions. 2. Cardiomegaly. 3. Persistent right apical consolidation. Indio Cuevas MD Chest CT 02/08/17 0000 Signed Impressions: Service Date/Time: Wednesday, February 08, 2017 12:23 - CONCLUSION: Overall, multiple findings in the thorax bilaterally have very similar features to prior CT on 09/04/16, including large right hilar mass, right apical mass, radiation therapy changes, bilateral pleural effusions, and left basilar atelectasis. Teodoro Wheatley MD Hip X-Ray 02/04/17 0000 Signed Impressions: Service Date/Time: Saturday, February 04, 2017 22:18 - CONCLUSION: Postsurgical changes as above. Liban Garnica MD Pelvis X-Ray 02/03/17 131 Signed Impressions: Service Date/Time: Friday, February 03, 2017 13:48 - CONCLUSION: Right proximal femur fracture. Demar Booth MD Head CT 02/03/17 131 Signed Impressions: Service Date/Time: Friday, February 03, 2017 15:00 - CONCLUSION: Mild atrophy and white matter disease. Right frontal scalp hematoma. Demar Booth MD Femur X-Ray 02/03/171311 Signed Impressions: Service Date/Time: Friday, February 03, 2017 13:50 - CONCLUSION: Indeterminate sclerotic narrow zone of transition lesion right proximal femur. Comminuted right femoral trochanteric fracture. Demar Booth MD Cervical Spine CT 02/03/171311 Signed Impressions: Service Date/Time: Friday, February 03, 2017 15:02 - CONCLUSION: Right upper lobe collapse this patient with history of lung carcinoma. No fractures are seen. Mild degenerative changes of the spine. eDmar Booth MD Last Impressions Hip X-Ray 02/04/17 0000 Signed Impressions: Service Date/Time: Saturday, February 04, 2017 22:18 - CONCLUSION: Postsurgical changes as above. Liban Garnica MD Pelvis X-Ray 02/03/171311 Signed Impressions: Service Date/Time: Friday, February 03, 2017 13:48 - CONCLUSION: Right proximal femur fracture. Demar Booth MD Head CT 02/03/17 131 Signed Impressions: Service Date/Time: Friday, February 03, 2017 15:00 - CONCLUSION: Mild atrophy and white matter disease. Right frontal scalp hematoma. Demar Booth MD Femur X-Ray 02/03/171311 Signed Impressions: Service Date/Time: Friday, February 03, 2017 13:50 - CONCLUSION: Indeterminate sclerotic narrow zone of transition lesion right proximal femur. Comminuted right femoral trochanteric fracture. Demar Booth MD Chest X-Ray 02/03/171311 Signed Impressions: Service Date/Time: Friday, February 03, 2017 13:47 - CONCLUSION: Right upper lobe collapse and right upper lobe lung cancer. Demar Booth MD Cervical Spine CT 02/03/17 1312 Signed Impressions: Service Date/Time: Friday, February 03, 2017 15:02 - CONCLUSION: Right upper lobe collapse this patient with history of lung carcinoma. No fractures are seen. Mild degenerative changes of the spine. Demar Booth MD A/P Problem List: (1) Intertrochanteric fracture of right femur Status: Acute Plan: - Closed reduction with trochanteric nail fixation left proximal femur fracture (02/04/17) performed by Dr. Ghanshyam Pichardo - INR was reversed prior to surgery with Vitamin K and K-centra - Dilaudid/[place]/Ultram prn pain - constipation precautions - encourage incentive spirometer - Lovenox 30mg SubQ started on 02/05 - Coumadin 3mg po daily resumed on 02/05 - follow INR, stop Lovenox when INR above 2 - May take a few days for Coumadin to become therapeutic since pt received Vitamin K - DVT prophylaxis pt now prefers d/c home with [facility] Monday and not snf (2) COPD (chronic obstructive pulmonary disease) Status: Acute Plan: - Pt developed post op sob/hypoxia. left lung crackles concerning for pna - Pt had increased O2 requirements and some mucous plugging requiring deep suctioning on 02/06 - RT following - Cont. Levaquin 500mg started on on 02/06 - Duonebs Q4H - Mucomyst Q4H - Mucinex - Pt has been requiring either partial nonrebreather or simple mask - Sputum culture negative - Chest Ct (02/08) --> Overall, multiple findings in the thorax bilaterally have very similar features to prior CT on 09/04/16, including large right hilar mass, right apical mass, radiation therapy changes, bilateral pleural effusions, and left basilar atelectasis. - Pt was started on iv lasix and pinto replaced She has been weaned down to 4lnc..baseline 3lnc slight rise in bun/cr. will hold lasix today and recheck bmp in AM...additional lasix as needed. (3) Atrial fibrillation Status: Chronic Plan: - rate is controlled - Coumadin resumed - metoprolol, Diltiazem ER (4) HTN (hypertension) Status: Chronic Plan: - metoprolol, diltiazem ER (5) H/O: lung cancer Status: Chronic Plan: - Pt follows with Dr. Box Problem Qualifiers (1) Intertrochanteric fracture of right femur: Qualified Code: S72.141A - Intertrochanteric fracture of right femur, closed, initial encounter (2) Atrial fibrillation: Qualified Code: I48.2 - Chronic atrial fibrillation (3) HTN (hypertension): Qualified Code: I10 - Essential hypertension Ghanshyam Mock MD Feb 11, 2017 11:33
[2017-02-11] MEDS: WARFARIN SOD 3 MG TAB PO SCH (15:06)
[2017-02-11] MEDS: LEVOFLOXACIN 500 MG PREMIX INJ 100 ML IV SCH (15:07)
[2017-02-11] MEDS: ENOXAPARIN SODIUM 30 MG/0.3 ML SYRINGE SQ SCH (17:47)
[2017-02-12] VITALS (8 sets, daily range): BP systolic 101–127; BP diastolic 47–55; PULSE 66–88; RESP 16–18; TEMP 96.5–98.4; O2SAT 95–100
[2017-02-12] MEDS: RESP: ALBUTEROL 2.5 MG/IPRATROPIUM 0.5 MG NEB (SCH) NEB ×6 (01:06→19:39)
[2017-02-12 05:42] LABS: INTERNATIONAL NORMALIZED RATIO 1.4 RATIO; PROTHROMBIN TIME - PATIENT 15.7 SEC (9.8-11.6)
[2017-02-12 06:11] LABS: BICARBONATE 33.7 MEQ/L (21.0-32.0); POTASSIUM 3.4 MEQ/L (3.5-5.1)
[2017-02-12] MEDS: MONTELUKAST SODIUM 10 MG TAB PO SCH (09:00)
[2017-02-12] MEDS: SODIUM CHLORIDE 0.9% FLUSH 10 ML FLUSH IV FLUSH SCH ×2 (09:46→19:40)
[2017-02-12] MEDS: GABAPENTIN 100 MG CAP PO SCH ×3 (09:47→17:44)
[2017-02-12] MEDS: guaiFENesin E.R. 600 MG TAB PO SCH ×2 (09:47→19:28)
[2017-02-12] MEDS: ASPIRIN 81 MG CHEW TAB CHEW SCH (09:47)
[2017-02-12] MEDS: MULTIVITAMINS/MINERALS THERAPEUTIC TAB PO SCH ×2 (09:47→19:28)
[2017-02-12] MEDS: DOCUSATE SODIUM 100 MG CAP PO SCH ×2 (09:47→19:28)
[2017-02-12] MEDS: DILTIAZEM-CD 180 MG CAP ER PO SCH (09:52)
[2017-02-12] MEDS: METOPROLOL TARTRATE 25 MG TAB PO SCH ×2 (09:52→19:28)
[2017-02-12] MEDS: AMIODARONE 200 MG TAB PO SCH (09:52)
[2017-02-12] MEDS: ACETAMINOPHEN 325 MG TAB PO PRN (12:28)
--- NOTE | 2017-02-12 14:31 | HHI.PR ---
Subjective Remarks pt wants to go home tomorrow with [facility] down to 2lnc. baseline is 3lnc Objective Vitals nad heart reg lung course bs abd s/nt ext no edema pinto Vital Signs Date Time Temp Pulse Resp B/P Pulse Ox O2 Delivery O2 Flow Rate FiO2 02/12/17 12:00 97.3 82 18 121/55 100 02/12/17 08:32 98 Nasal Cannula 2.00 02/12/17 08:00 96.6 84 18 111/48 97 02/12/17 04:10 97.3 88 17 127/51 97 02/12/17 00:50 97.5 81 17 109/52 95 02/11/17 21:30 94 Nasal Cannula 2.00 02/11/17 20:58 Nasal Cannula 2.00 02/11/17 20:30 96.9 75 18 105/48 95 02/11/17 16:00 99.0 71 17 105/48 97 02/11/17 02/11/17 02/12/17 15:00 23:00 07:00 Intake Total 800 ml 60 ml Output Total 625 ml 250 ml Balance 175 ml -190 ml Intake Oral 800 ml 60 ml Output Urine Total 625 ml 250 ml Stool Total 0 ml # Bowel Movements 1 Result Diagram: 02/10/17 0400 02/12/17 0535 Imaging Last Impressions Chest X-Ray 02/08/17 0600 Signed Impressions: Service Date/Time: Wednesday, February 08, 2017 06:39 - CONCLUSION: 1. Small bilateral pleural effusions. 2. Cardiomegaly. 3. Persistent right apical consolidation. Indio Cuevas MD Chest CT 02/08/17 0000 Signed Impressions: Service Date/Time: Wednesday, February 08, 2017 12:23 - CONCLUSION: Overall, multiple findings in the thorax bilaterally have very similar features to prior CT on 09/04/16, including large right hilar mass, right apical mass, radiation therapy changes, bilateral pleural effusions, and left basilar atelectasis. Teodoro Wheatley MD Hip X-Ray 02/04/17 0000 Signed Impressions: Service Date/Time: Saturday, February 04, 2017 22:18 - CONCLUSION: Postsurgical changes as above. Liban Garnica MD Pelvis X-Ray 02/03/17 1312 Signed Impressions: Service Date/Time: Friday, February 03, 2017 13:48 - CONCLUSION: Right proximal femur fracture. Demar Booth MD Head CT 02/03/17 1312 Signed Impressions: Service Date/Time: Friday, February 03, 2017 15:00 - CONCLUSION: Mild atrophy and white matter disease. Right frontal scalp hematoma. Demar Booth MD Femur X-Ray 02/03/17 1312 Signed Impressions: Service Date/Time: Friday, February 03, 2017 13:50 - CONCLUSION: Indeterminate sclerotic narrow zone of transition lesion right proximal femur. Comminuted right femoral trochanteric fracture. Demar Booth MD Cervical Spine CT 02/03/17 1312 Signed Impressions: Service Date/Time: Friday, February 03, 2017 15:02 - CONCLUSION: Right upper lobe collapse this patient with history of lung carcinoma. No fractures are seen. Mild degenerative changes of the spine. Demar Booth MD Last Impressions Hip X-Ray 02/04/17 0000 Signed Impressions: Service Date/Time: Saturday, February 04, 2017 22:18 - CONCLUSION: Postsurgical changes as above. Liban Garnica MD Pelvis X-Ray 02/03/17 1312 Signed Impressions: Service Date/Time: Friday, February 03, 2017 13:48 - CONCLUSION: Right proximal femur fracture. Demar Booth MD Head CT 02/03/17 1312 Signed Impressions: Service Date/Time: Friday, February 03, 2017 15:00 - CONCLUSION: Mild atrophy and white matter disease. Right frontal scalp hematoma. Demar Booth MD Femur X-Ray 02/03/17 1312 Signed Impressions: Service Date/Time: Friday, February 03, 2017 13:50 - CONCLUSION: Indeterminate sclerotic narrow zone of transition lesion right proximal femur. Comminuted right femoral trochanteric fracture. Demar Booth MD Chest X-Ray 02/03/17 1312 Signed Impressions: Service Date/Time: Friday, February 03, 2017 13:47 - CONCLUSION: Right upper lobe collapse and right upper lobe lung cancer. Demar Booth MD Cervical Spine CT 02/03/17 1312 Signed Impressions: Service Date/Time: Friday, February 03, 2017 15:02 - CONCLUSION: Right upper lobe collapse this patient with history of lung carcinoma. No fractures are seen. Mild degenerative changes of the spine. Demar Booth MD A/P Problem List: (1) Intertrochanteric fracture of right femur Status: Acute Plan: - Closed reduction with trochanteric nail fixation left proximal femur fracture (02/04/17) performed by Dr. Ghanshyam Pichardo - INR was reversed prior to surgery with Vitamin K and K-centra - Dilaudid/[place]/Ultram prn pain - constipation precautions - encourage incentive spirometer - Lovenox 30mg SubQ started on 02/05 - Coumadin 3mg po daily resumed on 02/05 - follow INR, stop Lovenox when INR above 2 - May take a few days for Coumadin to become therapeutic since pt received Vitamin K - DVT prophylaxis pt now prefers d/c home with [facility] Monday and not snf cont her coumadin at 3mg dialy..[facility] to check off lasix back on 2lnc..baseline at home is 3lnc mild overdiuresis. drink extra fluid today d/c pinto d/c home in AM (2) COPD (chronic obstructive pulmonary disease) Status: Acute Plan: - Pt developed post op sob/hypoxia. left lung crackles concerning for pna - Pt had increased O2 requirements and some mucous plugging requiring deep suctioning on 02/06 - RT following - Cont. Levaquin 500mg started on on 02/06 - Duonebs Q4H - Mucomyst Q4H - Mucinex - Pt has been requiring either partial nonrebreather or simple mask - Sputum culture negative - Chest Ct (02/08) --> Overall, multiple findings in the thorax bilaterally have very similar features to prior CT on 09/04/16, including large right hilar mass, right apical mass, radiation therapy changes, bilateral pleural effusions, and left basilar atelectasis. - Pt was started on iv lasix and pinto replaced back on her baseline home oxygen at 2lnc d/c pinto. (3) Atrial fibrillation Status: Chronic Plan: - rate is controlled - Coumadin resumed - metoprolol, Diltiazem ER (4) HTN (hypertension) Status: Chronic Plan: - metoprolol, diltiazem ER (5) H/O: lung cancer Status: Chronic Plan: - Pt follows with Dr. Box Problem Qualifiers (1) Intertrochanteric fracture of right femur: Qualified Code: S72.141A - Intertrochanteric fracture of right femur, closed, initial encounter (2) Atrial fibrillation: Qualified Code: I48.2 - Chronic atrial fibrillation (3) HTN (hypertension): Qualified Code: I10 - Essential hypertension Ghanshyam Mock MD Feb 12, 2017 14:31
[2017-02-12] MEDS ORDERED: ENOX30P SQ (14:43)
[2017-02-12] MEDS ORDERED: MUCI600T PO (14:43)
[2017-02-12] MEDS ORDERED: LEVA500T PO (14:43)
[2017-02-12] MEDS ORDERED: HYDR-3516 PO (14:43)
--- NOTE | 2017-02-12 14:45 | HHI.FF ---
Face to Face Verification Diagnosis: (1) Intertrochanteric fracture of right femur (2) COPD (chronic obstructive pulmonary disease) (3) Atrial fibrillation (4) HTN (hypertension) (5) H/O: lung cancer Physical Therapy Order: Evaluate and Treat, Improve ambulation Home Health Nursing Order: Medical education Signs/symptoms of disease process Medication education-adverse effect Wound care and dressing changes Nursing assessment with vital signs Instructions: inr check 02/14, 02/16. I have seen patient Maria Eugenia Vallejo on 02/12/17. My clinical findings support the need for the requested home health care services because: High risk of falls I certify that my clinical findings support that this patient is homebound because: Post-op weakness Ghanshyam Mock MD Feb 12, 2017 14:45
--- NOTE | 2017-02-12 14:49 | HHI.DCPOC ---
Discharge Care Plan Diagnosis: (1) Intertrochanteric fracture of right femur Goals to Promote Your Health * To prevent worsening of your condition and complications * To maintain your health at the optimal level Directions to Meet Your Goals Take your medications as prescribed Follow your dietary instruction Follow activity as directed Keep your appointments as scheduled Take your immunizations and boosters as scheduled If your symptoms worsen call your PCP, if no PCP go to Urgent Care Center or Emergency Room Smoking is Dangerous to Your Health. Avoid second hand smoke Call the 24-hour hour crisis hotline for domestic abuse at Ghanshyam Mock MD Feb 12, 2017 14:49
[2017-02-12] MEDS: WARFARIN SOD 3 MG TAB PO SCH (16:22)
[2017-02-12] MEDS: LEVOFLOXACIN 500 MG PREMIX INJ 100 ML IV SCH (16:22)
[2017-02-12] MEDS: ENOXAPARIN SODIUM 30 MG/0.3 ML SYRINGE SQ SCH (17:44)
[2017-02-12] MEDS ORDERED: POTASSIUM CHLORIDE 20 MEQ CONTROLLED RELEASE TAB PO ONE (19:00)
[2017-02-13 00:30] VITALS: BP 98/54; PULSE 82; RESP 16; TEMP 98.5; O2SAT 96
[2017-02-13] MEDS: RESP: ALBUTEROL 2.5 MG/IPRATROPIUM 0.5 MG NEB (SCH) NEB ×4 (04:00→12:00)
[2017-02-13 04:40] VITALS: BP 113/55; PULSE 83; RESP 16; TEMP 97.7; O2SAT 95
[2017-02-13] MEDS: traMADol HCL 50 MG TAB PO PRN (05:30)
[2017-02-13 06:40] LABS: INTERNATIONAL NORMALIZED RATIO 1.5 RATIO; PROTHROMBIN TIME - PATIENT 17.4 SEC (9.8-11.6)
[2017-02-13 06:43] LABS: BICARBONATE 32.4 MEQ/L (21.0-32.0); POTASSIUM 3.8 MEQ/L (3.5-5.1)
[2017-02-13 07:45] VITALS: BP 132/63; PULSE 89; RESP 17; TEMP 97.4; O2SAT 97
[2017-02-13] MEDS: guaiFENesin E.R. 600 MG TAB PO SCH (08:07)
[2017-02-13] MEDS: ASPIRIN 81 MG CHEW TAB CHEW SCH (08:07)
[2017-02-13] MEDS: DILTIAZEM-CD 180 MG CAP ER PO SCH (08:08)
[2017-02-13] MEDS: MULTIVITAMINS/MINERALS THERAPEUTIC TAB PO SCH (08:08)
[2017-02-13] MEDS: AMIODARONE 200 MG TAB PO SCH (08:08)
[2017-02-13] MEDS: GABAPENTIN 100 MG CAP PO SCH ×2 (08:08→13:53)
[2017-02-13] MEDS: METOPROLOL TARTRATE 25 MG TAB PO SCH (08:09)
[2017-02-13] MEDS: DOCUSATE SODIUM 100 MG CAP PO SCH (08:09)
[2017-02-13 08:32] VITALS: O2SAT 98
[2017-02-13 10:17] VITALS: PULSE 64
[2017-02-13] MEDS: MONTELUKAST SODIUM 10 MG TAB PO SCH (11:07)
[2017-02-13] MEDS: SODIUM CHLORIDE 0.9% FLUSH 10 ML FLUSH IV FLUSH SCH (11:08)
[2017-02-13 11:34] VITALS: BP 103/53; PULSE 60; RESP 19; TEMP 98.3; O2SAT 98
--- NOTE | 2017-03-13 11:29 | HHI.DS ---
Discharge Summary Admission Date Feb 03, 2017 at 15:56 Discharge Date: Feb 13, 2017 Admitting Diagnosis Right Hip Fracture, Scalp Hematoma, Fall (1) Intertrochanteric fracture of right femur Diagnosis: Principal (2) COPD (chronic obstructive pulmonary disease) Diagnosis: Principal (3) Atrial fibrillation Diagnosis: Secondary (4) HTN (hypertension) Diagnosis: Secondary (5) H/O: lung cancer Diagnosis: Secondary Brief History Pt is a 81 y/o F with h/o multiple medical problems including history of lung cancer, history DVT history of pelvic abscess history of diverticular disease with diverting sigmoid colostomy and chronic abdominal open wounds, COPD with chronic respiratory failure requiring supplemental oxygen and paroxysmal Atrial fibrillation. Pt was most recently admitted at [facility] d/t pneumonia 08/01/16 to 08/09/16. Pt has chronic b/l pleural effusions and changes at RUL. These findings were reviewed with Radiology and are unchanged from prior admission. Pt has colostomy and chronic abdominal wound. On this occasion, pt fell at home with right hip pain. Pt fell off of her recliner while scooting forward to get her phone off a table. Pt landed on her right hip with immediate pain. Pt also struck the right side of her head with resulting hematoma. Pt denies LOC. Pt could NOT get off the floor d/t her right hip pain. Pelvic x-ray in the ER confirmed right hip fracture. Pt admitted to [facility] for surgical repair of her right hip fracture. Pt on coumadin therapy for chronic atrial fibrillation. On admission pt was give Vitamin K 5mg for an INR of 2.5. Hospital Course -Presented with intertrochanteric fx of hip. - Closed reduction with trochanteric nail fixation left proximal femur fracture (02/04/17) performed by Dr. Ghanshyam Pichardo - INR was reversed prior to surgery with Vitamin K and K-centra - follow INR, stop Lovenox when INR above 2 - May take a few days for Coumadin to become therapeutic since pt received Vitamin K - prefers d/c home with [facility] Monday and not snf -cont her coumadin at 3mg dialy..[facility] to check off lasix....back on 2lnc..baseline at home is 3lnc mild overdiuresis. drink extra fluid today - Pt developed post op sob/hypoxia. left lung crackles concerning for pna - Pt had increased O2 requirements and some mucous plugging requiring deep suctioning on 02/06 -- Pt has been requiring either partial nonrebreather or simple mask - Sputum culture negative - Chest Ct (02/08) --> Overall, multiple findings in the thorax bilaterally have very similar features to prior CT on 09/04/16, including large right hilar mass, right apical mass, radiation therapy changes, bilateral pleural effusions, and left basilar atelectasis. - Pt was started on iv lasix and pinto replaced -back on her baseline home oxygen at 2lnc after diuresis Pt Condition on Discharge: Stable Discharge Disposition: Disch w/ Home Health Serv Discharge Instructions DIET: Follow Instructions for: Heart Healthy Diet Activities you can perform: Weight Bearing as Ok Activities to Avoid: Lifting/Bending Ghanshyam Mock MD March 13, 2017 11:29
== END 2017-02-13 14:20 | DRG 480 ==
LOC: NEPE 12:07 → NEDA 15:56 → N06B 18:00
PROVIDERS: ADMIT Hospitalist; ATTEND Hospitalist
PROC: 0QS604Z Reposition Right Upper Femur with Internal Fixation Device, Open Approach (ICD-10-PCS; principal; 2017-02-04 21:19)
DX: S72.141A Displaced intertrochanteric fracture of right femur, initial encounter for closed fracture (principal); J18.9 Pneumonia, unspecified organism; J96.11 Chronic respiratory failure with hypoxia; J90 Pleural effusion, not elsewhere classified; I27.2 Other secondary pulmonary hypertension; C34.11 Malignant neoplasm of upper lobe, right bronchus or lung; J44.0 Chronic obstructive pulmonary disease with (acute) lower respiratory infection; J98.11 Atelectasis; I48.0 Paroxysmal atrial fibrillation; I48.2 Chronic atrial fibrillation; J44.9 Chronic obstructive pulmonary disease, unspecified; N18.3 Chronic kidney disease, stage 3 (moderate); S00.03XA Contusion of scalp, initial encounter; I12.9 Hypertensive chronic kidney disease with stage 1 through stage 4 chronic kidney disease, or unspecified chronic kidney disease; W07.XXXA Fall from chair, initial encounter; Y92.009 Unspecified place in unspecified non-institutional (private) residence as the place of occurrence of the external cause; J45.909 Unspecified asthma, uncomplicated; H91.93 Unspecified hearing loss, bilateral; I70.0 Atherosclerosis of aorta; G25.0 Essential tremor; I25.10 Atherosclerotic heart disease of native coronary artery without angina pectoris; K21.9 Gastro-esophageal reflux disease without esophagitis; E78.5 Hyperlipidemia, unspecified; M81.0 Age-related osteoporosis without current pathological fracture; J98.09 Other diseases of bronchus, not elsewhere classified; F41.9 Anxiety disorder, unspecified; Z79.01 Long term (current) use of anticoagulants; Z85.820 Personal history of malignant melanoma of skin; Z88.0 Allergy status to penicillin; Z88.5 Allergy status to narcotic agent; Z92.3 Personal history of irradiation; Z93.3 Colostomy status; Z99.81 Dependence on supplemental oxygen
CPT/HCPCS: 36600; 51702; 70450; 71010; 71250; 72125; 72170; 73502; 73552; 76000; 80048; 80053; 82805; 83735; 85025; 85610; 85730; 86850; 86900; 86901; 86902; 86920; 86922; 87070; 87205; 93005; 94150; 94640; 94664; 94667; 94668; 94762; 96374; 96375; C1713; C9132; J0690; J1580; J1642; J1650; J1940; J1956; J2270; J2405; J3010; J7040; J7050; J7120; J7608; L1830; Q0169

== ENCOUNTER 2017-03-20 13:42 | Inpatient (IN) | payer MEDICARE ==
[2017-03-20] VITALS (8 sets, daily range): BP systolic 82–200; BP diastolic 44–107; PULSE 45–66; RESP 17–20; TEMP 97.5–97.7; O2SAT 97–100
[~2017-03-20] VITALS: Ht 172.7 cm; Wt 63.2 kg
[~2017-03-20 13:42] MED LIST changes: +ENOX30P SQ; -ENOX80P SQ; -FERR1TAB36 PO; -FLUT1SPR9 EACH NARE; +HYDR-3516 PO; +LEVA500T PO; +MUCI600T PO
[2017-03-20] MEDS ORDERED: ACETAMINOPHEN/HYDROcodone 325 MG/5 MG TAB PO ONE (14:30)
[2017-03-20] MEDS ORDERED: CALC600T25 PO (14:47)
[2017-03-20] MEDS ORDERED: WARF-58 PO (14:47)
[2017-03-20] MEDS ORDERED: VITA250C3 CHEW (14:47)
[2017-03-20] MEDS ORDERED: MULT1TAB46 PO (14:47)
[2017-03-20] MEDS ORDERED: CART120C PO (14:47)
[2017-03-20] MEDS ORDERED: FORM20NE INH (14:47)
[2017-03-20] MEDS ORDERED: SLOWTAB PO (14:47)
[2017-03-20] MEDS ORDERED: FERR325C PO (14:47)
[2017-03-20] MEDS ORDERED: AMIO200T PO (14:47)
[2017-03-20] MEDS ORDERED: GABA600T PO (14:47)
[2017-03-20] MEDS ORDERED: MONT10TA4 PO (14:47)
[2017-03-20] MEDS ORDERED: METO-426 PO (14:47)
[2017-03-20] MEDS ORDERED: HYDR-3533 PO (15:49)
--- NOTE | 2017-03-20 15:49 | PD ---
HPI Chief Complaint: Pain: Acute or Chronic Time Seen by Provider: 14:26 Travel History International Travel<30 days: No Contact w/Intl Traveler<30days: No Traveled to known affect area: No History of Present Illness HPI 81-year-old female fell backwards landing onto her coccyx about one week ago. Since then she's had increasing pain. Last 2 days have been characterized by severe pain and she has been bedridden. She bought a doughnut pillow which helped minimally last night. She has otherwise had difficulty sleeping due to the pain. She has no other symptoms to report. The nature of the fall was mechanical per patient. 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) Deep Vein Thrombosis: Yes (LEFT LEG) Endocrine: No Gastrointestinal Disorders: Yes ((HX ONLY)BLOOD IN STOOL 2 YRS AGO) GERD: No Glaucoma: No Genitourinary: Yes Headaches: No Hepatitis: No Hiatal Hernia: No Hypertension: Yes Immune Disorder: No Implanted Vascular Access Dvce: Yes (LEFT CHEST) Kidney Stones: No Medical other: Yes (NEUROPATHY TOES, FINGERS S/P CHEMO) Musculoskeletal: Yes Psychiatric: No Reproductive: No Respiratory: Yes Immunizations Current: Yes Migraines: No Pneumonia: Yes Radiation Therapy: Yes Renal Failure: No Seizures: No Sickle Cell Disease: No Sleep Apnea: No Thyroid Disease: No Ulcer: No Influenza Vaccination: Yes ?: Not Menopausal: Yes : 4 Para: 3 Miscarriage: 1 Past Surgical History Abdominal Surgery: Yes (COLOSTOMY, COLON/UTERUS ABSCESS DRAINED) AICD: No Appendectomy: No Arteriovenous Shunt: No Body Medical Devices: LEFT CHEST PORT Cardiac Surgery: No Section: Yes (x 2) Cholecystectomy: No Ear Surgery: No Endocrine Surgery: No Eye Surgery: Yes (CATARACT) Genitourinary Surgery: No Gynecologic Surgery: Yes (C- SECTION X 2) Insulin Pump: No Joint Replacement: Yes (RIGHT ELBOW WIRES AND SCREWS) Oral Surgery: No Pacemaker: No Thoracic Surgery: No Other Surgery: Yes (PORT INSERTION-LEFT CHEST) Social History Alcohol Use: No Tobacco Use: No (QUIT 2008) Substance Use: No Allergies-Medications (Allergen,Severity, Reaction): Coded Allergies: Adhesives (Verified Allergy, Severe, 03/20/17) Codeine (Verified Allergy, Severe, N/V, 03/20/17) Penicillin (Verified Allergy, Intermediate, rash, 03/20/17) Robitussin (Verified Adverse Reaction, Mild, Flushing, 03/20/17) PATIENT STATES THAT AFTER SHE WAS ADMINISTERED ROBITSSIN, BL PALM OF HER HANDS TURNED RED. 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 Uncoded Allergies: plastic bandages (Adverse Reaction, Intermediate, reddness , 10/01/14) Reported Meds & Prescriptions Reported Meds & Active Scripts Active Reported Perforomist Neb (Formoterol Fumarate) 20 Mcg/2 Ml Neb 1 Nebule INH BID Calcium (Calcium Carbonate) 600 Mg Tab 1 Tab PO BID Multi Vitamin Daily (Multiple Vitamin) 1 Tab Tab 1 Tab PO DAILY Iron (Ferrous Sulfate) 325 Mg Capsule.er 2 Tab PO BID Slow-Mag (Magnesium Chloride-Calcium Carbonate) 71.5-119 Mg Tab 143 Mg PO DAILY Vitamin C (Ascorbic Acid) 250 Mg Chew 500 Mg CHEW DAILY Warfarin 3 Mg Tab 3.5 Mg PO DAILY Montelukast (Montelukast Sodium) 10 Mg Tab 10 Mg PO DAILY Metoprolol Tartrate 75 Mg Tab 75 Mg PO BID Gabapentin 600 Mg Tab 300 Mg PO TID Cartia Xt (Diltiazem ER 24 HR) 120 Mg Caper 180 Mg PO DAILY Amiodarone (Amiodarone HCl) 200 Mg Tab 200 Mg PO DAILY Review of Systems Except as stated in HPI: all other systems reviewed are Neg Physical Exam Narrative GENERAL: 81 yo F, WNWD, pleasant SKIN: Warm and dry. HEAD: Atraumatic. Normocephalic. EYES: Pupils equal and round. No scleral icterus. No injection or drainage. ENT: No nasal bleeding or discharge. Mucous membranes pink and moist. NECK: Trachea midline. No JVD. CARDIOVASCULAR: Regular rate and rhythm. RESPIRATORY: No accessory muscle use. Clear to auscultation. Breath sounds equal bilaterally. GASTROINTESTINAL: Abdomen soft, non-tender, nondistended. Hepatic and splenic margins not palpable. MUSCULOSKELETAL: Extremities without clubbing, cyanosis, or edema. No obvious deformities. TTP midline sacrococcygeal lower back. NEUROLOGICAL: Awake and alert. No obvious cranial nerve deficits. Motor grossly within normal limits. Five out of 5 muscle strength in the arms and legs. Normal speech. PSYCHIATRIC: Appropriate mood and affect; insight and judgment normal. Data Data Last Documented VS Vital Signs Date Time Temp Pulse Resp B/P Pulse Ox O2 Delivery O2 Flow Rate FiO2 03/20/17 18:50 57 18 191/63 58 18 200/107 63 20 145/60 03/20/17 17:36 100 Nasal Cannula 2 03/20/17 13:56 97.5 VS reviewed Orders Sacrum And Coccyx (03/20/17 ) Acetamin-Hydrocod 325-5 Mg ([place] 5-325 (03/20/17 14:30) Wound Care (03/20/17 14:26) Ondansetron Odt (Zofran Odt) (03/20/17 16:30) Complete Blood Count With Diff (03/20/17 17:05) Comprehensive Metabolic Panel (03/20/17 17:05) Prothrombin Time / Inr (Pt) (03/20/17 17:05) Act Partial Throm Time (Ptt) (03/20/17 17:05) Magnesium (Mg) (03/20/17 17:05) Sodium Chlor 0.9% 1000 Ml Inj (Ns 1000 M (03/20/17 17:15) Ondansetron Inj (Zofran Inj) (03/20/17 17:15) Orthostatic Vital Signs (03/20/17 18:37) Phytonadione Inj (Vitamin K Inj) (03/20/17 19:00) Admit Order (Ed Use Only) (03/20/17 19:02) Labs Laboratory Tests Test 03/20/17 17:27 White Blood Count 9.4 TH/MM3 Red Blood Count 3.28 MIL/MM3 Hemoglobin 9.6 GM/DL Hematocrit 29.4 % Mean Corpuscular Volume 89.4 FL Mean Corpuscular Hemoglobin 29.1 PG Mean Corpuscular Hemoglobin 32.6 % Concent Red Cell Distribution Width 15.3 % Platelet Count 241 TH/MM3 Mean Platelet Volume 8.1 FL Neutrophils (%) (Auto) 76.2 % Lymphocytes (%) (Auto) 12.3 % Monocytes (%) (Auto) 8.3 % Eosinophils (%) (Auto) 2.3 % Basophils (%) (Auto) 0.9 % Neutrophils # (Auto) 7.1 TH/MM3 Lymphocytes # (Auto) 1.2 TH/MM3 Monocytes # (Auto) 0.8 TH/MM3 Eosinophils # (Auto) 0.2 TH/MM3 Basophils # (Auto) 0.1 TH/MM3 CBC Comment DIFF FINAL Differential Comment Prothrombin Time 85.1 SEC Prothromb Time International 7.1 RATIO Ratio Activated Partial 58.8 SEC Thromboplast Time Sodium Level 143 MEQ/L Potassium Level 3.3 MEQ/L Chloride Level 106 MEQ/L Carbon Dioxide Level 31.0 MEQ/L Anion Gap 6 MEQ/L Blood Urea Nitrogen 18 MG/DL Creatinine 0.99 MG/DL Estimat Glomerular Filtration 54 ML/MIN Rate Random Glucose 110 MG/DL Calcium Level 8.5 MG/DL Magnesium Level 2.0 MG/DL Total Bilirubin 0.7 MG/DL Aspartate Amino Transf 21 U/L (AST/SGOT) Alanine Aminotransferase 20 U/L (ALT/SGPT) Alkaline Phosphatase 101 U/L Total Protein 6.5 GM/DL Albumin 2.6 GM/DL [facility] Medical Decision Making Medical Screen Exam Complete: No Emergency Medical Condition: No Differential Diagnosis Coccyx fracture, contusion, sacral fracture Narrative Course Repeat BP 124/48 Pt somewhat bradycardic however she takes metoprolol, diltiazem and amiodarone. Case signed out to Dr Paula at 5pm with plan to follow up on plain film of sacrum/coccyx and disposition pending results. Patient Instructions: General Instructions, Narcotic given in the ED Departure Forms: Tests/Procedures Additional Instructions: You have a choice when it comes to health care, and we are glad that you chose [facility]. Hopefully, we have met your expectations on today's visit. You are welcome to return to [facility] at any time, as we are committed to meeting the health care needs of our community. Med/Other Pt SpecificInfo: Prescription(s) given Disposition: DISCHARGE HOME Condition: Stable Allen Gonzáles MD March 20, 2017 15:49
[2017-03-20] MEDS ORDERED: ONDANSETRON ODT 4 MG TAB PO ONE (16:30)
--- NOTE | 2017-03-20 16:52 | RADHPO ---
EXAM DATE/TIME: 03/20/2017 15:52 [facility] COMPARISON: No previous studies available for comparison. INDICATIONS : Fell, complains of coccyx pain. MEDICAL HISTORY : None. SURGICAL HISTORY : Total right hip ENCOUNTER: Initial ACUITY: 3 days PAIN SCORE: 9/10 LOCATION: Sacrum and coccyx FINDINGS: There is a 3.9 cm calcified mass within the pelvis likely representing a uterine fibroid. Degenerati ve changes are noted within the lower lumbar spine. There is no acute fracture or dislocation of the sacrum or coccyx. CONCLUSION: 1. No acute fracture or dislocation of the sacrum or coccyx. 2. 3.9 cm calcified pelvic mass consistent with probable fibroid. 3. Degenerative changes involving the lower lumbar spine. Indio Cuevas MD on March 20, 2017 at 16:08 Board Certified Radiologist. This report was verified electronically.
[2017-03-20] MEDS ORDERED: SODIUM CHLOR 0.9% 1000 ML INJ 1,000 ML IV SCH ×2 (17:15)
[2017-03-20] MEDS ORDERED: ONDANSETRON HCL 4 MG/2 ML VIAL IV PUSH ONE (17:15)
[2017-03-20 17:45] LABS: AUTOMATED NEUTROPHIL # 7.1 TH/MM3 (1.8-7.7); BASOPHIL # 0.1 TH/MM3 (0-0.2); BASOPHIL % 0.9 % (0.0-2.0); EOSINOPHIL # 0.2 TH/MM3 (0-0.4); EOSINOPHIL % 2.3 % (0.0-4.0); HEMATOCRIT 29.4 % (35.0-46.0); HEMO FLAGS DIFF FINAL; LYMPH % 12.3 % (9.0-44.0); LYMPHOCYTE # 1.2 TH/MM3 (1.0-4.8); MEAN CELL VOLUME 89.4 FL (80.0-100.0); MEAN CORPUSCULAR HEMOGLOBIN 29.1 PG (27.0-34.0); MEAN CORPUSCULAR HGB CONC 32.6 % (32.0-36.0); MONO % 8.3 % (0.0-8.0); NEUT % 76.2 % (16.0-70.0); PLATELET COUNT 241 TH/MM3 (150-450); RED BLOOD COUNT 3.28 MIL/MM3 (4.00-5.30); RED CELL DISTRIBUTION WIDTH 15.3 % (11.6-17.2); WHITE BLOOD COUNT 9.4 TH/MM3 (4.0-11.0)
[2017-03-20 17:52] LABS: CHLORIDE 106 MEQ/L (98-107); POTASSIUM 3.3 MEQ/L (3.5-5.1); SODIUM (NA) 143 MEQ/L (136-145)
[2017-03-20 17:56] LABS: ANION GAP 6 MEQ/L (5-15); BLOOD UREA NITROGEN 18 MG/DL (7-18)
[2017-03-20 17:59] LABS: ALT (GPT) 20 U/L (10-53); APTT (PATIENT) 58.8 SEC (24.3-30.1); AST (GOT) 21 U/L (15-37); GLOMERULAR FILTRATION RATE 54 ML/MIN (>89); PROTHROMBIN TIME - PATIENT 85.1 SEC (9.8-11.6)
[2017-03-20 18:00] LABS: TOTAL BILIRUBIN ADULT 0.7 MG/DL (0.2-1.0)
[2017-03-20 18:02] LABS: ALKALINE PHOSPHATASE 101 U/L (45-117)
[2017-03-20 18:11] LABS: INTERNATIONAL NORMALIZED RATIO 7.1 RATIO
--- NOTE | 2017-03-20 18:26 | PD ---
Physical Exam Date Seen by Provider: March 20, 2017 Time Seen by Provider: 18:19 Narrative 81-year-old female had presented with complaint of pain in the sacral area after a fall several days ago. She was seen initially by Dr. Gonzáles who ordered x-ray of the sacrum and coccyx. This has been read as negative for acute fracture fracture. I have gone to see the patient and her son expresses concern that she's been lightheaded recently. She has been lightheaded for a while. When she first got to room her heart rate was in the 40s but essentially been in the 50s. She is on metoprolol 75 twice a day as well as diltiazem ER 180 a day. She also takes amiodarone 200 mg once a day. She is on Coumadin 3.5 mg once a day. She has a history of a blood clot. Data Data Last Documented VS Vital Signs Date Time Temp Pulse Resp B/P Pulse Ox O2 Delivery O2 Flow Rate FiO2 03/20/17 18:50 57 18 191/63 58 18 200/107 63 20 145/60 03/20/17 17:36 100 Nasal Cannula 2 03/20/17 13:56 97.5 Orders Sacrum And Coccyx (03/20/17 ) Acetamin-Hydrocod 325-5 Mg ([place] 5-325 (03/20/17 14:30) Wound Care (03/20/17 14:26) Ondansetron Odt (Zofran Odt) (03/20/17 16:30) Complete Blood Count With Diff (03/20/17 17:05) Comprehensive Metabolic Panel (03/20/17 17:05) Prothrombin Time / Inr (Pt) (03/20/17 17:05) Act Partial Throm Time (Ptt) (03/20/17 17:05) Magnesium (Mg) (03/20/17 17:05) Sodium Chlor 0.9% 1000 Ml Inj (Ns 1000 M (03/20/17 17:15) Ondansetron Inj (Zofran Inj) (03/20/17 17:15) Orthostatic Vital Signs (03/20/17 18:37) Phytonadione Inj (Vitamin K Inj) (03/20/17 19:00) Admit Order (Ed Use Only) (03/20/17 19:02) Labs Laboratory Tests Test 03/20/17 17:27 White Blood Count 9.4 TH/MM3 Red Blood Count 3.28 MIL/MM3 Hemoglobin 9.6 GM/DL Hematocrit 29.4 % Mean Corpuscular Volume 89.4 FL Mean Corpuscular Hemoglobin 29.1 PG Mean Corpuscular Hemoglobin 32.6 % Concent Red Cell Distribution Width 15.3 % Platelet Count 241 TH/MM3 Mean Platelet Volume 8.1 FL Neutrophils (%) (Auto) 76.2 % Lymphocytes (%) (Auto) 12.3 % Monocytes (%) (Auto) 8.3 % Eosinophils (%) (Auto) 2.3 % Basophils (%) (Auto) 0.9 % Neutrophils # (Auto) 7.1 TH/MM3 Lymphocytes # (Auto) 1.2 TH/MM3 Monocytes # (Auto) 0.8 TH/MM3 Eosinophils # (Auto) 0.2 TH/MM3 Basophils # (Auto) 0.1 TH/MM3 CBC Comment DIFF FINAL Differential Comment Prothrombin Time 85.1 SEC Prothromb Time International 7.1 RATIO Ratio Activated Partial 58.8 SEC Thromboplast Time Sodium Level 143 MEQ/L Potassium Level 3.3 MEQ/L Chloride Level 106 MEQ/L Carbon Dioxide Level 31.0 MEQ/L Anion Gap 6 MEQ/L Blood Urea Nitrogen 18 MG/DL Creatinine 0.99 MG/DL Estimat Glomerular Filtration 54 ML/MIN Rate Random Glucose 110 MG/DL Calcium Level 8.5 MG/DL Magnesium Level 2.0 MG/DL Total Bilirubin 0.7 MG/DL Aspartate Amino Transf 21 U/L (AST/SGOT) Alanine Aminotransferase 20 U/L (ALT/SGPT) Alkaline Phosphatase 101 U/L Total Protein 6.5 GM/DL Albumin 2.6 GM/DL [facility] Medical Record Reviewed: Yes Supervised Visit with JANNET: No Differential Diagnosis Differential includes dehydration, bradycardia secondary to medications, contusion, fracture, left side imbalance Narrative Course X-ray of the sacrum and coccyx is negative for fracture. Patient was complaining of feeling lightheaded and dizziness. Repeat we did check orthostatic vital signs did not show significant change in pulse. Her INR is elevated at 7. Patient says she feels shaky and unsteady. She, in with a blood pressure of 82/42 and a heart rate in the 40s. She has been feeling lightheaded at home. She does appear to be a fall risk and has elevated INR. She has had significant falls in the past which have resulted in tip fracture and today's visit. She'll be admitted for observation Diagnosis Primary Impression: Coagulopathy Additional Impression: Risk for falls Admitting Information Admitting Physician Requests: Observation Patient Instructions: General Instructions, Narcotic given in the ED Departure Forms: Tests/Procedures Additional Instruction: You have a choice when it comes to health care, and we are glad that you chose [facility]. Hopefully, we have met your expectations on today's visit. You are welcome to return to [facility] at any time, as we are committed to meeting the health care needs of our community. Scripts Hydrocodone-Acetaminophen (Lortab)5-325 Mg Tab1 Tab PO Q6H PRN (PAIN SCALE 6 TO 10) #10 TAB Ref 0 Prov:Allen Gonzáles MD 03/20/17 Disposition: 01 DISCHARGE HOME Condition: Stable Frederic Paula MD March 20, 2017 18:26
[2017-03-20] MEDS ORDERED: PHYTONADIONE 10 MG/ML VIAL SQ ONE ×2 (18:45→19:00)
[2017-03-20] MEDS ORDERED: PHYTONADIONE INJ 1 MG/0.5 ML AMP SQ ONE (18:45)
[2017-03-20] MEDS ORDERED: NALOXONE HCL 0.4 MG/ML AMP IV PRN (20:30)
[2017-03-20] MEDS ORDERED: ACETAMINOPHEN 325 MG TAB PO PRN (20:30)
[2017-03-20] MEDS ORDERED: traMADol/ACETAMINOPHEN 37.5/325 1 TAB PO PRN (20:30)
[2017-03-20] MEDS ORDERED: FERROUS SULFATE 325 MG (65 MG ELEMENTAL IRON) TAB PO SCH (21:00)
[2017-03-20] MEDS: CALCIUM CARBONATE 1.25 GM (CA 500 MG) TAB PO SCH (21:00)
[2017-03-20] MEDS ORDERED: CALCIUM CARBONATE 1.25 GM (CA 500 MG) TAB PO SCH (21:00)
[2017-03-20] MEDS ORDERED: NS + KCL 20 MEQ INJ 1,000 ML IV SCH (21:00)
[2017-03-20] MEDS: METOPROLOL TARTRATE 50 MG TAB PO SCH (22:00)
[2017-03-20] MEDS: FERROUS SULFATE 325 MG (65 MG ELEMENTAL IRON) TAB PO SCH (22:01)
--- NOTE | 2017-03-20 22:34 | MH ---
cc: ARCELIA ORTEGA DATE OF ADMISSION 03/20/2017 ADMITTING DIAGNOSIS Coagulopathy, generalized weakness, bradycardia. HISTORY OF PRESENT ILLNESS The patient is a very pleasant 81-year-old female who was recently discharged from long term facility after being admitted for right hip surgery. According to the patient and the son at the time of discharge from the rehab she was still fairly weak and unsteady and her family did not feel she was ready to come home; however, she was concerned about the financial burden of being in rehab, decided to try to continue getting strength at home on her own. It would appear that ever since her discharge from rehab however, she has not been doing well. She has remained fairly weak and unsteady in her feet and last week when she was standing when she lost her balance and fell. She states she fell in a sitting position, hitting her coccyx. She has been in discomfort since then. She also was seen by the wound care nurse on Monday for a pressure ulcer that she had on her heel. There was some concern that this might be getting worse. She was complaining of feeling lightheaded as well. Her appetite was good. However, she was spending the last 2 days in bed because she felt like she was too unsteady on her feet and was afraid of falling because she was in bed. She was not really taking in a lot of fluids in order to avoid going to the restroom. She has been in all her regular medications since discharge. She states she has not been taking any new medications and she has not had any changes to her diet. She came to the emergency room today because she felt persistent discomfort at her coccyx and because her family felt that she was too weak and unsteady to continue at home. They were concerned about her safety and well-being. When she arrived at the emergency room her pulse was 45 and her blood pressure was 82/44, pulse ox on room air was 100%. Respiratory rate was 19. She did receive some fluids at that point and her blood pressure did improve. Her INR was 7.1, earlier this month it had been 2.1. Because of the coagulopathy, bradycardia with hypotension and generalized weakness, we decided to admit her overnight. PAST MEDICAL HISTORY Her past medical history is significant for atrial fibrillation, anxiety, essential tremor, coronary artery disease, DVT in the lower extremity, COPD with chronic respiratory failure, reflux, osteoporosis and hypertension. PAST SURGICAL HISTORY Included diverting sigmoid colostomy with revision to transverse colostomy in 2015. She has had a lumbar laminectomy in 1974. She has had cataract surgery and excision of malignant melanoma from her neck. ALLERGIES INCLUDE ADHESIVES, CODEINE, PENICILLIN AND PLASTIC BANDAGES. MEDICATIONS Medications include: 1. Metoprolol 75 milligrams twice a day. 2. Coumadin 3.5 milligrams daily. 3. Performance nebulizer, one nebulizer twice a day. 4. Vitamin C. 5. Slow-Mag. 6. Calcium. 7. Baby aspirin. 8. Montelukast 10 milligrams daily. 9. Gabapentin 100 milligrams three times a day. 10. Cartia XT 120 milligrams daily. 11. Amiodarone 200 milligrams daily. SOCIAL HISTORY She is . Her children are local. She lives with her who has macular degeneration and is her primary detective narcotics and vice. SOCIAL HISTORY She currently does not smoke or consume alcohol. REVIEW OF SYSTEMS She denies any fevers or chills. No cough. She has not been short of breath or wheezing. She states she had a good appetite, last night she had pizza. She did became nauseous today after receiving the Lortab. Denies any abdominal pain. No difficulties with urination. No swelling of her lower extremities. She does say that she did notice that she had a burning on her right lower extremity where she did have a pressure ulcer on her heel. She does state that when she stands up she is slightly lightheaded on occasion. PHYSICAL EXAMINATION VITAL SIGNS: Pulse is 55, respirations 20, blood pressure is 145/60, pulse ox on 2 liters is 98%. GENERAL: She is lying in the emergency room cot. She does look pale and frail, chronically ill-looking. HEENT: She is normocephalic and traumatic. EOM is intact. She has arcus senilis. She has dry oral mucosa. NECK: Her neck is supple. LUNGS: Her lungs are clear actually. She is not wheezing but she is prone to. HEART: Her heart is irregular. ABDOMEN: Abdomen has good bowel sounds in all four quadrants. She has a colostomy bag on the right lower abdomen. She does have a poorly partially healed wound of the left lower abdomen from a prior attempt. EXTREMITIES: Her extremities show no clubbing, cyanosis or edema. She has multiple areas of ecchymosis. She has a right ankle bandaged. She does have I would say a 50 cent size pressure ulcer. She does have some eschar. She does have areas where she has good healthy granulation tissue. No obvious signs of infections at this point. She does have well-healed incisions from her right hip. No redness, edema or tenderness in this area. She is tender along the coccyx area on exam but really has no areas of ecchymosis there that I can see. LABORATORY DATA Lab work when she came in showed a white count 9.4, hemoglobin of 9.6, hematocrit of 29.4, platelet count of 241. Sodium was 143, potassium was 3.3, BUN was 18, creatinine was 0.99. Electrolytes were normal. Albumin was a little bit low at 2.6. Her INR was supratherapeutic at 7.1. IMAGING STUDIES X-rays that were done showed no acute fracture or dislocation of the sacrum or coccyx. She did have an 3.9 cm calcified pelvic mass consistent with a fibroid and degenerative changes involving the lower spine. ASSESSMENT/PLAN A 81-year-old female presenting to the ER with persistent generalized weakness and coagulopathy after being discharged from rehab. For her coagulopathy at this point she has received a very low dose of vitamin K in the ER. Will monitor her INR. See if we can get her anticoagulation to a safe range. In terms of the persistent weakness it really sounds in discussing with the family and the patient that she was not really ready to leave the rehab last week when she left. She is still unsteady. She was still unsteady and weak. At this point will go ahead and have PT see her and reevaluate her. She may need to go back to rehab. In terms of the lightheadedness they did do orthostatics on her in the emergency room. She did have a drop in her blood pressure but not a significant but her blood pressure did maintain. Apparently, her heart rate did not change significantly. Will put her on telemetry overnight, see how her heart rate and blood pressure maintain overnight. She may have been a little bit dehydrated as well, so we will give her some gentle hydration. In terms of the pain in her coccyx she does have problems with a lot of narcotics and pain medications. I will try giving her low dose of tramadol and see how she does with that. She does have some Zofran should she get nauseous again but hopefully we will be able to find a balance of keeping her comfortable without any significant side effects. She does have that pressure ulcer on her right heel. I had received a phone call on Monday regarding this from the home health nurse and they were seeing her over the weekend per report. It looks like it might be improving; however, I will go ahead and have wound care see her while she is here at the hospital. In terms of her COPD and her respiratory failure we will continue on her regular home regimen with nebulizers and O2. Further recommendations as the case develops. MD RUT Schumacher/KAILEE /8:40 PM /10:06 PM
[2017-03-21] VITALS (11 sets, daily range): BP systolic 139–183; BP diastolic 59–86; PULSE 58–88; RESP 16–20; TEMP 96–97.6; O2SAT 94–100
[2017-03-21 07:30] LABS: AUTOMATED NEUTROPHIL # 5.4 TH/MM3 (1.8-7.7); BASOPHIL % 0.5 % (0.0-2.0); EOSINOPHIL # 0.3 TH/MM3 (0-0.4); EOSINOPHIL % 4.2 % (0.0-4.0); HEMATOCRIT 26.1 % (35.0-46.0); HEMO FLAGS DIFF FINAL; LYMPH % 12.6 % (9.0-44.0); LYMPHOCYTE # 0.9 TH/MM3 (1.0-4.8); MEAN CORPUSCULAR HGB CONC 32.6 % (32.0-36.0); MONO % 8.4 % (0.0-8.0); NEUT % 74.3 % (16.0-70.0); PLATELET COUNT 225 TH/MM3 (150-450); RED BLOOD COUNT 2.93 MIL/MM3 (4.00-5.30); RED CELL DISTRIBUTION WIDTH 15.2 % (11.6-17.2); WHITE BLOOD COUNT 7.2 TH/MM3 (4.0-11.0)
[2017-03-21 07:38] LABS: POTASSIUM 3.7 MEQ/L (3.5-5.1)
[2017-03-21 07:40] LABS: BICARBONATE 30.9 MEQ/L (21.0-32.0)
[2017-03-21 07:42] LABS: PROTHROMBIN TIME - PATIENT 84.1 SEC (9.8-11.6)
[2017-03-21] MEDS: RESP: ALBUTEROL 2.5 MG/3 ML NEB (SCH) NEB ×3 (07:43→20:49)
[2017-03-21] MEDS: FORMOTEROL PO SCH ×2 (08:00→20:00)
[2017-03-21] MEDS ORDERED: MAGNESIUM OXIDE 400 MG TAB PO SCH ×2 (09:00)
[2017-03-21] MEDS: MAGNESIUM OXIDE 400 MG TAB PO SCH (09:00)
[2017-03-21] MEDS: MULTIVITAMINS/MINERALS THERAPEUTIC TAB PO SCH (09:00)
[2017-03-21] MEDS: MONTELUKAST SODIUM 10 MG TAB PO SCH (09:00)
[2017-03-21] MEDS ORDERED: MULTIVITAMINS/MINERALS THERAPEUTIC TAB PO SCH (09:00)
[2017-03-21] MEDS: CHOLECALCIFEROL (VIT D3) 1000 UNIT TAB PO SCH (09:00)
[2017-03-21] MEDS: GABAPENTIN 100 MG CAP PO SCH ×3 (09:00→18:00)
[2017-03-21] MEDS: ASCORBIC ACID 500 MG TAB PO SCH (09:00)
[2017-03-21] MEDS ORDERED: ASCORBIC ACID 500 MG TAB PO SCH (09:00)
[2017-03-21] MEDS: FERROUS SULFATE 325 MG (65 MG ELEMENTAL IRON) TAB PO SCH ×2 (09:00→21:13)
[2017-03-21] MEDS: CALCIUM CARBONATE 1.25 GM (CA 500 MG) TAB PO SCH ×2 (09:00→21:00)
[2017-03-21] MEDS: ONDANSETRON HCL 4 MG/2 ML VIAL IV PRN (09:15)
[2017-03-21] MEDS ORDERED: PHYTONADIONE 10 MG/ML VIAL SQ ONE (09:15)
[2017-03-21] MEDS: METOPROLOL TARTRATE 50 MG TAB PO SCH ×2 (11:32→21:13)
[2017-03-21] MEDS: AMIODARONE 200 MG TAB PO SCH (11:32)
[2017-03-21] MEDS: DILTIAZEM-CD 180 MG CAP ER PO SCH (11:32)
[2017-03-21] MEDS ORDERED: ACETAMINOPHEN/HYDROcodone 325 MG/5 MG TAB PO PRN ×2 (13:15→13:30)
--- NOTE | 2017-03-21 13:19 | HHI.PR ---
Subjective Remarks still with pain in her coccyx, was able to work with PT but became sob and pain was 7/10 pain medications are making her nauseous, she states she tolerated what they gave her at rehab but doesnt know what it was. noticed dark discharge on pantyliner today x1 Objective Vitals Vital Signs Date Time Temp Pulse Resp B/P Pulse Ox O2 Delivery O2 Flow Rate FiO2 03/21/17 08:00 96.7 59 17 168/77 94 03/21/17 07:45 96 Nasal Cannula 2.00 03/21/17 04:00 96.0 58 20 139/59 97 03/21/17 00:00 96.0 60 20 146/64 100 03/20/17 21:08 98 Nasal Cannula 2.00 03/20/17 20:30 66 166/82 03/20/17 20:30 97.7 57 20 187/77 100 03/20/17 20:30 60 197/86 03/20/17 20:00 56 03/20/17 20:00 63 166/82 03/20/17 19:08 55 20 145/60 98 03/20/17 18:50 57 18 191/63 58 18 200/107 63 20 145/60 03/20/17 17:36 54 17 178/65 100 Nasal Cannula 2 03/20/17 14:30 46 18 124/48 97 03/20/17 13:56 97.5 45 19 82/44 100 03/20/17 03/20/17 03/21/17 15:00 23:00 07:00 Intake Total 120 ml 1044 ml Output Total 150 ml Balance -30 ml 1044 ml Intake Oral 120 ml IV Total 1044 ml Output Urine Total 150 ml # Voids 1 # Bowel Movements 0 Result Diagram: 03/21/1771803/21/17718 Other Results Laboratory Tests Test 03/20/17 03/21/17 17:27 07:19 Red Blood Count 3.28 MIL/MM3 2.93 MIL/MM3 (4.00-5.30) (4.00-5.30) Hemoglobin 9.6 GM/DL 8.5 GM/DL (11.6-15.3) (11.6-15.3) Hematocrit 29.4 % 26.1 % (35.0-46.0) (35.0-46.0) Neutrophils (%) (Auto) 76.2 % 74.3 % (16.0-70.0) (16.0-70.0) Monocytes (%) (Auto) 8.3 % (0.0-8.0) 8.4 % (0.0-8.0) Prothrombin Time 85.1 SEC 84.1 SEC (9.8-11.6) (9.8-11.6) Prothromb Time International 7.1 RATIO 7.0 RATIO Ratio Activated Partial 58.8 SEC Thromboplast Time (24.3-30.1) Potassium Level 3.3 MEQ/L (3.5-5.1) Estimat Glomerular Filtration 54 ML/MIN (>89) 57 ML/MIN (>89) Rate Random Glucose 110 MG/DL (74-106) Albumin 2.6 GM/DL (3.4-5.0) Eosinophils (%) (Auto) 4.2 % (0.0-4.0) Lymphocytes # (Auto) 0.9 TH/MM3 (1.0-4.8) Chloride Level 110 MEQ/L (98-107) Anion Gap 4 MEQ/L (5-15) Calcium Level 8.1 MG/DL (8.5-10.1) Imaging Last Impressions Sacrum and Coccyx X-Ray 03/20/17 0000 Signed Impressions: Service Date/Time: Monday, March 20, 2017 15:52 - CONCLUSION: 1. No acute fracture or dislocation of the sacrum or coccyx. 2. 3.9 cm calcified pelvic mass consistent with probable fibroid. 3. Degenerative changes involving the lower lumbar spine. Indio Cuevas MD Objective Remarks lying in bed on oxygen lungs have no wheezing , slightly diminished on the left good bs, no tenderness , rebound or guarding, rt LQ colostomy bag ext no c/c/e rt heel pressure ulcer, necrotoc area, no drainage no erythema A/P Problem List: (1) Bradycardia Status: Acute Plan: hr in the mid to upper fifties today, has maintained blood pressure, has also not taken some of her medications due to nausea (2) Anemia Status: Chronic Plan: she was discharged after her hip fracture with decerased h/h, after hydration she has dropped again, given her copd and chronic resp failure will transfuse 1 unit in an effort to increase her exercise endurance (3) Nausea Status: Acute Plan: eating well prior to admission, nausea appears to have started with pain medications, on zofran daughter will brought in medications she tolerated at [facility] this included NORCO (4) Coagulopathy Status: Acute Plan: given very low dose of vit k in to attempt to decrease inr w/o reversing completely, still elevated today, will give another dose of vit k today, she now recalls she took some naprosyn for her pain (5) COPD (chronic obstructive pulmonary disease) Status: Chronic Plan: her breathing so far has been stable and good for her cont current regimen (6) Atrial fibrillation Status: Chronic Plan: she has been on amiodarone, cardizam and metoprolol for control from cardiology her transient episode of drop in blood pressure may have been due to dehydration as she was eating but not drinking for the last 2 days she was in bed (7) Coccygeal pain, acute Status: Acute Plan: xrays show no evidence of fracture Muna Perea MD March 21, 2017 13:18
[2017-03-21] MEDS ORDERED: ACETAMINOPHEN 325 MG TAB PO PRN (13:30)
[2017-03-21] MEDS ORDERED: FUROSEMIDE 20 MG/2 ML VIAL IV ONE (14:00)
[2017-03-21 16:05] LABS: BLOOD, URINE NEG (NEG); GLUCOSE,URINE NEG (NEG); KETONE, URINE NEG (NEG); NITRITE,URINE NEG (NEG)
[2017-03-21 16:07] LABS: INTERNATIONAL NORMALIZED RATIO 4.4 RATIO; PROTHROMBIN TIME - PATIENT 51.3 SEC (9.8-11.6)
[2017-03-21 16:20] LABS: URINE COLOR YELLOW (YELLW/STRAW)
[2017-03-21 16:21] LABS: COMMENT (UR) CULT NOT INDICATED; CULTURE IF INDICATED CULT NOT INDICATED; RBC, URINE 0-3 /hpf (0-3); SQUAMOUS EPITHELIAL CELL URINE 0-5 /hpf (0-5); WBC, URINE 0-2 /hpf (0-5)
[2017-03-21] MEDS: PANTOPRAZOLE SODIUM 40 MG VIAL IV PUSH SCH (18:05)
[2017-03-22] VITALS (11 sets, daily range): BP systolic 116–196; BP diastolic 55–94; PULSE 59–99; RESP 18–20; TEMP 97–98.1; O2SAT 93–100
[2017-03-22] MEDS ORDERED: ENALAPRILAT 1.25 MG/ML VIAL IV PUSH PRN (00:15)
[2017-03-22] MEDS ORDERED: ENALAPRILAT 1.25 MG/ML VIAL IV PUSH SCH (00:15)
[2017-03-22] MEDS: RESP: ALBUTEROL 2.5 MG/3 ML NEB (SCH) NEB ×3 (07:13→20:22)
[2017-03-22] MEDS: ONDANSETRON HCL 4 MG/2 ML VIAL IV PRN (07:37)
[2017-03-22] MEDS: FORMOTEROL PO SCH ×2 (08:00→20:00)
[2017-03-22] MEDS: DILTIAZEM-CD 180 MG CAP ER PO SCH (08:36)
[2017-03-22] MEDS: MULTIVITAMINS/MINERALS THERAPEUTIC TAB PO SCH (08:36)
[2017-03-22] MEDS: AMIODARONE 200 MG TAB PO SCH (08:36)
[2017-03-22] MEDS: CHOLECALCIFEROL (VIT D3) 1000 UNIT TAB PO SCH (08:36)
[2017-03-22] MEDS: CALCIUM CARBONATE 1.25 GM (CA 500 MG) TAB PO SCH ×2 (08:37→21:00)
[2017-03-22] MEDS: FERROUS SULFATE 325 MG (65 MG ELEMENTAL IRON) TAB PO SCH ×2 (08:37→21:00)
[2017-03-22] MEDS: MAGNESIUM OXIDE 400 MG TAB PO SCH (08:37)
[2017-03-22] MEDS: ASCORBIC ACID 500 MG TAB PO SCH (08:37)
[2017-03-22] MEDS: METOPROLOL TARTRATE 50 MG TAB PO SCH ×2 (08:37→21:00)
[2017-03-22] MEDS: GABAPENTIN 100 MG CAP PO SCH ×3 (08:37→17:54)
[2017-03-22] MEDS: MONTELUKAST SODIUM 10 MG TAB PO SCH (08:37)
[2017-03-22 09:05] LABS: AUTOMATED NEUTROPHIL # 8.1 TH/MM3 (1.8-7.7); BASOPHIL % 0.5 % (0.0-2.0); EOSINOPHIL # 0.2 TH/MM3 (0-0.4); EOSINOPHIL % 1.8 % (0.0-4.0); HEMATOCRIT 32.1 % (35.0-46.0); HEMO FLAGS DIFF FINAL; LYMPH % 8.2 % (9.0-44.0); LYMPHOCYTE # 0.8 TH/MM3 (1.0-4.8); MEAN CELL VOLUME 90.4 FL (80.0-100.0); MEAN CORPUSCULAR HEMOGLOBIN 29.5 PG (27.0-34.0); MEAN CORPUSCULAR HGB CONC 32.7 % (32.0-36.0); NEUT % 82.5 % (16.0-70.0); PLATELET COUNT 215 TH/MM3 (150-450); RED BLOOD COUNT 3.55 MIL/MM3 (4.00-5.30); RED CELL DISTRIBUTION WIDTH 15.9 % (11.6-17.2); WHITE BLOOD COUNT 9.8 TH/MM3 (4.0-11.0)
[2017-03-22 09:16] LABS: INTERNATIONAL NORMALIZED RATIO 2.3 RATIO; PROTHROMBIN TIME - PATIENT 26.2 SEC (9.8-11.6)
[2017-03-22 09:59] LABS: CHLORIDE 105 MEQ/L (98-107); POTASSIUM 3.2 MEQ/L (3.5-5.1); SODIUM (NA) 142 MEQ/L (136-145)
[2017-03-22 10:12] LABS: ANION GAP 9 MEQ/L (5-15); BICARBONATE 27.8 MEQ/L (21.0-32.0)
[2017-03-22 10:14] LABS: BLOOD UREA NITROGEN 11 MG/DL (7-18)
[2017-03-22 10:16] LABS: AST (GOT) 20 U/L (15-37); GLOMERULAR FILTRATION RATE 90 ML/MIN (>89)
[2017-03-22 10:17] LABS: ALKALINE PHOSPHATASE 96 U/L (45-117)
[2017-03-22 10:18] LABS: ALT (GPT) 19 U/L (10-53); TOTAL BILIRUBIN ADULT 0.7 MG/DL (0.2-1.0)
[2017-03-22] MEDS ORDERED: POTASSIUM CHLORIDE 20 MEQ CONTROLLED RELEASE TAB PO ONE (11:30)
--- NOTE | 2017-03-22 12:23 | HHI.PR ---
Subjective Remarks Some sob last night after transfusion , recieved quin, back to [facility] this am , not eating much, not hungry not getting out of bed Objective Vitals Vital Signs Date Time Temp Pulse Resp B/P Pulse Ox O2 Delivery O2 Flow Rate FiO2 03/22/17 08:00 97.9 61 20 193/67 98 03/22/17 07:14 98 Nasal Cannula 2.00 03/22/17 06:15 168/72 03/22/17 04:00 97.0 64 20 195/94 100 03/22/17 01:00 158/68 03/22/17 00:00 98.0 99 20 196/81 93 03/21/17 21:00 97.5 88 20 158/86 95 03/21/17 20:50 98 Nasal Cannula 2.00 03/21/17 20:00 62 03/21/17 18:27 97.6 62 18 169/74 03/21/17 18:16 97.6 60 16 175/83 95 03/21/17 16:00 97.1 60 20 155/71 98 03/21/17 03/21/17 03/22/17 15:00 23:00 07:00 Intake Total 780 ml 120 ml Output Total 0 ml 300 ml Balance 780 ml -180 ml Intake Oral 780 ml 120 ml Output Urine Total 0 ml 300 ml # Voids 3 # Bowel Movements 0 0 Result Diagram: 03/22/17 0843 03/22/17 0843 Imaging Last Impressions Sacrum and Coccyx X-Ray 03/20/17 0000 Signed Impressions: Service Date/Time: Monday, March 20, 2017 15:52 - CONCLUSION: 1. No acute fracture or dislocation of the sacrum or coccyx. 2. 3.9 cm calcified pelvic mass consistent with probable fibroid. 3. Degenerative changes involving the lower lumbar spine. Indio Cuevas MD Objective Remarks lying in bed on oxygen lungs have minimal wheezing , slightly diminished on the left good bs, no tenderness , rebound or guarding, rt LQ colostomy bag ext no c/c/e rt heel pressure ulcer, necrotoc area, no drainage no erythema A/P Problem List: (1) Bradycardia Status: Acute Plan: she continues to be bradycardic in the 50-60's but her blood pressure is maintaing, at this point dounbt the sourcce of her weaknees is her heartrate, transient episode of hypotension in Ed likely due to dehydration as she corrected immediately with volume and has not recurred (2) Anemia Status: Chronic Plan: she was discharged after her hip fracture with decerased h/h, after hydration she has dropped again, given her copd and chronic resp failure was transfuse 1 unit in an effort to increase her exercise endurance , will see how she does with PT today (3) Nausea Status: Resolved Plan: eating well prior to admission, nausea appears to have started with pain medications, on zofran daughter brought in medications she tolerated at [facility] this included NORCO, so far she is saying the pain is not as much today and she has not used any pain medications (4) Coagulopathy Status: Resolved Plan: received vit k yesterday and is therapeuritc today resume warfarin today (5) COPD (chronic obstructive pulmonary disease) Status: Chronic Plan: cont nebulizer and oxygen for her chronic respiratory failure (6) Atrial fibrillation Status: Chronic Plan: she has been on amiodarone, cardizam and metoprolol for control from cardiology her transient episode of drop in blood pressure may have been due to dehydration as she was eating but not drinking for the last 2 days she was in bed (7) Coccygeal pain, acute Status: Acute Plan: xrays show no evidence of fracture , continue supportive care Muna Perea MD March 22, 2017 12:23
[2017-03-22] MEDS: PANTOPRAZOLE SODIUM 40 MG VIAL IV PUSH SCH (12:53)
[2017-03-22] MEDS: LISINOPRIL 20 MG TAB PO SCH (12:55)
--- NOTE | 2017-03-22 21:02 | RADHPO ---
EXAM DATE/TIME: 03/22/2017 20:01 [place] COMPARISON: No previous studies available for comparison. INDICATIONS : Coccygeal pain post fall. ORAL CONTRAST: No oral contrast ingested. RADIATION DOSE: 29.31 CTDIvol (mGy) MEDICAL HISTORY : Hypertension. Carcinoma, lung. SURGICAL HISTORY : Hip pins, right. ENCOUNTER: Subsequent ACUITY: 1 week PAIN SCALE: 8/10 LOCATION: coccyx. TECHNIQUE: Volumetric scanning of the pelvis was performed. Using automated exposure control and adjustment of the mA and/or kV according to patient size, radiation dose was kept as low as reasonably achievable t o obtain optimal diagnostic quality images. FINDINGS: No fracture or dislocation is seen involving the coccyx or pelvis. A subacute fracture involving the intertrochanteric region of the right hip is seen with intramedullary audrey and femoral neck screw. The femoral neck screw is well contained within the cortical confines of the femoral head. Good alignmen t is seen. A degenerating fibroid is seen. Bilateral Spigellian hernias containing multiple loops of large and small bowel. No inflammatory change or obstruction to suggest incarceration. Multiple colon ic diverticuli. Diffuse calcified plaque of the aorta. Degenerative changes of the lumbar spine. CONCLUSION: 1. No fracture involving the coccyx. 2. Subacute fracture of the right hip with orthopedic hardware. 3. Bilateral Spigellian hernias. 4. Degenerating uterine fibroid. Teodoro Villalobos Jr., MD on March 22, 2017 at 20:56 Board Certified Radiologist. This report was verified electronically.
[2017-03-23] VITALS (9 sets, daily range): BP systolic 140–158; BP diastolic 60–88; PULSE 64–77; RESP 16–18; TEMP 96.2–98.3; O2SAT 92–97
[2017-03-23 07:08] LABS: CHLORIDE 108 MEQ/L (98-107); POTASSIUM 3.5 MEQ/L (3.5-5.1); SODIUM (NA) 145 MEQ/L (136-145)
[2017-03-23 07:12] LABS: ANION GAP 6 MEQ/L (5-15); BICARBONATE 31.2 MEQ/L (21.0-32.0); BLOOD UREA NITROGEN 12 MG/DL (7-18); MAGNESIUM 1.9 MG/DL (1.5-2.5)
[2017-03-23 07:15] LABS: ALT (GPT) 16 U/L (10-53); AST (GOT) 16 U/L (15-37); GLOMERULAR FILTRATION RATE 68 ML/MIN (>89)
[2017-03-23 07:17] LABS: TOTAL BILIRUBIN ADULT 0.7 MG/DL (0.2-1.0)
[2017-03-23 07:18] LABS: ALKALINE PHOSPHATASE 91 U/L (45-117)
[2017-03-23] MEDS: FORMOTEROL PO SCH ×2 (08:00→20:00)
[2017-03-23] MEDS: RESP: ALBUTEROL 2.5 MG/3 ML NEB (SCH) NEB ×3 (08:15→20:23)
[2017-03-23] MEDS: CALCIUM CARBONATE 1.25 GM (CA 500 MG) TAB PO SCH ×2 (09:00→21:00)
[2017-03-23] MEDS: FERROUS SULFATE 325 MG (65 MG ELEMENTAL IRON) TAB PO SCH ×2 (09:00→21:00)
[2017-03-23] MEDS: MULTIVITAMINS/MINERALS THERAPEUTIC TAB PO SCH (11:40)
[2017-03-23] MEDS: MAGNESIUM OXIDE 400 MG TAB PO SCH (11:41)
[2017-03-23] MEDS: AMIODARONE 200 MG TAB PO SCH (11:41)
[2017-03-23] MEDS: CHOLECALCIFEROL (VIT D3) 1000 UNIT TAB PO SCH (11:41)
[2017-03-23] MEDS: DILTIAZEM-CD 180 MG CAP ER PO SCH (11:41)
[2017-03-23] MEDS: ASCORBIC ACID 500 MG TAB PO SCH (11:41)
[2017-03-23] MEDS: MONTELUKAST SODIUM 10 MG TAB PO SCH (11:41)
[2017-03-23] MEDS: LISINOPRIL 20 MG TAB PO SCH (11:42)
[2017-03-23] MEDS: METOPROLOL TARTRATE 50 MG TAB PO SCH ×2 (11:43→22:20)
[2017-03-23] MEDS: GABAPENTIN 100 MG CAP PO SCH ×3 (11:43→17:28)
--- NOTE | 2017-03-23 12:51 | HHI.PR ---
Subjective Remarks still not wanting to get our of bed due to pain, afraid of narcotics due to nausea and worries about addiction, Took norco at rehab. Doesnt recall problems with it. States heel is bothering her. Thinks she needs a "happy" pill. States her heel hurts where it comes out of the boot and rubs. Objective Vitals Vital Signs Date Time Temp Pulse Resp B/P Pulse Ox O2 Delivery O2 Flow Rate FiO2 03/23/17 08:18 92 Nasal Cannula 2.00 03/23/17 08:00 98.0 67 17 158/70 92 149/88 03/23/17 04:00 97.8 64 16 149/66 95 03/23/17 00:00 96.2 65 17 158/66 95 03/22/17 20:58 97.5 59 18 153/65 98 03/22/17 20:25 98 Nasal Cannula 2.00 03/22/17 20:00 60 03/22/17 16:00 97.7 59 20 132/55 95 03/22/17 03/22/17 03/23/17 15:00 23:00 07:00 Intake Total 540 ml Output Total 150 ml 200 ml Balance 390 ml -200 ml Intake Oral 540 ml Stool Total 150 ml 200 ml # Voids 4 2 Result Diagram: 03/22/17 0843 03/23/17 0650 Imaging Last Impressions Pelvis CT 03/22/17 0000 Signed Impressions: Service Date/Time: Wednesday, March 22, 2017 20:01 - CONCLUSION: 1. No fracture involving the coccyx. 2. Subacute fracture of the right hip with orthopedic hardware. 3. Bilateral Spigellian hernias. 4. Degenerating uterine fibroid. Teodoro Villalobos Jr., MD Sacrum and Coccyx X-Ray 03/20/17 0000 Signed Impressions: Service Date/Time: Monday, March 20, 2017 15:52 - CONCLUSION: 1. No acute fracture or dislocation of the sacrum or coccyx. 2. 3.9 cm calcified pelvic mass consistent with probable fibroid. 3. Degenerative changes involving the lower lumbar spine. Indio Cuevas MD Last Impressions Sacrum and Coccyx X-Ray 03/20/17 0000 Signed Impressions: Service Date/Time: Monday, March 20, 2017 15:52 - CONCLUSION: 1. No acute fracture or dislocation of the sacrum or coccyx. 2. 3.9 cm calcified pelvic mass consistent with probable fibroid. 3. Degenerative changes involving the lower lumbar spine. Indio Cuevas MD Objective Remarks lying in bed on oxygen lungs have minimal diminished on no wheezing good bs, no tenderness , rebound or guarding, rt LQ colostomy bag ext no c/c/e rt heel pressure ulcer, in boot A/P Problem List: (1) Bradycardia Status: Chronic Plan: she continues to be bradycardic in the 50-60's but her blood pressure is maintaining, at this point doubt the source of her weaknees is her heartrate, transient episode of hypotension in Ed likely due to dehydration as she corrected immediately with volume and has not recurred (2) Anemia Status: Chronic Plan: she was discharged after her hip fracture with decerased h/h, after hydration she has dropped again, given her copd and chronic resp failure was transfuse 1 unit in an effort to increase her exercise endurance , H/H unfortunately she declined Pt yesterday (3) Nausea Status: Resolved Plan: eating well prior to admission, nausea appears to have started with pain medications, on zofran daughter brought in medications she tolerated at [facility] this included NORCO, so far she is saying the pain is not as much today and she has not used any pain medications (4) Coagulopathy Status: Resolved Plan: received vit k yesterday and is therapeuritc today resume warfarin today, continue to monitor (5) COPD (chronic obstructive pulmonary disease) Status: Chronic Plan: cont nebulizer and oxygen for her chronic respiratory failure, no complaints of sob today (6) Atrial fibrillation Status: Chronic Plan: she has been on amiodarone, cardizam and metoprolol for control from cardiology her transient episode of drop in blood pressure may have been due to dehydration as she was eating but not drinking for the last 2 days she was in bed (7) Coccygeal pain, acute Status: Acute Plan: xrays , ct scan show no evidence of fracture , continue supportive care, discussed trial of medrol not sure if this will help, would help her lungs (8) Adjustment disorder with depressed mood Status: Acute Plan: we had talked in the past about how her chronic medical problems have discouraged her and made her feel depressed. She would like to try a low dose antidepressant. Will place her on low dose of effexor. Muna Perea MD Mar 23, 2017 12:51
[2017-03-23] MEDS ORDERED: methylPREDNISolone 4 MG TAB PO ONE (14:00)
[2017-03-23] MEDS: PANTOPRAZOLE SODIUM 40 MG VIAL IV PUSH SCH (15:01)
[2017-03-23 16:06] LABS: INTERNATIONAL NORMALIZED RATIO 1.4 RATIO; PROTHROMBIN TIME - PATIENT 15.2 SEC (9.8-11.6)
[2017-03-23] MEDS: VENLAFAXINE HCL XR 37.5 MG CAP PO SCH (17:23)
[2017-03-23] MEDS ORDERED: WARFARIN SOD 5 MG TAB PO ONE (18:00)
[2017-03-23] MEDS: ENOXAPARIN SODIUM 60 MG/0.6 ML SYRINGE SQ SCH (22:19)
[2017-03-24] VITALS: BP 137/66; PULSE 71; RESP 21; TEMP 99; O2SAT 90
[2017-03-24 04:00] VITALS: BP 147/65; PULSE 69; RESP 20; TEMP 98.6; O2SAT 91
[2017-03-24 08:00] VITALS: BP 159/59; PULSE 72; RESP 16; TEMP 97.5; O2SAT 91; O2SAT 93
[2017-03-24] MEDS: FORMOTEROL PO SCH (08:00)
[2017-03-24] MEDS: RESP: ALBUTEROL 2.5 MG/3 ML NEB (SCH) NEB ×3 (08:00→15:43)
[2017-03-24 08:23] LABS: INTERNATIONAL NORMALIZED RATIO 1.4 RATIO; PROTHROMBIN TIME - PATIENT 15.2 SEC (9.8-11.6)
[2017-03-24] MEDS: DILTIAZEM-CD 180 MG CAP ER PO SCH (10:25)
[2017-03-24] MEDS: CHOLECALCIFEROL (VIT D3) 1000 UNIT TAB PO SCH (10:25)
[2017-03-24] MEDS: MULTIVITAMINS/MINERALS THERAPEUTIC TAB PO SCH (10:25)
[2017-03-24] MEDS: CALCIUM CARBONATE 1.25 GM (CA 500 MG) TAB PO SCH (10:26)
[2017-03-24] MEDS: LISINOPRIL 20 MG TAB PO SCH (10:26)
[2017-03-24] MEDS: METOPROLOL TARTRATE 50 MG TAB PO SCH (10:26)
[2017-03-24] MEDS: AMIODARONE 200 MG TAB PO SCH (10:26)
[2017-03-24] MEDS: GABAPENTIN 100 MG CAP PO SCH ×2 (10:27→12:20)
[2017-03-24] MEDS: ASCORBIC ACID 500 MG TAB PO SCH (10:27)
[2017-03-24] MEDS: MONTELUKAST SODIUM 10 MG TAB PO SCH (10:27)
[2017-03-24] MEDS: MAGNESIUM OXIDE 400 MG TAB PO SCH (10:27)
[2017-03-24] MEDS: FERROUS SULFATE 325 MG (65 MG ELEMENTAL IRON) TAB PO SCH (10:28)
[2017-03-24] MEDS: ENOXAPARIN SODIUM 60 MG/0.6 ML SYRINGE SQ SCH (10:28)
[2017-03-24] MEDS: VENLAFAXINE HCL XR 37.5 MG CAP PO SCH (10:34)
[2017-03-24 12:00] VITALS: BP 141/57; PULSE 71; RESP 18; TEMP 97.2; O2SAT 100
[2017-03-24] MEDS ORDERED: ENOX60P SQ (14:00)
[2017-03-24] MEDS ORDERED: LISI-515 PO (14:00)
[2017-03-24] MEDS ORDERED: VENL1CAP38 PO (14:00)
[2017-03-24] MEDS ORDERED: ACET1TAB86 PO (14:00)
[2017-03-24] MEDS ORDERED: MEDR4TAB PO (14:00)
[2017-03-24] MEDS ORDERED: methylPREDNISolone 4 MG TAB PO SCH (14:00)
[2017-03-24] MEDS ORDERED: ALBU0.08 NEB (14:00)
[2017-03-24] MEDS ORDERED: GABA100C4 PO (14:00)
[2017-03-24] MEDS ORDERED: WARFARIN SOD 5 MG TAB PO SCH (16:00)
[2017-03-25] MEDS ORDERED: PANTOPRAZOLE SOD 40 MG DELAYED RELEASE TAB PO SCH (09:00)
--- NOTE | 2017-04-13 18:31 | HHI.DS ---
Discharge Summary Admission Date March 21, 2017 at 17:37 Admitting Diagnosis COAGULOPATHY, BRADYCARDIA, FALL RISK (1) Bradycardia Diagnosis: Principal (2) Anemia Diagnosis: Secondary (3) Nausea Diagnosis: Secondary (4) Coagulopathy Diagnosis: Principal (5) COPD (chronic obstructive pulmonary disease) Diagnosis: Secondary (6) Atrial fibrillation Diagnosis: Secondary (7) Coccygeal pain, acute Diagnosis: Principal (8) Adjustment disorder with depressed mood Diagnosis: Secondary Brief History Patient presented to ER one week after leacing rehab. Apparently she chose to leave rehab a little earlier and try to continue at home. Alexis had been weak and unsteady snce discharge and had fallen on her coccyx. She actually had spent the last day or so lying in bed not moving or eating [facility] so the family brought her in. She was hypotensive and bradycardic initially on presentation. She was on coumadin for her atrial fibrillation and her inr was 7.1 She was admitted for her hypotension,bradycardia and coagulapathy Imaging Last Impressions Pelvis CT 03/22/17 0000 Signed Impressions: Service Date/Time: Wednesday, March 22, 2017 20:01 - CONCLUSION: 1. No fracture involving the coccyx. 2. Subacute fracture of the right hip with orthopedic hardware. 3. Bilateral Spigellian hernias. 4. Degenerating uterine fibroid. Teodoro Villalobos Jr., MD Sacrum and Coccyx X-Ray 03/20/17 0000 Signed Impressions: Service Date/Time: Monday, March 20, 2017 15:52 - CONCLUSION: 1. No acute fracture or dislocation of the sacrum or coccyx. 2. 3.9 cm calcified pelvic mass consistent with probable fibroid. 3. Degenerative changes involving the lower lumbar spine. Indio Cuevas MD PE at Discharge lying in bed on oxygen lungs have minimal diminished on no wheezing good bs, no tenderness , rebound or guarding, rt LQ colostomy bag ext no c/c/e rt heel pressure ulcer, in boot Hospital Course Her blood pressure responded to volume resuscitation. She was monitored on telemetry and was hemodynamically stable. Her coagulopathy was corrected. She had significant discomfort and had trouble ambulating due to the pain in her coccyx. Imaging studies were negative for any acute injury.She was able to participate with PT after the addition of medrol. She had a wound on her rt heel that was seen by wound care and their recommendations were folowed. Extensive discussion revealed the patient was depressed due to her multiple medical problems and low dose antidepressant was started. She was discharged to SNF. Pt Condition on Discharge: Fair Discharge Disposition: Discharge to SNF Discharge Instructions DIET: Follow Instructions for: Coumadin (Warfarin) Diet Activities you can perform: Regular-No Restrictions New Medications: Acetaminophen (Eq Acetaminophen) 325 Mg Tab 650 MG PO Q4H PRN PAIN SCALE 1 TO 5 Days 30 TAB Albuterol Neb (Albuterol Neb) 2.5 Mg/3 Ml Neb 2.5 MG NEB Q6HR WHILE AWAKE NEB copd #60 NEBULE Enoxaparin Inj (Lovenox Inj) 60 Mg/0.6 Ml Syr 60 MG SQ Q12H atrial fibrillation #20 INJECTION Gabapentin (Gabapentin) 100 Mg Cap 100 MG PO TID Pain Management #30 CAP Lisinopril (Lisinopril) 20 Mg Tab 20 MG PO DAILY htn #30 TAB Methylprednisolone (Medrol) 4 Mg Tab 4 MG PO DAILY copd,pain Days 5 TAB Venlafaxine ER 24 HR (Effexor XR 24 HR) 37.5 Mg Cap 37.5 MG PO DAILY adjustment disorder Days 30 CAP Continued Medications: Amiodarone (Amiodarone) 200 Mg Tab 200 MG PO DAILY Regulate Heart Beat #30 Ref 0 TAB Ascorbic Acid (Vitamin C) 250 Mg Chew 500 MG CHEW DAILY Nutritional Supplement #30 Ref 0 TAB Calcium Carbonate (Calcium) 600 Mg Tab 1 TAB PO BID Diltiazem ER 24 HR (Cartia Xt) 120 Mg Caper 180 MG PO DAILY #30 Ref 0 CAP Ferrous Sulfate (Iron) 325 Mg Capsule.er 2 TAB PO BID Formoterol Neb (Perforomist Neb) 20 Mcg/2 Ml Neb 1 NEBULE INH BID COPD #60 Ref 0 NEBULE Magnesium Chloride-Calcium Carbonate (Slow-Mag) 71.5-119 Mg Tab 143 MG PO DAILY Metoprolol Tartrate (Metoprolol Tartrate) 75 Mg Tab 75 MG PO BID #60 Ref 0 TAB Montelukast (Montelukast) 10 Mg Tab 10 MG PO DAILY #30 Ref 0 TAB Multiple Vitamin (Multi Vitamin Daily) 1 Tab Tab 1 TAB PO DAILY Discontinued Medications: Gabapentin (Gabapentin) 600 Mg Tab 300 MG PO TID #90 Ref 0 TAB Warfarin (Warfarin) 3 Mg Tab 3.5 MG PO DAILY Blood Clot Prevention #30 Ref 0 TAB Muna Perea MD Apr 13, 2017 18:30
== END 2017-03-24 15:50 | DRG 813 ==
LOC: PHED 13:42 → PHEDA 19:04 → PH3A 20:20 → OBSVTOIN 03-21 17:37
PROVIDERS: ADMIT Legal Medicine; ATTEND Legal Medicine
PROC: 30233N1 Transfusion of Nonautologous Red Blood Cells into Peripheral Vein, Percutaneous Approach (ICD-10-PCS; principal; 2017-03-21)
DX: D68.9 Coagulation defect, unspecified (principal); J96.10 Chronic respiratory failure, unspecified whether with hypoxia or hypercapnia; L89.619 Pressure ulcer of right heel, unspecified stage; G62.9 Polyneuropathy, unspecified; Z92.21 Personal history of antineoplastic chemotherapy; R00.1 Bradycardia, unspecified; J44.9 Chronic obstructive pulmonary disease, unspecified; E86.0 Dehydration; D64.9 Anemia, unspecified; I48.91 Unspecified atrial fibrillation; I10 Essential (primary) hypertension; M53.3 Sacrococcygeal disorders, not elsewhere classified; Z91.81 History of falling; M81.0 Age-related osteoporosis without current pathological fracture; Z98.890 Other specified postprocedural states; F41.9 Anxiety disorder, unspecified; Z86.718 Personal history of other venous thrombosis and embolism; Z79.01 Long term (current) use of anticoagulants; F43.21 Adjustment disorder with depressed mood; K21.9 Gastro-esophageal reflux disease without esophagitis; G25.0 Essential tremor; I25.10 Atherosclerotic heart disease of native coronary artery without angina pectoris; Z93.3 Colostomy status; H91.93 Unspecified hearing loss, bilateral; Z87.891 Personal history of nicotine dependence; Z85.820 Personal history of malignant melanoma of skin
CPT/HCPCS: 36430; 72192; 72220; 80048; 80053; 81001; 83735; 85025; 85610; 85730; 86850; 86900; 86901; 86920; 86922; 94640; 94664; 96374; C9113; G8987-GP; G8988-GP; J1650; J2405; J3430; J3480; J7030; J7509; J7613; P9016

== ENCOUNTER 2017-05-13 17:14 | Inpatient (IN) | payer MEDICARE ==
[~2017-05-13] VITALS: Ht 172.7 cm; Wt 63.0 kg
[~2017-05-13 17:14] MED LIST changes: +ACET1TAB86 PO; +ALBU0.08 NEB; -ASCO500C PO; -ASPI81CH CHEW; +CALC600T25 PO; -CALCCHW9 CHEW; +CART120C PO; -CART180C PO; -CERTTAB2 PO; -COUM3TAB PO; -ENOX30P SQ; +ENOX60P SQ; +FERR325C PO; -HYDR-3516 PO; -LEVA500T PO; +LISI-515 PO; +MEDR4TAB PO; -MUCI600T PO; +MULT1TAB46 PO; +VENL1CAP38 PO; +VITA250C3 PO
[2017-05-13 17:24] VITALS: BP 192/78; PULSE 56; RESP 18; TEMP 98.3; O2SAT 99
--- NOTE | 2017-05-13 17:26 | PD ---
HPI . right hip/groin pain s/p fall Chief Complaint: right hip pain Time Seen by Provider: 17:25 Travel History International Travel<30 days: No Contact w/Intl Traveler<30days: No Traveled to known affect area: No History of Present Illness HPI 81-year-old female with history of atrial flutter ablation, hypertension, ostomy , allergies and COPD here with complaints of falling. Apparently patient was in the standing position at her home when she accidentally lost her footing and fell down to tell marah and landed on her buttocks in a sitting position. Patient states that she is ambulatory, however was concerned because she recently had some type of hip surgery [address] Pichardo, where she had some pins placed in her hip. At rest the pain is 0/10, with movement it intensifies to 10/10. Pain is localized to the right inner thigh and also in the right side of the buttocks. She denies any head injury or loss of consciousness. She denies any type of syncopal episode. She has no other complaints. Her pcp is Dr. Dodd [facility] Past Medical History Hx Anticoagulant Therapy: Yes (WARFARIN ) Arthritis: No Asthma: Yes Atrial Fibrillation: Yes Autoimmune Disease: No Blood Disorders: No Anxiety: No Depression: No Heart Rhythm Problems: Yes (AFIB) Cancer: Yes (LUNG CANCER) Cardiac Catheterization: Yes Cardiovascular Problems: Yes High Cholesterol: Yes Chemotherapy: Yes Chest Pain: No Congestive Heart Failure: No COPD: Yes Cerebrovascular Accident: No Diabetes: No Diminished Hearing: Yes (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) Deep Vein Thrombosis: Yes (LEFT LEG) Endocrine: No Gastrointestinal Disorders: Yes ((HX ONLY)BLOOD IN STOOL 2 YRS AGO) GERD: No Glaucoma: No Genitourinary: Yes Headaches: No Hepatitis: No Hiatal Hernia: No Hypertension: Yes Immune Disorder: No Implanted Vascular Access Dvce: Yes (LEFT CHEST) Kidney Stones: No Musculoskeletal: Yes Neurologic: Yes (NEUROPATHY FEET AND HANDS d/t chemotherapy) Psychiatric: No Reproductive: No Respiratory: Yes (O2 at home - 2L and Scheduled breathing Tx) Immunizations Current: Yes Migraines: No Pneumonia: Yes Radiation Therapy: Yes Renal Failure: No Seizures: No Sickle Cell Disease: No Sleep Apnea: No Thyroid Disease: No Ulcer: No Menopausal: Yes : 4 Para: 3 Miscarriage: 1 Past Surgical History Abdominal Surgery: Yes (COLOSTOMY, COLON/UTERUS ABSCESS DRAINED) AICD: No Appendectomy: No Arteriovenous Shunt: No Body Medical Devices: LEFT CHEST PORT Cardiac Surgery: No Section: Yes (x 2) Cholecystectomy: No Ear Surgery: No Endocrine Surgery: No Eye Surgery: Yes (CATARACT) Genitourinary Surgery: No Gynecologic Surgery: Yes (C- SECTION X 2) Insulin Pump: No Joint Replacement: Yes (RIGHT ELBOW WIRES AND SCREWS, Pins Right Hip) Oral Surgery: No Pacemaker: No Thoracic Surgery: No Other Surgery: Yes (PORT INSERTION-LEFT CHEST) Social History Alcohol Use: No Tobacco Use: No (QUIT 2008) Substance Use: No Allergies-Medications (Allergen,Severity, Reaction): Coded Allergies: Adhesives (Verified Allergy, Severe, 05/13/17) Codeine (Verified Allergy, Severe, N/V, 05/13/17) Penicillin (Verified Allergy, Intermediate, rash, 05/13/17) Robitussin (Verified Adverse Reaction, Mild, Flushing, 05/13/17) PATIENT STATES THAT AFTER SHE WAS ADMINISTERED ROBITSSIN, BL PALM OF HER HANDS TURNED RED. 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 Uncoded Allergies: plastic bandages (Adverse Reaction, Intermediate, reddness , 10/01/14) Reported Meds & Prescriptions Reported Meds & Active Scripts Active Effexor XR 24 HR (Venlafaxine HCl) 37.5 Mg Cap 37.5 Mg PO DAILY 30 Days Gabapentin 100 Mg Cap 100 Mg PO TID Reported Eliquis (Apixaban) 5 Mg Tab 5 Mg PO BID Perforomist Neb (Formoterol Fumarate) 20 Mcg/2 Ml Neb 1 Nebule INH BID Calcium (Calcium Carbonate) 600 Mg Tab 1,200 Mg PO BID Multi Vitamin Daily (Multiple Vitamin) 1 Tab Tab 1 Tab PO DAILY Iron (Ferrous Sulfate) 325 Mg Capsule.er 325 Mg PO BID Slow-Mag (Magnesium Chloride-Calcium Carbonate) 71.5-119 Mg Tab 143 Mg PO DAILY Vitamin C (Ascorbic Acid) 250 Mg Chew 500 Mg PO DAILY Montelukast (Montelukast Sodium) 10 Mg Tab 10 Mg PO DAILY Metoprolol Tartrate 75 Mg Tab 75 Mg PO BID Cartia Xt (Diltiazem ER 24 HR) 120 Mg Caper 120 Mg PO DAILY Amiodarone (Amiodarone HCl) 200 Mg Tab 200 Mg PO DAILY Review of Systems General / Constitutional: No: Fever Eyes: No: Visual changes HENT: No: Headaches Cardiovascular: No: Chest Pain or Discomfort Respiratory: No: Shortness of Breath Gastrointestinal: No: Abdominal Pain Genitourinary: No: Dysuria Musculoskeletal: Positive: Pain (right hip) Skin: No Rash Neurologic: No: Weakness Psychiatric: No: Depression Endocrine: No: Polydipsia Hematologic/Lymphatic: No: Easy Bruising Physical Exam Narrative GENERAL: AAO x 3, no acute distress, Well-nourished, well-developed patient. SKIN: Warm and dry. No visible rashes or bruising. No bruising on the buttocks or hip/in her thigh HEAD: Normocephalic and atraumatic. EYES: No scleral icterus. No injection or drainage. EOM intact, PERRLA ENT: No nasal drainage noted. Mucous membranes pink. Airway patent. NECK: Supple, trachea midline. No JVD. CARDIOVASCULAR: Regular rate and rhythm without murmurs, gallops, or rubs. RESPIRATORY: Breath sounds equal bilaterally. No accessory muscle use. No rhonchi or rales. GASTROINTESTINAL: Abdomen soft, non-tender, nondistended. ostomy present on right side EXTREMITIES: No cyanosis or edema. No tenderness to palpation of the bilateral hips. No tenderness to palpation of the buttocks, range of motion in the right lower extremity is limited secondary pain actively, but with passive motion movement is normal BACK: No obvious deformity. No CVA tenderness. NEURO: CN II-12 intact, business applications specialist strength normal b/l, UE and LE 5/5, no focal deficits PSYCH: AAO x 3, normal affect. Data Data Last Documented VS Vital Signs Date Time Temp Pulse Resp B/P Pulse Ox O2 Delivery O2 Flow Rate FiO2 05/13/17 17:24 98.3 56 18 192/78 99 Orders Hip, Uni(Ap&Lat) W Ap Pelvis (05/13/17 17:26) Acetamin-Hydrocod 325-5 Mg ([place] 5-325 (05/13/17 17:30) Complete Blood Count With Diff (05/13/17 18:28) Comprehensive Metabolic Panel (05/13/17 18:28) Urinalysis - C+S If Indicated (05/13/17 18:28) Act Partial Throm Time (Ptt) (05/13/17 18:28) Prothrombin Time / Inr (Pt) (05/13/17 18:28) MDM Medical Decision Making Medical Screen Exam Complete: Yes Emergency Medical Condition: Yes Medical Record Reviewed: Yes Differential Diagnosis pelvis fracture, hip fracture, less likely dislocated hip Narrative Course 81-year-old female here with complaints of falling now with pain in her right groin and right sided buttocks. With the mechanism of injury and is very possible that she has sustained a fracture. Imaging has been ordered. Last Impressions Hip and Pelvis X-Ray 05/13/17 1726 Signed Impressions: Service Date/Time: Monday, May 13, 2017 17:50 - CONCLUSION: 1. Internal fixation right proximal femur. 2. Fracture of the inferior pubic ramus on the right of indeterminate age. 3. Fractured of left pubic symphysis. Bhupendra Pinzon MD There is a new inferior pubic ramus fracture. Labs have been ordered in anticipation of possible surgery. Case has been discussed with Dr. Allen. I have discussed all the results with the patient and her daughter. I recommend admission as patient is not ambulatory nor is she a safe discharge. She is in agreement with these recommendations. Ortho consult requested from Dr. Pichardo. We will admit the patient. I have requested consult for ortho. Diagnosis Primary Impression: Closed fracture of single pubic ramus of pelvis Qualified Code: S32.509A - Closed fracture of single pubic ramus of pelvis, unspecified laterality, initial encounter Admitting Information Admitting Physician Requests: Admit Condition: Stable Argenis Domingo May 13, 2017 17:26
[2017-05-13] MEDS ORDERED: ACETAMINOPHEN/HYDROcodone 325 MG/5 MG TAB PO ONE (17:30)
[2017-05-13] MEDS ORDERED: APIX5TAB PO (17:54)
--- NOTE | 2017-05-13 18:15 | RADRPT ---
EXAM DATE/TIME: 05/13/2017 17:50 [place] COMPARISON: No previous studies available for comparison. INDICATIONS : Fall. Right hip pain. MEDICAL HISTORY : None. SURGICAL HISTORY : None. ORIF Right hip. ENCOUNTER: Subsequent ACUITY: 1 day PAIN SCORE: 7/10 LOCATION: Right pelvis FINDINGS: Examination of the right hip was performed with AP Pelvis. Compression screw in the right proximal fe mur. Fracture of the amputated ramus on the right. Fracture of the left pubic symphysis. The acetabu lum is grossly intact. Calcified leiomyoma. Vascular calcifications. Degenerative changes of each hip CONCLUSION: 1. Internal fixation right proximal femur. 2. Fracture of the inferior pubic ramus on the right of indeterminate age. 3. Fractured of left pubic symphysis. Bhupendra Pinzon MD on May 13, 2017 at 18:11 Board Certified Radiologist. This report was verified electronically.
[2017-05-13] MEDS ORDERED: ACETAMINOPHEN 325 MG TAB PO PRN (19:30)
[2017-05-13] MEDS ORDERED: MAGNESIUM HYDROXIDE SUSP 30 ML CUP PO PRN (19:30)
[2017-05-13] MEDS ORDERED: TEMAZEPAM 15 MG CAP PO PRN (19:30)
[2017-05-13] MEDS ORDERED: NALOXONE HCL 0.4 MG/ML AMP IV PRN (19:30)
[2017-05-13 19:45] LABS: AUTOMATED NEUTROPHIL # 9.5 TH/MM3 (1.8-7.7); BASOPHIL % 0.4 % (0.0-2.0); EOSINOPHIL # 0.1 TH/MM3 (0-0.4); EOSINOPHIL % 0.9 % (0.0-4.0); HEMATOCRIT 33.5 % (35.0-46.0); HEMO FLAGS DIFF FINAL; LYMPH % 6.6 % (9.0-44.0); LYMPHOCYTE # 0.7 TH/MM3 (1.0-4.8); MEAN CELL VOLUME 90.2 FL (80.0-100.0); MEAN CORPUSCULAR HEMOGLOBIN 28.9 PG (27.0-34.0); MONO % 7.6 % (0.0-8.0); NEUT % 84.5 % (16.0-70.0); PLATELET COUNT 192 TH/MM3 (150-450); RED BLOOD COUNT 3.71 MIL/MM3 (4.00-5.30); WHITE BLOOD COUNT 11.2 TH/MM3 (4.0-11.0)
[2017-05-13 19:58] VITALS: BP 131/64; PULSE 78; RESP 16; TEMP 98.5; O2SAT 97
[2017-05-13 20:00] LABS: BACTERIA, URINE FEW /hpf; BLOOD, URINE NEG (NEG); CALCIUM OXALATE CRYSTALS,URINE MANY /hpf; COMMENT (UR) CULTURE INDICATED; CULTURE IF INDICATED CULTURE INDICATED; GLUCOSE,URINE NEG (NEG); KETONE, URINE NEG (NEG); NITRITE,URINE NEG (NEG); PH, URINE 6.5 (5.0-8.5); SQUAMOUS EPITHELIAL CELL URINE 15 /hpf (0-5); URINE COLOR DARK-YELLOW (YELLW/STRAW)
[2017-05-13 20:05] LABS: ALT (GPT) 33 U/L (10-53); ANION GAP 5 MEQ/L (5-15); AST (GOT) 31 U/L (15-37); BICARBONATE 28.8 MEQ/L (21.0-32.0); BLOOD UREA NITROGEN 21 MG/DL (7-18); CHLORIDE 105 MEQ/L (98-107); GLOMERULAR FILTRATION RATE 59 ML/MIN (>89); POTASSIUM 3.4 MEQ/L (3.5-5.1); SODIUM (NA) 139 MEQ/L (136-145)
[2017-05-13 20:08] LABS: ALKALINE PHOSPHATASE 77 U/L (45-117); APTT (PATIENT) 29.3 SEC (24.3-30.1); PROTHROMBIN TIME - PATIENT 11.3 SEC (9.8-11.6); TOTAL BILIRUBIN ADULT 0.5 MG/DL (0.2-1.0)
--- NOTE | 2017-05-13 20:20 | HHI.HP ---
HPI Service [facility] Hospitalists Primary Care Physician Muna Perea MD Admission Diagnosis Pelvis Fractures Chief Complaint: fall right buttock pain Travel History International Travel<30 Days: No Contact w/Intl Traveler <30 Da: No Traveled to Known Affected Are: No History of Present Illness Pt is a 81 y/o F well known to [facility] medical service with h/o multiple medical problems including history of lung cancer, history DVT, history of pelvic abscess, history of diverticular disease with diverting sigmoid colostomy and chronic abdominal open wounds, COPD, and paroxysmal Atrial fibrillation. Most recently pt was admitted to [facility] 01/2017 for right hip fracture requiring surgical repair. Patient was subsequently discharged to [facility]. Pt was then discharged to home. Per patient she states that she has been doing well at home with her ADLs and even driving. Unfortunately, patient had a mechanical fall today. Patient is now experiencing pain with standing to her right buttock limiting ambulation. X-ray of the pelvis (05/13/17) reveals pelvic fracture: Inferior pubic ramus fracture and left pubic symphysis fracture. Patient is admitted to [facility] for pain control. As this is a nonsurgical condition, I will start arranging for transfer to SNF. Review of Systems Constitutional: DENIES: Diaphoretic episodes, Fatigue, Fever, Weight gain, Weight loss, Chills, Dizziness, Change in appetite, Night Sweats Endocrine: DENIES: Heat/cold intolerance, Polydipsia, Polyuria, Polyphagia Eyes: DENIES: Blurred vision, Diplopia, Eye inflammation, Eye pain, Vision loss , Photosensitivity, Double Vision Ears, nose, mouth, throat: DENIES: Tinnitus, Hearing loss, Vertigo, Nasal discharge, Oral lesions, Throat pain, Hoarseness, Ear Pain, Running Nose, Epistaxis, Sinus Pain, Toothache, Odynophagia Respiratory: DENIES: Apneas, Cough, Snoring, Wheezing, Hemoptysis, Sputum production, Shortness of breath Cardiovascular: DENIES: Chest pain, Palpitations, Syncope, Dyspnea on Exertion , PND, Lower Extremity Edema, Orthopnea, Claudication Gastrointestinal: DENIES: Abdominal pain, Black stools, Bloody stools, BRB per rectum, Constipation, Diarrhea, GERD, Nausea, Reflux, Vomiting, Difficulty Swallowing, Anorexia Genitourinary: DENIES: Urinary frequency, Urinary incontinence, Urgency, Hematuria, Dysuria, Nocturia Musculoskeletal: DENIES: Joint pain, Muscle aches, Stiffness, Joint Swelling, Back pain, Neck pain Integumentary: DENIES: Abnormal pigmentation, Pruritus, Rash, Nail changes, Breast masses, Breast skin changes, Nipple discharge Hematologic/lymphatic: DENIES: Bruising, Lymphadenopathy Immunologic/allergic: DENIES: Eczema, Urticaria Neurologic: COMPLAINS OF: Abnormal gait, Poor Balance, DENIES: Headache, Localized weakness, Paresthesias, Seizures, Speech Problems, Tremor Psychiatric: DENIES: Anxiety, Confusion, Mood changes, Depression, Hallucinations, Agitation, Suicidal Ideation, Homicidal Ideation, Delusions, History of Bipolar, History of Schizophrenia Past Family Social History Past Medical History Aortic atherosclerosis Anxiety Essential tremor Coronary artery disease Chronic DVT of lower extremity COPD with chronic respiratory failure Chronic kidney disease stage III GERD Hyperlipidemia Hypertensive chronic kidney disease Paroxysmal atrial fibrillation Osteoporosis Chronic open wound Pulmonary hypertension h/o sepsis hypertension Past Surgical History Diverting sigmoid colostomy performed in February 2015 with subsequent revision to transverse colostomy March 2015 Chronic abdominal wounds and prior incision and drainage Lipoma removal right arm Lumbar laminectomy 1974 Cataract surgery section Excision of malignant melanoma from the neck Surgical repair of right hip fracture, January/2017 Reported Medications GENERAL: This is a well-nourished, well-developed patient, in no apparent distress. CARDIOVASCULAR: Regular rate and rhythm without murmurs, gallops, or rubs. RESPIRATORY: Clear to auscultation. Breath sounds equal bilaterally. No wheezes , rales, or rhonchi. GASTROINTESTINAL: Abdomen soft, non-tender, nondistended. Normal active bowel sounds MUSCULOSKELETAL: Extremities without clubbing, cyanosis, or edema. NEURO: Alert & Oriented x4 to person, place, time, situation. Moves all ext x4 Allergies: Coded Allergies: Adhesives (Verified Allergy, Severe, 05/13/17) Codeine (Verified Allergy, Severe, N/V, 05/13/17) Penicillin (Verified Allergy, Intermediate, rash, 05/13/17) Robitussin (Verified Adverse Reaction, Mild, Flushing, 05/13/17) PATIENT STATES THAT AFTER SHE WAS ADMINISTERED ROBITSSIN, BL PALM OF HER HANDS TURNED RED. 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 SKIN: No rashes, ecchymoses or lesions. Cool and dry. HEAD: Atraumatic. Normocephalic. No temporal or scalp tenderness. EYES: Pupils equal round and reactive. Extraocular motions intact. No scleral icterus. No injection or drainage. ENT: Nose without bleeding, purulent drainage or septal hematoma. Throat without erythema, tonsillar hypertrophy or exudate. Uvula midline. Airway patent. NECK: Trachea midline. No JVD or lymphadenopathy. Supple, nontender, no meningeal signs. CARDIOVASCULAR: Regular rate and rhythm without murmurs, gallops, or rubs. RESPIRATORY: Clear to auscultation. Breath sounds equal bilaterally. No wheezes , rales, or rhonchi. GASTROINTESTINAL: Abdomen soft, non-tender, nondistended. No hepato-splenomegaly , or palpable masses. No guarding. MUSCULOSKELETAL: Extremities without clubbing, cyanosis, or edema. No joint tenderness, effusion, or edema noted. No calf tenderness. Negative Homans sign bilaterally. NEUROLOGICAL: Awake and alert. Cranial nerves II through XII intact. Motor and sensory grossly within normal limits. Five out of 5 muscle strength in all muscle groups. Normal speech. Laboratory Laboratory Tests Test 05/13/17 19:00 White Blood Count 11.2 Red Blood Count 3.71 Hemoglobin 10.7 Hematocrit 33.5 Mean Corpuscular Volume 90.2 Mean Corpuscular Hemoglobin 28.9 Mean Corpuscular Hemoglobin 32.0 Concent Red Cell Distribution Width 16.0 Platelet Count 192 Mean Platelet Volume 9.4 Neutrophils (%) (Auto) 84.5 Lymphocytes (%) (Auto) 6.6 Monocytes (%) (Auto) 7.6 Eosinophils (%) (Auto) 0.9 Basophils (%) (Auto) 0.4 Neutrophils # (Auto) 9.5 Lymphocytes # (Auto) 0.7 Monocytes # (Auto) 0.9 Eosinophils # (Auto) 0.1 Basophils # (Auto) 0.0 CBC Comment DIFF FINAL Differential Comment Result Diagram: 05/13/17 1900 Imaging Last Impressions Hip and Pelvis X-Ray 05/13/17 1726 Signed Impressions: Service Date/Time: Saturday, May 13, 2017 17:50 - CONCLUSION: 1. Internal fixation right proximal femur. 2. Fracture of the inferior pubic ramus on the right of indeterminate age. 3. Fractured of left pubic symphysis. Bhupendra Pinzon MD Septic Shock Reassessment Heart: Regular rate and rhythm Lungs: Clear Skin: Warm Peripheral Pulses: Bounding Right Radial Bounding Left Radial Bounding Right Popliteal Bounding Left Popliteal Bounding Right Dorsalis Pedis Bounding Left Dorsalis Pedis Bounding Right Posterior Tibial Bounding Left Posterior Tibial Capillary Refill: Brisk Assessment and Plan Problem List: (1) Pelvic fracture Status: Acute Plan: - non-operative injury - norco/dilaudid prn pain - continue Eliquis - PT - anticipate d/c to SNF 05/14/17 - outpt referal to Orthopedics (2) Afib Status: Chronic Plan: - amiodarone, cardizem, lopressor, eliquis (3) COPD (chronic obstructive pulmonary disease) Status: Chronic Plan: - symbicort, Singulair - duonebs prn (4) HTN (hypertension) Status: Chronic Plan: - stable - cardizem, metoprolol (5) H/O: lung cancer Status: Chronic Plan: - follows with Dr. Box Problem Qualifiers (1) Afib: Qualified Code: I48.2 - Chronic atrial fibrillation (2) COPD (chronic obstructive pulmonary disease): Qualified Code: J44.9 - Chronic obstructive pulmonary disease, unspecified COPD type Papito Elena DO May 13, 2017 20:20
[2017-05-13] MEDS: HYDROmorphone HCL PF 1 MG/ML VIAL IV PUSH PRN (20:27)
[2017-05-13 20:43] VITALS: O2SAT 97
[2017-05-13] MEDS: DOCUSATE SODIUM 100 MG CAP PO SCH (20:51)
[2017-05-13] MEDS: APIXABAN 5 MG TABLET PO SCH (20:52)
[2017-05-13] MEDS: CALCIUM CARBONATE 1.25 GM (CA 500 MG) TAB PO SCH (20:52)
[2017-05-13] MEDS: METOPROLOL TARTRATE 25 MG TAB PO SCH (20:52)
[2017-05-13] MEDS: FERROUS SULFATE 325 MG (65 MG ELEMENTAL IRON) TAB PO SCH (20:52)
[2017-05-13 20:57] VITALS: BP 189/69; PULSE 56; RESP 16; O2SAT 97
[2017-05-13] MEDS: BUDESONIDE-FORMOTEROL 160/4.5 MCG INHALER INH SCH (21:00)
[2017-05-13] MEDS ORDERED: PERFOROMIST 20 MCG/2 ML NEB SCH (21:00)
[2017-05-13 22:00] VITALS: BP 167/63; PULSE 61; RESP 18; TEMP 96.3; O2SAT 96
[2017-05-14] VITALS (20 sets, daily range): BP systolic 63–194; BP diastolic 37–71; PULSE 43–66; RESP 18–26; TEMP 97.2–99.2; O2SAT 88–100
[2017-05-14] MEDS: HYDROmorphone HCL PF 1 MG/ML VIAL IV PUSH PRN ×2 (03:47→10:39)
[2017-05-14] MEDS: SODIUM CHLORIDE 0.9% FLUSH 10 ML FLUSH IV FLUSH SCH ×3 (03:48→21:02)
[2017-05-14] MEDS ORDERED: DOPamine INJ PREMIX 500 ML IV ONE (05:00)
[2017-05-14] MEDS ORDERED: ATROPINE SULFATE 1 MG/10 ML SYRINGE IV ONE (05:00)
[2017-05-14] MEDS ORDERED: CALCIUM CHLORIDE 10% SOLN 1 GRAM/10 ML SYR IV ONE ×2 (05:00→17:45)
[2017-05-14] MEDS ORDERED: ERGO1CAP30 PO (06:40)
[2017-05-14] MEDS ORDERED: NORC5TAB PO (06:40)
--- NOTE | 2017-05-14 06:43 | PD.ORT.PN ---
Subjective Subjective Remarks Patient's recovering from right trochanteric femur fracture with intramedullary audrey fixation approximately 3 months ago. Patient was at home and was transferring from wheelchair to chair. She had a fall and had immediate pain through her pelvis and right side. She did not hit her head or lose consciousness. Upon admission pelvic fractures are noted on the right side. Right intertrochanteric femur fracture appears to be stable Objective Vitals Vital Signs Date Time Temp Pulse Resp B/P Pulse Ox O2 Delivery O2 Flow Rate FiO2 05/14/17 04:05 97.6 62 18 157/65 94 05/13/17 22:13 Nasal Cannula 2.00 05/13/17 22:00 96.3 61 18 167/63 96 05/13/17 20:57 56 16 189/69 97 Nasal Cannula 2 05/13/17 20:50 16 05/13/17 20:43 97 Nasal Cannula 2.00 05/13/17 20:00 16 97 Nasal Cannula 2 05/13/17 19:58 98.5 78 16 131/64 97 Nasal Cannula 2 05/13/17 19:57 16 05/13/17 17:24 98.3 56 18 192/78 99 I/O 05/13/17 05/13/17 05/13/17 05/14/17 05/14/17 05/14/17 06:59 14:59 22:59 06:59 14:59 22:59 Intake Total 60 ml Balance 60 ml Intake Oral 60 ml # Voids 0 # Bowel Movements 0 Result Diagram: 05/13/17 1900 05/13/17 1900 Other Results Laboratory Tests Test 05/13/17 19:00 Prothrombin Time 11.3 SEC (9.8-11.6) Prothromb Time International 1.0 RATIO Ratio Imaging Last 24 hours Impressions Hip and Pelvis X-Ray 05/13/17 0986 Signed Impressions: Service Date/Time: Saturday, May 13, 2017 17:50 - CONCLUSION: 1. Internal fixation right proximal femur. 2. Fracture of the inferior pubic ramus on the right of indeterminate age. 3. Fractured of left pubic symphysis. Bhupendra Pinzon MD Objective Remarks Bilateral upper extremities: Full range of motion neurovascular intact Left lower extremity: Full range of motion and neurovascularly intact Right lower extremity: No pain to palpation with gentle movement of knee or ankle. Passive range of motion of hip does elicit tenderness. She has tenderness to palpation over the pubic symphysis and over her sacrum Assessment & Plan Assessment and Plan Right pubic rami and symphysis fracture Physical therapy weightbearing as tolerated right lower extremity Pain control Discharge planning for rehabilitation versus home Follow-up appointment and x-rays in [address] Everett or David Erwin Jr. May 14, 2017 06:43
--- NOTE | 2017-05-14 08:14 | MB ---
cc: BRIANA JOHNSON DATE OF CONSULTATION: 05/14/2017 REASON FOR CONSULTATION: Pelvic ring fractures. CONSULTING PHYSICIAN: Dr. Elena HISTORY Ms. Vallejo is a 81-year-old female who has had multiple medical problems. She has a history of lung cancer, DVT, diverticulitis, COPD, and atrial fibrillation. Approximately 3 months ago she fell and sustained a right hip fracture. This was treated surgically by Dr. Ghanshyam Pichardo. The patient then went to a rehab center. She subsequently developed an ulceration in her heel. She has mostly been using a wheelchair. She is able to stand and transfer but is unable to ambulate. She fell while trying to transfer out of her wheelchair. She had immediate pelvic pain. She presented to the emergency room where x-rays revealed pubic rami fractures. She is currently awake and alert on the orthopedic floor. Her only complaint is pelvic pain. PAST MEDICAL HISTORY: Illnesses: 1. Anxiety. 2. Coronary artery disease. 3. History of lung cancer. 4. Reflux. 5. High cholesterol. 6. Chronic renal failure. 7. Atrial fibrillation. 8. Osteoporosis. 9. Diverticulitis. 10. Pulmonary hypertension. PAST SURGICAL HISTORY: 1. Diverting sigmoid colostomy. 2. Lumbar laminectomy. 3. Cataract surgery. 4. . 5. Right hip ORIF. ALLERGIES: ADHESIVE CODEINE PENICILLIN ROBITUSSIN MEDICATIONS: Please see EMR for complete list of inpatient medications. This was reviewed. FAMILY HISTORY Noncontributory. SOCIAL HISTORY The patient is currently using a wheel chair. She denies alcohol, tobacco or drug use. REVIEW OF SYSTEMS The patient denies headache, visual changes, neck pain, chest pain, shortness of breath, abdominal pain, nausea, vomiting, recent weight loss. She complains of anterior and posterior pelvic pain. PHYSICAL EXAMINATION The patient is a pleasant 81 year old female who is awake and alert. She is alert and oriented x3. Vital signs: Temperature 97.6, pulse 62, respirations 18, blood pressure 157/65, O2 sat 94% on room air. Head: The patient is normocephalic. Pupils are equal. Neck: Soft, nontender. Trachea is midline. Abdomen: Soft, nontender, nondistended. Extremities: Examination of bilateral upper extremities reveals no pain with shoulder, elbow or wrist motion. Skin is intact. Radial pulses palpable. Sensation is intact in all fingers bilaterally. Examination of bilateral lower extremities reveals minimal to no pain with gentle hip, knee or ankle motion. Skin is intact. Dorsalis pedis pulses are palpable. Sensation intact in both feet. Examination of pelvis reveals tenderness to palpation along the pubic symphysis and pubic rami. She has some pain with AP compression of her pelvis. IMPRESSION 1. Osteoporosis 2. Atrial fibrillation. 3. Pubic rami fracture. PLAN: Treatment options were discussed with the patient. At this point I would recommend nonoperative treatment. The patient may weightbear as tolerated. I explained to her that bearing weight will likely cause some pain but will not cause injury to her pelvis. All questions were answered. She may follow up in the clinic with myself or Dr. Pichardo. We previously fixed her hip fracture. All questions were answered. A mid-level provider in my office, nurse practitioner or PA, may see this patient on a follow-up basis and continue to implement the objective of this plan including: Starting or adjusting medications, injections of muscle, tendon, bursa or joints, cast application, orthotic or brace application, physical therapy, further radiographic studies including x-ray, MRI, CT, ultrasounds or bone scan, vascular studies, neurologic studies, or other specialist consultations, and proceeding with surgical management as appropriate. MD MILKA Rangel/ANGELA /6:48 AM /8:08 AM
[2017-05-14] MEDS: FERROUS SULFATE 325 MG (65 MG ELEMENTAL IRON) TAB PO SCH ×2 (09:32→21:02)
[2017-05-14] MEDS: DILTIAZEM-CD 120 MG CAP ER PO SCH (09:32)
[2017-05-14] MEDS: CALCIUM CARBONATE 1.25 GM (CA 500 MG) TAB PO SCH (09:32)
[2017-05-14] MEDS: GABAPENTIN 100 MG CAP PO SCH ×3 (09:32→17:56)
[2017-05-14] MEDS: DOCUSATE SODIUM 100 MG CAP PO SCH ×2 (09:33→21:02)
[2017-05-14] MEDS: AMIODARONE 200 MG TAB PO SCH (09:33)
[2017-05-14] MEDS: APIXABAN 5 MG TABLET PO SCH ×2 (09:33→21:02)
[2017-05-14] MEDS: MULTIVITAMIN TAB PO SCH (09:33)
[2017-05-14] MEDS: METOPROLOL TARTRATE 25 MG TAB PO SCH ×2 (09:35→21:00)
[2017-05-14] MEDS: MONTELUKAST SODIUM 10 MG TAB PO SCH (09:37)
[2017-05-14] MEDS: VENLAFAXINE HCL XR 37.5 MG CAP PO SCH (09:49)
[2017-05-14] MEDS: SODIUM CHLORIDE 0.9% FLUSH 10 ML FLUSH IV FLUSH PRN ×2 (10:39→14:17)
[2017-05-14] MEDS: BUDESONIDE-FORMOTEROL 160/4.5 MCG INHALER INH SCH ×2 (10:45→21:00)
[2017-05-14] MEDS: ONDANSETRON HCL 4 MG/2 ML VIAL IVP PRN (14:15)
[2017-05-14] MEDS: ACETAMINOPHEN/HYDROcodone 325 MG/5 MG TAB PO PRN (14:18)
[2017-05-14] MEDS ORDERED: SODIUM CHLORIDE 0.9% 500 ML IV ONE (17:45)
[2017-05-14] MEDS ORDERED: ATROPINE SULFATE 1 MG/ML VIAL IV PUSH ONE (17:45)
[2017-05-14] MEDS ORDERED: SODIUM CHLOR 0.9% 1000 ML INJ 1,000 ML IV ONE (17:45)
[2017-05-14] MEDS ORDERED: SODIUM CHLORIDE 0.9% 500 ML- REPEAT BAG IV ONE (17:45)
[2017-05-14] MEDS ORDERED: CALCIUM CHLORIDE INJ 1 GM in SODIUM CHLORIDE 0.9% INJ 100 ML IV ONE (18:15)
--- NOTE | 2017-05-14 18:46 | EKG ---
Date Performed: 05/14/2017 Time Performed: 17:03:13 PTAGE: 81 years EKG: SUPRAVENTRICULAR BRADYCARDIA NONSPECIFIC ST/T-WAVE ABNORMALITY ABNORMAL RHYTHM ECG PREVIOUS TRACING : 02/03/2017 21.17 No significant change from previous tracing noted. DOCTOR: Kurt Beck Interpretating Date/Time 05/14/2017 18:44:51
[2017-05-14] MEDS ORDERED: CHLORHEXIDINE GLUCONATE 2 % 1 PACK (2 CLOTHS)(extra cloths) TOPICAL PRN (19:30)
[2017-05-14] MEDS ORDERED: ATROPINE SULFATE 1 MG/ML VIAL IV PUSH PRN (20:30)
--- NOTE | 2017-05-14 20:30 | HHI.PR ---
Subjective Remarks Pt currently has NO complaints and is requesting food. Earlier today, pt was found to be severely bradycardic and hypotensive. Pt was placed in Trendelenburg. She received IV fluids, calcium chloride and 0.5mg IV atropine. Pt remained asymptomatic throughout. Pt's HR and blood pressure improved. Pt transferred to the ICU for closer monitoring. Objective Vitals Vital Signs Date Time Temp Pulse Resp B/P Pulse Ox O2 Delivery O2 Flow Rate FiO2 05/14/17 18:51 91 Nasal Cannula 4.00 05/14/17 18:43 55 05/14/17 18:40 99.2 55 20 149/65 91 05/14/17 17:18 97 Nasal Cannula 3.00 05/14/17 17:15 97 3.00 05/14/17 12:00 97.2 62 20 152/56 94 05/14/17 09:35 Nasal Cannula 3.00 05/14/17 08:00 97.8 65 20 194/71 94 05/14/17 04:05 97.6 62 18 157/65 94 05/13/17 22:13 Nasal Cannula 2.00 05/13/17 22:00 96.3 61 18 167/63 96 05/13/17 20:57 56 16 189/69 97 Nasal Cannula 2 05/13/17 20:50 16 05/13/17 20:43 97 Nasal Cannula 2.00 05/13/17 05/13/17 05/14/17 15:00 23:00 07:00 Intake Total 60 ml 60 ml Balance 60 ml 60 ml Intake Oral 60 ml 60 ml # Voids 0 3 # Bowel Movements 0 0 Result Diagram: 05/13/17189905/13/171899 Imaging Last Impressions Hip and Pelvis X-Ray 05/13/17 1726 Signed Impressions: Service Date/Time: Saturday, May 13, 2017 17:50 - CONCLUSION: 1. Internal fixation right proximal femur. 2. Fracture of the inferior pubic ramus on the right of indeterminate age. 3. Fractured of left pubic symphysis. Bhupendra Pinzon MD Objective Remarks GENERAL: This is a well-nourished, well-developed patient, in no apparent distress. CARDIOVASCULAR: Regular rate and rhythm without murmurs, gallops, or rubs. RESPIRATORY: Clear to auscultation. Breath sounds equal bilaterally. No wheezes , rales, or rhonchi. GASTROINTESTINAL: Abdomen soft, non-tender, nondistended. Normal active bowel sounds MUSCULOSKELETAL: Extremities without clubbing, cyanosis, or edema. NEURO: Alert & Oriented x4 to person, place, time, situation. Moves all ext x4 A/P Problem List: (1) Bradycardia Status: Chronic Plan: - Earlier today (05/14/17), pt was found to be bradycardic and hypotensive. - Halicat was called - Pt was placed in Trendelenburg. - She received IV fluids, calcium chloride and 0.5mg IV atropine. - Pt remained asymptomatic throughout. - Pt's HR and blood pressure improved. - Pt transferred to the ICU for closer monitoring. - current telemetry: sinus bradycardia, HR in the 50s - atropine 0.5mg IV prn Hr below 50 - continue to observe on telemetry - IVFs - echocardiogram (09/2015) EF 50-55% - obtain echocardiogram - consult cardiology (2) Pelvic fracture Status: Acute Plan: - comgmt with Orthopedics - non-operative injury - norco/dilaudid prn pain - continue Eliquis - PT - anticipate d/c to SNF 05/14/17 - outpt referal to Orthopedics (3) Afib Status: Chronic Plan: - amiodarone, cardizem, lopressor, eliquis (4) COPD (chronic obstructive pulmonary disease) Status: Chronic Plan: - symbicort, Singulair - duonebs prn (5) HTN (hypertension) Status: Chronic Plan: - stable - cardizem, metoprolol (6) H/O: lung cancer Status: Chronic Plan: - follows with Dr. Box Problem Qualifiers (1) Afib: Qualified Code: I48.2 - Chronic atrial fibrillation (2) COPD (chronic obstructive pulmonary disease): Qualified Code: J44.9 - Chronic obstructive pulmonary disease, unspecified COPD type Papito Elena DO May 14, 2017 20:30
[2017-05-14] MEDS: 1/2 NS + KCL 20 MEQ INJ 1,000 ML IV SCH (21:02)
[2017-05-14] MEDS: CHLORHEXIDINE GLUCONATE 2 % 1 PACK (2 CLOTHS)(taper/protocol) TOPICAL SCH (23:53)
[2017-05-15] VITALS (19 sets, daily range): BP systolic 110–184; BP diastolic 63–80; PULSE 54–67; RESP 16–34; TEMP 97.2–98.3; O2SAT 89–99
[2017-05-15] MEDS: ACETAMINOPHEN/HYDROcodone 325 MG/5 MG TAB PO PRN ×2 (04:24→12:40)
[2017-05-15 04:54] LABS: CREATINE KINASE 25 U/L (26-192)
--- NOTE | 2017-05-15 06:59 | EKG ---
Date Performed: 05/14/2017 Time Performed: 21:23:27 PTAGE: 81 years EKG: SINUS BRADYCARDIA NONSPECIFIC T-WAVE ABNORMALITY BORDERLINE ECG PREVIOUS TRACING : 05/14/2017 17.03 Compared to previous tracing, prolonged QT interval is no l onger evident. DOCTOR: Kurt Beck Interpretating Date/Time 05/15/2017 06:58:32
[2017-05-15] MEDS: 1/2 NS + KCL 20 MEQ INJ 1,000 ML IV SCH ×2 (08:40→20:46)
--- NOTE | 2017-05-15 08:56 | PD.CONS ---
HPI Service CV Consult Requested By Reason for Consult hypotension, bradycardia Primary Care Physician Muna Perea MD History of Present Illness Here with paroxysmal a-fib, HTN, hyperlipidemia for hip fracture. Yesterday while resting in the ICU she experienced profound hypotension and bradycardiac and require Trendelenburg positioning. She denies any chest pain, shortbness of breath or palpitation. She is in SR currently. (Sylvester Harrington) Review of Systems Consitutional: DENIES: Fatigue, Fever, Chills, Weight gain, Weight loss Eyes: DENIES: Amaurosis Fugax, Change in vision HEENT: DENIES: Lightheadedness, Change in hearing Respiratory: DENIES: See HPI, Cough, Snoring, Shortness of breath, Wheezing, Sputum production Cardiovascular: COMPLAINS OF: See HPI Gastrointestinal: DENIES: Nausea, Vomiting, Change in bowel habits, Reflux, Bloody stools, Melena Genitourinary: DENIES: Urinary incontinence, Difficulty voiding Integumentary: DENIES: Rash Neurologic: DENIES: Tingling or numbness, Memory problems, Poor Balance, Stroke symptoms Musculoskeletal: DENIES: Joint pain, Muscle pain, Limited range of motion, Back pain Psychiatric: DENIES: Anxiety, Depression, Sleep disturbances Hematologic: DENIES: Bruising tendencies, Bleeding tendencies Endocrine: DENIES: Weight gain, Weight loss, Thyroid disease (Sylvester Harrington ) Past Family Social History Allergies: Coded Allergies: Adhesives (Verified Allergy, Severe, 05/13/17) Codeine (Verified Allergy, Severe, N/V, 05/13/17) Penicillin (Verified Allergy, Intermediate, rash, 05/13/17) Robitussin (Verified Adverse Reaction, Mild, Flushing, 05/13/17) PATIENT STATES THAT AFTER SHE WAS ADMINISTERED ROBITSSIN, BL PALM OF HER HANDS TURNED RED. 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 with subsequent revision to transverse colostomy March 2015 Chronic abdominal wounds and prior incision and drainage Lipoma removal right arm Lumbar laminectomy 1975 Cataract surgery section Excision of malignant melanoma from the neck Surgical repair of right hip fracture, January/2017 Reported Medications Reported Meds & Active Scripts Active Ergocalciferol 50,000 Unit Cap 50,000 Units PO Q7D [place] (Hydrocodone-Acetaminophen) 5-325 mg Tab 1 Tab PO Q4H PRN Effexor XR 24 HR (Venlafaxine HCl) 37.5 Mg Cap 37.5 Mg PO DAILY 30 Days Gabapentin 100 Mg Cap 100 Mg PO TID Reported Eliquis (Apixaban) 5 Mg Tab 5 Mg PO BID Perforomist Neb (Formoterol Fumarate) 20 Mcg/2 Ml Neb 1 Nebule INH BID Calcium (Calcium Carbonate) 600 Mg Tab 1,200 Mg PO BID Multi Vitamin Daily (Multiple Vitamin) 1 Tab Tab 1 Tab PO DAILY Iron (Ferrous Sulfate) 325 Mg Capsule.er 325 Mg PO BID Slow-Mag (Magnesium Chloride-Calcium Carbonate) 71.5-119 Mg Tab 143 Mg PO DAILY Vitamin C (Ascorbic Acid) 250 Mg Chew 500 Mg PO DAILY Montelukast (Montelukast Sodium) 10 Mg Tab 10 Mg PO DAILY Metoprolol Tartrate 75 Mg Tab 75 Mg PO BID Cartia Xt (Diltiazem ER 24 HR) 120 Mg Caper 120 Mg PO DAILY Amiodarone (Amiodarone HCl) 200 Mg Tab 200 Mg PO DAILY Active Ordered Medications Current Medications Medications (Trade) Dose Ordered Sig/Kristina Route Start Time Stop Time Status Last Admin (NS Flush) 2 ml UNSCH PRN IV FLUSH 05/13/17 19:30 05/14/17 14:17 (NS Flush) 2 ml BID IV FLUSH 05/13/17 21:00 05/14/17 21:02 (Tylenol) 650 mg Q4H PRN PO 05/13/17 19:30 (Zofran Inj) 4 mg Q6H PRN IVP 05/13/17 19:30 05/14/17 14:15 (Restoril) 15 mg HS PRN PO 05/13/17 19:30 (Narcan Inj) 0.4 mg UNSCH PRN IV 05/13/17 19:30 (Milk Of Rubi Liq) 30 ml Q12H PRN PO 05/13/17 19:30 (Cordarone) 200 mg DAILY PO 05/14/17 09:00 05/14/17 09:33 (Eliquis) 5 mg BID PO 05/13/17 21:00 05/14/17 21:02 (Cardizem Cd) 120 mg DAILY PO 05/14/17 09:00 05/14/17 09:32 (Neurontin) 100 mg TID PO 05/14/17 09:00 05/14/17 17:56 (Lopressor) 75 mg BID PO 05/13/17 21:00 05/14/17 09:35 (Singulair) 10 mg DAILY PO 05/14/17 09:00 (Effexor Xr) 37.5 mg DAILY PO 05/14/17 09:00 05/14/17 09:49 (Ferrous Sulfate) 325 mg BID PO 05/13/17 21:00 05/14/17 21:02 (Theragran) 1 tab DAILY PO 05/14/17 09:00 05/14/17 09:33 (Colace) 100 mg BID PO 05/13/17 21:00 05/14/17 21:02 ([place]m Mott 5-325 Mg) 1 tab Q4H PRN PO 05/13/17 20:15 05/15/17 04:24 (Dilaudid Pf Inj) 0.5 mg Q4H PRN IV PUSH 05/13/17 20:15 05/14/17 10:39 (Symbicort 160-4.5 Inh) 1 puff Q12HR INH 05/13/17 21:00 05/14/17 10:45 Miscellaneous Information Patient in critical care unit? Ass... Q361D .XX 05/14/17 19:30 (Chlorhexidine 2% Cloth) 3 pack DAILY@04 TOPICAL 05/15/17 04:00 05/19/17 04:01 05/14/17 23:53 (Chlorhexidine 2% Cloth) 3 pack UNSCH PRN TOPICAL 05/14/17 19:30 05/19/17 19:15 Atropine Sulfate 0.5 mg 0.5 mg ONCE PRN IV PUSH 05/14/17 20:30 05/17/17 20:29 (1/2 NS + KCl 20 Meq Inj) 1,000 ml @ 84 mls/hr [id number] IV 05/14/17 20:45 05/14/17 21:02 Family History noncontributory Social History denies smoking, alcohol or substance abuse (Sylvester Harrington) Physical Exam Vital Signs Vital Signs Date Time Temp Pulse Resp B/P Pulse Ox O2 Delivery O2 Flow Rate FiO2 05/15/17 06:00 54 05/15/17 05:24 22 05/15/17 04:00 58 05/15/17 04:00 98.3 58 22 149/64 95 05/15/17 02:00 56 05/15/17 00:00 58 05/15/17 00:00 97.2 58 33 96 05/14/17 22:00 59 05/14/17 21:30 99 Nasal Cannula 4.00 05/14/17 20:00 58 05/14/17 20:00 97.8 58 25 100 05/14/17 19:00 94 Nasal Cannula 4.00 05/14/17 18:51 91 Nasal Cannula 4.00 05/14/17 18:43 55 05/14/17 18:40 99.2 55 20 149/65 91 05/14/17 17:18 97 Nasal Cannula 3.00 05/14/17 17:15 97 3.00 05/14/17 17:10 66 167/69 93 05/14/17 17:07 62 136/68 93 05/14/17 17:04 58 95/45 93 05/14/17 16:59 59 104/49 97 05/14/17 16:57 58 26 112/50 05/14/17 16:56 43 86/44 05/14/17 16:53 43 83/40 96 05/14/17 16:48 43 90/39 05/14/17 16:44 43 22 92/37 97 05/14/17 16:40 43 63/37 88 05/14/17 12:00 97.2 62 20 152/56 94 05/14/17 09:35 Nasal Cannula 3.00 Physical Exam GENERAL: Well-nourished, well-developed patient in no apparent distress. NECK: No JVD. No carotid bruit. CARDIOVASCULAR: Bradycardic, regular rhythm. S1/S2 no rub or gallop. II/ TRAN LSB RESPIRATORY: No accessory muscle use. Clear to auscultation. Breath sounds equal bilaterally. GASTROINTESTINAL: Abdomen soft, non-tender, nondistended. MUSCULOSKELETAL: Extremities without clubbing, cyanosis, or edema. Laboratory Laboratory Tests Test 05/14/17 05/14/17 05/15/17 18:39 21:00 03:53 Total Creatine Kinase 30 25 Troponin I 0.02 LESS THAN 0.02 Nasal Screen MRSA (PCR) MRSA DETECTED Date/Time Procedure Status Source Growth 05/13/17 19:00 Urine Culture - Preliminary Resulted Urine Clean Catch IMMATURE GROWTH - REINCUBATE (Sylvester Harrington) Result Diagram: 05/13/17189905/13/171899 Assessment and Plan Problem List: (1) Hypotension (2) Bradycardia (3) HTN (hypertension) Code Status For her hypotension and continued bradycardia we will stop diltiazem and go from there. She may require another antihypertensive medication. Troponin is negative (Sylvester Harrington) Assessment and Plan --------- probable vagal mediated event last night HR - sinus bradycardia. continue amiodarone. decrease BB. DC CCB. HTN- add hydralazine for now given it's relatively short acting in setting of recent hypotension. Probably transition to ACEi prior to DC will sign off call with further questions (Jeronimo Washington MD) Sylvester Harrington May 15, 2017 08:56 Jeronimo Washington MD May 15, 2017 14:04
[2017-05-15] MEDS: DILTIAZEM-CD 120 MG CAP ER PO SCH (09:00)
[2017-05-15] MEDS: METOPROLOL TARTRATE 25 MG TAB PO SCH ×2 (09:00→20:50)
[2017-05-15] MEDS: DOCUSATE SODIUM 100 MG CAP PO SCH ×2 (09:00→20:47)
--- NOTE | 2017-05-15 09:14 | HHI.PR ---
Subjective Remarks no problems with jason or hypotension overnight after move to ICU Objective Vitals heart reg lung cta abd s/nt ext no edema right heel ulceration no redness/drainage Vital Signs Date Time Temp Pulse Resp B/P Pulse Ox O2 Delivery O2 Flow Rate FiO2 05/15/17 06:00 54 05/15/17 05:24 22 05/15/17 04:00 58 05/15/17 04:00 98.3 58 22 149/64 95 05/15/17 02:00 56 05/15/17 00:00 58 05/15/17 00:00 97.2 58 33 96 05/14/17 22:00 59 05/14/17 21:30 99 Nasal Cannula 4.00 05/14/17 20:00 58 05/14/17 20:00 97.8 58 25 100 05/14/17 19:00 94 Nasal Cannula 4.00 05/14/17 18:51 91 Nasal Cannula 4.00 05/14/17 18:43 55 05/14/17 18:40 99.2 55 20 149/65 91 05/14/17 17:18 97 Nasal Cannula 3.00 05/14/17 17:15 97 3.00 05/14/17 17:10 66 167/69 93 05/14/17 17:07 62 136/68 93 05/14/17 17:04 58 95/45 93 05/14/17 16:59 59 104/49 97 05/14/17 16:57 58 26 112/50 05/14/17 16:56 43 86/44 05/14/17 16:53 43 83/40 96 05/14/17 16:48 43 90/39 05/14/17 16:44 43 22 92/37 97 05/14/17 16:40 43 63/37 88 05/14/17 12:00 97.2 62 20 152/56 94 05/14/17 09:35 Nasal Cannula 3.00 05/14/17 05/14/17 05/15/17 14:59 22:59 06:59 Intake Total 60 ml 120 ml 686 ml Balance 60 ml 120 ml 686 ml Intake Oral 60 ml 120 ml 686 ml # Voids 2 1 2 # Bowel Movements 0 0 Result Diagram: 05/13/17189905/13/171899 Imaging Last Impressions Hip and Pelvis X-Ray 05/13/17 1726 Signed Impressions: Service Date/Time: Saturday, May 13, 2017 17:50 - CONCLUSION: 1. Internal fixation right proximal femur. 2. Fracture of the inferior pubic ramus on the right of indeterminate age. 3. Fractured of left pubic symphysis. Bhupendra Pinzon MD A/P Problem List: (1) Bradycardia Status: Acute Plan: - (05/14/17), pt was found to be bradycardic and hypotensive. 40s HR and 60s systolic. - Halicat was called- Pt was placed in Trendelenburg. - She received IV fluids, calcium chloride and 0.5mg IV atropine. - Pt remained asymptomatic throughout. - Pt transferred to the ICU for closer monitoring. - current telemetry: sinus bradycardia, HR in the 50s - atropine 0.5mg IV prn Hr below 50 unclear if she has severe vagal event. she has hx of afib Her dope maintenance worker was consulted hold cardizem and lopressor. echo pending. get oob with PT to assess hr/bp with activity she will need snf for pelvic fx's. (2) Pelvic fracture Status: Acute Plan: - comgmt with Orthopedics - non-operative injury - norco/dilaudid prn pain - continue Eliquis - PT - anticipate d/c to SNF once stable from cardiac standpt (3) Afib Status: Chronic Plan: see above (4) COPD (chronic obstructive pulmonary disease) Status: Chronic Plan: - symbicort, Singulair - duonebs prn (5) HTN (hypertension) Status: Chronic Plan: - stable - cardizem, metoprolol (6) H/O: lung cancer Status: Chronic Plan: - follows with Dr. Box Problem Qualifiers (1) Afib: Qualified Code: I48.2 - Chronic atrial fibrillation (2) COPD (chronic obstructive pulmonary disease): Qualified Code: J44.9 - Chronic obstructive pulmonary disease, unspecified COPD type Ghanshyam Mock MD May 15, 2017 09:14
[2017-05-15] MEDS: MULTIVITAMIN TAB PO SCH (09:19)
[2017-05-15] MEDS: FERROUS SULFATE 325 MG (65 MG ELEMENTAL IRON) TAB PO SCH ×2 (09:19→20:47)
[2017-05-15] MEDS: GABAPENTIN 100 MG CAP PO SCH ×3 (09:19→17:59)
[2017-05-15] MEDS: VENLAFAXINE HCL XR 37.5 MG CAP PO SCH (09:19)
[2017-05-15] MEDS: APIXABAN 5 MG TABLET PO SCH ×2 (09:20→20:47)
[2017-05-15] MEDS: AMIODARONE 200 MG TAB PO SCH (09:20)
[2017-05-15] MEDS: MONTELUKAST SODIUM 10 MG TAB PO SCH (09:20)
[2017-05-15 10:11] LABS: AUTOMATED NEUTROPHIL # 9.2 TH/MM3 (1.8-7.7); BASOPHIL # 0.1 TH/MM3 (0-0.2); BASOPHIL % 0.4 % (0.0-2.0); EOSINOPHIL # 0.4 TH/MM3 (0-0.4); EOSINOPHIL % 3.8 % (0.0-4.0); HEMATOCRIT 30.8 % (35.0-46.0); HEMO FLAGS DIFF FINAL; LYMPH % 8.6 % (9.0-44.0); MEAN CELL VOLUME 90.5 FL (80.0-100.0); MEAN CORPUSCULAR HEMOGLOBIN 29.5 PG (27.0-34.0); MEAN CORPUSCULAR HGB CONC 32.7 % (32.0-36.0); MONO % 8.1 % (0.0-8.0); NEUT % 79.1 % (16.0-70.0); PLATELET COUNT 156 TH/MM3 (150-450); RED BLOOD COUNT 3.41 MIL/MM3 (4.00-5.30); WHITE BLOOD COUNT 11.6 TH/MM3 (4.0-11.0)
[2017-05-15 10:37] LABS: ANION GAP 5 MEQ/L (5-15); BICARBONATE 29.9 MEQ/L (21.0-32.0); BLOOD UREA NITROGEN 24 MG/DL (7-18); CHLORIDE 103 MEQ/L (98-107); GLOMERULAR FILTRATION RATE 50 ML/MIN (>89); MAGNESIUM 1.6 MG/DL (1.5-2.5); POTASSIUM 3.9 MEQ/L (3.5-5.1); SODIUM (NA) 138 MEQ/L (136-145)
[2017-05-15 10:40] LABS: HDL CHOLESTEROL 46.7 MG/DL (40.0-60.0); LDL CHOLESTEROL 45 MG/DL (0-99)
[2017-05-15 10:57] LABS: CREATINE KINASE 29 U/L (26-192)
[2017-05-15] MEDS: SODIUM CHLORIDE 0.9% FLUSH 10 ML FLUSH IV FLUSH SCH ×2 (12:41→20:46)
[2017-05-15] MEDS: hydrALAZINE HCL 50 MG TAB PO SCH ×2 (15:04→22:06)
[2017-05-15] MEDS: hydrALAZINE HCL 20 MG/ML VIAL IV PUSH PRN (17:59)
[2017-05-15] MEDS: BUDESONIDE-FORMOTEROL 160/4.5 MCG INHALER INH SCH (20:44)
[2017-05-16] VITALS (25 sets, daily range): BP systolic 135–191; BP diastolic 63–90; PULSE 64–75; RESP 14–51; TEMP 98.2–98.7; O2SAT 89–99
[2017-05-16 01:24] LABS: BICARBONATE 25.5 MEQ/L (21.0-32.0); MAGNESIUM 1.8 MG/DL (1.5-2.5)
[2017-05-16] MEDS: CHLORHEXIDINE GLUCONATE 2 % 1 PACK (2 CLOTHS)(taper/protocol) TOPICAL SCH ×2 (04:00→22:13)
[2017-05-16] MEDS: hydrALAZINE HCL 50 MG TAB PO SCH ×3 (04:46→22:10)
[2017-05-16] MEDS: 1/2 NS + KCL 20 MEQ INJ 1,000 ML IV SCH ×2 (06:35→17:26)
[2017-05-16] MEDS: ACETAMINOPHEN/HYDROcodone 325 MG/5 MG TAB PO PRN ×2 (06:36→12:31)
[2017-05-16] MEDS ORDERED: VANCOMYCIN INJ 1,000 MG in SODIUM CHLOR 0.9% 250 ML INJ 250 ML IV ONE (07:30)
[2017-05-16] MEDS ORDERED: Vancomycin Consult Pharmacy 1 EA OTHER SCH (07:30)
[2017-05-16] MEDS: DOCUSATE SODIUM 100 MG CAP PO SCH ×2 (09:00→22:11)
[2017-05-16] MEDS: MONTELUKAST SODIUM 10 MG TAB PO SCH (09:00)
--- NOTE | 2017-05-16 09:13 | HHI.PR ---
Subjective Remarks feels well. Objective Vitals heart reg lung cta abd s/nt ext no edema Vital Signs Date Time Temp Pulse Resp B/P Pulse Ox O2 Delivery O2 Flow Rate FiO2 05/16/17 06:00 70 05/16/17 05:14 98 Nasal Cannula 2.00 05/16/17 04:00 98.4 67 18 165/69 99 05/16/17 04:00 67 05/16/17 02:00 65 05/16/17 00:00 98.3 68 14 148/66 95 05/16/17 00:00 68 05/15/17 22:00 67 05/15/17 20:00 66 05/15/17 20:00 98.0 66 16 131/63 95 05/15/17 19:00 95 Nasal Cannula 2.00 05/15/17 17:00 58 22 179/74 99 05/15/17 16:00 98.3 57 21 151/68 96 05/15/17 15:04 60 24 160/72 97 05/15/17 15:00 61 28 92 05/15/17 14:00 59 24 170/73 95 05/15/17 13:13 62 30 177/74 89 05/15/17 13:01 59 31 184/75 93 05/15/17 12:13 97 Nasal Cannula 2.00 05/15/17 12:00 98.2 58 21 171/80 97 05/15/17 11:19 57 23 180/74 98 05/15/17 10:01 59 34 110/67 96 05/15/17 05/15/17 05/16/17 15:00 23:00 07:00 Intake Total 400 ml 120 ml 60 ml Balance 400 ml 120 ml 60 ml Intake Oral 400 ml 120 ml 60 ml # Voids 2 3 3 # Bowel Movements 0 0 0 Result Diagram: 05/15/1730 05/15/17 0930 Imaging Last Impressions Hip and Pelvis X-Ray 05/13/17 1726 Signed Impressions: Service Date/Time: Saturday, May 13, 2017 17:50 - CONCLUSION: 1. Internal fixation right proximal femur. 2. Fracture of the inferior pubic ramus on the right of indeterminate age. 3. Fractured of left pubic symphysis. Bhupendra Pinzon MD A/P Problem List: (1) Bradycardia Status: Acute Plan: - (05/14/17), pt was found to be bradycardic and hypotensive. 40s HR and 60s systolic. - Halicat was called- Pt was placed in Trendelenburg. - She received IV fluids, calcium chloride and 0.5mg IV atropine. - Pt remained asymptomatic throughout. - Pt transferred to the ICU for closer monitoring. - current telemetry: sinus bradycardia, HR in the 50s - atropine 0.5mg IV prn Hr below 50 probably had a severe vagal event. she has hx of afib and in sinus. Her manager diesel was consulted lopressor lowered and cardizem gtt stopped. hydralazine added for bp control transfer back to med/surg tele PT and oob as tolerated noted to have uti..abx started. snf once stable in next 24-48hrs. (2) Pelvic fracture Status: Acute Plan: - comgmt with Orthopedics - non-operative injury - norco/dilaudid prn pain - continue Eliquis - PT - anticipate d/c to SNF once stable from cardiac standpt (3) Afib Status: Chronic Plan: see above (4) COPD (chronic obstructive pulmonary disease) Status: Chronic Plan: - symbicort, Singulair - duonebs prn (5) HTN (hypertension) Status: Chronic Plan: - stable - cardizem, metoprolol (6) H/O: lung cancer Status: Chronic Plan: - follows with Dr. Box Problem Qualifiers (1) Afib: Qualified Code: I48.2 - Chronic atrial fibrillation (2) COPD (chronic obstructive pulmonary disease): Qualified Code: J44.9 - Chronic obstructive pulmonary disease, unspecified COPD type Ghanshyam Mock MD May 16, 2017 09:13
[2017-05-16] MEDS: APIXABAN 5 MG TABLET PO SCH ×2 (09:24→22:10)
[2017-05-16] MEDS: VENLAFAXINE HCL XR 37.5 MG CAP PO SCH (09:24)
[2017-05-16] MEDS: METOPROLOL TARTRATE 25 MG TAB PO SCH ×2 (09:24→22:10)
[2017-05-16] MEDS: GABAPENTIN 100 MG CAP PO SCH ×3 (09:24→17:26)
[2017-05-16] MEDS: FERROUS SULFATE 325 MG (65 MG ELEMENTAL IRON) TAB PO SCH ×2 (09:25→22:10)
[2017-05-16] MEDS: AMIODARONE 200 MG TAB PO SCH (09:25)
[2017-05-16] MEDS: MULTIVITAMIN TAB PO SCH (09:25)
[2017-05-16] MEDS: BUDESONIDE-FORMOTEROL 160/4.5 MCG INHALER INH SCH ×2 (09:26→22:11)
[2017-05-16] MEDS: SODIUM CHLORIDE 0.9% FLUSH 10 ML FLUSH IV FLUSH SCH ×2 (09:27→21:00)
--- NOTE | 2017-05-16 13:18 | PD.WCN.NOT ---
Wound Consult Description: Consult for Wound Management of Right heel and LLQ Communicated with: JAZZ Hoskins PA Recommendation: Cleanse posterior right heel wound with NS and gauze every 3 days Apply single layer adaptic to fascia after cleansing Cover with foam and secure with dry cover every 3 days and PRN for saturation or dislodgement. Additional Information: Patient seen on [facility] for right heel wound. Patient states pain when beginning to lift foot off mattress surface. Sock removed to reveal a full thickness skin loss wound to right posterior heel measuring 1.6cm x 1.6cm x 0.4cm of ~90% fascia and ~10% pink moist tissue. Wound margins are straight and sharp indicating recent sharp debridement with minimal maceration noted. Periwound is blanchable erythema. Wound was cleansed with NS and gauze. Fascia was covered with a single layer of vaseline gauze and covered with a small cutout of optifoam basic. Entire posterior heel was then covered with a 4x4 and secured with rolled gauze and tape that can remain in place for 3 days. Left lower abdomen was visualized after partially removing a bordered gauze and cut telfa to reveal an unremarkable mucus fistula. Fistula was covered with a 4x4 and secured with the in place bordered gauze. 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 Kristina Valero [facility] May 16, 2017 13:18
--- NOTE | 2017-05-16 14:06 | ECHRPT ---
Indication: HYPERTENSIVE HEART DISEASE CONCLUSIONS Normal left ventricular size. Moderate concentric left ventricular hypertrophy. No regional wall motion abnormalities are present. Left ventricular diastolic function parameters are normal. The left ventricular systolic function is normal with an estimated ejection fraction in the range of 60-65%. Mild thickening of the mitral valve leaflets. Mild mitral valve regurgitation. Moderate mitral annular calcification. Trileaflet aortic valve. Moderate thickening of the aortic valve leaflets. Mild aortic valve regurgitation. Moderate aortic valve stenosis. Aortic valve area is 0.73 cm. Aortic valve mean gradient is 25 mmHg. There is mild tricuspid valve regurgitation. Structurally normal tricuspid valve. There is mild tricuspid valve regurgitation. There is estimated [id number] pulmonary hypertension present (range 60-70 mmHg). BP: / HR: Rhythm: MEASUREMENTS (Male / Female) Normal Values Technical Quality: 2D ECHO LV Diastolic Diameter PLAX 4.2 cm 4.2 - 5.9 / 3.9 - 5.3 cm LV Systolic Diameter PLAX 2.5 cm IVS Diastolic Thickness 1.1 cm 0.6 - 1.0 / 0.6 - 0.9 cm LVPW Diastolic Thickness 1.1 cm 0.6 - 1.0 / 0.6 - 0.9 cm LV Relative Wall Thickness 0.6 LVOT Diameter 1.8 cm Aortic Root Diameter 2.8 cm LA Systolic Diameter LX 2.1 cm 3.0 - 4.0 / 2.7 - 3.8 cm DOPPLER AV Peak Velocity 340.0 cm/s AV Peak Gradient 46.2 mmHg AV Mean Gradient 25.0 mmHg AV Velocity Time Integral 83.5 cm LVOT Peak Velocity 102.0 cm/s LVOT Peak Gradient 4.2 mmHg LVOT Velocity Time Integral 23.9 cm AV Area Cont Eq vti 0.7 cm AV Area Cont Eq pk 0.8 cm Mitral E Point Velocity 98.7 cm/s Mitral A Point Velocity 76.2 cm/s Mitral E to A Ratio 1.3 LV E' Lateral Velocity 8.1 cm/s Mitral E to LV E' Lateral Ratio 12.2 LV E' Septal Velocity 6.9 cm/s Mitral E to LV E' Septal Ratio 14.3 TR Peak Velocity 367.0 cm/s TR Peak Gradient 53.9 mmHg PV Peak Velocity 77.1 cm/s PV Peak Gradient 2.4 mmHg FINDINGS LEFT VENTRICLE Normal left ventricular size. Moderate concentric left ventricular hypertrophy. No regional wall motion abnormalities are present. Left ventricular diastolic function parameters are normal. The left ventricular systolic function is normal with an estimated ejection fraction in the range of 60-65%. RIGHT VENTRICLE Normal right ventricular size and systolic function. LEFT ATRIUM The left atrial size is normal. RIGHT ATRIUM The right atrial size is normal. ATRIAL SEPTUM Normal atrial septal thickness without atrial level shunting by limited color doppler interrogation. AORTA The aortic root and proximal ascending aorta are normal in size on limited imaging. MITRAL VALVE Mild thickening of the mitral valve leaflets. Mild mitral valve regurgitation. Moderate mitral annular calcification. AORTIC VALVE Trileaflet aortic valve. Moderate thickening of the aortic valve leaflets. Mild aortic valve regurgitation. Moderate aortic valve stenosis. Aortic valve area is 0.73 cm. Aortic valve mean gradient is 25 mmHg. TRICUSPID VALVE There is mild tricuspid valve regurgitation. Structurally normal tricuspid valve. There is mild tricuspid valve regurgitation. There is estimated [id number]-cy-[id number] pulmonary hypertension present (range 60-70 mmHg). PULMONARY VALVE The pulmonary valve is not well visualized. VESSELS The inferior vena cava is normal in size. PERICARDIUM No pericardial effusion. Jeronimo Washington MD, FACC (Electronically Signed) Final Date:16 May 2017 14:06
[2017-05-16] MEDS: hydrALAZINE HCL 20 MG/ML VIAL IV PUSH PRN (20:14)
[2017-05-16] MEDS: ONDANSETRON HCL 4 MG/2 ML VIAL IVP PRN (23:57)
[2017-05-17] VITALS (10 sets, daily range): BP systolic 131–181; BP diastolic 54–79; PULSE 72–88; RESP 17–19; TEMP 96.3–97.4; O2SAT 92–99
[2017-05-17] MEDS: RESP: ALBUTEROL 2.5 MG/IPRATROPIUM 0.5 MG NEB (PRN) NEB ×4 (02:18→19:56)
[2017-05-17 06:18] LABS: AUTOMATED NEUTROPHIL # 10.6 TH/MM3 (1.8-7.7); BASOPHIL # 0.1 TH/MM3 (0-0.2); BASOPHIL % 0.5 % (0.0-2.0); EOSINOPHIL # 0.1 TH/MM3 (0-0.4); EOSINOPHIL % 0.9 % (0.0-4.0); HEMATOCRIT 31.6 % (35.0-46.0); HEMO FLAGS DIFF FINAL; LYMPHOCYTE # 0.6 TH/MM3 (1.0-4.8); MEAN CELL VOLUME 90.5 FL (80.0-100.0); MEAN CORPUSCULAR HGB CONC 32.1 % (32.0-36.0); MONO % 8.7 % (0.0-8.0); NEUT % 84.9 % (16.0-70.0); PLATELET COUNT 207 TH/MM3 (150-450); RED BLOOD COUNT 3.49 MIL/MM3 (4.00-5.30); RED CELL DISTRIBUTION WIDTH 16.5 % (11.6-17.2); WHITE BLOOD COUNT 12.4 TH/MM3 (4.0-11.0)
[2017-05-17] MEDS: 1/2 NS + KCL 20 MEQ INJ 1,000 ML IV SCH (06:18)
[2017-05-17] MEDS: VANCOMYCIN INJ 1,250 MG in SODIUM CHLOR 0.9% 250 ML INJ 250 ML IV SCH (06:18)
[2017-05-17] MEDS: hydrALAZINE HCL 50 MG TAB PO SCH (06:19)
[2017-05-17 06:36] LABS: BICARBONATE 25.6 MEQ/L (21.0-32.0); POTASSIUM 4.3 MEQ/L (3.5-5.1)
--- NOTE | 2017-05-17 06:48 | PD.ORT.PN ---
Subjective Subjective Remarks Resting comfortably. Still having difficulty ambulating. Yesterday when physical therapy with sitting her up she was lightheaded Objective Vitals Vital Signs Date Time Temp Pulse Resp B/P Pulse Ox O2 Delivery O2 Flow Rate FiO2 05/17/17 04:45 Nasal Cannula 4.00 05/17/17 04:25 96.3 72 19 170/79 96 05/17/17 02:20 94 Nasal Cannula 2.00 05/16/17 21:36 75 05/16/17 20:41 98.2 75 18 135/63 97 05/16/17 18:09 70 28 160/70 93 05/16/17 18:01 71 31 191/79 91 05/16/17 18:00 72 31 94 05/16/17 17:01 70 30 159/71 96 05/16/17 17:00 66 26 95 05/16/17 16:01 98.6 64 25 167/68 96 05/16/17 16:00 65 28 95 05/16/17 15:01 64 28 163/70 95 05/16/17 15:00 64 27 95 05/16/17 14:00 67 29 173/72 94 05/16/17 13:00 64 24 144/73 92 05/16/17 12:00 98.4 67 46 148/67 89 05/16/17 11:00 68 51 147/64 96 05/16/17 10:00 69 43 167/67 90 05/16/17 09:00 67 24 166/90 94 05/16/17 08:01 66 27 179/74 92 05/16/17 08:00 98.7 66 27 95 05/16/17 07:52 95 Nasal Cannula 2.00 05/16/17 07:00 Nasal Cannula 2.00 I/O 05/16/17 05/16/17 05/16/17 05/17/17 05/17/17 05/17/17 07:00 15:00 23:00 07:00 15:00 23:00 Intake Total 60 ml 1070 ml 664 ml Balance 60 ml 1070 ml 664 ml Intake Oral 60 ml 400 ml IV Total 670 ml 664 ml # Voids 3 3 # Bowel Movements 0 1 Result Diagram: 05/17/17 0535 05/17/17 0535 Imaging Last 24 hours Impressions Hip and Pelvis X-Ray 05/13/17 1726 Signed Impressions: Service Date/Time: Saturday, May 13, 2017 17:50 - CONCLUSION: 1. Internal fixation right proximal femur. 2. Fracture of the inferior pubic ramus on the right of indeterminate age. 3. Fractured of left pubic symphysis. Bhupendra Pinzon MD Objective Remarks Bilateral upper extremities: Full range of motion neurovascular intact Left lower extremity: Full range of motion and neurovascularly intact Right lower extremity: No pain to palpation with gentle movement of knee or ankle. Passive range of motion of hip does elicit minimal tenderness. She has tenderness to palpation over the pubic symphysis and over her sacrum Assessment & Plan Assessment and Plan Right pubic rami and symphysis fracture Physical therapy weightbearing as tolerated right lower extremity Pain control Discharge planning for rehabilitation when bed available Follow-up appointment and x-rays in [address] Everett or David Erwin Jr. May 17, 2017 06:48
[2017-05-17] MEDS: SODIUM CHLORIDE 0.9% FLUSH 10 ML FLUSH IV FLUSH SCH ×2 (09:00→20:43)
[2017-05-17] MEDS: VENLAFAXINE HCL XR 37.5 MG CAP PO SCH (09:56)
[2017-05-17] MEDS: GABAPENTIN 100 MG CAP PO SCH ×3 (09:56→18:39)
[2017-05-17] MEDS: METOPROLOL TARTRATE 25 MG TAB PO SCH ×2 (09:56→20:42)
[2017-05-17] MEDS: AMIODARONE 200 MG TAB PO SCH (09:56)
[2017-05-17] MEDS: DOCUSATE SODIUM 100 MG CAP PO SCH ×2 (09:56→20:42)
[2017-05-17] MEDS: MULTIVITAMIN TAB PO SCH (09:56)
[2017-05-17] MEDS: FERROUS SULFATE 325 MG (65 MG ELEMENTAL IRON) TAB PO SCH ×2 (09:56→20:42)
[2017-05-17] MEDS: BUDESONIDE-FORMOTEROL 160/4.5 MCG INHALER INH SCH ×2 (09:57→21:59)
[2017-05-17] MEDS: APIXABAN 5 MG TABLET PO SCH ×2 (09:57→20:42)
[2017-05-17] MEDS: MONTELUKAST SODIUM 10 MG TAB PO SCH (09:57)
--- NOTE | 2017-05-17 12:47 | HHI.PR ---
Subjective Remarks doing ok. worried about bp Objective Vitals heart reg lung cta abds /nt ext no edema Vital Signs Date Time Temp Pulse Resp B/P Pulse Ox O2 Delivery O2 Flow Rate FiO2 05/17/17 11:38 97.4 74 18 168/63 92 05/17/17 10:16 99 Nasal Cannula 4.00 05/17/17 08:00 97.1 72 18 181/71 96 05/17/17 04:45 Nasal Cannula 4.00 05/17/17 04:25 96.3 72 19 170/79 96 05/17/17 02:20 94 Nasal Cannula 2.00 05/16/17 21:36 75 05/16/17 20:41 98.2 75 18 135/63 97 05/16/17 18:09 70 28 160/70 93 05/16/17 18:01 71 31 191/79 91 05/16/17 18:00 72 31 94 05/16/17 17:01 70 30 159/71 96 05/16/17 17:00 66 26 95 05/16/17 16:01 98.6 64 25 167/68 96 05/16/17 16:00 65 28 95 05/16/17 15:01 64 28 163/70 95 05/16/17 15:00 64 27 95 05/16/17 14:00 67 29 173/72 94 05/16/17 13:00 64 24 144/73 92 05/16/17 05/16/17 05/17/17 15:00 23:00 07:00 Intake Total 1070 ml 664 ml 592 ml Balance 1070 ml 664 ml 592 ml Intake Oral 400 ml IV Total 670 ml 664 ml 592 ml # Voids 3 # Bowel Movements 1 Result Diagram: 05/17/17 0535 05/17/17 0535 Imaging Last Impressions Hip and Pelvis X-Ray 05/13/17 1726 Signed Impressions: Service Date/Time: Saturday, May 13, 2017 17:50 - CONCLUSION: 1. Internal fixation right proximal femur. 2. Fracture of the inferior pubic ramus on the right of indeterminate age. 3. Fractured of left pubic symphysis. Bhupendra Pinzon MD A/P Problem List: (1) Bradycardia Status: Acute Plan: - (05/14/17), pt was found to be bradycardic and hypotensive. 40s HR and 60s systolic. - Halicat was called- Pt was placed in Trendelenburg. - She received IV fluids, calcium chloride and 0.5mg IV atropine. - Pt remained asymptomatic throughout. - Pt transferred to the ICU for closer monitoring. - current telemetry: sinus bradycardia, HR in the 50s - atropine 0.5mg IV prn Hr below 50 probably had a severe vagal event. she has hx of afib and in sinus. Her criminal justice faculty was consulted lopressor lowered and cardizem gtt stopped. hydralazine added for bp control./ will titrate up for elevated bp PT and oob as tolerated noted to have uti..abx started. snf once stable in next 24-48hrs. (2) Pelvic fracture Status: Acute Plan: - comgmt with Orthopedics - non-operative injury - norco/dilaudid prn pain - continue Eliquis - PT - anticipate d/c to SNF once stable from cardiac standpt (3) Afib Status: Chronic Plan: see above (4) COPD (chronic obstructive pulmonary disease) Status: Chronic Plan: - symbicort, Singulair - duonebs prn (5) HTN (hypertension) Status: Chronic Plan: - stable - cardizem, metoprolol (6) H/O: lung cancer Status: Chronic Plan: - follows with Dr. Box Problem Qualifiers (1) Afib: Qualified Code: I48.2 - Chronic atrial fibrillation (2) COPD (chronic obstructive pulmonary disease): Qualified Code: J44.9 - Chronic obstructive pulmonary disease, unspecified COPD type Ghanshyam Mock MD May 17, 2017 12:47
[2017-05-17] MEDS: hydrALAZINE HCL 25 MG TAB PO SCH ×2 (14:57→21:59)
[2017-05-18] VITALS (13 sets, daily range): BP systolic 126–169; BP diastolic 56–85; PULSE 68–86; RESP 17–20; TEMP 96.3–97.5; O2SAT 90–96
[2017-05-18] MEDS: CHLORHEXIDINE GLUCONATE 2 % 1 PACK (2 CLOTHS)(taper/protocol) TOPICAL SCH (04:00)
[2017-05-18] MEDS ORDERED: PHARMACY ORDERED LAB ONE (05:45)
[2017-05-18] MEDS: RESP: ALBUTEROL 2.5 MG/IPRATROPIUM 0.5 MG NEB (PRN) NEB (05:47)
[2017-05-18] MEDS: hydrALAZINE HCL 25 MG TAB PO SCH ×3 (06:03→21:53)
[2017-05-18] MEDS: VANCOMYCIN INJ 1,250 MG in SODIUM CHLOR 0.9% 250 ML INJ 250 ML IV SCH (06:03)
[2017-05-18] MEDS: SODIUM CHLORIDE 0.9% FLUSH 10 ML FLUSH IV FLUSH SCH ×2 (09:00→21:00)
[2017-05-18] MEDS: MONTELUKAST SODIUM 10 MG TAB PO SCH (10:12)
[2017-05-18] MEDS: GABAPENTIN 100 MG CAP PO SCH ×3 (10:12→18:45)
[2017-05-18] MEDS: MULTIVITAMIN TAB PO SCH (10:13)
[2017-05-18] MEDS: APIXABAN 5 MG TABLET PO SCH ×2 (10:13→21:00)
[2017-05-18] MEDS: DOCUSATE SODIUM 100 MG CAP PO SCH ×2 (10:13→21:00)
[2017-05-18] MEDS: FERROUS SULFATE 325 MG (65 MG ELEMENTAL IRON) TAB PO SCH ×2 (10:13→21:00)
[2017-05-18] MEDS: AMIODARONE 200 MG TAB PO SCH (10:13)
[2017-05-18] MEDS: VENLAFAXINE HCL XR 37.5 MG CAP PO SCH (10:13)
[2017-05-18] MEDS: METOPROLOL TARTRATE 25 MG TAB PO SCH ×2 (10:13→21:00)
[2017-05-18] MEDS: BUDESONIDE-FORMOTEROL 160/4.5 MCG INHALER INH SCH ×2 (10:14→21:01)
[2017-05-18] MEDS ORDERED: FUROSEMIDE 20 MG/2 ML VIAL IV PUSH ONE (12:15)
[2017-05-18] MEDS: RESP: ALBUTEROL 2.5 MG/IPRATROPIUM 0.5 MG NEB (SCH) NEB ×4 (12:15→23:34)
[2017-05-18] MEDS ORDERED: methylPREDNISolone SOD SUCC 125 MG/2 ML VIAL IV PUSH ONE (12:15)
--- NOTE | 2017-05-18 13:03 | HHI.PR ---
Subjective Remarks more wheezing. Objective Vitals oriented mild labored breathing and abdomen retractions exp wheezing. heart reg abd s/nt ext no edema Vital Signs Date Time Temp Pulse Resp B/P Pulse Ox O2 Delivery O2 Flow Rate FiO2 05/18/17 09:51 91 Nasal Cannula 4.00 05/18/17 08:00 96.5 68 18 126/59 91 05/18/17 05:49 94 Nasal Cannula 4.00 05/18/17 04:10 97.2 79 17 160/85 96 05/18/17 00:05 96.7 82 17 134/56 92 05/17/17 23:00 82 05/17/17 20:55 96.7 88 17 131/54 92 05/17/17 20:00 78 05/17/17 20:00 92 Nasal Cannula 4.00 05/17/17 19:58 93 Nasal Cannula 2.50 05/17/17 15:41 97.3 73 18 168/75 93 05/17/17 05/17/17 05/18/17 15:00 23:00 07:00 Intake Total 360 ml 1400 ml 728 ml Balance 360 ml 1400 ml 728 ml Intake Oral 360 ml 360 ml 240 ml IV Total 1040 ml 488 ml # Voids 5 3 3 # Bowel Movements 1 0 1 Result Diagram: 05/17/17 0535 05/17/17 0535 Imaging Last Impressions Hip and Pelvis X-Ray 05/13/17 1726 Signed Impressions: Service Date/Time: Saturday, May 13, 2017 17:50 - CONCLUSION: 1. Internal fixation right proximal femur. 2. Fracture of the inferior pubic ramus on the right of indeterminate age. 3. Fractured of left pubic symphysis. Bhupendra Pinzon MD A/P Problem List: (1) Bradycardia Status: Acute Plan: - (05/14/17), pt was found to be bradycardic and hypotensive. 40s HR and 60s systolic. - Halicat was called- Pt was placed in Trendelenburg. - She received IV fluids, calcium chloride and 0.5mg IV atropine. - Pt remained asymptomatic throughout. - Pt transferred to the ICU for closer monitoring. - current telemetry: sinus bradycardia, HR in the 50s - atropine 0.5mg IV prn Hr below 50 probably had a severe vagal event. she has hx of afib and in sinus. Her director [employer] was consulted lopressor lowered and cardizem gtt stopped. hydralazine added for bp control./ will titrate up for elevated bp PT and oob as tolerated noted to have uti..abx started. today more sob/wheezing and felt to have copd exacerbation. ..r/o pulmonary edema. ..iv solumedrol. nebs, iv lasix until cxr done. (2) Pelvic fracture Status: Acute Plan: - comgmt with Orthopedics - non-operative injury - norco/dilaudid prn pain - continue Eliquis - PT - anticipate d/c to SNF once stable from cardiac standpt (3) Afib Status: Chronic Plan: see above (4) COPD (chronic obstructive pulmonary disease) Status: Chronic Plan: - symbicort, Singulair - duonebs prn (5) HTN (hypertension) Status: Chronic Plan: - stable - cardizem, metoprolol (6) H/O: lung cancer Status: Chronic Plan: - follows with Dr. Box Problem Qualifiers (1) Afib: Qualified Code: I48.2 - Chronic atrial fibrillation (2) COPD (chronic obstructive pulmonary disease): Qualified Code: J44.9 - Chronic obstructive pulmonary disease, unspecified COPD type Ghanshyam Mock MD May 18, 2017 13:03
[2017-05-18] MEDS: ONDANSETRON HCL 4 MG/2 ML VIAL IVP PRN (14:05)
--- NOTE | 2017-05-18 14:42 | RADRPT ---
EXAM DATE/TIME: 05/18/2017 13:08 [facility] COMPARISON: CHEST SINGLE AP, February 08, 2017, 6:39. INDICATIONS : Shortness of breath. MEDICAL HISTORY : Hypertension. Carcinoma, lung. Cardiovascular disease Chronic obstructive pulmonary disease. SURGICAL HISTORY : Colostomy. ENCOUNTER: Subsequent ACUITY: 1 week PAIN SCORE: 0/10 LOCATION: Bilateral chest FINDINGS: A single view of the chest demonstrates persistent volume loss in the right hemithorax with right bas ilar consolidation/effusion. Stable consolidation in the right apex may be indicative of central [place] of the right upper lobe. Previously seen left basilar atelectasis/effusion shows marked improvem ent with almost complete resolution of the effusion itself. There is still some atelectasis/scarring in the base. Mild interstitial prominence in the left lung is unchanged and may or present mild vascu lar congestion. Heart size is prominent. Left subclavian Grcvji-d-Jrgl catheter projects over the prashant tral venous system. Osseous structures are intact.. CONCLUSION: 1. Volume loss in the right hemithorax with probable pleural-parenchymal scarring in the right base, right-sided effusion and stable consolidation in the right upper hemithorax possibly representing prashant tral collapse of the right upper lobe. Findings are all stable. 2. Marked improvement in the previously seen left-sided effusion. There is still some left basilar at electasis/scarring. 3. Cardiomegaly with mild interstitial prominence characteristic of some degree of vascular congestio n or volume overload. Len Cárdenas MD on May 18, 2017 at 14:33 Board Certified Radiologist. This report was verified electronically.
[2017-05-18] MEDS: methylPREDNISolone SOD SUCC 125 MG/2 ML VIAL IV PUSH SCH (18:45)
[2017-05-19] VITALS (10 sets, daily range): BP systolic 130–168; BP diastolic 55–69; PULSE 75–98; RESP 17–24; TEMP 96–98.3; O2SAT 91–96
[2017-05-19] MEDS: VANCOMYCIN INJ 1,250 MG in SODIUM CHLOR 0.9% 250 ML INJ 250 ML IV SCH ×2 (00:19→18:00)
[2017-05-19] MEDS: methylPREDNISolone SOD SUCC 125 MG/2 ML VIAL IV PUSH SCH ×4 (00:19→17:22)
[2017-05-19] MEDS: RESP: ALBUTEROL 2.5 MG/IPRATROPIUM 0.5 MG NEB (SCH) NEB ×6 (03:29→23:38)
[2017-05-19] MEDS: CHLORHEXIDINE GLUCONATE 2 % 1 PACK (2 CLOTHS)(taper/protocol) TOPICAL SCH (04:00)
[2017-05-19] MEDS: hydrALAZINE HCL 25 MG TAB PO SCH ×3 (05:41→20:53)
[2017-05-19] MEDS: GABAPENTIN 100 MG CAP PO SCH ×3 (10:14→17:22)
[2017-05-19] MEDS: VENLAFAXINE HCL XR 37.5 MG CAP PO SCH (10:15)
[2017-05-19] MEDS: FERROUS SULFATE 325 MG (65 MG ELEMENTAL IRON) TAB PO SCH ×2 (10:15→20:45)
[2017-05-19] MEDS: MONTELUKAST SODIUM 10 MG TAB PO SCH (10:16)
[2017-05-19] MEDS: APIXABAN 5 MG TABLET PO SCH ×2 (10:16→20:44)
[2017-05-19] MEDS: METOPROLOL TARTRATE 25 MG TAB PO SCH ×2 (10:16→20:44)
[2017-05-19] MEDS: DOCUSATE SODIUM 100 MG CAP PO SCH ×2 (10:16→20:44)
[2017-05-19] MEDS: MULTIVITAMIN TAB PO SCH (10:16)
[2017-05-19] MEDS: SODIUM CHLORIDE 0.9% FLUSH 10 ML FLUSH IV FLUSH SCH ×2 (10:16→20:50)
[2017-05-19] MEDS: AMIODARONE 200 MG TAB PO SCH (10:16)
[2017-05-19] MEDS: BUDESONIDE-FORMOTEROL 160/4.5 MCG INHALER INH SCH ×2 (10:17→20:44)
--- NOTE | 2017-05-19 13:00 | HHI.PR ---
Subjective Remarks Pt states that she feels like her breathing is slightly better today She denies any productive cough No chest pain or palpitations Objective Vitals Vital Signs Date Time Temp Pulse Resp B/P Pulse Ox O2 Delivery O2 Flow Rate FiO2 05/19/17 10:17 Nasal Cannula 4.00 Humidified 05/19/17 08:00 96.0 79 20 168/55 93 05/19/17 07:33 91 Nasal Cannula 4.00 05/19/17 04:28 97.0 83 17 167/69 93 05/19/17 03:29 92 Nasal Cannula 4.00 05/18/17 23:37 90 Nasal Cannula 4.00 05/18/17 23:27 97.0 85 17 169/75 95 05/18/17 23:00 85 05/18/17 21:37 92 Nasal Cannula 4.00 05/18/17 21:15 92 Nasal Cannula 4.00 05/18/17 20:00 84 05/18/17 19:19 97.5 84 17 154/64 92 05/18/17 16:00 97.1 86 20 166/70 92 05/18/17 05/18/17 05/19/17 15:00 23:00 07:00 Intake Total 600 ml 480 ml 487 ml Balance 600 ml 480 ml 487 ml Intake Oral 600 ml 480 ml 240 ml IV Total 247 ml # Voids 3 4 3 # Bowel Movements 0 1 0 Result Diagram: 05/17/17 0535 05/17/17 0535 Other Results Laboratory Tests Test 05/18/17 05:45 Vancomycin Level Trough 12.9 MCG/ML Imaging Last Impressions Chest X-Ray 05/18/17 0000 Signed Impressions: Service Date/Time: April 13:08 - CONCLUSION: 1. Volume loss in the right hemithorax with probable pleural-parenchymal scarring in the right base, right-sided effusion and stable consolidation in the right upper hemithorax possibly representing central collapse of the right upper lobe. Findings are all stable. 2. Marked improvement in the previously seen left- sided effusion. There is still some left basilar atelectasis/scarring. 3. Cardiomegaly with mild interstitial prominence characteristic of some degree of vascular congestion or volume overload. Len Cárdenas MD Hip and Pelvis X-Ray 05/13/17 1726 Signed Impressions: Service Date/Time: Saturday, May 13, 2017 17:50 - CONCLUSION: 1. Internal fixation right proximal femur. 2. Fracture of the inferior pubic ramus on the right of indeterminate age. 3. Fractured of left pubic symphysis. Bhupendra Pinzon MD Last Impressions Hip and Pelvis X-Ray 05/13/17 1726 Signed Impressions: Service Date/Time: Saturday, May 13, 2017 17:50 - CONCLUSION: 1. Internal fixation right proximal femur. 2. Fracture of the inferior pubic ramus on the right of indeterminate age. 3. Fractured of left pubic symphysis. Bhupendra Pinzon MD Objective Remarks General: NAD, Awake and alert Chest: Course breath sounds anteriorly, poor inspiratory effort Cardiac: Regular Abd: +BS, soft ND/NT Ext: No edema A/P Problem List: (1) Bradycardia Status: Acute Plan: - On (05/14/17), pt was found to be bradycardic and hypotensive. 40s HR and 60s systolic. - Halicat was called and pt was placed in Trendelenburg. - She received IV fluids, calcium chloride and 0.5mg IV atropine. - Pt remained asymptomatic throughout. - Pt transferred to the ICU for closer monitoring. - It was thought that the pt probably had a severe vagal event. She has hx of A.fib and in sinus. - Her fundraising manager was consulted - Lopressor lowered and Cardizem gtt stopped. - Hydralazine added for bp control which was titrated up to 75mg Q8H on 05/17 for elevated bp - On 05/18 pt had increased SOB/wheezing and felt to have COPD exacerbation but has hx of CHF - CXR (05/18) --> Volume loss in the right hemithorax with probable pleural- parenchymal scarring in the right base, right-sided effusion and stable consolidation in the right upper hemithorax possibly representing central collapse of the right upper lobe which are stable. Marked improvement in the previously seen left-sided effusion. There is still some left basilar atelectasis/scarring. Cardiomegaly with mild interstitial prominence characteristic of some degree of vascular congestion or volume overload. - Pt was given Solu-Medrol 125mg x one dose then contineud on 60mg Q6H, Duonebs scheduled, IV Lasix - Pt still with SOB today, slightly improved. - Will await recheck of serum creatinine and if stable give another dose of IV Lasix today (2) Pelvic fracture Status: Acute Plan: - comgmt with Orthopedics - non-operative injury - [place]/Dilaudid prn pain - continue Eliquis - PT - anticipate d/c to SNF upon discharge (3) Afib Status: Chronic Plan: see above (4) COPD (chronic obstructive pulmonary disease) Status: Chronic Plan: - symbicort, Singulair - see above. (5) HTN (hypertension) Status: Chronic Plan: - Pt is currently on Cardizem, metoprolol, Hydralazine (6) H/O: lung cancer Status: Chronic Plan: - follows with Dr. Box Assessment and Plan Patient examined. Assessment and plan formulated with Nat Dickerson PA-C. I agree with the above. Pt more stable today. she is eager for snf. d/c over the weekend if she remains stable. Problem Qualifiers (1) Afib: Qualified Code: I48.2 - Chronic atrial fibrillation (2) COPD (chronic obstructive pulmonary disease): Qualified Code: J44.9 - Chronic obstructive pulmonary disease, unspecified COPD type Nat Dickerson May 19, 2017 13:00 Ghanshyam Mock MD May 19, 2017 21:31
[2017-05-20] VITALS (8 sets, daily range): BP systolic 114–149; BP diastolic 52–62; PULSE 70–87; RESP 18–20; TEMP 96.7–98.3; O2SAT 91–94
[2017-05-20] MEDS: methylPREDNISolone SOD SUCC 125 MG/2 ML VIAL IV PUSH SCH ×3 (00:31→13:11)
[2017-05-20] MEDS: RESP: ALBUTEROL 2.5 MG/IPRATROPIUM 0.5 MG NEB (SCH) NEB ×3 (03:29→12:00)
[2017-05-20] MEDS: hydrALAZINE HCL 25 MG TAB PO SCH ×3 (05:30→14:21)
[2017-05-20 06:11] LABS: BICARBONATE 30.2 MEQ/L (21.0-32.0); MAGNESIUM 1.8 MG/DL (1.5-2.5); POTASSIUM 3.8 MEQ/L (3.5-5.1)
[2017-05-20 06:16] LABS: AUTOMATED NEUTROPHIL # 16.1 TH/MM3 (1.8-7.7); BASOPHIL % 0.3 % (0.0-2.0); HEMATOCRIT 28.2 % (35.0-46.0); HEMO FLAGS DIFF FINAL; LYMPH % 2.3 % (9.0-44.0); LYMPHOCYTE # 0.4 TH/MM3 (1.0-4.8); MEAN CELL VOLUME 88.9 FL (80.0-100.0); MEAN CORPUSCULAR HEMOGLOBIN 30.5 PG (27.0-34.0); MEAN CORPUSCULAR HGB CONC 34.3 % (32.0-36.0); MONO % 4.6 % (0.0-8.0); NEUT % 92.8 % (16.0-70.0); PLATELET COUNT 197 TH/MM3 (150-450); RED BLOOD COUNT 3.17 MIL/MM3 (4.00-5.30); RED CELL DISTRIBUTION WIDTH 16.7 % (11.6-17.2); WHITE BLOOD COUNT 17.3 TH/MM3 (4.0-11.0)
[2017-05-20] MEDS: FERROUS SULFATE 325 MG (65 MG ELEMENTAL IRON) TAB PO SCH (08:43)
[2017-05-20] MEDS: VENLAFAXINE HCL XR 37.5 MG CAP PO SCH (08:44)
[2017-05-20] MEDS: DOCUSATE SODIUM 100 MG CAP PO SCH (08:44)
[2017-05-20] MEDS: GABAPENTIN 100 MG CAP PO SCH ×2 (08:44→13:11)
[2017-05-20] MEDS: MONTELUKAST SODIUM 10 MG TAB PO SCH (08:44)
[2017-05-20] MEDS: AMIODARONE 200 MG TAB PO SCH (08:44)
[2017-05-20] MEDS: METOPROLOL TARTRATE 25 MG TAB PO SCH (08:44)
[2017-05-20] MEDS: SODIUM CHLORIDE 0.9% FLUSH 10 ML FLUSH IV FLUSH SCH (08:45)
[2017-05-20] MEDS: APIXABAN 5 MG TABLET PO SCH (08:45)
[2017-05-20] MEDS: MULTIVITAMIN TAB PO SCH (08:45)
[2017-05-20] MEDS: BUDESONIDE-FORMOTEROL 160/4.5 MCG INHALER INH SCH (08:46)
--- NOTE | 2017-05-20 11:15 | HHI.DCPOC ---
Discharge Care Plan Diagnosis: (1) Pelvic fracture (2) COPD (chronic obstructive pulmonary disease) (3) Afib Goals to Promote Your Health * To prevent worsening of your condition and complications * To maintain your health at the optimal level Directions to Meet Your Goals Take your medications as prescribed Follow your dietary instruction Follow activity as directed Keep your appointments as scheduled Take your immunizations and boosters as scheduled If your symptoms worsen call your PCP, if no PCP go to Urgent Care Center or Emergency Room Smoking is Dangerous to Your Health. Avoid second hand smoke Call the 24-hour hour crisis hotline for domestic abuse at Ghanshyam Mock MD May 20, 2017 11:15
[2017-05-20] MEDS ORDERED: METO25TA3 PO (11:22)
[2017-05-20] MEDS ORDERED: PRED10 PO (11:22)
[2017-05-20] MEDS ORDERED: IPRASOL NEB (11:22)
[2017-05-20] MEDS ORDERED: HYDR-3799 PO (11:22)
[2017-05-20] MEDS ORDERED: NITR1CAP36 PO (11:22)
--- NOTE | 2017-05-20 11:44 | HHI.DS ---
Discharge Summary Admission Date May 13, 2017 at 19:34 Discharge Date: May 20, 2017 Admitting Diagnosis Pelvis Fractures (1) Bradycardia Diagnosis: Principal (2) Pelvic fracture Diagnosis: Principal (3) Afib Diagnosis: Secondary (4) COPD (chronic obstructive pulmonary disease) Diagnosis: Secondary (5) HTN (hypertension) Diagnosis: Secondary (6) H/O: lung cancer Brief History Pt is a 81 y/o F well known to [facility] medical service with h/o multiple medical problems including history of lung cancer, history DVT, history of pelvic abscess, history of diverticular disease with diverting sigmoid colostomy and chronic abdominal open wounds, COPD, and paroxysmal Atrial fibrillation. Most recently pt was admitted to [facility] 01/2017 for right hip fracture requiring surgical repair. Patient was subsequently discharged to [facility]. Pt was then discharged to home. Per patient she states that she has been doing well at home with her ADLs and even driving. Unfortunately, patient had a mechanical fall today. Patient is now experiencing pain with standing to her right buttock limiting ambulation. X-ray of the pelvis (05/13/17) reveals pelvic fracture: Inferior pubic ramus fracture and left pubic symphysis fracture. Patient is admitted to [facility] for pain control. As this is a nonsurgical condition, I will start arranging for transfer to SNF. CBC/BMP: 05/20/17 0542 05/20/17 0542 Significant Findings Laboratory Tests Test 05/18/17 05/20/17 05:45 05:42 Vancomycin Level Trough 12.9 MCG/ML (5.0-10.0) White Blood Count 17.3 TH/MM3 (4.0-11.0) Red Blood Count 3.17 MIL/MM3 (4.00-5.30) Hemoglobin 9.7 GM/DL (11.6-15.3) Hematocrit 28.2 % (35.0-46.0) Neutrophils (%) (Auto) 92.8 % (16.0-70.0) Lymphocytes (%) (Auto) 2.3 % (9.0-44.0) Neutrophils # (Auto) 16.1 TH/MM3 (1.8-7.7) Lymphocytes # (Auto) 0.4 TH/MM3 (1.0-4.8) Sodium Level 135 MEQ/L (136-145) Blood Urea Nitrogen 28 MG/DL (7-18) Estimat Glomerular Filtration 59 ML/MIN (>89) Rate Random Glucose 123 MG/DL (74-106) Calcium Level 7.9 MG/DL (8.5-10.1) Hospital Course (1) Bradycardia - On (05/14/17), pt was found to be bradycardic and hypotensive. 40s HR and 60s systolic. - Halicat was called and pt was placed in Trendelenburg. - She received IV fluids, calcium chloride and 0.5mg IV atropine. - Pt remained asymptomatic throughout. - Pt transferred to the ICU for closer monitoring. - It was thought that the pt probably had a severe vagal event. She has hx of A.fib and in sinus. - Her strapper was consulted - Lopressor lowered and Cardizem stopped. - Hydralazine added for bp control which was titrated up to 75mg Q8H on 05/17 for elevated bp - On 05/18 pt had increased SOB/wheezing and felt to have COPD exacerbation but has hx of CHF - CXR (05/18) --> Volume loss in the right hemithorax with probable pleural- parenchymal scarring in the right base, right-sided effusion and stable consolidation in the right upper hemithorax possibly representing central collapse of the right upper lobe which are stable. Marked improvement in the previously seen left-sided effusion. There is still some left basilar atelectasis/scarring. Cardiomegaly with mild interstitial prominence characteristic of some degree of vascular congestion or volume overload. - Pt was given Solu-Medrol 125mg x one dose then contineud on 60mg Q6H, Duonebs scheduled, IV Lasix -Today pt denies sob but still on oxygen -She is eager and insisting on d/c to snf so she can begin therapy for pelvic fx 's (2) Pelvic fracture S- comgmt with Orthopedics - non-operative injury - [place]/Dilaudid prn pain - continue Eliquis - PT SNF upon discharge (3) Afib Status: Chronic (4) COPD (chronic obstructive pulmonary disease) Status: Chronic - symbicort, Singulair - (5) HTN (hypertension) Status: Chronic - Pt is currently on Cardizem, metoprolol, Hydralazine (6) H/O: lung cancer Status: Chronic Plan: - follows with Dr. Box Pt Condition on Discharge: Stable Discharge Disposition: Discharge to SNF Discharge Instructions DIET: Follow Instructions for: Heart Healthy Diet Activities you can perform: Weight Bearing as Ok Follow up Referrals: Cardiology - [address] florentino patrick Orthopedics - 05/28/17 [facility] with Ray Jsoe MD New Medications: Ergocalciferol (Ergocalciferol) 50,000 Unit Cap 85785 UNITS PO Q7D Nutritional Supplement #8 CAP Hydrocodone-Acetaminophen (Lupton) 5-325 mg Tab 1 TAB PO Q4H PRN PAIN #60 Ref 0 TAB Nitrofurantoin Macrocrystal (Nitrofurantoin Macrocrystal) 100 Mg Cap 100 MG PO BID Infection Days 7 Ref 0 CAP Prednisone (Prednisone) 10 Mg Tab 10 MG PO DIRECTED 20mg po bid x 3days, 10mg po bid x 3 days, 10mg po daily x 4 days copd Days 10 Ref 0 TAB Hydralazine HCl (Hydralazine HCl) 25 Mg Tablet 75 MG PO Q8HR htn Days 30 TAB Ipratropium-Albuterol Neb (Duoneb) 0.5-2.5 Mg/3 Ml Neb 1 AMPULE NEB Q6HR copd Days 14 ML Metoprolol Tartrate (Metoprolol Tartrate) 25 Mg Tab 50 MG PO BID afib Days 30 TAB Continued Medications: Amiodarone (Amiodarone) 200 Mg Tab 200 MG PO DAILY Regulate Heart Beat #30 Ref 0 TAB Apixaban (Eliquis) 5 Mg Tab 5 MG PO BID Blood Clot Prevention #60 Ref 0 TAB Ascorbic Acid (Vitamin C) 250 Mg Chew 500 MG PO DAILY Nutritional Supplement #30 Ref 0 TAB Calcium Carbonate (Calcium) 600 Mg Tab 1200 MG PO BID Ferrous Sulfate (Iron) 325 Mg Capsule.er 325 MG PO BID Nutritional Supplement Formoterol Neb (Perforomist Neb) 20 Mcg/2 Ml Neb 1 NEBULE INH BID COPD #60 Ref 0 NEBULE Gabapentin (Gabapentin) 100 Mg Cap 100 MG PO TID Pain Management #30 CAP Magnesium Chloride-Calcium Carbonate (Slow-Mag) 71.5-119 Mg Tab 143 MG PO DAILY Montelukast (Montelukast) 10 Mg Tab 10 MG PO DAILY #30 Ref 0 TAB Multiple Vitamin (Multi Vitamin Daily) 1 Tab Tab 1 TAB PO DAILY Venlafaxine ER 24 HR (Effexor XR 24 HR) 37.5 Mg Cap 37.5 MG PO DAILY adjustment disorder Days 30 CAP Discontinued Medications: Diltiazem ER 24 HR (Cartia Xt) 120 Mg Caper 120 MG PO DAILY Blood Pressure Management #30 Ref 0 CAP Metoprolol Tartrate (Metoprolol Tartrate) 75 Mg Tab 75 MG PO BID Blood Pressure Management #60 Ref 0 TAB Ghanshyam Mock MD May 20, 2017 11:44
[2017-05-20] MEDS: VANCOMYCIN INJ 1,250 MG in SODIUM CHLOR 0.9% 250 ML INJ 250 ML IV SCH (13:10)
[2017-05-20] MEDS ORDERED: SODIUM CHLORIDE 0.9% FLUSH 10 ML FLUSH IV FLUSH PRN (15:00)
[2017-05-21] MEDS ORDERED: PHARMACY ORDERED LAB ONE (05:45)
== END 2017-05-20 15:39 | DRG 536 ==
LOC: NEPD 17:14 → NEDA 19:34 → N06A 21:48 → HIME 05-14 18:15 → N06A 05-16 20:41
PROVIDERS: ADMIT Hospitalist; ATTEND Hospitalist
DX: S32.591A Other specified fracture of right pubis, initial encounter for closed fracture (principal); J96.10 Chronic respiratory failure, unspecified whether with hypoxia or hypercapnia; I27.2 Other secondary pulmonary hypertension; I82.509 Chronic embolism and thrombosis of unspecified deep veins of unspecified lower extremity; K57.92 Diverticulitis of intestine, part unspecified, without perforation or abscess without bleeding; I48.0 Paroxysmal atrial fibrillation; I13.0 Hypertensive heart and chronic kidney disease with heart failure and stage 1 through stage 4 chronic kidney disease, or unspecified chronic kidney disease; I50.9 Heart failure, unspecified; G25.0 Essential tremor; J98.11 Atelectasis; L97.409 Non-pressure chronic ulcer of unspecified heel and midfoot with unspecified severity; N39.0 Urinary tract infection, site not specified; I48.2 Chronic atrial fibrillation; J44.9 Chronic obstructive pulmonary disease, unspecified; N18.3 Chronic kidney disease, stage 3 (moderate); E78.5 Hyperlipidemia, unspecified; I25.10 Atherosclerotic heart disease of native coronary artery without angina pectoris; W19.XXXA Unspecified fall, initial encounter; Y92.9 Unspecified place or not applicable; K21.9 Gastro-esophageal reflux disease without esophagitis; Z85.118 Personal history of other malignant neoplasm of bronchus and lung; M81.0 Age-related osteoporosis without current pathological fracture; Z85.820 Personal history of malignant melanoma of skin; Z93.3 Colostomy status; Z99.81 Dependence on supplemental oxygen; F41.9 Anxiety disorder, unspecified; H91.90 Unspecified hearing loss, unspecified ear
CPT/HCPCS: 71010; 73502; 80048; 80053; 80061; 80202; 81001; 82550; 82948; 83735; 84100; 84484; 85025; 85610; 85730; 87077; 87086; 87186; 87641; 93005; 93306; 94640; 94664; J0360; J0461; J1170; J1265; J1642; J1940; J2405; J2930; J3370; J7030; J7050

== ENCOUNTER 2017-08-11 12:14 | Emergency (ER) | payer MEDICARE ==
[~2017-08-11] VITALS: Ht 172.7 cm; Wt 59.0 kg
[~2017-08-11 12:14] MED LIST changes: -ACET1TAB86 PO; -ALBU0.08 NEB; +APIX5TAB PO; -CART120C PO; -ENOX60P SQ; +ERGO1CAP30 PO; +HYDR-3799 PO; +IPRASOL NEB; -LISI-515 PO; -MEDR4TAB PO; -METO-426 PO; +METO25TA3 PO; +NITR1CAP36 PO; +NORC5TAB PO; +PRED10 PO
[2017-08-11 12:17] VITALS: BP 223/93; PULSE 68; RESP 18; TEMP 98.1; O2SAT 99
[2017-08-11 12:25] VITALS: BP 199/108; PULSE 65; RESP 16; O2SAT 98
[2017-08-11] MEDS ORDERED: LOSA50TA PO (12:46)
[2017-08-11] MEDS ORDERED: PROP20TA3 PO (12:46)
--- NOTE | 2017-08-11 13:04 | PD ---
HPI Chief Complaint: Hypertension Time Seen by Provider: 12:41 Travel History International Travel<30 days: No Contact w/Intl Traveler<30days: No Traveled to known affect area: No History of Present Illness HPI This 81-year-old female presents with complaint of high blood pressure. She is getting home health care for treatment of a wound on her right leg. The home health care nurse reported that her blood pressure was over 200 systolic and his doctor told her to come here. He is not having chest pain or headache. She has a history of hypertension for many years but says she was only started on medications recently. She says she was initially given lisinopril she developed a headache after the lisinopril and this was stopped after 1 day. She has not been on losartan 50 mg twice a day for the last couple of days. She has a history of small cell lung cancer and had chemotherapy 6 years ago. She says she's been in remission for 6 years. She is on propranolol for treatment of tremor. 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) Deep Vein Thrombosis: Yes (LEFT LEG) Endocrine: No Gastrointestinal Disorders: Yes ((HX ONLY)BLOOD IN STOOL 2 YRS AGO) GERD: No Glaucoma: No Genitourinary: Yes Headaches: No Hepatitis: No Hiatal Hernia: No Hypertension: Yes Immune Disorder: No Implanted Vascular Access Dvce: Yes (LEFT CHEST) Kidney Stones: No Medical other: Yes (NEUROPATHY TOES, FINGERS S/P CHEMO) Musculoskeletal: Yes Neurologic: Yes (NEUROPATHY FEET AND HANDS d/t chemotherapy) Psychiatric: No Reproductive: No Respiratory: Yes (COPD) Immunizations Current: Yes Migraines: No Pneumonia: Yes Radiation Therapy: Yes Renal Failure: No Seizures: No Sickle Cell Disease: No Sleep Apnea: No Thyroid Disease: No Ulcer: No Tetanus Vaccination: Unknown Influenza Vaccination: Yes ?: Not Menopausal: Yes : 4 Para: 3 Miscarriage: 1 Past Surgical History Abdominal Surgery: Yes (COLOSTOMY, COLON/UTERUS ABSCESS DRAINED) AICD: No Appendectomy: No Arteriovenous Shunt: No Body Medical Devices: LEFT CHEST PORT Cardiac Surgery: No Section: Yes (x 2) Cholecystectomy: No Ear Surgery: No Endocrine Surgery: No Eye Surgery: Yes (CATARACT) Genitourinary Surgery: No Gynecologic Surgery: Yes (C- SECTION X 2) Insulin Pump: No Joint Replacement: Yes (RIGHT ELBOW WIRES AND SCREWS, Pins Right Hip) Oral Surgery: No Pacemaker: No Thoracic Surgery: No Other Surgery: Yes (PORT INSERTION-LEFT CHEST) Social History Alcohol Use: No Tobacco Use: No (QUIT 2008) Substance Use: No Allergies-Medications (Allergen,Severity, Reaction): Coded Allergies: adhesive (Unverified Allergy, Severe, 08/11/17) codeine (Unverified Allergy, Severe, N/V, 08/11/17) penicillin G (Unverified Allergy, Intermediate, rash, 08/11/17) guaifenesin (Unverified Adverse Reaction, Mild, Flushing, 08/11/17) PATIENT STATES THAT AFTER SHE WAS ADMINISTERED ROBITSSIN, BL PALM OF HER HANDS TURNED RED. 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 Allergies: plastic bandages (Adverse Reaction, Intermediate, reddness , 10/01/14) Reported Meds & Prescriptions Reported Meds & Active Scripts Active Duoneb (Ipratropium-Albuterol Neb) 0.5-2.5 Mg/3 Ml Neb 1 Ampule NEB Q6HR 14 Days Ergocalciferol 50,000 Unit Cap 50,000 Units PO Q7D Effexor XR 24 HR (Venlafaxine HCl) 37.5 Mg Cap 37.5 Mg PO DAILY 30 Days Gabapentin 100 Mg Cap 100 Mg PO TID Reported Losartan (Losartan Potassium) 50 Mg Tab 50 Mg PO BID Propranolol (Propranolol HCl) 20 Mg Tab 20 Mg PO Q12HR Eliquis (Apixaban) 5 Mg Tab 5 Mg PO BID Perforomist Neb (Formoterol Fumarate) 20 Mcg/2 Ml Neb 1 Nebule INH BID Calcium (Calcium Carbonate) 600 Mg Tab 1,200 Mg PO BID Multi Vitamin Daily (Multiple Vitamin) 1 Tab Tab 1 Tab PO DAILY Iron (Ferrous Sulfate) 325 Mg Capsule.er 325 Mg PO BID Slow-Mag (Magnesium Chloride-Calcium Carbonate) 71.5-119 Mg Tab 143 Mg PO DAILY Vitamin C (Ascorbic Acid) 250 Mg Chew 500 Mg PO DAILY Amiodarone (Amiodarone HCl) 200 Mg Tab 200 Mg PO DAILY Review of Systems General / Constitutional: No: Fever, Chills Eyes: No: Diploplia HENT: No: Headaches, Vertigo Cardiovascular: No: Chest Pain or Discomfort, Palpitations Respiratory: No: Cough, Shortness of Breath Gastrointestinal: No: Nausea, Vomiting Genitourinary: No: Frequency Musculoskeletal: No: Myalgias Physical Exam Narrative GENERAL: She is a frail-appearing woman. Initially blood pressure 198/103 SKIN: Focused skin assessment warm/dry. HEAD: Atraumatic. Normocephalic. EYES: Pupils equal and round. No scleral icterus. No injection or drainage. ENT: No nasal bleeding or discharge. Mucous membranes pink and moist. NECK: Trachea midline. No JVD. CARDIOVASCULAR: Regular rate and rhythm. No murmur appreciated. RESPIRATORY: No accessory muscle use. Clear to auscultation. Breath sounds equal bilaterally. GASTROINTESTINAL: Abdomen soft, non-tender, nondistended. Hepatic and splenic margins not palpable. MUSCULOSKELETAL: No obvious deformities. No clubbing. No cyanosis. No edema. NEUROLOGICAL: Awake and alert. No obvious cranial nerve deficits. Motor grossly within normal limits. Normal speech. PSYCHIATRIC: Appropriate mood and affect; insight and judgment normal. Data Data Last Documented VS Vital Signs Date Time Temp Pulse Resp B/P (MAP) Pulse Ox O2 Delivery O2 Flow Rate FiO2 08/11/17 13:42 67 207/98 (134) 98 Nasal Cannula 3.00 08/11/17 12:25 16 08/11/17 12:17 98.1 Orders Orders Complete Blood Count With Diff (08/11/17 12:50) Basic Metabolic Panel (Bmp) (08/11/17 12:50) Magnesium (Mg) (08/11/17 12:50) Hydrochlorothiazide (Hydrodiuril) (08/11/17 13:15) Potassium Chloride (Kcl) (08/11/17 14:15) Labs Laboratory Tests Test 08/11/17 13:20 White Blood Count 7.9 TH/MM3 Red Blood Count 3.81 MIL/MM3 Hemoglobin 10.8 GM/DL Hematocrit 33.2 % Mean Corpuscular Volume 87.3 FL Mean Corpuscular Hemoglobin 28.4 PG Mean Corpuscular Hemoglobin Concent 32.6 % Red Cell Distribution Width 15.2 % Platelet Count 192 TH/MM3 Mean Platelet Volume 8.3 FL Neutrophils (%) (Auto) 65.8 % Lymphocytes (%) (Auto) 16.0 % Monocytes (%) (Auto) 10.3 % Eosinophils (%) (Auto) 2.7 % Basophils (%) (Auto) 5.2 % Neutrophils # (Auto) 5.2 TH/MM3 Lymphocytes # (Auto) 1.3 TH/MM3 Monocytes # (Auto) 0.8 TH/MM3 Eosinophils # (Auto) 0.2 TH/MM3 Basophils # (Auto) 0.4 TH/MM3 CBC Comment AUTO DIFF Differential Total Cells Counted 100 Neutrophils % (Manual) 74 % Lymphocytes % 19 % Monocytes % 3 % Eosinophils % 3 % Basophils % 1 % Neutrophils # (Manual) 5.8 TH/MM3 Differential Comment FINAL DIFF MANUAL Blood Urea Nitrogen 16 MG/DL Creatinine 0.82 MG/DL Random Glucose 76 MG/DL Calcium Level 8.3 MG/DL Magnesium Level 1.9 MG/DL Sodium Level 140 MEQ/L Potassium Level 3.5 MEQ/L Chloride Level 101 MEQ/L Carbon Dioxide Level 32.0 MEQ/L Anion Gap 7 MEQ/L Estimat Glomerular Filtration Rate 67 ML/MIN MDM Medical Decision Making Medical Screen Exam Complete: Yes Emergency Medical Condition: Yes Medical Record Reviewed: Yes Differential Diagnosis Differential includes essential hypertension, electrolyte imbalance, Narrative Course Patient was observed and her blood pressures remained elevated. She is asymptomatic and has multiple comorbidities. I don't think she is a candidate for rapid lowering of her blood pressure. I have ordered hydrochlorothiazide describe it daily for a few days. She has only been on the losartan for 2 days so it is too early to know if this dose is not sufficient. She is to follow-up with Dr. Dodd Diagnosis Primary Impression: HTN (hypertension) Scripts Potassium Chloride ER (Potassium Chloride ER) 10 Meq Cap 10 MEQ PO DAILY for Electrolyte Replacement, #30 CAP 0 Refills Prov: Frederic Paula MD 08/11/17 Hydrochlorothiazide (Hydrochlorothiazide) 25 Mg Tab 25 MG PO DAILY, #30 TAB 0 Refills Prov: Frederic Paula MD 08/11/17 Disposition: 01 DISCHARGE HOME Condition: Stable Frederic Paula MD Aug 11, 2017 13:04
[2017-08-11] MEDS ORDERED: HYDROCHLOROTHIAZIDE 25 MG TAB PO ONE (13:15)
[2017-08-11 13:38] LABS: AUTOMATED NEUTROPHIL # 5.2 TH/MM3 (1.8-7.7); BASOPHIL # 0.4 TH/MM3 (0-0.2); BASOPHIL % 5.2 % (0.0-2.0); EOSINOPHIL # 0.2 TH/MM3 (0-0.4); EOSINOPHIL % 2.7 % (0.0-4.0); HEMATOCRIT 33.2 % (35.0-46.0); LYMPHOCYTE # 1.3 TH/MM3 (1.0-4.8); MEAN CELL VOLUME 87.3 FL (80.0-100.0); MEAN CORPUSCULAR HEMOGLOBIN 28.4 PG (27.0-34.0); MEAN CORPUSCULAR HGB CONC 32.6 % (32.0-36.0); MONO % 10.3 % (0.0-8.0); NEUT % 65.8 % (16.0-70.0); PLATELET COUNT 192 TH/MM3 (150-450); RED BLOOD COUNT 3.81 MIL/MM3 (4.00-5.30); RED CELL DISTRIBUTION WIDTH 15.2 % (11.6-17.2); WHITE BLOOD COUNT 7.9 TH/MM3 (4.0-11.0)
[2017-08-11 13:40] LABS: HEMO FLAGS AUTO DIFF
[2017-08-11 13:42] VITALS: BP 207/98; PULSE 67; O2SAT 98
[2017-08-11 13:46] LABS: POTASSIUM 3.5 MEQ/L (3.5-5.1)
[2017-08-11 13:50] LABS: MAGNESIUM 1.9 MG/DL (1.5-2.5)
[2017-08-11 13:56] LABS: BASOPHILS 1 % (0-2); EOSINOPHILS 3 % (0-4); NEUTROPHIL # MANUAL DIFF 5.8 TH/MM3 (1.8-7.7); POLYS (SEG NEUTROPHILS) 74 % (16-70); SCAN/DIFF FINAL DIFF MANUAL; WBC DIFF SAMPLE 100
[2017-08-11] MEDS ORDERED: HYDR25TA5 PO (14:13)
[2017-08-11] MEDS ORDERED: POTA10CA PO (14:13)
[2017-08-11] MEDS ORDERED: POTASSIUM CHLORIDE 10 MEQ CONTROLLED RELEASE TAB PO ONE (14:15)
== END 2017-08-11 14:35 | disposition home or self-care (01) ==
LOC: PHED 12:14
DX: I10 Essential (primary) hypertension (principal); I48.91 Unspecified atrial fibrillation; Z79.01 Long term (current) use of anticoagulants
CPT/HCPCS: 80048; 83735; 85007; 85027; 99283; J1642

== ENCOUNTER 2018-03-06 03:15 | Inpatient (IN) | payer MEDICARE ==
[~2018-03-06] VITALS: Ht 172.7 cm; Wt 65.4 kg
[2018-03-06] VITALS (10 sets, daily range): BP systolic 91–139; BP diastolic 53–72; PULSE 75–91; RESP 16–22; TEMP 98.2–100.1; O2SAT 89–98
[~2018-03-06 03:15] MED LIST changes: -CALC600T25 PO; +CALC600T5 PO; -ERGO1CAP30 PO; -HYDR-3799 PO; +HYDR25TA5 PO; +LOSA50TA PO; -METO25TA3 PO; -MONT10TA4 PO; -NITR1CAP36 PO; -NORC5TAB PO; +POTA10CA PO; -PRED10 PO; +PROP20TA3 PO; +VITA500012 PO
--- NOTE | 2018-03-06 04:10 | PD ---
HPI Chief Complaint: Respiratory Distress Time Seen by Provider: 03:26 Travel History International Travel<30 days: No Contact w/Intl Traveler<30days: No Traveled to known affect area: No History of Present Illness HPI The patient is an 82 year old female who presents to the [facility] emergency department with a history of cough, congestion, sore throat, and shortness of breath that began yesterday. She reports that yesterday her cough was productive of yellow sputum and today her cough has been productive of white frothy sputum. The patient reports that last night she also began to have urinary incontinence. She reports that she normally is able to hold her urine well. She denies having any dysuria. She reports having urinary frequency associated with urgency. She denies having any known fevers, however she has had chills. She reports having history of COPD and is on supplemental oxygen 24 7. She is normally on 2 L nasal cannula. She denies having any chest pain. On review of systems otherwise, the patient denies having any neck pain, abdominal pain, vomiting, diarrhea, urinary symptoms, or neurologic symptoms. The patient reports that she does have a colostomy. She denies having any blood in her stool. [facility] Past Medical History Narrative Medical The patient's past medical history is significant for diverticulosis status post partial colectomy with colostomy placementfollowed by Dr. Macario. The patient has a history of COPD, hypertension, left lower extremity DVT anticoagulated on Eliquis, small cell lung carcinoma status post lobectomy on the right. She is followed by Dr. Box for her oncology care. 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) Deep Vein Thrombosis: Yes (LEFT LEG) Endocrine: No Gastrointestinal Disorders: Yes ((HX ONLY)BLOOD IN STOOL 2 YRS AGO) GERD: No Glaucoma: No Genitourinary: Yes Headaches: No Hepatitis: No Hiatal Hernia: No Hypertension: Yes Immune Disorder: No Implanted Vascular Access Dvce: Yes (LEFT CHEST) Kidney Stones: No Musculoskeletal: Yes Neurologic: Yes (NEUROPATHY FEET AND HANDS d/t chemotherapy) Psychiatric: No Reproductive: No Respiratory: Yes (COPD) Immunizations Current: Yes Migraines: No Pneumonia: Yes Radiation Therapy: Yes Renal Failure: No Seizures: No Sickle Cell Disease: No Sleep Apnea: No Thyroid Disease: No Ulcer: No Menopausal: Yes : 4 Para: 3 Miscarriage: 1 Past Surgical History Narrative Surgical The patient's past surgical history is significant for an Nufigf-p-Sore placement, skin cancer resection, right elbow surgery, wrist surgery, lobectomy , partial colectomy with colostomy placement Abdominal Surgery: Yes (COLOSTOMY, COLON/UTERUS ABSCESS DRAINED) AICD: No Appendectomy: No Arteriovenous Shunt: No Body Medical Devices: LEFT CHEST PORT Cardiac Surgery: No Section: Yes (x 2) Cholecystectomy: No Ear Surgery: No Endocrine Surgery: No Eye Surgery: Yes (CATARACT) Genitourinary Surgery: No Gynecologic Surgery: Yes (C- SECTION X 2) Insulin Pump: No Joint Replacement: Yes (RIGHT ELBOW WIRES AND SCREWS, Pins Right Hip) Oral Surgery: No Pacemaker: No Thoracic Surgery: No Other Surgery: Yes (PORT INSERTION-LEFT CHEST) Social History Alcohol Use: No Tobacco Use: No (QUIT 2008) Substance Use: No Allergies-Medications (Allergen,Severity, Reaction): Coded Allergies: adhesive (Unverified Allergy, Severe, 08/11/17) codeine (Unverified Allergy, Severe, N/V, 08/11/17) penicillin G (Unverified Allergy, Intermediate, rash, 08/11/17) guaifenesin (Unverified Adverse Reaction, Mild, Flushing, 08/11/17) PATIENT STATES THAT AFTER SHE WAS ADMINISTERED ROBITSSIN, BL PALM OF HER HANDS TURNED RED. 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 Allergies: plastic bandages (Adverse Reaction, Intermediate, reddness , 10/01/14) Reported Meds & Prescriptions Reported Meds & Active Scripts Active Potassium Chloride ER (Potassium Chloride) 10 Meq Cap 10 Meq PO DAILY Hydrochlorothiazide 25 Mg Tab 25 Mg PO DAILY Duoneb (Ipratropium-Albuterol Neb) 0.5-2.5 Mg/3 Ml Neb 1 Ampule NEB Q6HR 14 Days Ergocalciferol 50,000 Unit Cap 50,000 Units PO Q7D Effexor XR 24 HR (Venlafaxine HCl) 37.5 Mg Cap 37.5 Mg PO DAILY 30 Days Gabapentin 100 Mg Cap 100 Mg PO TID Reported Losartan (Losartan Potassium) 50 Mg Tab 50 Mg PO BID Propranolol (Propranolol HCl) 20 Mg Tab 20 Mg PO Q12HR Eliquis (Apixaban) 5 Mg Tab 5 Mg PO BID Perforomist Neb (Formoterol Fumarate) 20 Mcg/2 Ml Neb 1 Nebule INH BID Calcium (Calcium Carbonate) 600 Mg Tab 1,200 Mg PO BID Multi Vitamin Daily (Multiple Vitamin) 1 Tab Tab 1 Tab PO DAILY Iron (Ferrous Sulfate) 325 Mg Capsule.er 325 Mg PO BID Slow-Mag (Magnesium Chloride-Calcium Carbonate) 71.5-119 Mg Tab 143 Mg PO DAILY Vitamin C (Ascorbic Acid) 250 Mg Chew 500 Mg PO DAILY Amiodarone (Amiodarone HCl) 200 Mg Tab 200 Mg PO DAILY Review of Systems Except as stated in HPI: all other systems reviewed are Neg General / Constitutional: Positive: Chills, No: Fever Eyes: No: Visual changes HENT: Positive: Sore Throat, Congestion, No: Headaches, Rhinorrhea Cardiovascular: Positive: Dyspnea on exertion, No: Chest Pain or Discomfort Respiratory: Positive: Cough, Shortness of Breath, Wheezing Gastrointestinal: No: Nausea, Vomiting, Diarrhea, Abdominal Pain Genitourinary: Positive: Urgency, Frequency, Incontinence, No: Dysuria Musculoskeletal: No: Pain Skin: No Rash Neurologic: Positive: Weakness (Generalized weakness), No: Focal Abnormalities , Change in Mentation, Slurred Speech, Sensory Disturbance Psychiatric: No: Depression Endocrine: No: Polydipsia Hematologic/Lymphatic: No: Easy Bruising Physical Exam Narrative General: The patient is a well-developed well-nourished female in no acute distress, saturating 93% on 2 L nasal cannula O2 with a frequent productive sounding cough on exam. Head and Neck exam: Head is normocephalic atraumatic. Eyes: EOMI, pupils are equal round and reactive to light. Nose: Midline septum with pink mucous membranes Mouth: Dentition unremarkable. Moist mucus membranes. Posterior oropharynx is erythematous. No tonsillar hypertrophy. Uvula midline. Airway patent. Neck: No palpable lymphadenopathy. No nuchal rigidity. No thyromegaly. Cardiovascular: Regular rate and rhythm with a 2/6 systolic murmur, no gallops or rubs. No pulse deficit to the extremities on simultaneous auscultation and palpation of her radial artery. Lungs: Scattered rhonchi are most prominent in the left lung field and improved with coughing, soft expiratory wheezes are audible. Decreased breath sounds in the right side. No crackles audible. Abdomen: Soft, without tenderness to palpation in all 4 quadrants of the abdomen. No guarding, rebound, or rigidity. Normal bowel sounds are audible. No tenderness on palpation of McBurney's point. The patient has a colostomy bag in place in the right lower quadrant of the abdomen Extremities: No clubbing, cyanosis, or edema. 2+ pulses in all 4 extremities. No calf tenderness on palpation. Back: No costovertebral angle tenderness to palpation. Neurologic Exam: Grossly nonfocal. Skin Exam: No rash noted. Intact skin that is warm and dry. Data Data Last Documented VS Vital Signs Date Time Temp Pulse Resp B/P (MAP) Pulse Ox O2 Delivery O2 Flow Rate FiO2 03/06/18 04:05 94 03/06/18 03:56 18 03/06/18 03:45 100.1 80 118/53 (74) Orders Orders Electrocardiogram (03/06/18 04:00) Complete Blood Count With Diff (03/06/18 04:00) Comprehensive Metabolic Panel (03/06/18 04:00) Creatine Kinase (Cpk) (03/06/18 04:00) Ckmb (Isoenzyme) Profile (03/06/18 04:00) Troponin I (03/06/18 04:00) B-Type Natriuretic Peptide (03/06/18 04:00) Prothrombin Time / Inr (Pt) (03/06/18 04:00) Act Partial Throm Time (Ptt) (03/06/18 04:00) Blood Culture (03/06/18 04:00) Lipase (03/06/18 04:00) Magnesium (Mg) (03/06/18 04:00) Chest, Single Ap (03/06/18 04:00) Iv Access Insert/Monitor (03/06/18 04:00) Ecg Monitoring (03/06/18 04:00) Oximetry (03/06/18 04:00) Lactic Acid Sepsis Protocol (03/06/18 04:00) Urine Culture (03/06/18 05:15) Aztreonam Inj (Azactam Inj) (03/06/18 05:32) Levofloxacin 750 Mg Premix Inj (Levaquin (03/06/18 05:32) Sodium Chlor 0.9% 250 Ml Inj (Ns 250 Ml (03/06/18 05:45) Admit Order (Ed Use Only) (03/06/18 05:52) Labs Laboratory Tests Test 03/06/18 04:20 03/06/18 05:40 White Blood Count 23.1 TH/MM3 Red Blood Count 3.96 MIL/MM3 Hemoglobin 12.3 GM/DL Hematocrit 36.0 % Mean Corpuscular Volume 90.9 FL Mean Corpuscular Hemoglobin 31.1 PG Mean Corpuscular Hemoglobin Concent 34.2 % Red Cell Distribution Width 13.8 % Platelet Count 193 TH/MM3 Mean Platelet Volume 8.7 FL Neutrophils (%) (Auto) 89.2 % Lymphocytes (%) (Auto) 4.7 % Monocytes (%) (Auto) 5.6 % Eosinophils (%) (Auto) 0.0 % Basophils (%) (Auto) 0.5 % Neutrophils # (Auto) 20.6 TH/MM3 Lymphocytes # (Auto) 1.1 TH/MM3 Monocytes # (Auto) 1.3 TH/MM3 Eosinophils # (Auto) 0.0 TH/MM3 Basophils # (Auto) 0.1 TH/MM3 CBC Comment DIFF FINAL Differential Comment Prothrombin Time 11.5 SEC Prothromb Time International Ratio 1.1 RATIO Activated Partial Thromboplast Time 35.2 SEC Blood Urea Nitrogen 23 MG/DL Creatinine 1.40 MG/DL Random Glucose 111 MG/DL Total Protein 7.1 GM/DL Albumin 2.8 GM/DL Calcium Level 8.7 MG/DL Magnesium Level 1.5 MG/DL Alkaline Phosphatase 75 U/L Aspartate Amino Transf (AST/SGOT) 23 U/L Alanine Aminotransferase (ALT/SGPT) 21 U/L Total Bilirubin 0.7 MG/DL Sodium Level 140 MEQ/L Potassium Level 3.2 MEQ/L Chloride Level 100 MEQ/L Carbon Dioxide Level 27.8 MEQ/L Anion Gap 12 MEQ/L Estimat Glomerular Filtration Rate 36 ML/MIN Lactic Acid Level 1.3 mmol/L Total Creatine Kinase 50 U/L Troponin I LESS THAN 0.02 NG/ML Lipase 70 U/L MDM Medical Decision Making Medical Screen Exam Complete: Yes Emergency Medical Condition: Yes Medical Record Reviewed: Yes Differential Diagnosis Pneumonia, versus congestive heart failure, pyelonephritis Narrative Course During the course of the patient's emergency department visit, the patient's history, examination, and differential diagnosis were reviewed with the patient. The patient was placed on a electronics test engineer with oximetry and frequent blood pressure monitoring. The patient had IV access obtained and blood work sent for analysis. The patient was initially provided normal saline a 250 mL bolus 1. The patient's laboratory studies were reviewed and remarkable for a white count of 23.1, hemoglobin 12.3, platelets 193 with 89.2 neutrophils, CMP is remarkable for potassium of 3.2, BUN 23, creatinine 1.40, glucose 111, cardiac enzymes within normal limits, lipase 70, lactic acid within normal limits at 1.3. PT 11.5, PTT 35.2 Radiology studies were reviewed and remarkable for Last Impressions Chest X-Ray 03/06/18 0400 Signed Impressions: Service Date/Time: Tuesday, March 06, 2018 04:42 - CONCLUSION: 1. Stable chronic right apical pleural thickening without hilar retraction. 2. Mild airspace disease right perihilar region and left base predominantly. Differential diagnosis includes a mild bronchopneumonia. Román Calderón MD The patient was started on broad-spectrum antibiotic of Azactam and Levaquin given her allergy to penicillin. The patient's results were discussed with the patient, including the plan of care. I explained that further testing and/ or monitoring is indicated based on the patient's history, examination, and/ or laboratory findings. Therefore, I recommended admission for additional evaluation. The patient expressed understanding and was agreeable with this plan. The patient was admitted to the hospital in guarded condition and sent to a bed under the care of the [facility]. Sepsis Criteria SIRS Criteria (2 or more): WBC > 03169, < 4000 or > 10% bands Physician Communication Physician Communication The patient's case including history, pertinent physical examination findings, and laboratory studies were discussed with Dr. Lechuga. It was agreed that the patient would be admitted to the [facility] service. Diagnosis Primary Impression: Pneumonia Qualified Codes: J18.9 - Pneumonia, unspecified organism Admitting Information Admitting Physician Requests: Admit Salud Vargas MD March 06, 2018 04:10
[2018-03-06 04:56] LABS: AUTOMATED NEUTROPHIL # 20.6 TH/MM3 (1.8-7.7); BASOPHIL # 0.1 TH/MM3 (0-0.2); BASOPHIL % 0.5 % (0.0-2.0); HEMOGLOBIN 12.3 GM/DL (11.6-15.3); LYMPH % 4.7 % (9.0-44.0); LYMPHOCYTE # 1.1 TH/MM3 (1.0-4.8); MEAN CELL VOLUME 90.9 FL (80.0-100.0); MEAN CORPUSCULAR HEMOGLOBIN 31.1 PG (27.0-34.0); MEAN CORPUSCULAR HGB CONC 34.2 % (32.0-36.0); MEAN PLATELET VOLUME 8.7 FL (7.0-11.0); MONO % 5.6 % (0.0-8.0); MONOCYTE # 1.3 TH/MM3 (0-0.9); NEUT % 89.2 % (16.0-70.0); PLATELET COUNT 193 TH/MM3 (150-450); RED BLOOD COUNT 3.96 MIL/MM3 (4.00-5.30); RED CELL DISTRIBUTION WIDTH 13.8 % (11.6-17.2); WHITE BLOOD COUNT 23.1 TH/MM3 (4.0-11.0)
[2018-03-06 04:59] LABS: INTERNATIONAL NORMALIZED RATIO 1.1 RATIO; PROTHROMBIN TIME - PATIENT 11.5 SEC (9.8-11.6)
--- NOTE | 2018-03-06 04:59 | RADRPT ---
EXAM DATE/TIME: 03/06/2018 04:42 [facility] COMPARISON: CHEST SINGLE AP, May 18, 2017, 13:08. INDICATIONS : Short of breath. MEDICAL HISTORY : Chronic obstructive pulmonary disease. Hypertension. Carcinoma, lung. Cardiovascular disease. SURGICAL HISTORY : Colostomy. ENCOUNTER: Initial ACUITY: 1 day PAIN SCORE: 0/10 LOCATION: Bilateral chest FINDINGS: A single view of the chest demonstrates left [id number] and superior vena cava. Right apical pleur al thickening. Mild airspace disease in the right perihilar region and left lung base. Elevated left hemidiaphragm is stable. No significant effusion. Tortuous aorta. CONCLUSION: 1. Stable chronic right apical pleural thickening without hilar retraction. 2. Mild airspace disease right perihilar region and left base predominantly. Differential diagnosis i ncludes a mild bronchopneumonia. Román Calderón MD on March 06, 2018 at 4:54 Board Certified Radiologist. This report was verified electronically.
[2018-03-06 05:26] LABS: ALBUMIN 2.8 GM/DL (3.4-5.0); ALT (GPT) 21 U/L (10-53); AST (GOT) 23 U/L (15-37); BICARBONATE 27.8 MEQ/L (21.0-32.0); BLOOD UREA NITROGEN 23 MG/DL (7-18); CALCIUM 8.7 MG/DL (8.5-10.1); CHLORIDE 100 MEQ/L (98-107); GLOMERULAR FILTRATION RATE 36 ML/MIN (>89); GLUCOSE,RANDOM 111 MG/DL (74-106); MAGNESIUM 1.5 MG/DL (1.5-2.5); SODIUM (NA) 140 MEQ/L (136-145)
[2018-03-06 05:31] LABS: ALKALINE PHOSPHATASE 75 U/L (45-117); TOTAL BILIRUBIN ADULT 0.7 MG/DL (0.2-1.0); TOTAL PROTEIN 7.1 GM/DL (6.4-8.2); TROPONIN I LESS THAN 0.02 NG/ML (0.02-0.05)
[2018-03-06] MEDS ORDERED: AZTREONAM INJ 2,000 MG in SODIUM CHLORIDE 0.9% INJ 100 ML IV STA (05:32)
[2018-03-06] MEDS ORDERED: LEVOFLOXACIN 750 MG PREMIX INJ 150 ML IV STA (05:32)
[2018-03-06] MEDS ORDERED: SODIUM CHLOR 0.9% 250 ML INJ 250 ML IV ONE (05:45)
[2018-03-06] MEDS ORDERED: LEVOFLOXACIN 750 MG PREMIX INJ 150 ML IV SCH (06:00)
[2018-03-06] MEDS ORDERED: RESP: ALBUTEROL 2.5 MG/IPRATROPIUM 0.5 MG NEB (PRN) INH (06:00)
[2018-03-06] MEDS ORDERED: POTASSIUM CHLORIDE 10 MEQ CONTROLLED RELEASE TAB PO ONE (06:15)
[2018-03-06] MEDS: methylPREDNISolone SOD SUCC 40 MG/1 ML VIAL IV PUSH SCH ×2 (06:25→17:00)
[2018-03-06] MEDS ORDERED: methylPREDNISolone SOD SUCC 125 MG/2 ML VIAL IV PUSH ONE (06:45)
[2018-03-06] MEDS: RESP: ALBUTEROL 2.5 MG/IPRATROPIUM 0.5 MG NEB (SCH) INH ×6 (06:51→19:47)
[2018-03-06 06:56] LABS: BACTERIA, URINE FEW /hpf; BILIRUBIN, URINE NEG (NEG); BLOOD, URINE SMALL (NEG); GLUCOSE,URINE NEG (NEG); HYALINE CAST, URINE 14 /lpf (RARE); KETONE, URINE 10 mg/dL (NEG); NITRITE,URINE POS (NEG); PH, URINE 5.5 (5.0-8.5); RENAL EPITHELIAL CELLS <1 /hpf; SQUAMOUS EPITHELIAL CELL URINE 5 /hpf (0-5); URINE COLOR YELLOW (YELLW/STRAW); URINE LEUKOCYTE ESTERASE LARGE (NEG); WHITE BLOOD CELL CLUMPS RARE
[2018-03-06] MEDS: AZTREONAM INJ 2,000 MG in SODIUM CHLORIDE 0.9% INJ 100 ML IV SCH ×3 (07:33→20:59)
[2018-03-06] MEDS: SODIUM CHLORIDE 0.9% FLUSH 10 ML FLUSH IV FLUSH SCH ×2 (09:00→21:00)
--- NOTE | 2018-03-06 09:32 | HHI.HP ---
HPI Service [facility] Hospitalists Primary Care Physician Muna Perea MD Admission Diagnosis Pneumonia Chief Complaint: Cough Travel History International Travel<30 Days: No Contact w/Intl Traveler <30 Da: No Traveled to Known Affected Are: No History of Present Illness This is an 82-year-old female patient with past medical history which includes COPD with chronic respiratory failure on 2 L nasal cannula 24 hours a day, small cell lung CA diagnosed in 2009 s/p chemo and radiation in remission follows with Dr. Box, diverticulosis status post colectomy and colonoscopy with Dr. Macario, santa, essential tremors, coronary artery disease, paroxysmal atrial fibrillation, left lower extremity DVT on Eliquis, chronic kidney disease stage III, GERD, hyperlipidemia, hypertension, osteoporosis, pulmonary hypertension and pelvic abscess. Patient reports she was in her normal state of health on Monday recalls a sore throat on Monday. Monday patient began to have a cough productive of yellow phlegm associated with congestion and shortness of breath. Patient also reports that through the night she woke up and had had urinary incontinence in the bed. Patient also endorses increased urinary frequency over the past 4-5 days but denies burning or pain with urination. Patient denies having any known fevers, however she has had chills. Patient denies chest pain, abdominal pain, vomiting, diarrhea. The patient reports that she does have a colostomy. She denies having any blood in her stool. Review of Systems Constitutional: COMPLAINS OF: Chills, DENIES: Fatigue, Fever Eyes: DENIES: Blurred vision, Photosensitivity Ears, nose, mouth, throat: COMPLAINS OF: Throat pain Respiratory: COMPLAINS OF: Cough, Sputum production, Shortness of breath Cardiovascular: DENIES: Chest pain, Palpitations, Lower Extremity Edema Gastrointestinal: DENIES: Abdominal pain, Constipation, Diarrhea, Nausea, Vomiting Genitourinary: COMPLAINS OF: Urinary frequency, Urinary incontinence Neurologic: DENIES: Abnormal gait, Localized weakness, Speech Problems Psychiatric: DENIES: Anxiety, Confusion, Depression Past Family Social History Past Medical History COPD with chronic respiratory failure on 2 L nasal cannula 24 hours a day, small cell lung CA diagnosed in 2009 in remission follows with Dr. Box, diverticulosis status post colectomy with colonoscopy by Dr. Macario, santa, essential tremors, coronary artery disease, atrial fibrillation, left lower extremity DVT on Eliquis, chronic kidney disease stage III, GERD, hyperlipidemia , hypertension, paroxysmal atrial fibrillation, osteoporosis, pulmonary hypertension and pelvic abscess Past Surgical History colectomy with colonoscopy by Dr. Macario Chronic abdominal wounds and prior incision and drainage Lipoma removal right arm Lumbar laminectomy 1975 Cataract surgery section Excision of malignant melanoma from the neck Surgical repair of right hip fracture, January/2017 Reported Medications Potassium Chloride ER (Potassium Chloride) 10 Meq Cap 10 Meq PO DAILY Hydrochlorothiazide 25 Mg Tab 25 Mg PO DAILY Duoneb (Ipratropium-Albuterol Neb) 0.5-2.5 Mg/3 Ml Neb 1 Ampule NEB Q6HR 14 Days Ergocalciferol 50,000 Unit Cap 50,000 Units PO Q7D Effexor XR 24 HR (Venlafaxine HCl) 37.5 Mg Cap 37.5 Mg PO DAILY 30 Days Gabapentin 100 Mg Cap 100 Mg PO TID Losartan (Losartan Potassium) 50 Mg Tab 50 Mg PO BID Propranolol (Propranolol HCl) 20 Mg Tab 20 Mg PO Q12HR Eliquis (Apixaban) 5 Mg Tab 5 Mg PO BID Perforomist Neb (Formoterol Fumarate) 20 Mcg/2 Ml Neb 1 Nebule INH BID Calcium (Calcium Carbonate) 600 Mg Tab 1,200 Mg PO BID Multi Vitamin Daily (Multiple Vitamin) 1 Tab Tab 1 Tab PO DAILY Iron (Ferrous Sulfate) 325 Mg Capsule.er 325 Mg PO BID Slow-Mag (Magnesium Chloride-Calcium Carbonate) 71.5-119 Mg Tab 143 Mg PO DAILY Vitamin C (Ascorbic Acid) 250 Mg Chew 500 Mg PO DAILY Amiodarone (Amiodarone HCl) 200 Mg Tab 200 Mg PO DAILY Allergies: Coded Allergies: adhesive (Unverified Allergy, Severe, 08/11/17) codeine (Unverified Allergy, Severe, N/V, 08/11/17) penicillin G (Unverified Allergy, Intermediate, rash, 08/11/17) guaifenesin (Unverified Adverse Reaction, Mild, Flushing, 08/11/17) PATIENT STATES THAT AFTER SHE WAS ADMINISTERED ROBITSSIN, BL PALM OF HER HANDS TURNED RED. 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 Allergies: plastic bandages (Adverse Reaction, Intermediate, reddness , 10/01/14) Family History Noncontributory Social History Denies EtOH this time quit smoking 30+ years ago History of tobacco use quit smoking 2017 prior to that had [id number] history Physical Exam Vital Signs Vital Signs Date Time Temp Pulse Resp B/P (MAP) Pulse Ox O2 Delivery O2 Flow Rate FiO2 03/06/18 07:21 82 18 124/58 (80) 89 Nasal Cannula 6.00 03/06/18 06:29 92 Nasal Cannula 6.00 03/06/18 06:04 21 03/06/18 04:05 94 03/06/18 03:56 18 94 03/06/18 03:45 100.1 80 16 118/53 (74) 94 Physical Exam GENERAL: This is a thin elderly 82-year-old female patient SKIN: Generalized thinning of skin THROAT: left tonsillar exudate noted HEAD: Atraumatic. Normocephalic. No temporal or scalp tenderness. EYES: Extraocular motions intact. No scleral icterus. No injection or drainage. CARDIOVASCULAR: Regular rate and rhythm 2 out of 6 systolic murmur noted RESPIRATORY: diminished with Scattered rhonchi on the right GASTROINTESTINAL: Abdomen soft, non-tender, nondistended. MUSCULOSKELETAL: Extremities without clubbing, cyanosis, or edema. No joint tenderness, effusion, or edema noted. No calf tenderness. Negative Homans sign bilaterally. NEUROLOGICAL: Awake and alert. No focal deficits appreciated. Motor and sensory grossly within normal limits. 4 out of 5 muscle strength in all muscle groups. Normal speech. Laboratory Laboratory Tests Test 03/06/18 04:20 03/06/18 05:40 White Blood Count 23.1 Red Blood Count 3.96 Hemoglobin 12.3 Hematocrit 36.0 Mean Corpuscular Volume 90.9 Mean Corpuscular Hemoglobin 31.1 Mean Corpuscular Hemoglobin Concent 34.2 Red Cell Distribution Width 13.8 Platelet Count 193 Mean Platelet Volume 8.7 Neutrophils (%) (Auto) 89.2 Lymphocytes (%) (Auto) 4.7 Monocytes (%) (Auto) 5.6 Eosinophils (%) (Auto) 0.0 Basophils (%) (Auto) 0.5 Neutrophils # (Auto) 20.6 Lymphocytes # (Auto) 1.1 Monocytes # (Auto) 1.3 Eosinophils # (Auto) 0.0 Basophils # (Auto) 0.1 CBC Comment DIFF FINAL Differential Comment Prothrombin Time 11.5 Prothromb Time International Ratio 1.1 Activated Partial Thromboplast Time 35.2 Blood Urea Nitrogen 23 Creatinine 1.40 Random Glucose 111 Total Protein 7.1 Albumin 2.8 Calcium Level 8.7 Magnesium Level 1.5 Alkaline Phosphatase 75 Aspartate Amino Transf (AST/SGOT) 23 Alanine Aminotransferase (ALT/SGPT) 21 Total Bilirubin 0.7 Sodium Level 140 Potassium Level 3.2 Chloride Level 100 Carbon Dioxide Level 27.8 Anion Gap 12 Estimat Glomerular Filtration Rate 36 Lactic Acid Level 1.3 Total Creatine Kinase 50 Troponin I LESS THAN 0.02 B-Type Natriuretic Peptide 465 Lipase 70 Urine Color YELLOW Urine Turbidity HAZY Urine pH 5.5 Urine Specific [place] 1.016 Urine Protein 30 Urine Glucose (UA) NEG Urine Ketones 10 Urine Occult Blood SMALL Urine Nitrite POS Urine Bilirubin NEG Urine Urobilinogen LESS THAN 2.0 Urine Leukocyte Esterase LARGE Urine RBC 5 Urine WBC 53 Urine WBC Clumps RARE Urine Squamous Epithelial Cells 5 Urine Renal Epithelial Cells <1 Urine Bacteria FEW Urine Hyaline Casts 14 Microscopic Urinalysis Comment CATH-CULTURE IND Date/Time Source Procedure Growth Status 03/06/18 04:35 Blood Peripheral Aerobic Blood Culture Pending Received 03/06/18 04:35 Blood Peripheral Anaerobic Blood Culture Pending Received 03/06/18 05:40 Urine Catheterized Urine Urine Culture Pending Received Result Diagram: 03/06/18 0420 03/06/18 0420 Imaging Last Impressions Chest X-Ray 03/06/18 0400 Signed Impressions: Service Date/Time: Tuesday, March 06, 2018 04:42 - CONCLUSION: 1. Stable chronic right apical pleural thickening without hilar retraction. 2. Mild airspace disease right perihilar region and left base predominantly. Differential diagnosis includes a mild bronchopneumonia. Román Calderón MD Caprini VTE Risk Assessment Caprini VTE Risk Assessment: Mod/High Risk (score >= 2) Caprini Risk Assessment Model Point Value = 1 Point Value = 2 Point Value = 3 Point Value = 5 Age 41-60 Minor surgery BMI > 25 kg/m2 Swollen legs Varicose veins or History of unexplained or recurrent spontaneous Oral contraceptives or hormone replacement Sepsis (< 1 month) Serious lung disease, including pneumonia (< 1 month) Abnormal pulmonary function Acute myocardial infarction Congestive heart failure (< 1 month) History of inflammatory bowel disease Medical patient at bed rest Age 61-74 Arthroscopic surgery Major open surgery (> 45 min) Laparoscopic surgery (> 45 min) Malignancy Confined to bed (> 72 hours) Immobilizing plaster cast Central venous access Age >= 75 History of VTE Family history of VTE Factor V Leiden Prothrombin [id number] Lupus anticoagulant Anticardiolipin antibodies Elevated serum homocysteine Heparin-induced thrombocytopenia Other congenital or acquired thrombophilia Stroke (< 1 month) Elective arthroplasty Hip, pelvis, or leg fracture Acute spinal cord injury (< 1 month) Prophylaxis Regimen Total Risk Factor Score Risk Level Prophylaxis Regimen 0-1 Low Early ambulation 2 Moderate Order ONE of the following: *Sequential Compression Device (SCD) *Heparin 5000 units SQ BID 3-4 Higher Order ONE of the following medications: *Heparin 5000 units SQ TID *Enoxaparin/Lovenox 40 mg SQ daily (WT < 150 kg, CrCl > 30 mL/min) *Enoxaparin/Lovenox 30 mg SQ daily (WT < 150 kg, CrCl > 10-29 mL/min) *Enoxaparin/Lovenox 30 mg SQ BID (WT < 150 kg, CrCl > 30 mL/min) AND/OR *Sequential Compression Device (SCD) 5 or more Highest Order ONE of the following medications: *Heparin 5000 units SQ TID (Preferred with Epidurals) *Enoxaparin/Lovenox 40 mg SQ daily (WT < 150 kg, CrCl > 30 mL/min) *Enoxaparin/Lovenox 30 mg SQ daily (WT < 150 kg, CrCl > 10-29 mL/min) *Enoxaparin/Lovenox 30 mg SQ BID (WT < 150 kg, CrCl > 30 mL/min) AND *Sequential Compression Device (SCD) Assessment and Plan Problem List: (1) Pneumonia ICD Codes: J18.9 - Pneumonia, unspecified organism Status: Acute Plan: Patient has a history of small cell lung CA treated with radiation and chemotherapy, follows with Dr. Box. Patient also has advanced COPD is on Oxygen via 2L 24 hours a day at home. On Monday patient began to have a cough productive of yellow phlegm associated with congestion and shortness of breath. Patient also reports that through the night she woke up and had had urinary incontinence in the bed. Patient also endorses increased urinary frequency over the past 4-5 days but denies burning or pain with urination. Patient denies having any known fevers, however she has had chills. PNA COPD exacerbation UTI Leukocytosis 23.1 on admission Patient is chronically on 2 L nasal cannula 24 hours a day CXR reviewed and reveals: Stable chronic right apical pleural thickening without hilar retraction. Mild airspace disease right perihilar region and left base predominantly. Differential diagnosis includes mild bronchial pneumonia Urinalysis reviewed and revealed positive nitrates large amount leukocyte esterase, culture pending Patient started on Azactam and Levaquin in the ER Duonbes Q6h and PRN Patient given 125 mg Solu-Medrol in the emergency department Currently on Solu medrol 40 mg every 12 consult speech therapy for swallow evaluation add lozenges throat culture Sputum culture Urine for legionella and pneumococcal antigen add Mucinex BID CT scan of chest /thorax without contrast Left lower extremity DVT Paroxysmal Atrial fib Continue patient's home Eliquis and amiodarone rate currently controlled Hypertension Patient's home medication includes amlodipine 5 mg daily, Telmisartan 80 mg daily, propranolol 20 mg PO BID will hold at this time Monitor BP (2) UTI (urinary tract infection) ICD Codes: N39.0 - Urinary tract infection, site not specified (3) COPD (chronic obstructive pulmonary disease) ICD Codes: J44.9 - COPD (chronic obstructive pulmonary disease) Status: Chronic (4) Paroxysmal atrial fibrillation ICD Codes: I48.0 - Paroxysmal atrial fibrillation Status: Chronic (5) HTN (hypertension) ICD Codes: I10 - Hypertension Status: Chronic (6) Hx of deep venous thrombosis ICD Codes: Z86.718 - History of deep venous thrombosis Status: Acute Assessment and Plan Patient examined. Assessment and plan formulated with Valerie Clements PA-C. I agree with the above. pneumona. copd flare. uti. dehydration. post pharynx exudate on exam. throat cx. gs/cx sputum. urine and blood cx. broad abx started in ED plus nebs/steroids.. son at bedside. swallow eval. Physician Certification 2 Midnight Certification Type: Admission for Inpatient Services Order for Inpatient Services The services are ordered in accordance with Medicare regulations or non- Medicare payer requirements, as applicable. In the case of services not specified as inpatient-only, they are appropriately provided as inpatient services in accordance with the 2-midnight benchmark. Estimated LOS (days): 3 days is the estimated time the patient will need to remain in the hospital, assuming treatment plan goals are met and no additional complications. Post-Hospital Plan: Not yet determined Problem Qualifiers (1) Pneumonia: Qualified Codes: J18.9 - Pneumonia, unspecified organism Valerie Clements March 06, 2018 09:32 Ghanshyam Mock MD March 06, 2018 17:50
[2018-03-06] MEDS: APIXABAN 5 MG TABLET PO SCH ×2 (09:46→21:00)
[2018-03-06] MEDS: AMIODARONE 200 MG TAB PO SCH (09:46)
[2018-03-06] MEDS: GABAPENTIN 100 MG CAP PO SCH ×2 (13:56→17:00)
[2018-03-06] MEDS ORDERED: BENZOCAINE 6 MG/MENTHOL 10 MG LOZENGE BUCCAL ONE (16:30)
[2018-03-06] MEDS ORDERED: NS + KCL 20 MEQ INJ 1,000 ML IV SCH (16:45)
--- NOTE | 2018-03-06 17:39 | RADRPT ---
EXAM DATE/TIME: 03/06/2018 17:20 [place] COMPARISON: CT THORAX W/O CONTRAST, February 08, 2017, 12:23. INDICATIONS : Shortness of breath, pneumonia RADIATION DOSE: 7.72 CTDIvol (mGy) MEDICAL HISTORY : Cardiovascular disease. Chronic obstructive pulmonary disease. Deep venous thrombosis. Asthma, small cell lung cancer SURGICAL HISTORY : None. ENCOUNTER: Initial ACUITY: 2 days PAIN SCALE: 0/10 LOCATION: chest TECHNIQUE: Volumetric scanning of the chest was performed. Using automated exposure control and adjustment of t he mA and/or kV according to patient size, radiation dose was kept as low as reasonably achievable to obtain optimal diagnostic quality images. DICOM format image data is available electronically for r eview and comparison. Follow-up recommendations for detected pulmonary nodules are based at a minimum on nodule size and pa tient risk factors according to Fleischner Society Guidelines. FINDINGS: There is volume loss of the right hemithorax with post radiation fibrotic changes, air bronchogram fo rmation, right hilar mass, and interval development of patchy reticular-nodular in tree in bud infilt rates in right upper lobe, right middle lobe and right lower lobe. There is very subtle reticulonodul ar infiltrate in the left lower lobe more confluence in the left posterior costophrenic angle. The os seous structures demonstrate degenerative changes of the spine. Diffuse atherosclerotic calcification s are noted. The right effusion noted previously and small left effusion have resolved. There is no a denopathy. CONCLUSION: There is right upper lobe atelectasis, post radiation changes and right hilar mass focus again seen. Bilateral right greater than left tree in bud infiltrates are new from the previous study. The right effusion has resolved. Remote T12 superior endplate compression fracture and previous kyphoplasty at T6. Demar Booth MD on March 06, 2018 at 17:33 Board Certified Radiologist. This report was verified electronically.
[2018-03-06] MEDS ORDERED: BENZOCAINE 6 MG/MENTHOL 10 MG LOZENGE BUCCAL PRN (18:00)
--- NOTE | 2018-03-06 18:33 | EKG ---
Date Performed: 03/06/2018 Time Performed: 03:24:54 PTAGE: 82 years EKG: Sinus rhythm NONSPECIFIC T-WAVE ABNORMALITY BORDERLINE ECG WHEN COMPARED TO PRIOR TRACING PATIENT NOW HAS NONSPEC IFIC ST T-WAVE CHANGES. PREVIOUS TRACING 05/14/2017 @ 21.23 DOCTOR: Evelia Kendrick Interpretating Date/Time 03/06/2018 18:31:47
[2018-03-06] MEDS: guaiFENesin E.R. 600 MG TAB PO SCH (21:00)
[2018-03-07] VITALS: BP 118/60; PULSE 80; RESP 18; TEMP 97.6; O2SAT 97
[2018-03-07] MEDS: RESP: ALBUTEROL 2.5 MG/IPRATROPIUM 0.5 MG NEB (SCH) INH ×4 (03:02→21:33)
[2018-03-07 03:20] VITALS: BP 129/69; PULSE 89; RESP 19; TEMP 98.3; O2SAT 95
[2018-03-07] MEDS: AZTREONAM INJ 2,000 MG in SODIUM CHLORIDE 0.9% INJ 100 ML IV SCH ×3 (05:45→21:51)
[2018-03-07 07:35] LABS: AUTOMATED NEUTROPHIL # 15.9 TH/MM3 (1.8-7.7); BASOPHIL % 0.1 % (0.0-2.0); HEMATOCRIT 35.2 % (35.0-46.0); HEMOGLOBIN 11.7 GM/DL (11.6-15.3); LYMPH % 5.8 % (9.0-44.0); MEAN CELL VOLUME 92.2 FL (80.0-100.0); MEAN CORPUSCULAR HEMOGLOBIN 30.6 PG (27.0-34.0); MEAN CORPUSCULAR HGB CONC 33.2 % (32.0-36.0); MEAN PLATELET VOLUME 9.2 FL (7.0-11.0); MONO % 4.3 % (0.0-8.0); MONOCYTE # 0.8 TH/MM3 (0-0.9); NEUT % 89.8 % (16.0-70.0); PLATELET COUNT 178 TH/MM3 (150-450); RED BLOOD COUNT 3.82 MIL/MM3 (4.00-5.30); RED CELL DISTRIBUTION WIDTH 13.6 % (11.6-17.2); WHITE BLOOD COUNT 17.8 TH/MM3 (4.0-11.0)
[2018-03-07 07:56] LABS: BICARBONATE 27.8 MEQ/L (21.0-32.0); CALCIUM 8.6 MG/DL (8.5-10.1); CREATININE 1.47 MG/DL (0.50-1.00)
[2018-03-07 08:00] VITALS: BP 130/60; PULSE 84; RESP 18; TEMP 98.2; O2SAT 91
[2018-03-07] MEDS: SODIUM CHLORIDE 0.9% FLUSH 10 ML FLUSH IV FLUSH SCH ×2 (09:00→21:00)
[2018-03-07] MEDS: APIXABAN 5 MG TABLET PO SCH ×2 (10:08→21:52)
[2018-03-07] MEDS: GABAPENTIN 100 MG CAP PO SCH ×3 (10:08→18:06)
[2018-03-07] MEDS: AMIODARONE 200 MG TAB PO SCH (10:08)
[2018-03-07] MEDS: FERROUS SULFATE 325 MG (65 MG ELEMENTAL IRON) TAB PO SCH (10:08)
[2018-03-07] MEDS: guaiFENesin E.R. 600 MG TAB PO SCH ×2 (10:08→21:51)
--- NOTE | 2018-03-07 10:44 | HHI.PR ---
Subjective Remarks Pt feels that her cough and SOB is better today Her sore throat is better today Pt is still on 4L of supplemental O2 via NC Objective Vitals Vital Signs Date Time Temp Pulse Resp B/P (MAP) Pulse Ox O2 Delivery O2 Flow Rate FiO2 03/07/18 08:00 98.2 84 18 130/60 (83) 91 03/07/18 07:51 Nasal Cannula 4.00 03/07/18 06:10 93 4.00 03/07/18 03:20 98.3 89 19 129/69 (89) 95 03/07/18 00:02 92 4.00 03/07/18 00:00 97.6 80 18 118/60 (79) 97 03/06/18 21:44 4.00 03/06/18 20:33 Nasal Cannula 6.00 03/06/18 20:00 98.2 89 18 122/57 (78) 97 03/06/18 19:47 98 Nasal Cannula 6.00 03/06/18 16:00 98.7 91 20 117/59 (78) 95 03/06/18 12:51 98.5 84 22 91/55 (67) 95 03/06/18 11:36 93 Nasal Cannula 6.00 Result Diagram: 03/07/18 0600 03/07/18 0600 Other Results Laboratory Tests Test 03/06/18 04:20 03/06/18 05:40 03/07/18 06:00 White Blood Count 23.1 TH/MM3 17.8 TH/MM3 Red Blood Count 3.96 MIL/MM3 3.82 MIL/MM3 Hemoglobin 12.3 GM/DL 11.7 GM/DL Hematocrit 36.0 % 35.2 % Mean Corpuscular Volume 90.9 FL 92.2 FL Mean Corpuscular Hemoglobin 31.1 PG 30.6 PG Mean Corpuscular Hemoglobin Concent 34.2 % 33.2 % Red Cell Distribution Width 13.8 % 13.6 % Platelet Count 193 TH/MM3 178 TH/MM3 Mean Platelet Volume 8.7 FL 9.2 FL Neutrophils (%) (Auto) 89.2 % 89.8 % Lymphocytes (%) (Auto) 4.7 % 5.8 % Monocytes (%) (Auto) 5.6 % 4.3 % Eosinophils (%) (Auto) 0.0 % 0.0 % Basophils (%) (Auto) 0.5 % 0.1 % Neutrophils # (Auto) 20.6 TH/MM3 15.9 TH/MM3 Lymphocytes # (Auto) 1.1 TH/MM3 1.0 TH/MM3 Monocytes # (Auto) 1.3 TH/MM3 0.8 TH/MM3 Eosinophils # (Auto) 0.0 TH/MM3 0.0 TH/MM3 Basophils # (Auto) 0.1 TH/MM3 0.0 TH/MM3 CBC Comment DIFF FINAL DIFF FINAL Differential Comment Prothrombin Time 11.5 SEC Prothromb Time International Ratio 1.1 RATIO Activated Partial Thromboplast Time 35.2 SEC Blood Urea Nitrogen 23 MG/DL 40 MG/DL Creatinine 1.40 MG/DL 1.47 MG/DL Random Glucose 111 MG/DL 107 MG/DL Total Protein 7.1 GM/DL Albumin 2.8 GM/DL Calcium Level 8.7 MG/DL 8.6 MG/DL Magnesium Level 1.5 MG/DL Alkaline Phosphatase 75 U/L Aspartate Amino Transf (AST/SGOT) 23 U/L Alanine Aminotransferase (ALT/SGPT) 21 U/L Total Bilirubin 0.7 MG/DL Sodium Level 140 MEQ/L 141 MEQ/L Potassium Level 3.2 MEQ/L 3.7 MEQ/L Chloride Level 100 MEQ/L 104 MEQ/L Carbon Dioxide Level 27.8 MEQ/L 27.8 MEQ/L Anion Gap 12 MEQ/L 9 MEQ/L Estimat Glomerular Filtration Rate 36 ML/MIN 34 ML/MIN Lactic Acid Level 1.3 mmol/L Total Creatine Kinase 50 U/L Troponin I LESS THAN 0.02 NG/ML B-Type Natriuretic Peptide 465 PG/ML Lipase 70 U/L Urine Color YELLOW Urine Turbidity HAZY Urine pH 5.5 Urine Specific [place] 1.016 Urine Protein 30 mg/dL Urine Glucose (UA) NEG mg/dL Urine Ketones 10 mg/dL Urine Occult Blood SMALL Urine Nitrite POS Urine Bilirubin NEG Urine Urobilinogen LESS THAN 2.0 MG/DL Urine Leukocyte Esterase LARGE Urine RBC 5 /hpf Urine WBC 53 /hpf Urine WBC Clumps RARE Urine Squamous Epithelial Cells 5 /hpf Urine Renal Epithelial Cells <1 /hpf Urine Bacteria FEW /hpf Urine Hyaline Casts 14 /lpf Microscopic Urinalysis Comment CATH-CULTURE IND Imaging Last Impressions Chest X-Ray 03/06/18 0400 Signed Impressions: Service Date/Time: Tuesday, March 06, 2018 04:42 - CONCLUSION: 1. Stable chronic right apical pleural thickening without hilar retraction. 2. Mild airspace disease right perihilar region and left base predominantly. Differential diagnosis includes a mild bronchopneumonia. Román Calderón MD Chest CT 03/06/18 0000 Signed Impressions: Service Date/Time: Tuesday, March 06, 2018 17:20 - CONCLUSION: There is right upper lobe atelectasis, post radiation changes and right hilar mass focus again seen. Bilateral right greater than left tree in bud infiltrates are new from the previous study. The right effusion has resolved. Remote T12 superior endplate compression fracture and previous kyphoplasty at T6. Demar Booth MD Objective Remarks General: NAD, AAOx3 Chest: Coarse breath sounds throughout Cardiac: Regular Abd: +BS, soft ND/NT, colostomy in right abdomen, wound on left side of the abdomen Ext: No edema A/P Problem List: (1) Pneumonia ICD Codes: J18.9 - Pneumonia, unspecified organism Status: Acute Plan: Patient has a history of small cell lung CA treated with radiation and chemotherapy, follows with Dr. Box. Patient also has advanced COPD is on Oxygen via 2L 24 hours a day at home. On Monday patient began to have a cough productive of yellow phlegm associated with congestion and shortness of breath. Patient also reports that through the night she woke up and had had urinary incontinence in the bed. Patient also endorses increased urinary frequency over the past 4-5 days but denies burning or pain with urination. Patient denies having any known fevers, however she has had chills. PNA COPD exacerbation UTI Leukocytosis 23.1 on admission - Patient is chronically on 2 L nasal cannula 24 hours a day but currently requiring 4L of supplemental O2 - CXR (03/06/18) --> Stable chronic right apical pleural thickening without hilar retraction. Mild airspace disease right perihilar region and left base predominantly. Differential diagnosis includes mild bronchial pneumonia - Chest CT (03/06/18) --> There is right upper lobe atelectasis, post radiation changes and right hilar mass focus again seen. Bilateral right greater than left tree in bud infiltrates are new from the previous study. The right effusion has resolved. Remote T12 superior endplate compression fracture and previous kyphoplasty at T6. - Duonbes Q6h and PRN - Patient given 125 mg Solu-Medrol in the emergency department. Currently on Solu-Medrol 40 mg Q12H - Pt was seen by speech therapy for swallow evaluation and no s/s/ of aspiration - Cont. lozenges - Throat culture is pending - Sputum culture is pending. - Urine for legionella and pneumococcal antigen are negative - Cont. Mucinex BID - UA was abnormal at admission and Urine culture now growing ESBL. - Patient started on Azactam and Levaquin in the ER - Consult ID for the ESBL in the urine Left lower extremity DVT Paroxysmal Atrial fib - Pt was continued on home Eliquis and amiodarone - rate currently controlled Hypertension - Patient's home medication includes amlodipine 5 mg daily, Telmisartan 80 mg daily, propranolol 20 mg PO BID - This was held at admission, BP is stable - Monitor BP (2) UTI (urinary tract infection) ICD Codes: N39.0 - Urinary tract infection, site not specified (3) COPD (chronic obstructive pulmonary disease) ICD Codes: J44.9 - COPD (chronic obstructive pulmonary disease) Status: Chronic (4) Paroxysmal atrial fibrillation ICD Codes: I48.0 - Paroxysmal atrial fibrillation Status: Chronic (5) HTN (hypertension) ICD Codes: I10 - Hypertension Status: Chronic (6) Hx of deep venous thrombosis ICD Codes: Z86.718 - History of deep venous thrombosis Status: Acute Assessment and Plan Patient examined. Assessment and plan formulated with Nat Dickerson PA-C. I agree with the above. pna. tree in bud pattern right lung uti . ecoli esbl copd with flare mild jayleen consult ID. cont abx. nebs/steroids with taper. PT. gentle ivf. Problem Qualifiers (1) Pneumonia: Qualified Codes: J18.9 - Pneumonia, unspecified organism Nat Dickerson March 07, 2018 10:44 Ghanshyam Mock MD March 07, 2018 12:55
[2018-03-07 12:00] VITALS: BP 109/56; PULSE 90; RESP 18; TEMP 98; O2SAT 91
--- NOTE | 2018-03-07 12:51 | PD.CONS ---
History of Present Illness Service Infectious Disease Consult Requested By Dr Brigid Hunter Reason for Consult Evaluate patient with UTI E. coli ESBL positive Primary Care Physician Muna Perea MD Diagnoses: History of Present Illness Patient seen and examined. Records reviewed. Patient is an 82-year-old female, presented to the hospital complaining of several day history of sore throat. She also started having cough productive of yellowish phlegm, felt congested, and had some shortness of breath. She has not had any fever although she has had some chills. Patient also has had problem with some urinary incontinence as well as some frequency over the last 4 -5 days prior to admission. She denies any dysuria. She denies any abdominal pain, nausea or vomiting. On presentation she had some increased infiltrates in her right upper lobe as well as in the left base. Her urinalysis did show pyuria. She had low-grade temps when she came in, and her WBC was greater than 20,000. Urine culture is now reported as growing E. coli ESBL positive. Her sputum culture is pending. Blood cultures are negative. Legionella and pneumococcal antigen are negative. Her temps are better. WBC is down to 17, 000. Patient states her sore throat has resolved. She is still having coughing with a senior case manager yellowish phlegm. Breathing is better and not short of breath currently. She is on nasal O2. Patient is on Levaquin and Azactam. Infectious disease consultation has been requested to assist with evaluation and treatment. Review of Systems Constitutional: COMPLAINS OF: Chills, DENIES: Fever Eyes: DENIES: Eye pain Ears, nose, mouth, throat: COMPLAINS OF: Throat pain, DENIES: Nasal discharge, Oral lesions, Hoarseness, Ear Pain, Sinus Pain Respiratory: COMPLAINS OF: Cough, Sputum production, Shortness of breath, DENIES: Hemoptysis Cardiovascular: DENIES: Chest pain, Palpitations, Syncope, Lower Extremity Edema Gastrointestinal: DENIES: Abdominal pain, Nausea, Vomiting, Difficulty Swallowing Genitourinary: COMPLAINS OF: Urinary frequency, Urinary incontinence, DENIES: Dysuria Musculoskeletal: DENIES: Joint pain, Joint Swelling Integumentary: DENIES: Rash Neurologic: DENIES: Headache Psychiatric: DENIES: Hallucinations Past Family Social History Allergies: Coded Allergies: adhesive (Unverified Allergy, Severe, 08/11/17) codeine (Unverified Allergy, Severe, N/V, 08/11/17) penicillin G (Unverified Allergy, Intermediate, rash, 08/11/17) guaifenesin (Unverified Adverse Reaction, Mild, Flushing, 08/11/17) PATIENT STATES THAT AFTER SHE WAS ADMINISTERED ROBITSSIN, BL PALM OF HER HANDS TURNED RED. 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 Macario Chronic abdominal wounds and prior incision and drainage Lipoma removal right arm Lumbar laminectomy 1974 Cataract surgery section Excision of malignant melanoma from the neck Surgical repair of right hip fracture, January/2017 Active Ordered Medications Current Medications Medications (Trade) Dose Ordered Sig/Kristina Route Start Time Stop Time Status Last Admin (NS Flush) 2 ml UNSCH PRN IV FLUSH 03/06/18 06:00 (NS Flush) 2 ml BID IV FLUSH 03/06/18 09:00 Aztreonam 2000 mg/ Sodium Chloride 100 ml @ 200 mls/hr Q8H IV 03/06/18 06:00 03/07/18 05:45 (Duoneb Neb) 1 ampule Q6HR NEB INH 03/06/18 10:00 03/07/18 09:23 (Duoneb Neb) 1 ampule Q4HR NEB PRN INH 03/06/18 06:00 03/06/18 06:30 Levofloxacin/ Dextrose 150 ml @ 100 mls/hr Q48H IV 03/08/18 06:15 (Cordarone) 200 mg DAILY PO 03/06/18 09:30 03/07/18 10:08 (Eliquis) 5 mg BID PO 03/06/18 09:30 03/07/18 10:08 (Neurontin) 100 mg TID PO 03/06/18 13:00 03/07/18 10:08 (Ferrous Sulfate) 325 mg DAILY PO 03/07/18 09:00 03/07/18 10:08 (Chloraseptic Lexie) 1 lozenge UNSCH PRN BUCCAL 03/06/18 18:00 03/06/18 21:00 (Mucinex Er) 1,200 mg BID PO 03/06/18 21:00 03/07/18 10:08 Potassium Chloride/Sodium Chloride 1,000 ml @ 42 mls/hr [id number] IV 03/06/18 16:45 03/07/18 16:33 03/06/18 16:59 Family History Noncontributory Social History Denies EtOH History of tobacco use quit smoking 2017 prior to that had [id number] history No illicit drugs Physical Exam Vital Signs Vital Signs Date Time Temp Pulse Resp B/P (MAP) Pulse Ox O2 Delivery O2 Flow Rate FiO2 03/07/18 12:00 98.0 90 18 109/56 (73) 91 03/07/18 08:00 98.2 84 18 130/60 (83) 91 03/07/18 07:51 Nasal Cannula 4.00 03/07/18 06:10 93 4.00 03/07/18 03:20 98.3 89 19 129/69 (89) 95 03/07/18 00:02 92 4.00 03/07/18 00:00 97.6 80 18 118/60 (79) 97 03/06/18 21:44 4.00 03/06/18 20:33 Nasal Cannula 6.00 03/06/18 20:00 98.2 89 18 122/57 (78) 97 03/06/18 19:47 98 Nasal Cannula 6.00 03/06/18 16:00 98.7 91 20 117/59 (78) 95 03/06/18 12:51 98.5 84 22 91/55 (67) 95 Physical Exam GENERAL: Patient is a well-nourished, well-developed female, awake and alert , not in respiratory distress. SKIN: Warm and dry. No generalized rash, no ecchymoses and no evidence of embolic lesions. HEAD: Atraumatic. Normocephalic. No temporal wasting, or tenderness. EYES: [place] conjunctiva. No petechia or hemorrhage. Pupils equal, round and reactive to light. Extraocular movements full and intact. No scleral icterus. No injection or drainage. EARS, NOSE AND THROAT: Nose without bleeding or purulent nasal discharge. No sinus tenderness. Mucous membranes pink and moist. No oral lesions noted. No exudate. No oral thrush. NECK: Trachea midline. Supple and not tender, no meningeal signs CARDIOVASCULAR: Regular rate and rhythm. No murmurs, rubs or gallops heard RESPIRATORY: Decreased breath sounds L, some rhonchi on R. Port in L upper chest, seems swollen, but not tender, not red or indurated ABDOMEN: Soft, non-tender, nondistended. Bowel sounds present and normoactive. No guarding. No rebound. Colostomy on R with hernia, pink stoma. Has open wound on L side about 1 inch diameter, with pink mucosa, patient states site of previous colostomy that had an abscess. EXTREMITIES: No clubbing, cyanosis, or edema. No joint effusion, has good ROM. No calf tenderness. Well perfused and warm. Chronic skin changes both LE NEUROLOGICAL: Awake and alert. Cranial nerves grossly intact. Motor grossly within normal limits. PSYCHIATRIC: Normal affect, calm and cooperative. LINE: No evidence of infection Laboratory Laboratory Tests Test 03/07/18 06:00 White Blood Count 17.8 Red Blood Count 3.82 Hemoglobin 11.7 Hematocrit 35.2 Mean Corpuscular Volume 92.2 Mean Corpuscular Hemoglobin 30.6 Mean Corpuscular Hemoglobin Concent 33.2 Red Cell Distribution Width 13.6 Platelet Count 178 Mean Platelet Volume 9.2 Neutrophils (%) (Auto) 89.8 Lymphocytes (%) (Auto) 5.8 Monocytes (%) (Auto) 4.3 Eosinophils (%) (Auto) 0.0 Basophils (%) (Auto) 0.1 Neutrophils # (Auto) 15.9 Lymphocytes # (Auto) 1.0 Monocytes # (Auto) 0.8 Eosinophils # (Auto) 0.0 Basophils # (Auto) 0.0 CBC Comment DIFF FINAL Differential Comment Blood Urea Nitrogen 40 Creatinine 1.47 Random Glucose 107 Calcium Level 8.6 Sodium Level 141 Potassium Level 3.7 Chloride Level 104 Carbon Dioxide Level 27.8 Anion Gap 9 Estimat Glomerular Filtration Rate 34 Date/Time Source Procedure Growth Status 03/06/18 04:35 Blood Peripheral Aerobic Blood Culture - Preliminary NO GROWTH IN 1 DAY Resulted 03/06/18 04:35 Blood Peripheral Anaerobic Blood Culture - Preliminary NO GROWTH IN 1 DAY Resulted 03/06/18 18:00 Throat Throat Culture Pending Received 03/06/18 18:00 Urine Clean Catch Legionella Antigen - Final PRESUMPTIVE NEGATIVE FOR LEGIONELLA P... Complete 03/06/18 18:00 Urine Clean Catch Streptococcus pneumoniae Antigen (M - Final PRESUMPTIVE NEGATIVE FOR STREPTOCOCCU... Complete Result Diagram: 03/07/18 0600 03/07/18 0600 Imaging RADIOLOGY STUDIES/FILMS REVIEWED Last Impressions Chest X-Ray 03/06/18 0400 Signed Impressions: Service Date/Time: Tuesday, March 06, 2018 04:42 - CONCLUSION: 1. Stable chronic right apical pleural thickening without hilar retraction. 2. Mild airspace disease right perihilar region and left base predominantly. Differential diagnosis includes a mild bronchopneumonia. Román Calderón MD Chest CT 03/06/18 0000 Signed Impressions: Service Date/Time: Tuesday, March 06, 2018 17:20 - CONCLUSION: There is right upper lobe atelectasis, post radiation changes and right hilar mass focus again seen. Bilateral right greater than left tree in bud infiltrates are new from the previous study. The right effusion has resolved. Remote T12 superior endplate compression fracture and previous kyphoplasty at T6. Demar Booth MD Assessment and Plan Assessment and Plan IMPRESSION Community acquired PNA UTI, E coli ESBL+ Hx limited small cell CA, in remission Renal insufficiency Hx diverticulitis, colostomy R, with chronic open wound L side RECOMMENDATION Follow cultures Continue Azactam Continue Levaquin Will adjust antibiotics once cultures finalized Repeat UA Renal ultrasound to evaluate elevated creatinine and UTI Follow CBC Monitor progress I will determine course of treatment once workup is completed I will follow along with you Thank you for this consultation Discussed Condition With Explained plan to the patient Corine Kc MD March 07, 2018 12:51
--- NOTE | 2018-03-07 14:28 | RADRPT ---
EXAM DATE/TIME: 03/07/2018 12:50 [facility] COMPARISON: No previous studies available for comparison. INDICATIONS : Urinary tract infection. Elevated creatinine. MEDICAL HISTORY : Hypercholesterolemia. Diverticulitis. Osteoporosis. Neuropathy in feet. Chest pain. AFib. HTN. DVT. S mall cell lung cancer. COPD. Asthma. Pneumonia. Dyspnea. GERD. Frequent UTIs. Depression. Measles. MR SA. Anticoagulant therapy, Eliquis. SURGICAL HISTORY : section. Cataract extraction. Cardiac cath. Colectomy. Colostomy. Back surgery. RIght el bow wires and screws. Right hip pins. Chemotherapy. Radiation therapy. ENCOUNTER: Initial ACUITY: 1 day PAIN SCORE: 0/10 LOCATION: Bilateral flank MEASUREMENTS: RIGHT KIDNEY: 10.2 x 4.3 x 4.0 cm LEFT KIDNEY: 9.4 x 4.9 x 5.2 cm FINDINGS: RIGHT KIDNEY: Renal cortex is normal in thickness and echotexture. No hydronephrosis or mass lesion. There is a pu nctate echogenic foci at the junction of the upper and midpole of the right kidney characteristic of a nonobstructing subcentimeter calculus. LEFT KIDNEY: Renal cortex is normal in thickness and echotexture. No hydronephrosis, stone, or mass. BLADDER: Within normal limits given the degree of distension. MISCELLANEOUS: Also noted is a left-sided pleural effusion and multiple echogenic gallstones. CONCLUSION: 1. Nonobstructing subcentimeter calculus in the upper pole collecting system of the right kidney. Bot h kidneys are otherwise sonographically normal. 2. Cholelithiasis. 3. Left-sided pleural effusion. Len Cárdenas MD on March 07, 2018 at 14:24 Board Certified Radiologist. This report was verified electronically.
[2018-03-07 16:00] VITALS: BP 151/80; PULSE 100; RESP 18; TEMP 98.7; O2SAT 90; O2SAT 91
[2018-03-07 20:00] VITALS: BP 124/58; PULSE 90; RESP 18; TEMP 98.3; O2SAT 94
[2018-03-07 22:09] LABS: AMORPHOUS SEDIMENT, URINE RARE; BILIRUBIN, URINE NEG (NEG); BLOOD, URINE NEG (NEG); GLUCOSE,URINE NEG (NEG); KETONE, URINE NEG (NEG); NITRITE,URINE NEG (NEG); URINE COLOR LIGHT-YELLOW (YELLW/STRAW); URINE LEUKOCYTE ESTERASE NEG (NEG)
[2018-03-08] VITALS (10 sets, daily range): BP systolic 102–136; BP diastolic 54–67; PULSE 91–106; RESP 18–20; TEMP 98.1–99.2; O2SAT 92–97
[2018-03-08] MEDS: RESP: ALBUTEROL 2.5 MG/IPRATROPIUM 0.5 MG NEB (SCH) INH ×6 (04:51→23:53)
[2018-03-08] MEDS: AZTREONAM INJ 2,000 MG in SODIUM CHLORIDE 0.9% INJ 100 ML IV SCH ×3 (06:35→22:31)
[2018-03-08 07:20] LABS: AUTOMATED NEUTROPHIL # 11.9 TH/MM3 (1.8-7.7); BASOPHIL % 0.1 % (0.0-2.0); HEMATOCRIT 34.2 % (35.0-46.0); HEMOGLOBIN 11.3 GM/DL (11.6-15.3); LYMPH % 5.6 % (9.0-44.0); LYMPHOCYTE # 0.7 TH/MM3 (1.0-4.8); MEAN CELL VOLUME 93.1 FL (80.0-100.0); MEAN CORPUSCULAR HEMOGLOBIN 30.7 PG (27.0-34.0); MEAN PLATELET VOLUME 9.3 FL (7.0-11.0); MONO % 4.7 % (0.0-8.0); MONOCYTE # 0.6 TH/MM3 (0-0.9); NEUT % 89.6 % (16.0-70.0); PLATELET COUNT 162 TH/MM3 (150-450); RED BLOOD COUNT 3.68 MIL/MM3 (4.00-5.30); RED CELL DISTRIBUTION WIDTH 14.1 % (11.6-17.2); WHITE BLOOD COUNT 13.3 TH/MM3 (4.0-11.0)
[2018-03-08 07:21] LABS: CALCIUM 8.1 MG/DL (8.5-10.1); CREATININE 1.12 MG/DL (0.50-1.00); MAGNESIUM 1.9 MG/DL (1.5-2.5)
[2018-03-08] MEDS: LEVOFLOXACIN 750 MG PREMIX INJ 150 ML IV SCH (07:54)
[2018-03-08] MEDS: GABAPENTIN 100 MG CAP PO SCH ×3 (07:55→17:05)
[2018-03-08] MEDS: APIXABAN 5 MG TABLET PO SCH ×2 (07:55→20:45)
[2018-03-08] MEDS: guaiFENesin E.R. 600 MG TAB PO SCH ×2 (07:55→20:45)
[2018-03-08] MEDS: FERROUS SULFATE 325 MG (65 MG ELEMENTAL IRON) TAB PO SCH (07:55)
[2018-03-08] MEDS: AMIODARONE 200 MG TAB PO SCH (07:55)
[2018-03-08] MEDS: SODIUM CHLORIDE 0.9% FLUSH 10 ML FLUSH IV FLUSH SCH ×2 (07:56→20:45)
[2018-03-08] MEDS ORDERED: FUROSEMIDE 20 MG/2 ML VIAL IV PUSH ONE (10:30)
[2018-03-08] MEDS ORDERED: SODIUM CHLORIDE 0.65% NASAL SPRAY 45 ML BTL EACH NARE PRN (10:30)
--- NOTE | 2018-03-08 10:31 | HHI.PR ---
Subjective Remarks Pt complains of some nose bleeding this morning She has had some urinary frequency, has wet the bed 4 times this morning she feels overall worse today Pt is on 3L supplemental O2 currently Objective Vitals Vital Signs Date Time Temp Pulse Resp B/P (MAP) Pulse Ox O2 Delivery O2 Flow Rate FiO2 03/08/18 09:14 96 Nasal Cannula 3.00 03/08/18 08:10 99.2 98 20 136/62 (86) 96 03/08/18 04:54 94 Nasal Cannula 4.00 03/08/18 04:00 99.0 97 18 126/60 (82) 92 03/08/18 00:00 98.4 91 18 102/57 (72) 94 03/07/18 21:00 92 Nasal Cannula 3.00 03/07/18 20:00 98.3 90 18 124/58 (80) 94 03/07/18 16:00 91 Nasal Cannula 4.00 03/07/18 16:00 98.7 100 18 151/80 (103) 90 03/07/18 12:00 98.0 90 18 109/56 (73) 91 03/08/18 03/08/18 03/09/18 15:00 23:00 07:00 # Voids 1 Result Diagram: 03/08/18 0630 03/08/18 0630 Other Results Laboratory Tests Test 03/07/18 06:00 03/07/18 21:15 03/08/18 06:30 White Blood Count 17.8 TH/MM3 13.3 TH/MM3 Red Blood Count 3.82 MIL/MM3 3.68 MIL/MM3 Hemoglobin 11.7 GM/DL 11.3 GM/DL Hematocrit 35.2 % 34.2 % Mean Corpuscular Volume 92.2 FL 93.1 FL Mean Corpuscular Hemoglobin 30.6 PG 30.7 PG Mean Corpuscular Hemoglobin Concent 33.2 % 33.0 % Red Cell Distribution Width 13.6 % 14.1 % Platelet Count 178 TH/MM3 162 TH/MM3 Mean Platelet Volume 9.2 FL 9.3 FL Neutrophils (%) (Auto) 89.8 % 89.6 % Lymphocytes (%) (Auto) 5.8 % 5.6 % Monocytes (%) (Auto) 4.3 % 4.7 % Eosinophils (%) (Auto) 0.0 % 0.0 % Basophils (%) (Auto) 0.1 % 0.1 % Neutrophils # (Auto) 15.9 TH/MM3 11.9 TH/MM3 Lymphocytes # (Auto) 1.0 TH/MM3 0.7 TH/MM3 Monocytes # (Auto) 0.8 TH/MM3 0.6 TH/MM3 Eosinophils # (Auto) 0.0 TH/MM3 0.0 TH/MM3 Basophils # (Auto) 0.0 TH/MM3 0.0 TH/MM3 CBC Comment DIFF FINAL DIFF FINAL Differential Comment Blood Urea Nitrogen 40 MG/DL 39 MG/DL Creatinine 1.47 MG/DL 1.12 MG/DL Random Glucose 107 MG/DL 89 MG/DL Calcium Level 8.6 MG/DL 8.1 MG/DL Sodium Level 141 MEQ/L 144 MEQ/L Potassium Level 3.7 MEQ/L 3.3 MEQ/L Chloride Level 104 MEQ/L 109 MEQ/L Carbon Dioxide Level 27.8 MEQ/L 30.0 MEQ/L Anion Gap 9 MEQ/L 5 MEQ/L Estimat Glomerular Filtration Rate 34 ML/MIN 47 ML/MIN Urine Color LIGHT-YELLOW Urine Turbidity CLEAR Urine pH 5.0 Urine Specific [place] 1.022 Urine Protein TRACE mg/dL Urine Glucose (UA) NEG mg/dL Urine Ketones NEG mg/dL Urine Occult Blood NEG Urine Nitrite NEG Urine Bilirubin NEG Urine Urobilinogen LESS THAN 2.0 MG/DL Urine Leukocyte Esterase NEG Urine WBC LESS THAN 1 /hpf Urine Amorphous Sediment RARE Urine Granular Casts 77 /lpf Magnesium Level 1.9 MG/DL Imaging Last Impressions Renal Ultrasound 03/07/18 0000 Signed Impressions: Service Date/Time: Wednesday, March 07, 2018 12:50 - CONCLUSION: 1. Nonobstructing subcentimeter calculus in the upper pole collecting system of the right kidney. Both kidneys are otherwise sonographically normal. 2. Cholelithiasis. 3. Left-sided pleural effusion. Len Cárdenas MD Chest X-Ray 03/06/18 0400 Signed Impressions: Service Date/Time: Tuesday, March 06, 2018 04:42 - CONCLUSION: 1. Stable chronic right apical pleural thickening without hilar retraction. 2. Mild airspace disease right perihilar region and left base predominantly. Differential diagnosis includes a mild bronchopneumonia. Román Calderón MD Chest CT 03/06/18 0000 Signed Impressions: Service Date/Time: Tuesday, March 06, 2018 17:20 - CONCLUSION: There is right upper lobe atelectasis, post radiation changes and right hilar mass focus again seen. Bilateral right greater than left tree in bud infiltrates are new from the previous study. The right effusion has resolved. Remote T12 superior endplate compression fracture and previous kyphoplasty at T6. Demar Booth MD Last Impressions Chest X-Ray 03/06/18 0400 Signed Impressions: Service Date/Time: Tuesday, March 06, 2018 04:42 - CONCLUSION: 1. Stable chronic right apical pleural thickening without hilar retraction. 2. Mild airspace disease right perihilar region and left base predominantly. Differential diagnosis includes a mild bronchopneumonia. Román Calderón MD Chest CT 03/06/18 0000 Signed Impressions: Service Date/Time: Tuesday, March 06, 2018 17:20 - CONCLUSION: There is right upper lobe atelectasis, post radiation changes and right hilar mass focus again seen. Bilateral right greater than left tree in bud infiltrates are new from the previous study. The right effusion has resolved. Remote T12 superior endplate compression fracture and previous kyphoplasty at T6. Demar Booth MD Objective Remarks General: NAD, AAOx3 Chest: Coarse breath sounds and wheezing throughout Cardiac: Regular Abd: +BS, soft ND/NT, colostomy in right abdomen, wound on left side of the abdomen Ext: No edema A/P Problem List: (1) Pneumonia ICD Codes: J18.9 - Pneumonia, unspecified organism Status: Acute Plan: Patient has a history of small cell lung CA treated with radiation and chemotherapy, follows with Dr. Box. Patient also has advanced COPD is on Oxygen via 2L 24 hours a day at home. On Monday patient began to have a cough productive of yellow phlegm associated with congestion and shortness of breath. Patient also reports that through the night she woke up and had had urinary incontinence in the bed. Patient also endorses increased urinary frequency over the past 4-5 days but denies burning or pain with urination. Patient denies having any known fevers, however she has had chills. PNA COPD exacerbation Leukocytosis 23.1 on admission - Patient is chronically on 2 L nasal cannula 24 hours a day but currently requiring 4L of supplemental O2 - CXR (03/06/18) --> Stable chronic right apical pleural thickening without hilar retraction. Mild airspace disease right perihilar region and left base predominantly. Differential diagnosis includes mild bronchial pneumonia - Chest CT (03/06/18) --> There is right upper lobe atelectasis, post radiation changes and right hilar mass focus again seen. Bilateral right greater than left tree in bud infiltrates are new from the previous study. The right effusion has resolved. Remote T12 superior endplate compression fracture and previous kyphoplasty at T6. - Duonbes Q6h and PRN - Patient given 125 mg Solu-Medrol in the emergency department. Currently on Solu-Medrol 40 mg Q12H x 2 dose given on 03/06 - On 03/08 pt with more wheezing and feeling more SOB - Start back on Solu-Medrol 125mg x one dose and then continue 60mg q6h - Give Lasix 20mg IV x one dose - Increase frequency of Duonebs to Q4H and Q2H PRN - CXR now and in AM - Pt was seen by speech therapy for swallow evaluation and no s/s of aspiration - Cont. lozenges - Throat culture is negative for Strep - Sputum culture with heavy growth of normal respiratory dennis - Urine for legionella and pneumococcal antigen are negative - Cont. Mucinex BID UTI - UA was abnormal at admission and Urine culture now growing ESBL. - Patient started on Azactam and Levaquin in the ER - Appreciate ID consult for the ESBL in the urine - Renal US (03/07) --> Nonobstructing subcentimeter calculus in the upper pole collecting system of the right kidney. Both kidneys are otherwise sonographically normal. Cholelithiasis. Left-sided pleural effusion. Left lower extremity DVT Paroxysmal Atrial fib - Pt was continued on home Eliquis and amiodarone - rate currently controlled Hypertension - Patient's home medication includes amlodipine 5 mg daily, Telmisartan 80 mg daily, propranolol 20 mg PO BID - These were held at admission, BP is stable - Monitor BP (2) UTI (urinary tract infection) ICD Codes: N39.0 - Urinary tract infection, site not specified (3) COPD (chronic obstructive pulmonary disease) ICD Codes: J44.9 - COPD (chronic obstructive pulmonary disease) Status: Chronic (4) Paroxysmal atrial fibrillation ICD Codes: I48.0 - Paroxysmal atrial fibrillation Status: Chronic (5) HTN (hypertension) ICD Codes: I10 - Hypertension Status: Chronic (6) Hx of deep venous thrombosis ICD Codes: Z86.718 - History of deep venous thrombosis Status: Acute Assessment and Plan Patient examined. Assessment and plan formulated with Nat Dickerson PA-C. I agree with the above. pna. tree in bud pattern right lung. ?aspiration uti . ecoli esbl copd with flare cont abx. nebs pt more sob with rhonci/wheeze. increase neb freq/iv solumedrol/iv lasix ...addendum: reassessed her several hrs after initial eval. pt and son reports that she is feeling better. ocean nasal spray for dry clotted blood in nares. mild jayleen consulted ID. Problem Qualifiers (1) Pneumonia: Qualified Codes: J18.9 - Pneumonia, unspecified organism Nat Dickerson March 08, 2018 10:31 Ghanshyam Mock MD March 08, 2018 13:59
[2018-03-08] MEDS ORDERED: methylPREDNISolone SOD SUCC 125 MG/2 ML VIAL IV PUSH ONE (11:00)
--- NOTE | 2018-03-08 11:03 | RADRPT ---
EXAM DATE/TIME: 03/08/2018 10:45 [facility] COMPARISON: CHEST SINGLE AP, March 06, 2018, 4:42. INDICATIONS : Short of breath. MEDICAL HISTORY : Hypercholesterolemia. Diverticulitis. Osteoporosis. Neuropathy in feet. AFib. HTN. DVT. Small cell jacquelyn ng cancer. COPD. Asthma. Pneumonia. Dyspnea. GERD. Measles. SURGICAL HISTORY : section. Cataract extraction. Cardiac cath. Colectomy. Colostomy. Back surgery. RIght elbow wires and screws. Right hip pins. Chemotherapy. Radiation therapy. Infusaport. ENCOUNTER: Subsequent ACUITY: 3 days PAIN SCORE: 0/10 LOCATION: Bilateral chest FINDINGS: Compared to the prior study there has been mild improvement in the right perihilar infiltrate. There continues to be stable scarring in the right apex and right lung base. Stable mild infiltrate in the left lung base. Otherwise the rest of the lung is clear.. The heart size is stable. No pneumothorax. The heart size is stable. There is a left-sided central line in place. The bony structures are stable . CONCLUSION: 1. Mild improvement in the right perihilar infiltrate. 2. Stable left lower lung infiltrate. 3. No new significant changes. Marino Salazar MD on March 08, 2018 at 10:58 Board Certified Radiologist. This report was verified electronically.
[2018-03-08] MEDS ORDERED: POTASSIUM CHLORIDE 20 MEQ CONTROLLED RELEASE TAB PO SCH (12:00)
[2018-03-08] MEDS ORDERED: POTASSIUM CHLORIDE 20 MEQ CONTROLLED RELEASE TAB PO ONE (12:00)
--- NOTE | 2018-03-08 12:35 | HHI.IDPN ---
Subjective Subjective Remarks Patient is an 82-year-old female, presented to the hospital complaining of several day history of sore throat. She also started having cough productive of yellowish phlegm, felt congested, and had some shortness of breath. She has not had any fever although she has had some chills. Patient also has had problem with some urinary incontinence as well as some frequency over the last 4 -5 days prior to admission. She denies any dysuria. She denies any abdominal pain, nausea or vomiting. On presentation she had some increased infiltrates in her right upper lobe as well as in the left base. Her urinalysis did show pyuria. She had low-grade temps when she came in, and her WBC was greater than 20,000. Urine culture is now reported as growing E. coli ESBL positive. Her sputum culture is pending. Blood cultures are negative. Legionella and pneumococcal antigen are negative. Her temps are better. WBC is down to 17, 000. Patient states her sore throat has resolved. She is still having coughing with a lead pastor yellowish phlegm. Breathing is better and not short of breath currently. She is on nasal O2. Patient is on Levaquin and Azactam. Infectious disease consultation has been requested to assist with evaluation and treatment. Notes reviewed Breathing worse today Nose stuffed up SOB CXR better to stable Repeat UA ok Had incontinence which she attributes to delayed response from staff Cough not worse Temps 99+ Antibiotics Levaquin Azactam Current Medications Medications (Trade) Dose Ordered Sig/Kristina Route Start Time Stop Time Status Last Admin (NS Flush) 2 ml UNSCH PRN IV FLUSH 03/06/18 06:00 (NS Flush) 2 ml BID IV FLUSH 03/06/18 09:00 03/08/18 07:56 Aztreonam 2000 mg/ Sodium Chloride 100 ml @ 200 mls/hr Q8H IV 03/06/18 06:00 03/08/18 06:35 Levofloxacin/ Dextrose 150 ml @ 100 mls/hr Q48H IV 03/08/18 06:15 03/08/18 07:54 (Cordarone) 200 mg DAILY PO 03/06/18 09:30 03/08/18 07:55 (Eliquis) 5 mg BID PO 03/06/18 09:30 03/08/18 07:55 (Neurontin) 100 mg TID PO 03/06/18 13:00 03/08/18 07:55 (Ferrous Sulfate) 325 mg DAILY PO 03/07/18 09:00 03/08/18 07:55 (Chloraseptic Lexie) 1 lozenge UNSCH PRN BUCCAL 03/06/18 18:00 03/06/18 21:00 (Mucinex Er) 1,200 mg BID PO 03/06/18 21:00 03/08/18 07:55 (Slope Alexis Rudd) 2 spray Q4H PRN EACH NARE 03/08/18 10:30 (Duoneb Neb) 1 ampule Q4HR NEB INH 03/08/18 12:00 03/08/18 10:54 (Duoneb Neb) 1 ampule Q2HR NEB PRN INH 03/08/18 10:30 (SoluMEDROL INJ) 60 mg Q6H IV PUSH 03/08/18 17:00 Past Medical History COPD with chronic respiratory failure on 2 L nasal cannula 24 hours a day Small cell lung CA diagnosed in 2009 in remission Dverticulosis status post colectomy with colonoscopy Anxiety Essential tremors Coronary Artery Disease Atrial fibrillation Left lower extremity DVT on Eliquis Chronic kidney disease stage III GERD Hyperlipidemia Hypertension Osteoporosis Pulmonary hypertension Pelvic abscess Past Surgical History Colectomy with colonoscopy by Dr. Macario Chronic abdominal wounds and prior incision and drainage Lipoma removal right arm Lumbar laminectomy 1975 Cataract surgery section Excision of malignant melanoma from the neck Surgical repair of right hip fracture, January/2017 Allergies: Coded Allergies: adhesive (Unverified Allergy, Severe, 08/11/17) codeine (Unverified Allergy, Severe, N/V, 08/11/17) penicillin G (Unverified Allergy, Intermediate, rash, 08/11/17) guaifenesin (Unverified Adverse Reaction, Mild, Flushing, 08/11/17) PATIENT STATES THAT AFTER SHE WAS ADMINISTERED ROBITSSIN, BL PALM OF HER HANDS TURNED RED. 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 Vital Signs Date Time Temp Pulse Resp B/P (MAP) Pulse Ox O2 Delivery O2 Flow Rate FiO2 03/08/18 11:16 98.3 103 20 117/62 (80) 97 03/08/18 09:14 96 Nasal Cannula 3.00 03/08/18 08:10 99.2 98 20 136/62 (86) 96 03/08/18 08:00 94 Nasal Cannula 3.00 03/08/18 04:54 94 Nasal Cannula 4.00 03/08/18 04:00 99.0 97 18 126/60 (82) 92 03/08/18 00:00 98.4 91 18 102/57 (72) 94 03/07/18 21:00 92 Nasal Cannula 3.00 03/07/18 20:00 98.3 90 18 124/58 (80) 94 03/07/18 16:00 91 Nasal Cannula 4.00 03/07/18 16:00 98.7 100 18 151/80 (103) 90 03/08/18 03/08/18 03/09/18 15:00 23:00 07:00 # Voids 1 . Laboratory Tests Test 03/07/18 06:00 03/08/18 06:30 White Blood Count 17.8 TH/MM3 13.3 TH/MM3 Red Blood Count 3.82 MIL/MM3 3.68 MIL/MM3 Hemoglobin 11.7 GM/DL 11.3 GM/DL Hematocrit 35.2 % 34.2 % Mean Corpuscular Volume 92.2 FL 93.1 FL Mean Corpuscular Hemoglobin 30.6 PG 30.7 PG Mean Corpuscular Hemoglobin Concent 33.2 % 33.0 % Red Cell Distribution Width 13.6 % 14.1 % Platelet Count 178 TH/MM3 162 TH/MM3 Mean Platelet Volume 9.2 FL 9.3 FL Neutrophils (%) (Auto) 89.8 % 89.6 % Lymphocytes (%) (Auto) 5.8 % 5.6 % Monocytes (%) (Auto) 4.3 % 4.7 % Eosinophils (%) (Auto) 0.0 % 0.0 % Basophils (%) (Auto) 0.1 % 0.1 % Neutrophils # (Auto) 15.9 TH/MM3 11.9 TH/MM3 Lymphocytes # (Auto) 1.0 TH/MM3 0.7 TH/MM3 Monocytes # (Auto) 0.8 TH/MM3 0.6 TH/MM3 Eosinophils # (Auto) 0.0 TH/MM3 0.0 TH/MM3 Basophils # (Auto) 0.0 TH/MM3 0.0 TH/MM3 CBC Comment DIFF FINAL DIFF FINAL Differential Comment Laboratory Tests Test 03/07/18 06:00 03/08/18 06:30 Blood Urea Nitrogen 40 MG/DL 39 MG/DL Creatinine 1.47 MG/DL 1.12 MG/DL Random Glucose 107 MG/DL 89 MG/DL Calcium Level 8.6 MG/DL 8.1 MG/DL Sodium Level 141 MEQ/L 144 MEQ/L Potassium Level 3.7 MEQ/L 3.3 MEQ/L Chloride Level 104 MEQ/L 109 MEQ/L Carbon Dioxide Level 27.8 MEQ/L 30.0 MEQ/L Anion Gap 9 MEQ/L 5 MEQ/L Estimat Glomerular Filtration Rate 34 ML/MIN 47 ML/MIN Magnesium Level 1.9 MG/DL Microbiology Date/Time Source Procedure Growth Status 03/06/18 04:35 Blood Peripheral Aerobic Blood Culture - Preliminary NO GROWTH IN 2 DAYS Resulted 03/06/18 04:35 Blood Peripheral Anaerobic Blood Culture - Preliminary NO GROWTH IN 2 DAYS Resulted 03/06/18 04:20 Blood Peripheral Aerobic Blood Culture - Preliminary NO GROWTH IN 2 DAYS Resulted 03/06/18 04:20 Blood Peripheral Anaerobic Blood Culture - Preliminary NO GROWTH IN 2 DAYS Resulted 03/06/18 18:00 Throat Throat Culture - Final Complete 03/06/18 18:00 Sputum Expectorated Sputum Gram Stain - Final Complete 03/06/18 18:00 Sputum Expectorated Sputum Sputum Culture - Final HEAVY GROWTH NORMAL RESPIRATORY MICHAEL Complete 03/06/18 18:00 Urine Clean Catch Legionella Antigen - Final PRESUMPTIVE NEGATIVE FOR LEGIONELLA P... Complete 03/06/18 18:00 Urine Clean Catch Streptococcus pneumoniae Antigen (M - Final PRESUMPTIVE NEGATIVE FOR STREPTOCOCCU... Complete 03/06/18 05:15 Urine Catheterized Urine Urine Culture - Final Escherichia Coli Esbl Positive Complete Imaging Last Impressions Chest X-Ray 03/08/18 0000 Signed Impressions: Service Date/Time: February 10:45 - CONCLUSION: 1. Mild improvement in the right perihilar infiltrate. 2. Stable left lower lung infiltrate. 3. No new significant changes. Marino Salazar MD Renal Ultrasound 03/07/18 0000 Signed Impressions: Service Date/Time: Wednesday, March 07, 2018 12:50 - CONCLUSION: 1. Nonobstructing subcentimeter calculus in the upper pole collecting system of the right kidney. Both kidneys are otherwise sonographically normal. 2. Cholelithiasis. 3. Left-sided pleural effusion. Len Cárdenas MD Chest CT 03/06/18 0000 Signed Impressions: Service Date/Time: Tuesday, March 06, 2018 17:20 - CONCLUSION: There is right upper lobe atelectasis, post radiation changes and right hilar mass focus again seen. Bilateral right greater than left tree in bud infiltrates are new from the previous study. The right effusion has resolved. Remote T12 superior endplate compression fracture and previous kyphoplasty at T6. Demar Booth MD Physical Exam GENERAL: Patient is a well-nourished, well-developed female, awake and alert , dyspneic at rest SKIN: Warm and dry. No generalized rash, no ecchymoses and no evidence of embolic lesions. HEAD: Atraumatic. Normocephalic. No temporal wasting, or tenderness. EYES: [place] conjunctiva. No petechia or hemorrhage. Pupils equal, round and reactive to light. Extraocular movements full and intact. No scleral icterus. No injection or drainage. EARS, NOSE AND THROAT: Nose without bleeding or purulent nasal discharge. No sinus tenderness. Mucous membranes pink and moist. No oral lesions noted. No exudate. No oral thrush. NECK: Trachea midline. Supple and not tender, no meningeal signs CARDIOVASCULAR: Regular rate and rhythm. No murmurs, rubs or gallops heard RESPIRATORY: Diffuse wheezing. [place] ABDOMEN: Soft, non-tender, nondistended. Bowel sounds present and normoactive. No guarding. No rebound. Colostomy on R with hernia, pink stoma. Has open wound on L side about 1 inch diameter, with pink mucosa, patient states site of previous colostomy that had an abscess. EXTREMITIES: No clubbing, cyanosis, or edema. No joint effusion, has good ROM. No calf tenderness. Well perfused and warm. Chronic skin changes both LE NEUROLOGICAL: Awake and alert. Cranial nerves grossly intact. Motor grossly within normal limits. PSYCHIATRIC: Normal affect, calm and cooperative. LINE: No evidence of infection Assessment & Plan Remarks IMPRESSION Community acquired PNA, CXR stable to better SOB worse, ?due to underlying lung disease UTI, E coli ESBL+, UA better - has stone R kidney, no obstruction Hx limited small cell CA, in remission Renal insufficiency, improving Hx diverticulitis, colostomy R, with chronic open wound L side Leukocytosis, better RECOMMENDATION Follow cultures Continue Azactam Continue Levaquin Will adjust antibiotics once cultures finalized Monitor progress Corine Kc MD March 08, 2018 12:35
[2018-03-08] MEDS: methylPREDNISolone SOD SUCC 125 MG/2 ML VIAL IV PUSH SCH ×2 (17:06→22:31)
[2018-03-09] VITALS (8 sets, daily range): BP systolic 111–218; BP diastolic 55–98; PULSE 78–100; RESP 18; TEMP 97.4–98.2; O2SAT 92–95
[2018-03-09] MEDS: RESP: ALBUTEROL 2.5 MG/IPRATROPIUM 0.5 MG NEB (SCH) INH ×5 (03:36→20:43)
[2018-03-09] MEDS: methylPREDNISolone SOD SUCC 125 MG/2 ML VIAL IV PUSH SCH ×4 (04:53→23:03)
[2018-03-09] MEDS: AZTREONAM INJ 2,000 MG in SODIUM CHLORIDE 0.9% INJ 100 ML IV SCH (04:54)
[2018-03-09 05:13] LABS: AUTOMATED NEUTROPHIL # 8.1 TH/MM3 (1.8-7.7); BASOPHIL % 0.1 % (0.0-2.0); HEMATOCRIT 31.9 % (35.0-46.0); HEMOGLOBIN 10.8 GM/DL (11.6-15.3); LYMPH % 6.9 % (9.0-44.0); LYMPHOCYTE # 0.6 TH/MM3 (1.0-4.8); MEAN CELL VOLUME 93.3 FL (80.0-100.0); MEAN CORPUSCULAR HEMOGLOBIN 31.5 PG (27.0-34.0); MEAN CORPUSCULAR HGB CONC 33.8 % (32.0-36.0); MEAN PLATELET VOLUME 9.2 FL (7.0-11.0); MONO % 2.2 % (0.0-8.0); MONOCYTE # 0.2 TH/MM3 (0-0.9); NEUT % 90.8 % (16.0-70.0); PLATELET COUNT 142 TH/MM3 (150-450); RED BLOOD COUNT 3.43 MIL/MM3 (4.00-5.30); RED CELL DISTRIBUTION WIDTH 14.2 % (11.6-17.2); WHITE BLOOD COUNT 8.9 TH/MM3 (4.0-11.0)
[2018-03-09 05:41] LABS: BICARBONATE 27.3 MEQ/L (21.0-32.0); CALCIUM 7.8 MG/DL (8.5-10.1)
[2018-03-09 05:46] LABS: CREATININE 1.23 MG/DL (0.50-1.00)
--- NOTE | 2018-03-09 07:19 | RADRPT ---
EXAM DATE/TIME: 03/09/2018 06:19 [facility] COMPARISON: CHEST SINGLE AP, March 08, 2018, 10:45. INDICATIONS : Short of breath MEDICAL HISTORY : Chronic obstructive pulmonary disease. Carcinoma, lung. Gastroesophageal reflux disease. A-fib, a sthma, DVT SURGICAL HISTORY : Colostomy. colectomy, right hip, right elbow, infusaport, ENCOUNTER: Subsequent ACUITY: 4 - 6 days PAIN SCORE: 0/10 LOCATION: Bilateral chest FINDINGS: There continues to be stable chronic pleural-parenchymal changes in the right hemithorax with elevati on of the right hemidiaphragm. There is stable interstitial changes throughout the left lung. Otherwi se, no new or focal areas of parenchymal consolidation are demonstrated. The heart size is stable. Th ere is no pneumothorax. There is no significant changes compared to the prior examination. CONCLUSION: No significant interval change. Marino Salazar MD on March 09, 2018 at 7:17 Board Certified Radiologist. This report was verified electronically.
[2018-03-09] MEDS: FERROUS SULFATE 325 MG (65 MG ELEMENTAL IRON) TAB PO SCH (07:58)
[2018-03-09] MEDS: APIXABAN 5 MG TABLET PO SCH ×2 (07:59→21:51)
[2018-03-09] MEDS: guaiFENesin E.R. 600 MG TAB PO SCH ×2 (07:59→21:50)
[2018-03-09] MEDS: AMIODARONE 200 MG TAB PO SCH (07:59)
[2018-03-09] MEDS: GABAPENTIN 100 MG CAP PO SCH ×3 (07:59→16:35)
[2018-03-09] MEDS: SODIUM CHLORIDE 0.9% FLUSH 10 ML FLUSH IV FLUSH SCH ×2 (08:00→21:51)
--- NOTE | 2018-03-09 10:06 | HHI.PR ---
Subjective Remarks Pt feels less SOB today than she did yesterday She is back to 2L of supplemental O2 The saline nasal spray helped with the nose bleeding Still SOB with taking and chest still sounds congested but pt appears more comfortable She complains of increased tremors in both hand which she had been on Propranolol for this which was held due to low BP at admission. Objective Vitals Vital Signs Date Time Temp Pulse Resp B/P (MAP) Pulse Ox O2 Delivery O2 Flow Rate FiO2 03/09/18 08:34 97.4 86 18 121/57 (78) 92 03/09/18 08:24 Nasal Cannula 2.00 03/09/18 04:00 98.1 84 18 121/55 (77) 94 03/09/18 02:32 94 Nasal Cannula 2.00 03/09/18 00:00 98.1 82 18 111/56 (74) 94 03/08/18 23:54 96 Nasal Cannula 3.00 03/08/18 20:10 94 Nasal Cannula 3.00 03/08/18 20:00 98.1 96 18 105/54 (71) 94 03/08/18 16:17 92 Nasal Cannula 3.00 03/08/18 15:53 98.2 106 20 110/67 (81) 92 03/08/18 11:16 98.3 103 20 117/62 (80) 97 Result Diagram: 03/09/18 0450 03/09/18 0450 Other Results Laboratory Tests Test 03/07/18 21:15 03/08/18 06:30 03/09/18 04:50 Urine Color LIGHT-YELLOW Urine Turbidity CLEAR Urine pH 5.0 Urine Specific [place] 1.022 Urine Protein TRACE mg/dL Urine Glucose (UA) NEG mg/dL Urine Ketones NEG mg/dL Urine Occult Blood NEG Urine Nitrite NEG Urine Bilirubin NEG Urine Urobilinogen LESS THAN 2.0 MG/DL Urine Leukocyte Esterase NEG Urine WBC LESS THAN 1 /hpf Urine Amorphous Sediment RARE Urine Granular Casts 77 /lpf White Blood Count 13.3 TH/MM3 8.9 TH/MM3 Red Blood Count 3.68 MIL/MM3 3.43 MIL/MM3 Hemoglobin 11.3 GM/DL 10.8 GM/DL Hematocrit 34.2 % 31.9 % Mean Corpuscular Volume 93.1 FL 93.3 FL Mean Corpuscular Hemoglobin 30.7 PG 31.5 PG Mean Corpuscular Hemoglobin Concent 33.0 % 33.8 % Red Cell Distribution Width 14.1 % 14.2 % Platelet Count 162 TH/MM3 142 TH/MM3 Mean Platelet Volume 9.3 FL 9.2 FL Neutrophils (%) (Auto) 89.6 % 90.8 % Lymphocytes (%) (Auto) 5.6 % 6.9 % Monocytes (%) (Auto) 4.7 % 2.2 % Eosinophils (%) (Auto) 0.0 % 0.0 % Basophils (%) (Auto) 0.1 % 0.1 % Neutrophils # (Auto) 11.9 TH/MM3 8.1 TH/MM3 Lymphocytes # (Auto) 0.7 TH/MM3 0.6 TH/MM3 Monocytes # (Auto) 0.6 TH/MM3 0.2 TH/MM3 Eosinophils # (Auto) 0.0 TH/MM3 0.0 TH/MM3 Basophils # (Auto) 0.0 TH/MM3 0.0 TH/MM3 CBC Comment DIFF FINAL DIFF FINAL Differential Comment Blood Urea Nitrogen 39 MG/DL 39 MG/DL Creatinine 1.12 MG/DL 1.23 MG/DL Random Glucose 89 MG/DL 132 MG/DL Calcium Level 8.1 MG/DL 7.8 MG/DL Magnesium Level 1.9 MG/DL 2.0 MG/DL Sodium Level 144 MEQ/L 144 MEQ/L Potassium Level 3.3 MEQ/L 4.0 MEQ/L Chloride Level 109 MEQ/L 110 MEQ/L Carbon Dioxide Level 30.0 MEQ/L 27.3 MEQ/L Anion Gap 5 MEQ/L 7 MEQ/L Estimat Glomerular Filtration Rate 47 ML/MIN 42 ML/MIN Imaging Last Impressions Chest X-Ray 03/09/18 0600 Signed Impressions: Service Date/Time: Friday, March 09, 2018 06:19 - CONCLUSION: No significant interval change. Marino Salazar MD Renal Ultrasound 03/07/18 0000 Signed Impressions: Service Date/Time: Wednesday, March 07, 2018 12:50 - CONCLUSION: 1. Nonobstructing subcentimeter calculus in the upper pole collecting system of the right kidney. Both kidneys are otherwise sonographically normal. 2. Cholelithiasis. 3. Left-sided pleural effusion. Len Cárdenas MD Chest CT 03/06/18 0000 Signed Impressions: Service Date/Time: Tuesday, March 06, 2018 17:20 - CONCLUSION: There is right upper lobe atelectasis, post radiation changes and right hilar mass focus again seen. Bilateral right greater than left tree in bud infiltrates are new from the previous study. The right effusion has resolved. Remote T12 superior endplate compression fracture and previous kyphoplasty at T6. Demar Booth MD Objective Remarks General: NAD, AAOx3 Chest: Coarse breath sounds and wheezing throughout Cardiac: Regular Abd: +BS, soft ND/NT, colostomy in right abdomen, wound on left side of the abdomen Ext: No edema A/P Problem List: (1) Pneumonia ICD Codes: J18.9 - Pneumonia, unspecified organism Status: Acute Plan: Patient has a history of small cell lung CA treated with radiation and chemotherapy, follows with Dr. Box. Patient also has advanced COPD is on Oxygen via 2L 24 hours a day at home. On Monday patient began to have a cough productive of yellow phlegm associated with congestion and shortness of breath. Patient also reports that through the night she woke up and had had urinary incontinence in the bed. Patient also endorses increased urinary frequency over the past 4-5 days but denies burning or pain with urination. Patient denies having any known fevers, however she has had chills. PNA COPD exacerbation Leukocytosis 23.1 on admission - Patient is chronically on 2 L nasal cannula 24 hours a day but currently requiring 4L of supplemental O2 - CXR (03/06/18) --> Stable chronic right apical pleural thickening without hilar retraction. Mild airspace disease right perihilar region and left base predominantly. Differential diagnosis includes mild bronchial pneumonia - Chest CT (03/06/18) --> There is right upper lobe atelectasis, post radiation changes and right hilar mass focus again seen. Bilateral right greater than left tree in bud infiltrates are new from the previous study. The right effusion has resolved. Remote T12 superior endplate compression fracture and previous kyphoplasty at T6. - Duonbes Q6h and PRN - Patient given 125 mg Solu-Medrol in the emergency department. Currently on Solu-Medrol 40 mg Q12H x 2 dose given on 03/06 - On 03/08 pt with more wheezing and feeling more SOB - Start back on Solu-Medrol 125mg x one dose and then continued on 60mg q6h - Given Lasix 20mg IV x one dose on 03/08 - Increased frequency of Duonebs to Q4H and Q2H PRN - CXR (03/08) --> Mild improvement in the right perihilar infiltrate. Stable left lower lung infiltrate. No new significant change - CXR (03/09) --> No significant change - Pt was seen by speech therapy for swallow evaluation and no s/s of aspiration - Cont. lozenges - Throat culture is negative for Strep - Sputum culture with heavy growth of normal respiratory dennis - Urine for legionella and pneumococcal antigen are negative - Cont. Mucinex BID - ID following as well UTI - UA was abnormal at admission and Urine culture now growing ESBL. - Patient started on Azactam and Levaquin in the ER - Appreciate ID consult for the ESBL in the urine - Renal US (03/07) --> Nonobstructing subcentimeter calculus in the upper pole collecting system of the right kidney. Both kidneys are otherwise sonographically normal. Cholelithiasis. Left-sided pleural effusion. Left lower extremity DVT Paroxysmal Atrial fib - Pt was continued on home Eliquis and amiodarone - rate currently controlled Hypertension - Patient's home medication includes amlodipine 5 mg daily, Telmisartan 80 mg daily - These were held at admission, BP is stable - Monitor BP Tremors - Pt was taking the Propranolol 20 mg PO BID for tremors and is having more issues with the tremors the last few days - She would like this resumed but her BP has been low/normal - Will resume with parameters (2) UTI (urinary tract infection) ICD Codes: N39.0 - Urinary tract infection, site not specified (3) COPD (chronic obstructive pulmonary disease) ICD Codes: J44.9 - COPD (chronic obstructive pulmonary disease) Status: Chronic (4) Paroxysmal atrial fibrillation ICD Codes: I48.0 - Paroxysmal atrial fibrillation Status: Chronic (5) HTN (hypertension) ICD Codes: I10 - Hypertension Status: Chronic (6) Hx of deep venous thrombosis ICD Codes: Z86.718 - History of deep venous thrombosis Status: Acute Assessment and Plan Patient examined. Assessment and plan formulated with Nat Dickerson PA-C. I agree with the above. pna. tree in bud pattern right lung. ?aspiration uti . ecoli esbl copd with flare cont abx. nebs [place] nasal spray for dry clotted blood in nares. mild jayleen consulted ID. overall pt feeling better. still has some rhonci and upper airway secretions. Problem Qualifiers (1) Pneumonia: Qualified Codes: J18.9 - Pneumonia, unspecified organism Nat Dickerson March 09, 2018 10:06 Ghanshyam Mock MD March 09, 2018 13:23
[2018-03-09] MEDS ORDERED: LORATADINE 10 MG TAB PO ONE (10:30)
--- NOTE | 2018-03-09 10:42 | HHI.IDPN ---
Subjective Subjective Remarks Patient is an 82-year-old female, presented to the hospital complaining of several day history of sore throat. She also started having cough productive of yellowish phlegm, felt congested, and had some shortness of breath. She has not had any fever although she has had some chills. Patient also has had problem with some urinary incontinence as well as some frequency over the last 4 -5 days prior to admission. She denies any dysuria. She denies any abdominal pain, nausea or vomiting. On presentation she had some increased infiltrates in her right upper lobe as well as in the left base. Her urinalysis did show pyuria. She had low-grade temps when she came in, and her WBC was greater than 20,000. Urine culture is now reported as growing E. coli ESBL positive. Her sputum culture is pending. Blood cultures are negative. Legionella and pneumococcal antigen are negative. Her temps are better. WBC is down to 17, 000. Patient states her sore throat has resolved. She is still having coughing with a housekeeper manager yellowish phlegm. Breathing is better and not short of breath currently. She is on nasal O2. Patient is on Levaquin and Azactam. Infectious disease consultation has been requested to assist with evaluation and treatment. Notes reviewed D/W RN States breathing is much improved today On nasal O2 Has weak cough, occ brings up phlegm Temps ok CXR no change WBC down to normal Sputum with normal resp dennis Repeat UA ok Antibiotics Levaquin Azactam Current Medications Medications (Trade) Dose Ordered Sig/Kristina Route Start Time Stop Time Status Last Admin (NS Flush) 2 ml UNSCH PRN IV FLUSH 03/06/18 06:00 (NS Flush) 2 ml BID IV FLUSH 03/06/18 09:00 03/09/18 08:00 Aztreonam 2000 mg/ Sodium Chloride 100 ml @ 200 mls/hr Q8H IV 03/06/18 06:00 03/09/18 04:54 Levofloxacin/ Dextrose 150 ml @ 100 mls/hr Q48H IV 03/08/18 06:15 03/08/18 07:54 (Cordarone) 200 mg DAILY PO 03/06/18 09:30 03/09/18 07:59 (Eliquis) 5 mg BID PO 03/06/18 09:30 03/09/18 07:59 (Neurontin) 100 mg TID PO 03/06/18 13:00 03/09/18 07:59 (Ferrous Sulfate) 325 mg DAILY PO 03/07/18 09:00 03/09/18 07:58 (Chloraseptic Lexie) 1 lozenge UNSCH PRN BUCCAL 03/06/18 18:00 03/06/18 21:00 (Mucinex Er) 1,200 mg BID PO 03/06/18 21:00 03/09/18 07:59 ([place]) 2 spray Q4H PRN EACH NARE 03/08/18 10:30 03/08/18 17:08 (Duoneb Neb) 1 ampule Q4HR NEB INH 03/08/18 12:00 03/09/18 08:22 (Duoneb Neb) 1 ampule Q2HR NEB PRN INH 03/08/18 10:30 (SoluMEDROL INJ) 60 mg Q6H IV PUSH 03/08/18 17:00 03/09/18 04:53 (Inderal) 20 mg Q12HR PO 03/09/18 10:15 (Mucomyst 20% Neb) 2 ml Q6HR NEB NEB 03/09/18 10:30 UNV (Claritin) 10 mg DAILY PO 03/10/18 09:00 Lines Port no evidence of infection Past Medical History COPD with chronic respiratory failure on 2 L nasal cannula 24 hours a day Small cell lung CA diagnosed in 2009 in remission Dverticulosis status post colectomy with colonoscopy Anxiety Essential tremors Coronary Artery Disease Atrial fibrillation Left lower extremity DVT on Eliquis Chronic kidney disease stage III GERD Hyperlipidemia Hypertension Osteoporosis Pulmonary hypertension Pelvic abscess Past Surgical History Colectomy with colonoscopy by Dr. Macario Chronic abdominal wounds and prior incision and drainage Lipoma removal right arm Lumbar laminectomy 1974 Cataract surgery section Excision of malignant melanoma from the neck Surgical repair of right hip fracture, January/2017 Allergies: Coded Allergies: adhesive (Unverified Allergy, Severe, 08/11/17) codeine (Unverified Allergy, Severe, N/V, 08/11/17) penicillin G (Unverified Allergy, Intermediate, rash, 08/11/17) guaifenesin (Unverified Adverse Reaction, Mild, Flushing, 08/11/17) PATIENT STATES THAT AFTER SHE WAS ADMINISTERED ROBITSSIN, BL PALM OF HER HANDS TURNED RED. 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 Vital Signs Date Time Temp Pulse Resp B/P (MAP) Pulse Ox O2 Delivery O2 Flow Rate FiO2 03/09/18 08:34 97.4 86 18 121/57 (78) 92 03/09/18 08:24 Nasal Cannula 2.00 03/09/18 08:15 94 Nasal Cannula 2.00 03/09/18 04:00 98.1 84 18 121/55 (77) 94 03/09/18 02:32 94 Nasal Cannula 2.00 03/09/18 00:00 98.1 82 18 111/56 (74) 94 03/08/18 23:54 96 Nasal Cannula 3.00 03/08/18 20:10 94 Nasal Cannula 3.00 03/08/18 20:00 98.1 96 18 105/54 (71) 94 03/08/18 16:17 92 Nasal Cannula 3.00 03/08/18 15:53 98.2 106 20 110/67 (81) 92 03/08/18 11:16 98.3 103 20 117/62 (80) 97 . Laboratory Tests Test 03/08/18 06:30 03/09/18 04:50 White Blood Count 13.3 TH/MM3 8.9 TH/MM3 Red Blood Count 3.68 MIL/MM3 3.43 MIL/MM3 Hemoglobin 11.3 GM/DL 10.8 GM/DL Hematocrit 34.2 % 31.9 % Mean Corpuscular Volume 93.1 FL 93.3 FL Mean Corpuscular Hemoglobin 30.7 PG 31.5 PG Mean Corpuscular Hemoglobin Concent 33.0 % 33.8 % Red Cell Distribution Width 14.1 % 14.2 % Platelet Count 162 TH/MM3 142 TH/MM3 Mean Platelet Volume 9.3 FL 9.2 FL Neutrophils (%) (Auto) 89.6 % 90.8 % Lymphocytes (%) (Auto) 5.6 % 6.9 % Monocytes (%) (Auto) 4.7 % 2.2 % Eosinophils (%) (Auto) 0.0 % 0.0 % Basophils (%) (Auto) 0.1 % 0.1 % Neutrophils # (Auto) 11.9 TH/MM3 8.1 TH/MM3 Lymphocytes # (Auto) 0.7 TH/MM3 0.6 TH/MM3 Monocytes # (Auto) 0.6 TH/MM3 0.2 TH/MM3 Eosinophils # (Auto) 0.0 TH/MM3 0.0 TH/MM3 Basophils # (Auto) 0.0 TH/MM3 0.0 TH/MM3 CBC Comment DIFF FINAL DIFF FINAL Differential Comment Laboratory Tests Test 03/08/18 06:30 03/09/18 04:50 Blood Urea Nitrogen 39 MG/DL 39 MG/DL Creatinine 1.12 MG/DL 1.23 MG/DL Random Glucose 89 MG/DL 132 MG/DL Calcium Level 8.1 MG/DL 7.8 MG/DL Magnesium Level 1.9 MG/DL 2.0 MG/DL Sodium Level 144 MEQ/L 144 MEQ/L Potassium Level 3.3 MEQ/L 4.0 MEQ/L Chloride Level 109 MEQ/L 110 MEQ/L Carbon Dioxide Level 30.0 MEQ/L 27.3 MEQ/L Anion Gap 5 MEQ/L 7 MEQ/L Estimat Glomerular Filtration Rate 47 ML/MIN 42 ML/MIN Microbiology Date/Time Source Procedure Growth Status 03/06/18 18:00 Throat Throat Culture - Final Complete 03/06/18 18:00 Sputum Expectorated Sputum Gram Stain - Final Complete 03/06/18 18:00 Sputum Expectorated Sputum Sputum Culture - Final HEAVY GROWTH NORMAL RESPIRATORY DENNIS Complete 03/06/18 18:00 Urine Clean Catch Legionella Antigen - Final PRESUMPTIVE NEGATIVE FOR LEGIONELLA P... Complete 03/06/18 18:00 Urine Clean Catch Streptococcus pneumoniae Antigen (M - Final PRESUMPTIVE NEGATIVE FOR STREPTOCOCCU... Complete Imaging Chest X-Ray 03/09/18 0600 Signed Impressions: Service Date/Time: Friday, March 09, 2018 06:19 - CONCLUSION: No significant interval change. Marino Salazar MD Chest X-Ray 03/08/18 0000 Signed Impressions: Service Date/Time: February 10:45 - CONCLUSION: 1. Mild improvement in the right perihilar infiltrate. 2. Stable left lower lung infiltrate. 3. No new significant changes. Marino Salazar MD Renal Ultrasound 03/07/18 0000 Signed Impressions: Service Date/Time: Wednesday, March 07, 2018 12:50 - CONCLUSION: 1. Nonobstructing subcentimeter calculus in the upper pole collecting system of the right kidney. Both kidneys are otherwise sonographically normal. 2. Cholelithiasis. 3. Left-sided pleural effusion. Len Cárdenas MD Chest CT 03/06/18 0000 Signed Impressions: Service Date/Time: Tuesday, March 06, 2018 17:20 - CONCLUSION: There is right upper lobe atelectasis, post radiation changes and right hilar mass focus again seen. Bilateral right greater than left tree in bud infiltrates are new from the previous study. The right effusion has resolved. Remote T12 superior endplate compression fracture and previous kyphoplasty at T6. Demar Booth MD Physical Exam GENERAL: awake and alert, dyspneic when talking, looks comfortable at rest SKIN: Warm and dry. No generalized rash, no ecchymoses and no evidence of embolic lesions. HEAD: Atraumatic. Normocephalic. No temporal wasting, or tenderness. EYES: [place] conjunctiva. No petechia or hemorrhage. Pupils equal, round and reactive to light. Extraocular movements full and intact. No scleral icterus. No injection or drainage. EARS, NOSE AND THROAT: Nose without bleeding or purulent nasal discharge. No sinus tenderness. Mucous membranes pink and moist. No oral lesions noted NECK: Trachea midline. Supple and not tender, no meningeal signs CARDIOVASCULAR: Regular rate and rhythm. No murmurs, rubs or gallops heard RESPIRATORY: Scattered rhonchi, decreased L base. Port ok ABDOMEN: Soft, non-tender, nondistended. Bowel sounds present and normoactive. No guarding. No rebound. Colostomy on R with hernia, pink stoma. Has open wound on L side about 1 inch diameter, with pink mucosa, patient states site of previous colostomy that had an abscess. EXTREMITIES: No clubbing, cyanosis, or edema. No joint effusion, has good ROM. No calf tenderness. Well perfused and warm. Chronic skin changes both LE NEUROLOGICAL: Non-focal PSYCHIATRIC: Normal affect, calm and cooperative. LINE: No evidence of infection Assessment & Plan Remarks IMPRESSION Community acquired PNA, CXR stable to better SOB worse, ?due to underlying lung disease - better UTI, E coli ESBL+, UA better - has stone R kidney, no obstruction Hx limited small cell CA, in remission Renal insufficiency, improving Hx diverticulitis, colostomy R, with chronic open wound L side Leukocytosis, better RECOMMENDATION Follow cultures Stop Azactam Continue Levaquin - if stable ok to switch to oral - give until March 19 Monitor progress D/W RN Dr Indio Dubois available this weekend if needed Corine Kc MD March 09, 2018 10:42
[2018-03-09] MEDS: PROPRANOLOL HCL 20 MG TAB PO SCH ×2 (11:00→21:50)
[2018-03-09] MEDS ORDERED: RESP: ACETYLCYSTEINE 20% 4 ML NEB NEB SCH (11:00)
[2018-03-09] MEDS: SODIUM CHLORIDE 0.9% FLUSH 10 ML FLUSH IV FLUSH PRN (11:01)
[2018-03-09] MEDS: RESP: ACETYLCYSTEINE 20% 30 ML NEB NEB SCH (20:43)
[2018-03-10] VITALS (8 sets, daily range): BP systolic 128–155; BP diastolic 64–72; PULSE 73–77; RESP 18; TEMP 97.7–98.3; O2SAT 94–100
[2018-03-10] MEDS: RESP: ALBUTEROL 2.5 MG/IPRATROPIUM 0.5 MG NEB (SCH) INH ×6 (01:40→20:37)
[2018-03-10] MEDS: methylPREDNISolone SOD SUCC 125 MG/2 ML VIAL IV PUSH SCH ×4 (05:13→22:29)
[2018-03-10] MEDS: LEVOFLOXACIN 750 MG PREMIX INJ 150 ML IV SCH (05:13)
[2018-03-10] MEDS: RESP: ACETYLCYSTEINE 20% 30 ML NEB NEB SCH ×4 (05:26→20:37)
[2018-03-10] MEDS: APIXABAN 5 MG TABLET PO SCH ×2 (08:19→22:28)
[2018-03-10] MEDS: FERROUS SULFATE 325 MG (65 MG ELEMENTAL IRON) TAB PO SCH (08:19)
[2018-03-10] MEDS: AMIODARONE 200 MG TAB PO SCH (08:19)
[2018-03-10] MEDS: SODIUM CHLORIDE 0.9% FLUSH 10 ML FLUSH IV FLUSH SCH ×2 (08:19→22:29)
[2018-03-10] MEDS: LORATADINE 10 MG TAB PO SCH (08:19)
[2018-03-10] MEDS: PROPRANOLOL HCL 20 MG TAB PO SCH ×2 (08:19→22:28)
[2018-03-10] MEDS: GABAPENTIN 100 MG CAP PO SCH ×3 (08:19→18:00)
[2018-03-10] MEDS: guaiFENesin E.R. 600 MG TAB PO SCH ×2 (08:19→22:28)
--- NOTE | 2018-03-10 09:02 | HHI.PR ---
Subjective Remarks pt doing much better watching tv no complaints Objective Vitals nad heart reg lung rhonci leonardo but improved abd s/nt ext no edema Vital Signs Date Time Temp Pulse Resp B/P (MAP) Pulse Ox O2 Delivery O2 Flow Rate FiO2 03/10/18 08:43 97.8 77 18 155/67 (96) 100 03/10/18 04:00 97.7 74 18 154/68 (96) 95 03/10/18 00:00 98.0 77 18 128/64 (85) 94 03/09/18 21:51 Nasal Cannula 2.00 03/09/18 20:46 93 Nasal Cannula 2.00 03/09/18 20:00 98.2 78 18 131/61 (84) 94 03/09/18 19:13 2.00 03/09/18 12:00 97.6 90 18 114/56 (75) 95 Result Diagram: 03/09/18 0450 03/09/18 0450 Imaging Last Impressions Chest X-Ray 03/09/18 0600 Signed Impressions: Service Date/Time: Friday, March 09, 2018 06:19 - CONCLUSION: No significant interval change. Marino Salazar MD Renal Ultrasound 03/07/18 0000 Signed Impressions: Service Date/Time: Wednesday, March 07, 2018 12:50 - CONCLUSION: 1. Nonobstructing subcentimeter calculus in the upper pole collecting system of the right kidney. Both kidneys are otherwise sonographically normal. 2. Cholelithiasis. 3. Left-sided pleural effusion. Len Cárdenas MD Chest CT 03/06/18 0000 Signed Impressions: Service Date/Time: Tuesday, March 06, 2018 17:20 - CONCLUSION: There is right upper lobe atelectasis, post radiation changes and right hilar mass focus again seen. Bilateral right greater than left tree in bud infiltrates are new from the previous study. The right effusion has resolved. Remote T12 superior endplate compression fracture and previous kyphoplasty at T6. Demar Booth MD A/P Problem List: (1) Pneumonia ICD Codes: J18.9 - Pneumonia, unspecified organism Status: Acute Plan: Patient has a history of small cell lung CA treated with radiation and chemotherapy, follows with Dr. Box. Patient also has advanced COPD is on Oxygen via 2L 24 hours a day at home. On Monday patient began to have a cough productive of yellow phlegm associated with congestion and shortness of breath. Patient also reports that through the night she woke up and had had urinary incontinence in the bed. Patient also endorses increased urinary frequency over the past 4-5 days but denies burning or pain with urination. Patient denies having any known fevers, however she has had chills. PNA COPD exacerbation Leukocytosis 23.1 on admission - Patient is chronically on 2 L nasal cannula 24 hours a day but currently requiring 4L of supplemental O2 - CXR (03/06/18) --> Stable chronic right apical pleural thickening without hilar retraction. Mild airspace disease right perihilar region and left base predominantly. Differential diagnosis includes mild bronchial pneumonia - Chest CT (03/06/18) --> There is right upper lobe atelectasis, post radiation changes and right hilar mass focus again seen. Bilateral right greater than left tree in bud infiltrates are new from the previous study. The right effusion has resolved. Remote T12 superior endplate compression fracture and previous kyphoplasty at T6. - Duonbes Q6h and PRN - Patient given 125 mg Solu-Medrol in the emergency department. Currently on Solu-Medrol 40 mg Q12H x 2 dose given on 03/06 - On 03/08 pt with more wheezing and feeling more SOB - Start back on Solu-Medrol 125mg x one dose and then continued on 60mg q6h - Given Lasix 20mg IV x one dose on 03/08 - Increased frequency of Duonebs to Q4H and Q2H PRN - CXR (03/08) --> Mild improvement in the right perihilar infiltrate. Stable left lower lung infiltrate. No new significant change - CXR (03/09) --> No significant change - Pt was seen by speech therapy for swallow evaluation and no s/s of aspiration - Cont. lozenges - Throat culture is negative for Strep - Sputum culture with heavy growth of normal respiratory dennis - Urine for legionella and pneumococcal antigen are negative - Cont. Mucinex BID - ID following as well - cont nebs and iv solumedrol but convert to po prednisone in next 24 to 48hrs -convert iv to po levaquin. azactam stopped on 03/09 by ID UTI - UA was abnormal at admission and Urine culture now growing ESBL. - Patient started on Azactam and Levaquin in the ER - Appreciate ID consult for the ESBL in the urine - Renal US (03/07) --> Nonobstructing subcentimeter calculus in the upper pole collecting system of the right kidney. Both kidneys are otherwise sonographically normal. Cholelithiasis. Left-sided pleural effusion. Left lower extremity DVT Paroxysmal Atrial fib - Pt was continued on home Eliquis and amiodarone - rate currently controlled Hypertension - Patient's home medication includes amlodipine 5 mg daily, Telmisartan 80 mg daily - These were held at admission, BP is stable - Monitor BP Tremors - Pt was taking the Propranolol 20 mg PO BID for tremors and is having more issues with the tremors the last few days - She would like this resumed but her BP has been low/normal - Will resume with parameters (2) UTI (urinary tract infection) ICD Codes: N39.0 - Urinary tract infection, site not specified (3) COPD (chronic obstructive pulmonary disease) ICD Codes: J44.9 - COPD (chronic obstructive pulmonary disease) Status: Chronic (4) Paroxysmal atrial fibrillation ICD Codes: I48.0 - Paroxysmal atrial fibrillation Status: Chronic (5) HTN (hypertension) ICD Codes: I10 - Hypertension Status: Chronic (6) Hx of deep venous thrombosis ICD Codes: Z86.718 - History of deep venous thrombosis Status: Acute Problem Qualifiers (1) Pneumonia: Qualified Codes: J18.9 - Pneumonia, unspecified organism Ghanshyam Mock MD March 10, 2018 09:02
[2018-03-11] VITALS (7 sets, daily range): BP systolic 118–147; BP diastolic 59–67; PULSE 67–72; RESP 18; TEMP 97.4–98.1; O2SAT 95–98
[2018-03-11] MEDS: RESP: ACETYLCYSTEINE 20% 30 ML NEB NEB SCH ×4 (04:12→22:00)
[2018-03-11] MEDS: RESP: ALBUTEROL 2.5 MG/IPRATROPIUM 0.5 MG NEB (SCH) INH ×6 (04:12→22:11)
[2018-03-11] MEDS: methylPREDNISolone SOD SUCC 125 MG/2 ML VIAL IV PUSH SCH ×4 (05:01→22:56)
[2018-03-11 06:41] LABS: BICARBONATE 27.8 MEQ/L (21.0-32.0); CALCIUM 7.2 MG/DL (8.5-10.1); CREATININE 1.12 MG/DL (0.50-1.00)
[2018-03-11 07:11] LABS: CALCIUM-PROTEIN CORRECTED 7.9 MG/DL (8.5-10.1); TOTAL PROTEIN 5.8 GM/DL (6.4-8.2)
[2018-03-11] MEDS: GABAPENTIN 100 MG CAP PO SCH ×3 (08:58→18:00)
[2018-03-11] MEDS: guaiFENesin E.R. 600 MG TAB PO SCH ×2 (08:58→20:48)
[2018-03-11] MEDS: LORATADINE 10 MG TAB PO SCH (08:58)
[2018-03-11] MEDS: FERROUS SULFATE 325 MG (65 MG ELEMENTAL IRON) TAB PO SCH (08:58)
[2018-03-11] MEDS: PROPRANOLOL HCL 20 MG TAB PO SCH ×2 (08:59→20:48)
[2018-03-11] MEDS: AMIODARONE 200 MG TAB PO SCH (08:59)
[2018-03-11] MEDS: APIXABAN 5 MG TABLET PO SCH ×2 (09:00→20:48)
[2018-03-11] MEDS: SODIUM CHLORIDE 0.9% FLUSH 10 ML FLUSH IV FLUSH SCH ×2 (09:00→20:48)
--- NOTE | 2018-03-11 13:06 | HHI.PR ---
Subjective Remarks Pt on 2L of supplemental O2 Cough is less severe or congested Afebrile Objective Vitals Vital Signs Date Time Temp Pulse Resp B/P (MAP) Pulse Ox O2 Delivery O2 Flow Rate FiO2 03/11/18 12:17 97.7 71 18 130/63 (85) 97 03/11/18 09:37 95 Nasal Cannula 2.00 03/11/18 08:30 97.9 72 18 139/64 (89) 97 03/11/18 08:00 Nasal Cannula 2.00 03/11/18 04:00 97.4 69 18 147/64 (91) 97 03/11/18 00:00 98.1 67 18 132/67 (88) 96 03/10/18 22:29 Nasal Cannula 2.00 03/10/18 20:38 96 Nasal Cannula 2.00 03/10/18 20:00 98.3 73 18 137/65 (89) 96 03/10/18 16:39 97.9 77 18 150/72 (98) 100 03/11/18 03/11/18 03/12/18 15:00 23:00 07:00 Output Total 800 ml Balance -800 ml Output Urine Total 800 ml Result Diagram: 03/09/18 0450 03/11/18 0500 Other Results Laboratory Tests Test 03/11/18 05:00 Blood Urea Nitrogen 50 MG/DL Creatinine 1.12 MG/DL Random Glucose 124 MG/DL Total Protein 5.8 GM/DL Calcium Level 7.2 MG/DL Sodium Level 147 MEQ/L Potassium Level 4.1 MEQ/L Chloride Level 111 MEQ/L Carbon Dioxide Level 27.8 MEQ/L Anion Gap 8 MEQ/L Estimat Glomerular Filtration Rate 47 ML/MIN Protein Corrected Calcium 7.9 MG/DL Imaging Last Impressions Chest X-Ray 03/09/18 0600 Signed Impressions: Service Date/Time: Friday, March 09, 2018 06:19 - CONCLUSION: No significant interval change. Marino Salazar MD Renal Ultrasound 03/07/18 0000 Signed Impressions: Service Date/Time: Wednesday, March 07, 2018 12:50 - CONCLUSION: 1. Nonobstructing subcentimeter calculus in the upper pole collecting system of the right kidney. Both kidneys are otherwise sonographically normal. 2. Cholelithiasis. 3. Left-sided pleural effusion. Len Cárdenas MD Chest CT 03/06/18 0000 Signed Impressions: Service Date/Time: Tuesday, March 06, 2018 17:20 - CONCLUSION: There is right upper lobe atelectasis, post radiation changes and right hilar mass focus again seen. Bilateral right greater than left tree in bud infiltrates are new from the previous study. The right effusion has resolved. Remote T12 superior endplate compression fracture and previous kyphoplasty at T6. Demar Booth MD Objective Remarks General: NAD, AAOx3 Chest: Diffuse wheezing throughout Cardiac: Regular Abd: +BS, soft, colostomy in right mid abdomen and wound bandage is c/d/i in LLQ , pain with palpation in RLQ Ext: No edema A/P Problem List: (1) Pneumonia ICD Codes: J18.9 - Pneumonia, unspecified organism Status: Acute Plan: Patient has a history of small cell lung CA treated with radiation and chemotherapy, follows with Dr. Box. Patient also has advanced COPD is on Oxygen via 2L 24 hours a day at home. On Monday patient began to have a cough productive of yellow phlegm associated with congestion and shortness of breath. Patient also reports that through the night she woke up and had had urinary incontinence in the bed. Patient also endorses increased urinary frequency over the past 4-5 days but denies burning or pain with urination. Patient denies having any known fevers, however she has had chills. PNA COPD exacerbation Leukocytosis 23.1 on admission - Patient is chronically on 2 L nasal cannula 24 hours a day but currently requiring 4L of supplemental O2 - CXR (03/06/18) --> Stable chronic right apical pleural thickening without hilar retraction. Mild airspace disease right perihilar region and left base predominantly. Differential diagnosis includes mild bronchial pneumonia - Chest CT (03/06/18) --> There is right upper lobe atelectasis, post radiation changes and right hilar mass focus again seen. Bilateral right greater than left tree in bud infiltrates are new from the previous study. The right effusion has resolved. Remote T12 superior endplate compression fracture and previous kyphoplasty at T6. - Duonbes Q6h and PRN - Patient given 125 mg Solu-Medrol in the emergency department. Currently on Solu-Medrol 40 mg Q12H x 2 dose given on 03/06 - On 03/08 pt with more wheezing and feeling more SOB, pt started back on Solu- Medrol 125mg x one dose and then continued on 60mg q6h, given Lasix 20mg IV x one dose on 03/08, and increased frequency of Duonebs to Q4H and Q2H PRN on 03/08 - CXR (03/08) --> Mild improvement in the right perihilar infiltrate. Stable left lower lung infiltrate. No new significant change - CXR (03/09) --> No significant change - Pt was seen by speech therapy for swallow evaluation and no s/s of aspiration - Cont. lozenges - Throat culture is negative for Strep - Sputum culture with heavy growth of normal respiratory dennis - Urine for legionella and pneumococcal antigen are negative - Cont. Mucinex BID - ID following as well - Cont nebs and iv Solu-Medrol possibly convert to po prednisone in next 24 to 48hrs - Pt still with significant wheezing throughout on examination on 03/11 - Anticipate d/c to home with C in the next 3-4 days. UTI - UA was abnormal at admission and Urine culture now growing ESBL. - Patient started on Azactam and Levaquin in the ER - Appreciate ID consult for the ESBL in the urine - Levaquin converted to PO on 03/10. Azactam stopped on 03/09 by ID - Renal US (03/07) --> Nonobstructing subcentimeter calculus in the upper pole collecting system of the right kidney. Both kidneys are otherwise sonographically normal. Cholelithiasis. Left-sided pleural effusion. Left lower extremity DVT Paroxysmal Atrial fib - Pt was continued on home Eliquis and amiodarone - rate currently controlled Hypertension - Patient's home medication includes amlodipine 5 mg daily, Telmisartan 80 mg daily - These were held at admission, BP is stable - Monitor BP Tremors - Pt was taking the Propranolol 20 mg PO BID for tremors and is having more issues with the tremors the last few days - She would like this resumed but her BP has been low/normal - Will resume with parameters (2) UTI (urinary tract infection) ICD Codes: N39.0 - Urinary tract infection, site not specified (3) COPD (chronic obstructive pulmonary disease) ICD Codes: J44.9 - COPD (chronic obstructive pulmonary disease) Status: Chronic (4) Paroxysmal atrial fibrillation ICD Codes: I48.0 - Paroxysmal atrial fibrillation Status: Chronic (5) HTN (hypertension) ICD Codes: I10 - Hypertension Status: Chronic (6) Hx of deep venous thrombosis ICD Codes: Z86.718 - History of deep venous thrombosis Status: Acute Assessment and Plan Patient examined. Assessment and plan formulated with Nat Dickerson PA-C. I agree with the above. Problem Qualifiers (1) Pneumonia: Qualified Codes: J18.9 - Pneumonia, unspecified organism Nat Dickerson March 11, 2018 13:06 Papito Elena DO March 17, 2018 13:27
--- NOTE | 2018-03-11 17:23 | RADRPT ---
EXAM DATE/TIME: 03/11/2018 15:49 [facility] COMPARISON: ABDOMEN KUB ONLY, October 11, 2015, 21:31. INDICATIONS : Abdominal pain. MEDICAL HISTORY : Chronic obstructive pulmonary disease. Carcinoma, lung. Gastroesophagealreflux disease. A-fib, asthma , DVT SURGICAL HISTORY : Colostomy. colectomy, right hip, right elbow, infusaport, ENCOUNTER: Subsequent ACUITY: 1 week PAIN SCORE: 0/10 LOCATION: Bilateral abdomen FINDINGS: Supine view of the abdomen was performed. Large amount of stool is noted in the colon. No dilated loo ps of bowel are noted. 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 Degenerative changes of t he lower lumbar spine. Intramedullary audrey fixation of the right femur with healed pubic rami fracture s. CONCLUSION: 1. Nonspecific bowel gas pattern with moderate to large amount of stool in the right colon which may reflect constipation. Fco Piña MD on March 11, 2018 at 17:20 Board Certified Radiologist. This report was verified electronically.
[2018-03-12] VITALS (8 sets, daily range): BP systolic 105–126; BP diastolic 53–61; PULSE 65–76; RESP 16–20; TEMP 97.6–98.2; O2SAT 94–98
[2018-03-12] MEDS: RESP: ALBUTEROL 2.5 MG/IPRATROPIUM 0.5 MG NEB (SCH) INH ×4 (03:14→11:43)
[2018-03-12] MEDS: RESP: ACETYLCYSTEINE 20% 30 ML NEB NEB SCH ×4 (03:14→21:18)
[2018-03-12] MEDS: methylPREDNISolone SOD SUCC 125 MG/2 ML VIAL IV PUSH SCH ×4 (04:29→23:16)
[2018-03-12] MEDS: PROPRANOLOL HCL 20 MG TAB PO SCH ×2 (09:55→21:00)
[2018-03-12] MEDS: FERROUS SULFATE 325 MG (65 MG ELEMENTAL IRON) TAB PO SCH (09:55)
[2018-03-12] MEDS: LEVOFLOXACIN 500 MG TAB PO SCH (09:55)
[2018-03-12] MEDS: AMIODARONE 200 MG TAB PO SCH (09:55)
[2018-03-12] MEDS: LORATADINE 10 MG TAB PO SCH (09:55)
[2018-03-12] MEDS: guaiFENesin E.R. 600 MG TAB PO SCH ×2 (09:55→21:00)
[2018-03-12] MEDS: GABAPENTIN 100 MG CAP PO SCH ×3 (09:55→17:25)
[2018-03-12] MEDS: APIXABAN 5 MG TABLET PO SCH ×2 (09:55→21:00)
[2018-03-12] MEDS: SODIUM CHLORIDE 0.9% FLUSH 10 ML FLUSH IV FLUSH SCH ×2 (09:56→21:01)
--- NOTE | 2018-03-12 12:32 | HHI.PR ---
Subjective Remarks Pt overall feels that her breathing is better today Still with some occasional nose bleeding but minimal Still with some right sided abdominal pain but better than yesterday Objective Vitals Vital Signs Date Time Temp Pulse Resp B/P (MAP) Pulse Ox O2 Delivery O2 Flow Rate FiO2 03/12/18 11:08 Nasal Cannula 2.00 21 03/12/18 08:30 98.1 68 19 118/59 (78) 96 03/12/18 08:16 96 Nasal Cannula 2.00 03/12/18 04:00 98.2 65 19 117/55 (75) 97 03/12/18 00:00 97.6 76 18 122/61 (81) 96 03/11/18 22:11 98 Nasal Cannula 2.00 03/11/18 20:48 Nasal Cannula 2.00 03/11/18 20:00 97.7 72 18 118/59 (78) 96 Result Diagram: 03/09/18 0450 03/11/18 0500 Other Results Laboratory Tests Test 03/11/18 05:00 Blood Urea Nitrogen 50 MG/DL Creatinine 1.12 MG/DL Random Glucose 124 MG/DL Total Protein 5.8 GM/DL Calcium Level 7.2 MG/DL Sodium Level 147 MEQ/L Potassium Level 4.1 MEQ/L Chloride Level 111 MEQ/L Carbon Dioxide Level 27.8 MEQ/L Anion Gap 8 MEQ/L Estimat Glomerular Filtration Rate 47 ML/MIN Protein Corrected Calcium 7.9 MG/DL Imaging Last Impressions Chest X-Ray 03/09/18 0600 Signed Impressions: Service Date/Time: Friday, March 09, 2018 06:19 - CONCLUSION: No significant interval change. Marino Salazar MD Renal Ultrasound 03/07/18 0000 Signed Impressions: Service Date/Time: Wednesday, March 07, 2018 12:50 - CONCLUSION: 1. Nonobstructing subcentimeter calculus in the upper pole collecting system of the right kidney. Both kidneys are otherwise sonographically normal. 2. Cholelithiasis. 3. Left-sided pleural effusion. Len Cárdenas MD Chest CT 03/06/18 0000 Signed Impressions: Service Date/Time: Tuesday, March 06, 2018 17:20 - CONCLUSION: There is right upper lobe atelectasis, post radiation changes and right hilar mass focus again seen. Bilateral right greater than left tree in bud infiltrates are new from the previous study. The right effusion has resolved. Remote T12 superior endplate compression fracture and previous kyphoplasty at T6. 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 Box. Patient also has advanced COPD is on Oxygen via 2L 24 hours a day at home. On Monday patient began to have a cough productive of yellow phlegm associated with congestion and shortness of breath. Patient also reports that through the night she woke up and had had urinary incontinence in the bed. Patient also endorses increased urinary frequency over the past 4-5 days but denies burning or pain with urination. Patient denies having any known fevers, however she has had chills. PNA COPD exacerbation Leukocytosis 23.1 on admission - Patient is chronically on 2 L nasal cannula 24 hours a day but currently requiring 4L of supplemental O2 - CXR (03/06/18) --> Stable chronic right apical pleural thickening without hilar retraction. Mild airspace disease right perihilar region and left base predominantly. Differential diagnosis includes mild bronchial pneumonia - Chest CT (03/06/18) --> There is right upper lobe atelectasis, post radiation changes and right hilar mass focus again seen. Bilateral right greater than left tree in bud infiltrates are new from the previous study. The right effusion has resolved. Remote T12 superior endplate compression fracture and previous kyphoplasty at T6. - Duonbes Q6h and PRN - Patient given 125 mg Solu-Medrol in the emergency department. Currently on Solu-Medrol 40 mg Q12H x 2 dose given on 03/06 - On 03/08 pt with more wheezing and feeling more SOB, pt started back on Solu- Medrol 125mg x one dose and then continued on 60mg q6h, given Lasix 20mg IV x one dose on 03/08, and increased frequency of Duonebs to Q4H and Q2H PRN on 03/08 - CXR (03/08) --> Mild improvement in the right perihilar infiltrate. Stable left lower lung infiltrate. No new significant change - CXR (03/09) --> No significant change - Pt was seen by speech therapy for swallow evaluation and no s/s of aspiration - Cont. lozenges - Throat culture is negative for Strep - Sputum culture with heavy growth of normal respiratory dennis - Urine for legionella and pneumococcal antigen are negative - Cont. Mucinex BID - ID following as well - Cont nebs and iv Solu-Medrol possibly convert to po prednisone in next 24 to 48hrs - Pt still with significant wheezing throughout on examination on 03/11 and wheezing improving on 03/12 but will need to re-evaluate on 03/13 to decide about conversion to po Prednisone. - Anticipate d/c to home with HHC in the next 3-4 days. UTI - UA was abnormal at admission and Urine culture now growing ESBL. - Patient started on Azactam and Levaquin in the ER - Appreciate ID consult for the ESBL in the urine - Levaquin converted to PO on 03/10. Azactam stopped on 03/09 by ID - Renal US (03/07) --> Nonobstructing subcentimeter calculus in the upper pole collecting system of the right kidney. Both kidneys are otherwise sonographically normal. Cholelithiasis. Left-sided pleural effusion. Left lower extremity DVT Paroxysmal Atrial fib - Pt was continued on home Eliquis and amiodarone - rate currently controlled Hypertension - Patient's home medication includes amlodipine 5 mg daily, Telmisartan 80 mg daily - These were held at admission, BP is stable - Monitor BP Tremors - Cont. Propranolol 20 mg PO BID for tremors (2) UTI (urinary tract infection) ICD Codes: N39.0 - Urinary tract infection, site not specified (3) COPD (chronic obstructive pulmonary disease) ICD Codes: J44.9 - COPD (chronic obstructive pulmonary disease) Status: Chronic (4) Paroxysmal atrial fibrillation ICD Codes: I48.0 - Paroxysmal atrial fibrillation Status: Chronic (5) HTN (hypertension) ICD Codes: I10 - Hypertension Status: Chronic (6) Hx of deep venous thrombosis ICD Codes: Z86.718 - History of deep venous thrombosis Status: Acute Assessment and Plan Patient examined. Assessment and plan formulated with Valerie Clements PA-C. I agree with the above. Problem Qualifiers (1) Pneumonia: Qualified Codes: J18.9 - Pneumonia, unspecified organism Nat Dickerson March 12, 2018 12:32 Papito Elena DO March 17, 2018 14:47
[2018-03-12] MEDS ORDERED: MAGNESIUM HYDROXIDE SUSP 30 ML CUP PO PRN (14:30)
[2018-03-12] MEDS: DOCUSATE SODIUM 100 MG CAP PO SCH ×2 (15:01→21:00)
[2018-03-12 15:48] LABS: BICARBONATE 25.3 MEQ/L (21.0-32.0); CALCIUM 6.9 MG/DL (8.5-10.1); CREATININE 1.57 MG/DL (0.50-1.00)
[2018-03-12] MEDS: RESP: ALBUTEROL 2.5 MG/IPRATROPIUM 0.5 MG NEB (PRN) INH ×2 (15:49→21:18)
[2018-03-12 16:04] LABS: CALCIUM-PROTEIN CORRECTED 7.6 MG/DL (8.5-10.1); TOTAL PROTEIN 5.7 GM/DL (6.4-8.2)
[2018-03-13] VITALS (8 sets, daily range): BP systolic 102–135; BP diastolic 51–64; PULSE 65–74; RESP 16–18; TEMP 97.8–98.9; O2SAT 94–98
[2018-03-13] MEDS: RESP: ALBUTEROL 2.5 MG/IPRATROPIUM 0.5 MG NEB (PRN) INH ×3 (03:01→17:06)
[2018-03-13] MEDS: RESP: ACETYLCYSTEINE 20% 30 ML NEB NEB SCH ×2 (03:01→08:14)
[2018-03-13] MEDS: methylPREDNISolone SOD SUCC 125 MG/2 ML VIAL IV PUSH SCH ×4 (04:41→23:44)
[2018-03-13 05:01] LABS: HEMATOCRIT 26.9 % (35.0-46.0); HEMOGLOBIN 9.1 GM/DL (11.6-15.3); LYMPH % 4.8 % (9.0-44.0); LYMPHOCYTE # 0.7 TH/MM3 (1.0-4.8); MEAN CELL VOLUME 92.8 FL (80.0-100.0); MEAN CORPUSCULAR HEMOGLOBIN 31.3 PG (27.0-34.0); MEAN CORPUSCULAR HGB CONC 33.7 % (32.0-36.0); MEAN PLATELET VOLUME 9.4 FL (7.0-11.0); MONO % 5.6 % (0.0-8.0); MONOCYTE # 0.8 TH/MM3 (0-0.9); NEUT % 89.6 % (16.0-70.0); PLATELET COUNT 195 TH/MM3 (150-450); RED CELL DISTRIBUTION WIDTH 13.7 % (11.6-17.2); WHITE BLOOD COUNT 14.5 TH/MM3 (4.0-11.0)
[2018-03-13 05:36] LABS: BICARBONATE 28.1 MEQ/L (21.0-32.0); CREATININE 1.32 MG/DL (0.50-1.00); MAGNESIUM 2.9 MG/DL (1.5-2.5)
[2018-03-13 05:50] LABS: CALCIUM-PROTEIN CORRECTED 7.9 MG/DL (8.5-10.1); TOTAL PROTEIN 5.4 GM/DL (6.4-8.2)
[2018-03-13 07:13] LABS: BANDS 4 % (0-6); LYMPHOCYTES 3 % (9-44); METAMYELOCYTES 2 % (0-1); MONOCYTES 1 % (0-8); NEUTROPHIL # MANUAL DIFF 13.9 TH/MM3 (1.8-7.7); POLYS (SEG NEUTROPHILS) 90 % (16-70)
[2018-03-13 07:15] LABS: OVALOCYTES 1+ (NORMAL)
[2018-03-13] MEDS: APIXABAN 5 MG TABLET PO SCH ×2 (08:25→21:32)
[2018-03-13] MEDS: guaiFENesin E.R. 600 MG TAB PO SCH ×2 (08:25→21:33)
[2018-03-13] MEDS: DOCUSATE SODIUM 100 MG CAP PO SCH ×2 (08:25→21:32)
[2018-03-13] MEDS: AMIODARONE 200 MG TAB PO SCH (08:25)
[2018-03-13] MEDS: PROPRANOLOL HCL 20 MG TAB PO SCH ×2 (08:26→21:00)
[2018-03-13] MEDS: SODIUM CHLORIDE 0.9% FLUSH 10 ML FLUSH IV FLUSH SCH ×2 (08:26→21:32)
[2018-03-13] MEDS: GABAPENTIN 100 MG CAP PO SCH ×3 (08:26→17:36)
[2018-03-13] MEDS: LORATADINE 10 MG TAB PO SCH (08:26)
[2018-03-13] MEDS: FERROUS SULFATE 325 MG (65 MG ELEMENTAL IRON) TAB PO SCH (08:26)
--- NOTE | 2018-03-13 14:01 | HHI.PR ---
Subjective Remarks Pt reports that she is still having some upper abdominal/suprapubic discomfort She feels a small hard round lump in the lower pelvis She reports that she has had a good amount of stool output into the colostomy. Afebrile Objective Vitals Vital Signs Date Time Temp Pulse Resp B/P (MAP) Pulse Ox O2 Delivery O2 Flow Rate FiO2 03/13/18 11:58 98.1 65 18 124/60 (81) 97 03/13/18 11:19 Nasal Cannula 2.00 21 03/13/18 08:19 98.4 67 18 128/57 (80) 97 03/13/18 08:15 98 Nasal Cannula 2.00 03/13/18 04:00 98.0 66 16 110/55 (73) 97 03/13/18 00:00 98.2 67 16 119/58 (78) 97 03/12/18 20:58 Nasal Cannula 2.00 03/12/18 20:00 98.2 72 16 105/53 (70) 94 03/12/18 16:00 97.7 69 19 119/58 (78) 98 03/12/18 15:49 96 Nasal Cannula 2.00 Result Diagram: 03/13/18 0455 03/13/18 0455 Other Results Laboratory Tests Test 03/12/18 15:08 03/13/18 04:55 Blood Urea Nitrogen 59 MG/DL 55 MG/DL Creatinine 1.57 MG/DL 1.32 MG/DL Random Glucose 202 MG/DL 134 MG/DL Total Protein 5.7 GM/DL 5.4 GM/DL Calcium Level 6.9 MG/DL 7.0 MG/DL Sodium Level 140 MEQ/L 143 MEQ/L Potassium Level 4.4 MEQ/L 4.6 MEQ/L Chloride Level 106 MEQ/L 105 MEQ/L Carbon Dioxide Level 25.3 MEQ/L 28.1 MEQ/L Anion Gap 9 MEQ/L 10 MEQ/L Estimat Glomerular Filtration Rate 32 ML/MIN 39 ML/MIN Protein Corrected Calcium 7.6 MG/DL 7.9 MG/DL White Blood Count 14.5 TH/MM3 Red Blood Count 2.90 MIL/MM3 Hemoglobin 9.1 GM/DL Hematocrit 26.9 % Mean Corpuscular Volume 92.8 FL Mean Corpuscular Hemoglobin 31.3 PG Mean Corpuscular Hemoglobin Concent 33.7 % Red Cell Distribution Width 13.7 % Platelet Count 195 TH/MM3 Mean Platelet Volume 9.4 FL Neutrophils (%) (Auto) 89.6 % Lymphocytes (%) (Auto) 4.8 % Monocytes (%) (Auto) 5.6 % Eosinophils (%) (Auto) 0.0 % Basophils (%) (Auto) 0.0 % Neutrophils # (Auto) 13.0 TH/MM3 Lymphocytes # (Auto) 0.7 TH/MM3 Monocytes # (Auto) 0.8 TH/MM3 Eosinophils # (Auto) 0.0 TH/MM3 Basophils # (Auto) 0.0 TH/MM3 CBC Comment AUTO DIFF Differential Total Cells Counted 100 Neutrophils % (Manual) 90 % Band Neutrophils % 4 % Lymphocytes % 3 % Monocytes % 1 % Neutrophils # (Manual) 13.9 TH/MM3 Metamyelocytes 2 % Differential Comment FINAL DIFF MANUAL Platelet Estimate NORMAL Platelet Morphology Comment NORMAL Ovalocytes 1+ Magnesium Level 2.9 MG/DL Imaging Last Impressions Chest X-Ray 03/09/18 0600 Signed Impressions: Service Date/Time: Friday, March 09, 2018 06:19 - CONCLUSION: No significant interval change. Marino Salazar MD Renal Ultrasound 03/07/18 0000 Signed Impressions: Service Date/Time: Wednesday, March 07, 2018 12:50 - CONCLUSION: 1. Nonobstructing subcentimeter calculus in the upper pole collecting system of the right kidney. Both kidneys are otherwise sonographically normal. 2. Cholelithiasis. 3. Left-sided pleural effusion. Len Cárdenas MD Chest CT 03/06/18 0000 Signed Impressions: Service Date/Time: Tuesday, March 06, 2018 17:20 - CONCLUSION: There is right upper lobe atelectasis, post radiation changes and right hilar mass focus again seen. Bilateral right greater than left tree in bud infiltrates are new from the previous study. The right effusion has resolved. Remote T12 superior endplate compression fracture and previous kyphoplasty at T6. 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 Box. Patient also has advanced COPD is on Oxygen via 2L 24 hours a day at home. On Monday patient began to have a cough productive of yellow phlegm associated with congestion and shortness of breath. Patient also reports that through the night she woke up and had had urinary incontinence in the bed. Patient also endorses increased urinary frequency over the past 4-5 days but denies burning or pain with urination. Patient denies having any known fevers, however she has had chills. PNA COPD exacerbation Leukocytosis 23.1 on admission - Patient is chronically on 2 L nasal cannula 24 hours a day but currently requiring 4L of supplemental O2 - CXR (03/06/18) --> Stable chronic right apical pleural thickening without hilar retraction. Mild airspace disease right perihilar region and left base predominantly. Differential diagnosis includes mild bronchial pneumonia - Chest CT (03/06/18) --> There is right upper lobe atelectasis, post radiation changes and right hilar mass focus again seen. Bilateral right greater than left tree in bud infiltrates are new from the previous study. The right effusion has resolved. Remote T12 superior endplate compression fracture and previous kyphoplasty at T6. - Duonbes Q6h and PRN - Patient given 125 mg Solu-Medrol in the emergency department. Currently on Solu-Medrol 40 mg Q12H x 2 dose given on 03/06 - On 03/08 pt with more wheezing and feeling more SOB, pt started back on Solu- Medrol 125mg x one dose and then continued on 60mg q6h, given Lasix 20mg IV x one dose on 03/08, and increased frequency of Duonebs to Q4H and Q2H PRN on 03/08 - CXR (03/08) --> Mild improvement in the right perihilar infiltrate. Stable left lower lung infiltrate. No new significant change - CXR (03/09) --> No significant change - Pt was seen by speech therapy for swallow evaluation and no s/s of aspiration - Cont. lozenges - Throat culture is negative for Strep - Sputum culture with heavy growth of normal respiratory dennis - Urine for legionella and pneumococcal antigen are negative - Cont. Mucinex BID - ID following as well - Cont nebs and iv Solu-Medrol possibly convert to po prednisone in next 24 to 48hrs - Pt still with significant wheezing throughout on examination on 03/11 with some improvement on 03/12 but not much improvement on 03/13 - Cont. IV Solu-medrol - Anticipate d/c to home with HHC in the next 3-4 days. UTI - UA was abnormal at admission and Urine culture now growing ESBL. - Patient started on Azactam and Levaquin in the ER - Appreciate ID consult for the ESBL in the urine - Levaquin converted to PO on 03/10. Azactam stopped on 03/09 by ID - Renal US (03/07) --> Nonobstructing subcentimeter calculus in the upper pole collecting system of the right kidney. Both kidneys are otherwise sonographically normal. Cholelithiasis. Left-sided pleural effusion. - Recheck UA today Suprapubic/lower abdominal pain - KUB on 03/12 with moderate to large amount of stool in the right colon which may reflect constipation. - Pt started on Colace and MOM - Still with lower abd pain on 03/13 - Recheck KUB in AM Left lower extremity DVT Paroxysmal Atrial fib - Pt was continued on home Eliquis and amiodarone - rate currently controlled Hypertension - Patient's home medication includes amlodipine 5 mg daily, Telmisartan 80 mg daily - These were held at admission, BP is stable - Monitor BP Tremors - Cont. Propranolol 20 mg PO BID for tremors (2) UTI (urinary tract infection) ICD Codes: N39.0 - Urinary tract infection, site not specified (3) COPD (chronic obstructive pulmonary disease) ICD Codes: J44.9 - COPD (chronic obstructive pulmonary disease) Status: Chronic (4) Paroxysmal atrial fibrillation ICD Codes: I48.0 - Paroxysmal atrial fibrillation Status: Chronic (5) HTN (hypertension) ICD Codes: I10 - Hypertension Status: Chronic (6) Hx of deep venous thrombosis ICD Codes: Z86.718 - History of deep venous thrombosis Status: Acute Assessment and Plan Patient examined. Assessment and plan formulated with Nat Dickerson PA-C. I agree with the above. Problem Qualifiers (1) Pneumonia: Qualified Codes: J18.9 - Pneumonia, unspecified organism Nat Dickerson 22, 2018 14:01 Papito Elena DO March 17, 2018 14:48
[2018-03-14 01:15] LABS: BACTERIA, URINE RARE /hpf; BILIRUBIN, URINE NEG (NEG); BLOOD, URINE NEG (NEG); GLUCOSE,URINE 150 mg/dL (NEG); HYALINE CAST, URINE 2 /lpf (RARE); KETONE, URINE NEG (NEG); NITRITE,URINE NEG (NEG); PH, URINE 5.5 (5.0-8.5); SQUAMOUS EPITHELIAL CELL URINE 3 /hpf (0-5); URIC ACID CRYSTALS, URINE OCC /hpf; URINE COLOR YELLOW (YELLW/STRAW); URINE LEUKOCYTE ESTERASE NEG (NEG)
[2018-03-14] MEDS: methylPREDNISolone SOD SUCC 125 MG/2 ML VIAL IV PUSH SCH ×4 (05:15→22:36)
--- NOTE | 2018-03-14 05:53 | RADRPT ---
EXAM DATE: 03/14/2018 5:43 AM EDT AGE/SEX: 82 years / Female INDICATIONS: Abdominal pain. CLINICAL DATA: This is the patient's subsequent encounter. Patient reports that signs and symptoms h ave been present for 1 week and indicates a pain score of 5/10. MEDICAL/SURGICAL HISTORY: . Hypertension. Carcinoma, lung . Hip pins, right COMPARISON: C, ABDOMEN KUB ONLY, 03/11/2018. . FINDINGS: A single AP view of the abdomen and pelvis was obtained and demonstrates several loops of nondilated air-containing small bowel. Gas and stool remains in portions of the right side of the colon. There is no evidence of free air. 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 Vascular calcif ications are present. There are postoperative changes in the right hip. CONCLUSION: Nonspecific, nonobstructive bowel gas pattern. This is not significantly changed. Electronically signed by: David Alarcon MD 03/14/2018 5:52 AM EDT
[2018-03-14 08:00] VITALS: BP 128/60; PULSE 68; RESP 16; TEMP 98.6; O2SAT 96
[2018-03-14 09:00] VITALS: O2SAT 90
[2018-03-14] MEDS: FERROUS SULFATE 325 MG (65 MG ELEMENTAL IRON) TAB PO SCH ×2 (09:00→18:07)
[2018-03-14] MEDS: GABAPENTIN 100 MG CAP PO SCH ×3 (10:33→18:07)
[2018-03-14] MEDS: LEVOFLOXACIN 500 MG TAB PO SCH (10:33)
[2018-03-14] MEDS: PROPRANOLOL HCL 20 MG TAB PO SCH ×2 (10:33→22:36)
[2018-03-14] MEDS: AMIODARONE 200 MG TAB PO SCH (10:33)
[2018-03-14] MEDS: guaiFENesin E.R. 600 MG TAB PO SCH ×2 (10:34→22:36)
[2018-03-14] MEDS: APIXABAN 5 MG TABLET PO SCH ×2 (10:34→22:36)
[2018-03-14] MEDS: LORATADINE 10 MG TAB PO SCH (10:34)
[2018-03-14] MEDS: DOCUSATE SODIUM 100 MG CAP PO SCH ×2 (10:34→22:35)
[2018-03-14 12:00] VITALS: BP 140/63; PULSE 73; RESP 16; TEMP 97; O2SAT 97
[2018-03-14] MEDS: SODIUM CHLORIDE 0.9% FLUSH 10 ML FLUSH IV FLUSH SCH ×2 (12:12→22:36)
[2018-03-14 16:00] VITALS: BP 135/60; PULSE 70; RESP 16; TEMP 98.6; O2SAT 96
--- NOTE | 2018-03-14 16:07 | HHI.PR ---
Subjective Remarks No new concerns reports feeling better today than yesterday Objective Vitals Vital Signs Date Time Temp Pulse Resp B/P (MAP) Pulse Ox O2 Delivery O2 Flow Rate FiO2 03/14/18 12:00 97.0 73 16 140/63 (88) 97 03/14/18 10:46 Nasal Cannula 2.00 03/14/18 09:00 90 Nasal Cannula 2.00 03/14/18 08:00 98.6 68 16 128/60 (82) 96 03/13/18 22:00 95 Nasal Cannula 2.00 03/13/18 20:56 95 Nasal Cannula 2.00 03/13/18 19:00 98.9 72 18 107/51 (69) 95 03/13/18 16:45 98.3 66 18 124/59 (80) 94 Result Diagram: 03/13/18 0455 03/13/18 0455 Imaging Last Impressions Chest X-Ray 03/09/18 0600 Signed Impressions: Service Date/Time: Friday, March 09, 2018 06:19 - CONCLUSION: No significant interval change. Marino Salazar MD Renal Ultrasound 03/07/18 0000 Signed Impressions: Service Date/Time: Wednesday, March 07, 2018 12:50 - CONCLUSION: 1. Nonobstructing subcentimeter calculus in the upper pole collecting system of the right kidney. Both kidneys are otherwise sonographically normal. 2. Cholelithiasis. 3. Left-sided pleural effusion. Len Cárdenas MD Chest CT 03/06/18 0000 Signed Impressions: Service Date/Time: Tuesday, March 06, 2018 17:20 - CONCLUSION: There is right upper lobe atelectasis, post radiation changes and right hilar mass focus again seen. Bilateral right greater than left tree in bud infiltrates are new from the previous study. The right effusion has resolved. Remote T12 superior endplate compression fracture and previous kyphoplasty at T6. Demar Booth MD Objective Remarks General: NAD, AAOx3 Chest: few scattered wheezing- improved from yesterday Cardiac: Regular Abd: +BS, soft, colostomy in right mid abdomen and wound bandage is c/d/i in LLQ , pain with palpation in suprapubic Ext: No edema A/P Problem List: (1) Pneumonia ICD Codes: J18.9 - Pneumonia, unspecified organism Status: Acute Plan: Patient has a history of small cell lung CA treated with radiation and chemotherapy, follows with Dr. Box. Patient also has advanced COPD is on Oxygen via 2L 24 hours a day at home. On Monday patient began to have a cough productive of yellow phlegm associated with congestion and shortness of breath. Patient also reports that through the night she woke up and had had urinary incontinence in the bed. Patient also endorses increased urinary frequency over the past 4-5 days but denies burning or pain with urination. Patient denies having any known fevers, however she has had chills. PNA COPD exacerbation Leukocytosis 23.1 on admission - Patient is chronically on 2 L nasal cannula 24 hours a day but currently requiring 4L of supplemental O2 - CXR (03/06/18) --> Stable chronic right apical pleural thickening without hilar retraction. Mild airspace disease right perihilar region and left base predominantly. Differential diagnosis includes mild bronchial pneumonia - Chest CT (03/06/18) --> There is right upper lobe atelectasis, post radiation changes and right hilar mass focus again seen. Bilateral right greater than left tree in bud infiltrates are new from the previous study. The right effusion has resolved. Remote T12 superior endplate compression fracture and previous kyphoplasty at T6. - Duonbes Q6h and PRN - Patient given 125 mg Solu-Medrol in the emergency department. Currently on Solu-Medrol 40 mg Q12H x 2 dose given on 03/06 - On 03/08 pt with more wheezing and feeling more SOB, pt started back on Solu- Medrol 125mg x one dose and then continued on 60mg q6h, given Lasix 20mg IV x one dose on 03/08, and increased frequency of Duonebs to Q4H and Q2H PRN on 03/08 - CXR (03/08) --> Mild improvement in the right perihilar infiltrate. Stable left lower lung infiltrate. No new significant change - CXR (03/09) --> No significant change - Pt was seen by speech therapy for swallow evaluation and no s/s of aspiration - Cont. lozenges - Throat culture is negative for Strep - Sputum culture with heavy growth of normal respiratory dennis - Urine for legionella and pneumococcal antigen are negative - Cont. Mucinex BID - ID following as well - Cont nebs and iv Solu-Medrol possibly convert to po prednisone in next 24 to 48hrs - Pt still with significant wheezing throughout on examination on 03/11 with some improvement on 03/12 but not much improvement on 03/13 - Cont. IV Solu-medrol - Anticipate d/c to home with HHC in the next 1-3 days. UTI - UA was abnormal at admission and Urine culture now growing ESBL. - Patient started on Azactam and Levaquin in the ER - Appreciate ID consult for the ESBL in the urine - Levaquin converted to PO on 03/10. Azactam stopped on 03/09 by ID - Renal US (03/07) --> Nonobstructing subcentimeter calculus in the upper pole collecting system of the right kidney. Both kidneys are otherwise sonographically normal. Cholelithiasis. Left-sided pleural effusion. - Recheck UA (03/13) no nitrates, neg leukocyte esterase no culture indicated Suprapubic/lower abdominal pain - KUB on 03/12 with moderate to large amount of stool in the right colon which may reflect constipation. - Pt started on Colace and MOM - Still with lower abd pain on 03/13 - Recheck KUB (03/14) nonspecific, nonobstructive bowel gas pattern. This is not significantly changed Left lower extremity DVT Paroxysmal Atrial fib - Pt was continued on home Eliquis and amiodarone - rate currently controlled Hypertension - Patient's home medication includes amlodipine 5 mg daily, Telmisartan 80 mg daily - These were held at admission, BP is stable - Monitor BP Tremors - Cont. Propranolol 20 mg PO BID for tremors (2) UTI (urinary tract infection) ICD Codes: N39.0 - Urinary tract infection, site not specified (3) COPD (chronic obstructive pulmonary disease) ICD Codes: J44.9 - COPD (chronic obstructive pulmonary disease) Status: Chronic (4) Paroxysmal atrial fibrillation ICD Codes: I48.0 - Paroxysmal atrial fibrillation Status: Chronic (5) HTN (hypertension) ICD Codes: I10 - Hypertension Status: Chronic (6) Hx of deep venous thrombosis ICD Codes: Z86.718 - History of deep venous thrombosis Status: Acute Assessment and Plan Patient examined. Assessment and plan formulated with Valerie Clements PA-C. I agree with the above. Problem Qualifiers (1) Pneumonia: Qualified Codes: J18.9 - Pneumonia, unspecified organism Valerie Clements March 14, 2018 16:07 Papito Elena DO March 17, 2018 14:48
[2018-03-14 20:00] VITALS: BP 128/61; PULSE 69; RESP 16; TEMP 98; O2SAT 95
[2018-03-15] VITALS (9 sets, daily range): BP systolic 112–137; BP diastolic 54–65; PULSE 60–70; RESP 16–20; TEMP 97.3–98.7; O2SAT 92–97
[2018-03-15] MEDS: methylPREDNISolone SOD SUCC 125 MG/2 ML VIAL IV PUSH SCH ×4 (04:52→23:07)
[2018-03-15] MEDS: RESP: ALBUTEROL 2.5 MG/IPRATROPIUM 0.5 MG NEB (SCH) NEB ×3 (08:00→20:14)
[2018-03-15] MEDS: LORATADINE 10 MG TAB PO SCH (08:23)
[2018-03-15] MEDS: PROPRANOLOL HCL 20 MG TAB PO SCH ×2 (08:23→21:01)
[2018-03-15] MEDS: GABAPENTIN 100 MG CAP PO SCH ×3 (08:23→17:27)
[2018-03-15] MEDS: DOCUSATE SODIUM 100 MG CAP PO SCH ×2 (08:23→21:01)
[2018-03-15] MEDS: AMIODARONE 200 MG TAB PO SCH (08:23)
[2018-03-15] MEDS: APIXABAN 5 MG TABLET PO SCH ×2 (08:23→21:01)
[2018-03-15] MEDS: guaiFENesin E.R. 600 MG TAB PO SCH ×2 (08:24→21:01)
[2018-03-15] MEDS: SODIUM CHLORIDE 0.9% FLUSH 10 ML FLUSH IV FLUSH SCH ×2 (08:25→21:01)
[2018-03-15] MEDS: FERROUS SULFATE 325 MG (65 MG ELEMENTAL IRON) TAB PO SCH (13:28)
--- NOTE | 2018-03-15 14:10 | HHI.PR ---
Subjective Remarks Patient reports feeling much better today Offers no concerns/complaints Objective Vitals Vital Signs Date Time Temp Pulse Resp B/P (MAP) Pulse Ox O2 Delivery O2 Flow Rate FiO2 03/15/18 12:00 98.0 65 18 121/60 (80) 95 03/15/18 11:02 97 Nasal Cannula 2.00 03/15/18 08:36 Nasal Cannula 2.00 03/15/18 08:00 98.6 68 18 130/59 (82) 92 03/15/18 04:15 98.7 68 20 137/65 (89) 92 03/15/18 04:00 97.3 60 16 114/60 (78) 95 03/15/18 00:00 97.6 70 16 124/56 (78) 95 03/14/18 21:00 95 Nasal Cannula 2.00 03/14/18 20:00 98.0 69 16 128/61 (83) 95 03/14/18 16:00 98.6 70 16 135/60 (85) 96 Result Diagram: 03/13/18 0455 03/13/18 0455 Other Results Laboratory Tests Test 03/12/18 15:08 03/13/18 04:55 03/13/18 22:30 Blood Urea Nitrogen 59 MG/DL 55 MG/DL Creatinine 1.57 MG/DL 1.32 MG/DL Random Glucose 202 MG/DL 134 MG/DL Total Protein 5.7 GM/DL 5.4 GM/DL Calcium Level 6.9 MG/DL 7.0 MG/DL Sodium Level 140 MEQ/L 143 MEQ/L Potassium Level 4.4 MEQ/L 4.6 MEQ/L Chloride Level 106 MEQ/L 105 MEQ/L Carbon Dioxide Level 25.3 MEQ/L 28.1 MEQ/L Anion Gap 9 MEQ/L 10 MEQ/L Estimat Glomerular Filtration Rate 32 ML/MIN 39 ML/MIN Protein Corrected Calcium 7.6 MG/DL 7.9 MG/DL White Blood Count 14.5 TH/MM3 Red Blood Count 2.90 MIL/MM3 Hemoglobin 9.1 GM/DL Hematocrit 26.9 % Mean Corpuscular Volume 92.8 FL Mean Corpuscular Hemoglobin 31.3 PG Mean Corpuscular Hemoglobin Concent 33.7 % Red Cell Distribution Width 13.7 % Platelet Count 195 TH/MM3 Mean Platelet Volume 9.4 FL Neutrophils (%) (Auto) 89.6 % Lymphocytes (%) (Auto) 4.8 % Monocytes (%) (Auto) 5.6 % Eosinophils (%) (Auto) 0.0 % Basophils (%) (Auto) 0.0 % Neutrophils # (Auto) 13.0 TH/MM3 Lymphocytes # (Auto) 0.7 TH/MM3 Monocytes # (Auto) 0.8 TH/MM3 Eosinophils # (Auto) 0.0 TH/MM3 Basophils # (Auto) 0.0 TH/MM3 CBC Comment AUTO DIFF Differential Total Cells Counted 100 Neutrophils % (Manual) 90 % Band Neutrophils % 4 % Lymphocytes % 3 % Monocytes % 1 % Neutrophils # (Manual) 13.9 TH/MM3 Metamyelocytes 2 % Differential Comment FINAL DIFF MANUAL Platelet Estimate NORMAL Platelet Morphology Comment NORMAL Ovalocytes 1+ Magnesium Level 2.9 MG/DL Urine Color YELLOW Urine Turbidity HAZY Urine pH 5.5 Urine Specific [place] 1.017 Urine Protein NEG mg/dL Urine Glucose (UA) 150 mg/dL Urine Ketones NEG mg/dL Urine Occult Blood NEG Urine Nitrite NEG Urine Bilirubin NEG Urine Urobilinogen LESS THAN 2.0 MG/DL Urine Leukocyte Esterase NEG Urine WBC 1 /hpf Urine Squamous Epithelial Cells 3 /hpf Urine Uric Acid Crystals OCC /hpf Urine Bacteria RARE /hpf Urine Hyaline Casts 2 /lpf Microscopic Urinalysis Comment CULT NOT INDICATED Imaging Last Impressions Chest X-Ray 03/09/18 0600 Signed Impressions: Service Date/Time: Friday, March 09, 2018 06:19 - CONCLUSION: No significant interval change. Marino Salazar MD Renal Ultrasound 03/07/18 0000 Signed Impressions: Service Date/Time: Wednesday, March 07, 2018 12:50 - CONCLUSION: 1. Nonobstructing subcentimeter calculus in the upper pole collecting system of the right kidney. Both kidneys are otherwise sonographically normal. 2. Cholelithiasis. 3. Left-sided pleural effusion. Len Cárdenas MD Chest CT 03/06/18 0000 Signed Impressions: Service Date/Time: Tuesday, March 06, 2018 17:20 - CONCLUSION: There is right upper lobe atelectasis, post radiation changes and right hilar mass focus again seen. Bilateral right greater than left tree in bud infiltrates are new from the previous study. The right effusion has resolved. Remote T12 superior endplate compression fracture and previous kyphoplasty at T6. Demar Booth MD Objective Remarks General: NAD, AAOx3 Chest: diminished bilateral bases Cardiac: Regular Abd: +BS, soft, colostomy in right mid abdomen and wound bandage is c/d/i in LLQ , pain with palpation in suprapubic Ext: No edema A/P Problem List: (1) Pneumonia ICD Codes: J18.9 - Pneumonia, unspecified organism Status: Acute Plan: Patient has a history of small cell lung CA treated with radiation and chemotherapy, follows with Dr. Box. Patient also has advanced COPD is on Oxygen via 2L 24 hours a day at home. On Monday patient began to have a cough productive of yellow phlegm associated with congestion and shortness of breath. Patient also reports that through the night she woke up and had had urinary incontinence in the bed. Patient also endorses increased urinary frequency over the past 4-5 days but denies burning or pain with urination. Patient denies having any known fevers, however she has had chills. PNA COPD exacerbation Leukocytosis 23.1 on admission - Patient is chronically on 2 L nasal cannula 24 hours a day but currently requiring 4L of supplemental O2 - CXR (03/06/18) --> Stable chronic right apical pleural thickening without hilar retraction. Mild airspace disease right perihilar region and left base predominantly. Differential diagnosis includes mild bronchial pneumonia - Chest CT (03/06/18) --> There is right upper lobe atelectasis, post radiation changes and right hilar mass focus again seen. Bilateral right greater than left tree in bud infiltrates are new from the previous study. The right effusion has resolved. Remote T12 superior endplate compression fracture and previous kyphoplasty at T6. - Duonbes Q6h and PRN - Patient given 125 mg Solu-Medrol in the emergency department. Currently on Solu-Medrol 40 mg Q12H x 2 dose given on 03/06 - On 03/08 pt with more wheezing and feeling more SOB, pt started back on Solu- Medrol 125mg x one dose and then continued on 60mg q6h, given Lasix 20mg IV x one dose on 03/08, and increased frequency of Duonebs to Q4H and Q2H PRN on 03/08 - CXR (03/08) --> Mild improvement in the right perihilar infiltrate. Stable left lower lung infiltrate. No new significant change - CXR (03/09) --> No significant change - Pt was seen by speech therapy for swallow evaluation and no s/s of aspiration - Cont. lozenges - Throat culture is negative for Strep - Sputum culture with heavy growth of normal respiratory dennis - Urine for legionella and pneumococcal antigen are negative - Cont. Mucinex BID - ID following as well - Cont nebs and iv Solu-Medrol- decrease solu medrol to 60 mg IV Q12H - Pt still with significant wheezing throughout on examination on 03/11 with some improvement on 03/12 but not much improvement on 03/13 - Cont. IV Solu-medrol - Anticipate d/c to home with HHC in the next 1-2 days. UTI - UA was abnormal at admission and Urine culture now growing ESBL. - Patient started on Azactam and Levaquin in the ER - Appreciate ID consult for the ESBL in the urine - Levaquin converted to PO on 03/10. Azactam stopped on 03/09 by ID - Renal US (03/07) --> Nonobstructing subcentimeter calculus in the upper pole collecting system of the right kidney. Both kidneys are otherwise sonographically normal. Cholelithiasis. Left-sided pleural effusion. - Recheck UA (03/13) no nitrates, neg leukocyte esterase no culture indicated Suprapubic/lower abdominal pain - KUB on 03/12 with moderate to large amount of stool in the right colon which may reflect constipation. - Pt started on Colace and MOM - Still with lower abd pain on 03/13 - Recheck KUB (03/14) nonspecific, nonobstructive bowel gas pattern. This is not significantly changed Left lower extremity DVT Paroxysmal Atrial fib - Pt was continued on home Eliquis and amiodarone - rate currently controlled Hypertension - Patient's home medication includes amlodipine 5 mg daily, Telmisartan 80 mg daily - These were held at admission, BP is stable - Monitor BP Tremors - Cont. Propranolol 20 mg PO BID for tremors (2) UTI (urinary tract infection) ICD Codes: N39.0 - Urinary tract infection, site not specified (3) COPD (chronic obstructive pulmonary disease) ICD Codes: J44.9 - COPD (chronic obstructive pulmonary disease) Status: Chronic (4) Paroxysmal atrial fibrillation ICD Codes: I48.0 - Paroxysmal atrial fibrillation Status: Chronic (5) HTN (hypertension) ICD Codes: I10 - Hypertension Status: Chronic (6) Hx of deep venous thrombosis ICD Codes: Z86.718 - History of deep venous thrombosis Status: Acute Assessment and Plan Patient examined. Assessment and plan formulated with Valerie Clements PA-C. I agree with the above. Problem Qualifiers (1) Pneumonia: Qualified Codes: J18.9 - Pneumonia, unspecified organism Valerie Clements March 15, 2018 14:10 Papito Elena DO March 17, 2018 14:50
[2018-03-15 14:55] LABS: AUTOMATED NEUTROPHIL # 28.4 TH/MM3 (1.8-7.7); BASOPHIL # 0.2 TH/MM3 (0-0.2); BASOPHIL % 0.5 % (0.0-2.0); HEMATOCRIT 28.2 % (35.0-46.0); LYMPH % 1.7 % (9.0-44.0); LYMPHOCYTE # 0.5 TH/MM3 (1.0-4.8); MEAN CELL VOLUME 93.7 FL (80.0-100.0); MEAN CORPUSCULAR HEMOGLOBIN 30.1 PG (27.0-34.0); MEAN CORPUSCULAR HGB CONC 32.1 % (32.0-36.0); MEAN PLATELET VOLUME 9.5 FL (7.0-11.0); MONO % 2.2 % (0.0-8.0); MONOCYTE # 0.7 TH/MM3 (0-0.9); NEUT % 95.6 % (16.0-70.0); PLATELET COUNT 281 TH/MM3 (150-450); RED CELL DISTRIBUTION WIDTH 14.3 % (11.6-17.2); WHITE BLOOD COUNT 29.8 TH/MM3 (4.0-11.0)
[2018-03-15 15:20] LABS: BICARBONATE 28.8 MEQ/L (21.0-32.0); CALCIUM 7.1 MG/DL (8.5-10.1); CREATININE 1.11 MG/DL (0.50-1.00); MAGNESIUM 2.3 MG/DL (1.5-2.5)
[2018-03-15 15:34] LABS: CALCIUM-PROTEIN CORRECTED 7.9 MG/DL (8.5-10.1); TOTAL PROTEIN 5.6 GM/DL (6.4-8.2)
[2018-03-15 15:35] LABS: BANDS 2 % (0-6); LYMPHOCYTES 3 % (9-44); MONOCYTES 2 % (0-8); NEUTROPHIL # MANUAL DIFF 28.3 TH/MM3 (1.8-7.7); POLYS (SEG NEUTROPHILS) 93 % (16-70)
[2018-03-16] VITALS (8 sets, daily range): BP systolic 101–133; BP diastolic 50–60; PULSE 64–69; RESP 18; TEMP 97.7–98.4; O2SAT 91–97
[2018-03-16] MEDS: RESP: ALBUTEROL 2.5 MG/IPRATROPIUM 0.5 MG NEB (SCH) NEB ×3 (09:16→20:06)
[2018-03-16] MEDS: DOCUSATE SODIUM 100 MG CAP PO SCH ×2 (09:27→19:53)
[2018-03-16] MEDS: SODIUM CHLORIDE 0.9% FLUSH 10 ML FLUSH IV FLUSH SCH ×2 (09:27→19:53)
[2018-03-16] MEDS: PROPRANOLOL HCL 20 MG TAB PO SCH ×2 (09:27→19:53)
[2018-03-16] MEDS: LEVOFLOXACIN 500 MG TAB PO SCH (09:27)
[2018-03-16] MEDS: guaiFENesin E.R. 600 MG TAB PO SCH ×2 (09:28→19:53)
[2018-03-16] MEDS: AMIODARONE 200 MG TAB PO SCH (09:28)
[2018-03-16] MEDS: LORATADINE 10 MG TAB PO SCH (09:28)
[2018-03-16] MEDS: GABAPENTIN 100 MG CAP PO SCH ×3 (09:28→17:40)
[2018-03-16] MEDS: APIXABAN 5 MG TABLET PO SCH ×2 (09:28→19:53)
[2018-03-16] MEDS: methylPREDNISolone SOD SUCC 125 MG/2 ML VIAL IV PUSH SCH ×2 (12:41→19:52)
--- NOTE | 2018-03-16 15:04 | HHI.PR ---
Subjective Remarks Patient reports feeling better c/o leg are weak Objective Vitals Vital Signs Date Time Temp Pulse Resp B/P (MAP) Pulse Ox O2 Delivery O2 Flow Rate FiO2 03/16/18 12:47 2.00 03/16/18 11:48 98.2 67 18 101/50 (67) 91 03/16/18 09:18 96 Nasal Cannula 2.00 03/16/18 07:57 98.2 66 18 133/60 (84) 94 03/16/18 04:00 97.9 69 18 119/57 (77) 96 03/16/18 00:00 97.8 65 18 102/51 (68) 97 03/15/18 22:07 Nasal Cannula 2.00 03/15/18 20:17 93 Nasal Cannula 2.00 03/15/18 20:00 97.9 65 18 112/54 (73) 97 03/15/18 16:00 98.0 70 18 114/54 (74) 94 03/16/18 03/16/18 03/17/18 15:00 23:00 07:00 Output Total 500 ml Balance -500 ml Output Urine Total 500 ml Result Diagram: 03/15/18 1429 03/15/18 1429 Other Results Laboratory Tests Test 03/13/18 22:30 03/15/18 14:29 Urine Color YELLOW Urine Turbidity HAZY Urine pH 5.5 Urine Specific [place] 1.017 Urine Protein NEG mg/dL Urine Glucose (UA) 150 mg/dL Urine Ketones NEG mg/dL Urine Occult Blood NEG Urine Nitrite NEG Urine Bilirubin NEG Urine Urobilinogen LESS THAN 2.0 MG/DL Urine Leukocyte Esterase NEG Urine WBC 1 /hpf Urine Squamous Epithelial Cells 3 /hpf Urine Uric Acid Crystals OCC /hpf Urine Bacteria RARE /hpf Urine Hyaline Casts 2 /lpf Microscopic Urinalysis Comment CULT NOT INDICATED White Blood Count 29.8 TH/MM3 Red Blood Count 3.00 MIL/MM3 Hemoglobin 9.0 GM/DL Hematocrit 28.2 % Mean Corpuscular Volume 93.7 FL Mean Corpuscular Hemoglobin 30.1 PG Mean Corpuscular Hemoglobin Concent 32.1 % Red Cell Distribution Width 14.3 % Platelet Count 281 TH/MM3 Mean Platelet Volume 9.5 FL Neutrophils (%) (Auto) 95.6 % Lymphocytes (%) (Auto) 1.7 % Monocytes (%) (Auto) 2.2 % Eosinophils (%) (Auto) 0.0 % Basophils (%) (Auto) 0.5 % Neutrophils # (Auto) 28.4 TH/MM3 Lymphocytes # (Auto) 0.5 TH/MM3 Monocytes # (Auto) 0.7 TH/MM3 Eosinophils # (Auto) 0.0 TH/MM3 Basophils # (Auto) 0.2 TH/MM3 CBC Comment AUTO DIFF Differential Total Cells Counted 100 Neutrophils % (Manual) 93 % Band Neutrophils % 2 % Lymphocytes % 3 % Monocytes % 2 % Neutrophils # (Manual) 28.3 TH/MM3 Differential Comment FINAL DIFF MANUAL Platelet Estimate NORMAL Platelet Morphology Comment NORMAL Blood Urea Nitrogen 43 MG/DL Creatinine 1.11 MG/DL Random Glucose 181 MG/DL Total Protein 5.6 GM/DL Calcium Level 7.1 MG/DL Magnesium Level 2.3 MG/DL Sodium Level 145 MEQ/L Potassium Level 4.2 MEQ/L Chloride Level 107 MEQ/L Carbon Dioxide Level 28.8 MEQ/L Anion Gap 9 MEQ/L Estimat Glomerular Filtration Rate 47 ML/MIN Protein Corrected Calcium 7.9 MG/DL Imaging Last Impressions Chest X-Ray 03/09/18 0600 Signed Impressions: Service Date/Time: Friday, March 09, 2018 06:19 - CONCLUSION: No significant interval change. Marino Salazar MD Renal Ultrasound 03/07/18 0000 Signed Impressions: Service Date/Time: Wednesday, March 07, 2018 12:50 - CONCLUSION: 1. Nonobstructing subcentimeter calculus in the upper pole collecting system of the right kidney. Both kidneys are otherwise sonographically normal. 2. Cholelithiasis. 3. Left-sided pleural effusion. Len Cárdenas MD Chest CT 03/06/18 0000 Signed Impressions: Service Date/Time: Tuesday, March 06, 2018 17:20 - CONCLUSION: There is right upper lobe atelectasis, post radiation changes and right hilar mass focus again seen. Bilateral right greater than left tree in bud infiltrates are new from the previous study. The right effusion has resolved. Remote T12 superior endplate compression fracture and previous kyphoplasty at T6. Demar Booth MD Objective Remarks General: NAD, AAOx3 Chest: few scattered wheezes Cardiac: Regular Abd: +BS, soft, colostomy in right mid abdomen and wound bandage is c/d/i in LLQ , pain with palpation in suprapubic Ext: No edema A/P Problem List: (1) Pneumonia ICD Codes: J18.9 - Pneumonia, unspecified organism Status: Acute Plan: Patient has a history of small cell lung CA treated with radiation and chemotherapy, follows with Dr. Box. Patient also has advanced COPD is on Oxygen via 2L 24 hours a day at home. On Monday patient began to have a cough productive of yellow phlegm associated with congestion and shortness of breath. Patient also reports that through the night she woke up and had had urinary incontinence in the bed. Patient also endorses increased urinary frequency over the past 4-5 days but denies burning or pain with urination. Patient denies having any known fevers, however she has had chills. PNA COPD exacerbation Leukocytosis 23.1 on admission - Patient is chronically on 2 L nasal cannula 24 hours a day but currently requiring 4L of supplemental O2 - CXR (03/06/18) --> Stable chronic right apical pleural thickening without hilar retraction. Mild airspace disease right perihilar region and left base predominantly. Differential diagnosis includes mild bronchial pneumonia - Chest CT (03/06/18) --> There is right upper lobe atelectasis, post radiation changes and right hilar mass focus again seen. Bilateral right greater than left tree in bud infiltrates are new from the previous study. The right effusion has resolved. Remote T12 superior endplate compression fracture and previous kyphoplasty at T6. - Duonbes Q6h and PRN - Patient given 125 mg Solu-Medrol in the emergency department. Currently on Solu-Medrol 40 mg Q12H x 2 dose given on 03/06 - On 03/08 pt with more wheezing and feeling more SOB, pt started back on Solu- Medrol 125mg x one dose and then continued on 60mg q6h, given Lasix 20mg IV x one dose on 03/08, and increased frequency of Duonebs to Q4H and Q2H PRN on 03/08 - CXR (03/08) --> Mild improvement in the right perihilar infiltrate. Stable left lower lung infiltrate. No new significant change - CXR (03/09) --> No significant change - Pt was seen by speech therapy for swallow evaluation and no s/s of aspiration - Cont. lozenges - Throat culture is negative for Strep - Sputum culture with heavy growth of normal respiratory dennis - Urine for legionella and pneumococcal antigen are negative - Cont. Mucinex BID - ID following as well - Cont nebs and iv Solu-Medrol- decrease solu medrol to 60 mg IV Q12H - Pt still with significant wheezing throughout on examination on 03/11 with some improvement on 03/12 but not much improvement on 03/13 - continue IV steroids for now plan to change to oral steroids in AM - Anticipate d/c to home with HHC in 2 days. UTI - UA was abnormal at admission and Urine culture now growing ESBL. - Patient started on Azactam and Levaquin in the ER - Appreciate ID consult for the ESBL in the urine - Levaquin converted to PO on 03/10. Azactam stopped on 03/09 by ID - Renal US (03/07) --> Nonobstructing subcentimeter calculus in the upper pole collecting system of the right kidney. Both kidneys are otherwise sonographically normal. Cholelithiasis. Left-sided pleural effusion. - Recheck UA (03/13) no nitrates, neg leukocyte esterase no culture indicated Suprapubic/lower abdominal pain - KUB on 03/12 with moderate to large amount of stool in the right colon which may reflect constipation. - Pt started on Colace and MOM - Still with lower abd pain on 03/13 - Recheck KUB (03/14) nonspecific, nonobstructive bowel gas pattern. This is not significantly changed Left lower extremity DVT Paroxysmal Atrial fib - Pt was continued on home Eliquis and amiodarone - rate currently controlled Hypertension - Patient's home medication includes amlodipine 5 mg daily, Telmisartan 80 mg daily - These were held at admission, BP is stable - Monitor BP Tremors - Cont. Propranolol 20 mg PO BID for tremors Deconditioned - Weakness bilateral lower extremities - discussed rehab with the patient. Patient refuses rehab. (2) UTI (urinary tract infection) ICD Codes: N39.0 - Urinary tract infection, site not specified (3) COPD (chronic obstructive pulmonary disease) ICD Codes: J44.9 - COPD (chronic obstructive pulmonary disease) Status: Chronic (4) Paroxysmal atrial fibrillation ICD Codes: I48.0 - Paroxysmal atrial fibrillation Status: Chronic (5) HTN (hypertension) ICD Codes: I10 - Hypertension Status: Chronic (6) Hx of deep venous thrombosis ICD Codes: Z86.718 - History of deep venous thrombosis Status: Acute Assessment and Plan Patient examined. Assessment and plan formulated with Valerie Clements PA-C. I agree with the above. Problem Qualifiers (1) Pneumonia: Qualified Codes: J18.9 - Pneumonia, unspecified organism Valerie Clements March 16, 2018 15:04 Papito Elena DO March 17, 2018 14:50
[2018-03-16] MEDS ORDERED: predniSONE 20 MG TAB PO SCH (21:00)
[2018-03-17] VITALS (8 sets, daily range): BP systolic 115–140; BP diastolic 56–64; PULSE 64–67; RESP 17–20; TEMP 98–98.6; O2SAT 94–99
[2018-03-17] MEDS: RESP: ALBUTEROL 2.5 MG/IPRATROPIUM 0.5 MG NEB (SCH) NEB ×3 (08:07→20:31)
[2018-03-17] MEDS: guaiFENesin E.R. 600 MG TAB PO SCH ×2 (09:19→21:09)
[2018-03-17] MEDS: APIXABAN 5 MG TABLET PO SCH ×2 (09:19→21:09)
[2018-03-17] MEDS: AMIODARONE 200 MG TAB PO SCH (09:19)
[2018-03-17] MEDS: DOCUSATE SODIUM 100 MG CAP PO SCH ×2 (09:19→21:09)
[2018-03-17] MEDS: GABAPENTIN 100 MG CAP PO SCH ×3 (09:19→17:15)
[2018-03-17] MEDS: FERROUS SULFATE 325 MG (65 MG ELEMENTAL IRON) TAB PO SCH (09:20)
[2018-03-17] MEDS: LORATADINE 10 MG TAB PO SCH (09:20)
[2018-03-17] MEDS: PROPRANOLOL HCL 20 MG TAB PO SCH ×2 (09:20→21:09)
[2018-03-17] MEDS: SODIUM CHLORIDE 0.9% FLUSH 10 ML FLUSH IV FLUSH SCH ×2 (09:21→21:10)
[2018-03-17] MEDS: methylPREDNISolone SOD SUCC 125 MG/2 ML VIAL IV PUSH SCH (09:21)
[2018-03-17 10:34] LABS: AUTOMATED NEUTROPHIL # 23.6 TH/MM3 (1.8-7.7); BASOPHIL % 0.1 % (0.0-2.0); HEMATOCRIT 27.3 % (35.0-46.0); LYMPH % 1.7 % (9.0-44.0); LYMPHOCYTE # 0.4 TH/MM3 (1.0-4.8); MEAN CELL VOLUME 94.7 FL (80.0-100.0); MEAN CORPUSCULAR HGB CONC 32.8 % (32.0-36.0); MONO % 3.4 % (0.0-8.0); MONOCYTE # 0.9 TH/MM3 (0-0.9); NEUT % 94.8 % (16.0-70.0); PLATELET COUNT 255 TH/MM3 (150-450); RED BLOOD COUNT 2.88 MIL/MM3 (4.00-5.30); RED CELL DISTRIBUTION WIDTH 14.4 % (11.6-17.2)
[2018-03-17 11:33] LABS: BANDS 4 % (0-6); LYMPHOCYTES 2 % (9-44); MONOCYTES 4 % (0-8); MYELOCYTES 1 % (0-0); NEUTROPHIL # MANUAL DIFF 23.5 TH/MM3 (1.8-7.7); OVALOCYTES 1+ (NORMAL); POLYS (SEG NEUTROPHILS) 89 % (16-70)
--- NOTE | 2018-03-17 14:53 | HHI.PR ---
Subjective Remarks Pt with no new complaints. Pt's SOB has improved since admission. Pt is tolerating PO intake. Pt remains weak and is only able to ambulate short distances in her room, about 10 feet. Objective Vitals Vital Signs Date Time Temp Pulse Resp B/P (MAP) Pulse Ox O2 Delivery O2 Flow Rate FiO2 03/17/18 11:52 98.0 64 18 129/60 (83) 97 03/17/18 08:09 96 Nasal Cannula 2.00 03/17/18 07:47 98.0 66 18 140/64 (89) 98 03/17/18 04:00 98.0 66 20 115/63 (80) 94 03/17/18 00:45 98.0 65 17 120/60 (80) 94 03/16/18 21:50 97.7 66 18 119/55 (76) 94 03/16/18 20:06 92 Nasal Cannula 2.00 03/16/18 20:00 Nasal Cannula 2.00 03/16/18 16:00 98.4 64 18 111/57 (75) 92 Result Diagram: 03/17/18 1015 03/15/18 1429 Imaging Last Impressions Abdomen X-Ray 03/14/18 0600 Signed Impressions: CONCLUSION: Nonspecific, nonobstructive bowel gas pattern. This is not significantly pierre ed. Chest X-Ray 03/09/18 0600 Signed Impressions: Service Date/Time: Friday, March 09, 2018 06:19 - CONCLUSION: No significant interval change. Marino Salazar MD Renal Ultrasound 03/07/18 0000 Signed Impressions: Service Date/Time: Wednesday, March 07, 2018 12:50 - CONCLUSION: 1. Nonobstructing subcentimeter calculus in the upper pole collecting system of the right kidney. Both kidneys are otherwise sonographically normal. 2. Cholelithiasis. 3. Left-sided pleural effusion. Len Cárdenas MD Chest CT 03/06/18 0000 Signed Impressions: Service Date/Time: Tuesday, March 06, 2018 17:20 - CONCLUSION: There is right upper lobe atelectasis, post radiation changes and right hilar mass focus again seen. Bilateral right greater than left tree in bud infiltrates are new from the previous study. The right effusion has resolved. Remote T12 superior endplate compression fracture and previous kyphoplasty at T6. Demar Booth MD Objective Remarks General: NAD, AAOx3 Chest: few scattered wheezes Cardiac: Regular Abd: +BS, soft, colostomy in right mid abdomen and wound bandage is c/d/i in LLQ , pain with palpation in suprapubic Ext: No edema A/P Problem List: (1) Pneumonia ICD Codes: J18.9 - Pneumonia, unspecified organism Status: Acute Plan: Patient has a history of small cell lung CA treated with radiation and chemotherapy, follows with Dr. Box. Patient also has advanced COPD is on Oxygen via 2L 24 hours a day at home. On Monday patient began to have a cough productive of yellow phlegm associated with congestion and shortness of breath. Patient also reports that through the night she woke up and had had urinary incontinence in the bed. Patient also endorses increased urinary frequency over the past 4-5 days but denies burning or pain with urination. Patient denies having any known fevers, however she has had chills. PNA COPD exacerbation Leukocytosis 23.1 on admission - Patient is chronically on 2 L nasal cannula 24 hours a day but currently requiring 4L of supplemental O2 - CXR (03/06/18) --> Stable chronic right apical pleural thickening without hilar retraction. Mild airspace disease right perihilar region and left base predominantly. Differential diagnosis includes mild bronchial pneumonia - Chest CT (03/06/18) --> There is right upper lobe atelectasis, post radiation changes and right hilar mass focus again seen. Bilateral right greater than left tree in bud infiltrates are new from the previous study. The right effusion has resolved. Remote T12 superior endplate compression fracture and previous kyphoplasty at T6. - Duonbes Q6h and PRN - Patient given 125 mg Solu-Medrol in the emergency department. Currently on Solu-Medrol 40 mg Q12H x 2 dose given on 03/06 - On 03/08 pt with more wheezing and feeling more SOB, pt started back on Solu- Medrol 125mg x one dose and then continued on 60mg q6h, given Lasix 20mg IV x one dose on 03/08, and increased frequency of Duonebs to Q4H and Q2H PRN on 03/08 - CXR (03/08) --> Mild improvement in the right perihilar infiltrate. Stable left lower lung infiltrate. No new significant change - CXR (03/09) --> No significant change - Pt was seen by speech therapy for swallow evaluation and no s/s of aspiration - Cont. lozenges - Throat culture is negative for Strep - Sputum culture with heavy growth of normal respiratory dennis - Urine for legionella and pneumococcal antigen are negative - Cont. Mucinex BID - ID following as well - Cont nebs - change solumedrol to PO prednisone (03/17) - anticipate d/c to home 03/18 with HHC and home PT. Pt refused SNF. - DVT prophylaxis - supportive care UTI - UA was abnormal at admission and Urine culture now growing ESBL. - Patient started on Azactam and Levaquin in the ER - Appreciate ID consult for the ESBL in the urine - Levaquin converted to PO on 03/10. Azactam stopped on 03/09 by ID - Renal US (03/07) --> Nonobstructing subcentimeter calculus in the upper pole collecting system of the right kidney. Both kidneys are otherwise sonographically normal. Cholelithiasis. Left-sided pleural effusion. - Recheck UA (03/13) no nitrates, neg leukocyte esterase no culture indicated Suprapubic/lower abdominal pain - KUB on 03/12 with moderate to large amount of stool in the right colon which may reflect constipation. - Pt started on Colace and MOM - Still with lower abd pain on 03/13 - Recheck KUB (03/14) nonspecific, nonobstructive bowel gas pattern. This is not significantly changed Left lower extremity DVT Paroxysmal Atrial fib - Pt was continued on home Eliquis and amiodarone - rate currently controlled Hypertension - Patient's home medication includes amlodipine 5 mg daily, Telmisartan 80 mg daily - These were held at admission, BP is stable - Monitor BP Tremors - Cont. Propranolol 20 mg PO BID for tremors Deconditioned - Weakness bilateral lower extremities - discussed rehab with the patient. Patient refuses rehab. (2) UTI (urinary tract infection) ICD Codes: N39.0 - Urinary tract infection, site not specified (3) COPD (chronic obstructive pulmonary disease) ICD Codes: J44.9 - COPD (chronic obstructive pulmonary disease) Status: Chronic (4) Paroxysmal atrial fibrillation ICD Codes: I48.0 - Paroxysmal atrial fibrillation Status: Chronic (5) HTN (hypertension) ICD Codes: I10 - Hypertension Status: Chronic (6) Hx of deep venous thrombosis ICD Codes: Z86.718 - History of deep venous thrombosis Status: Acute Assessment and Plan Patient examined. Assessment and plan formulated with Valerie Clements PA-C. I agree with the above. Problem Qualifiers (1) Pneumonia: Qualified Codes: J18.9 - Pneumonia, unspecified organism Papito Elena DO March 17, 2018 14:53
[2018-03-17] MEDS: predniSONE 10 MG TAB PO SCH (21:09)
[2018-03-18] VITALS (8 sets, daily range): BP systolic 108–137; BP diastolic 57–63; PULSE 65–72; RESP 18; TEMP 97.2–98.8; O2SAT 94–99
[2018-03-18] MEDS: RESP: ALBUTEROL 2.5 MG/IPRATROPIUM 0.5 MG NEB (SCH) NEB ×3 (08:27→19:42)
[2018-03-18] MEDS: GABAPENTIN 100 MG CAP PO SCH ×3 (08:53→17:37)
[2018-03-18] MEDS: DOCUSATE SODIUM 100 MG CAP PO SCH ×2 (08:53→22:03)
[2018-03-18] MEDS: PROPRANOLOL HCL 20 MG TAB PO SCH ×2 (08:53→22:03)
[2018-03-18] MEDS: predniSONE 10 MG TAB PO SCH ×2 (08:53→22:04)
[2018-03-18] MEDS: FERROUS SULFATE 325 MG (65 MG ELEMENTAL IRON) TAB PO SCH (08:53)
[2018-03-18] MEDS: APIXABAN 5 MG TABLET PO SCH ×2 (08:53→22:06)
[2018-03-18] MEDS: guaiFENesin E.R. 600 MG TAB PO SCH ×2 (08:53→22:03)
[2018-03-18] MEDS: LEVOFLOXACIN 500 MG TAB PO SCH (08:54)
[2018-03-18] MEDS: AMIODARONE 200 MG TAB PO SCH (08:54)
[2018-03-18] MEDS: LORATADINE 10 MG TAB PO SCH (08:54)
[2018-03-18] MEDS: SODIUM CHLORIDE 0.9% FLUSH 10 ML FLUSH IV FLUSH SCH ×2 (08:56→22:01)
[2018-03-18] MEDS ORDERED: ALBU0.08 NEB (11:12)
[2018-03-18] MEDS ORDERED: IPRA0.02 NEB (11:12)
[2018-03-18] MEDS ORDERED: PRED10 PO (11:12)
[2018-03-18] MEDS ORDERED: LEVA500T33 PO (11:15)
--- NOTE | 2018-03-18 11:18 | HHI.DCPOC ---
Discharge Care Plan Diagnosis: (1) Pneumonia (2) COPD (chronic obstructive pulmonary disease) (3) Leukocytosis (4) UTI (urinary tract infection) (5) Hx of deep venous thrombosis Goals to Promote Your Health * To prevent worsening of your condition and complications * To maintain your health at the optimal level Directions to Meet Your Goals Take your medications as prescribed Follow your dietary instruction Follow activity as directed Keep your appointments as scheduled Take your immunizations and boosters as scheduled If your symptoms worsen call your PCP, if no PCP go to Urgent Care Center or Emergency Room Smoking is Dangerous to Your Health. Avoid second hand smoke Call the 24-hour hour crisis hotline for domestic abuse at Valerie Clements March 18, 2018 11:17 Papito Elena DO March 18, 2018 23:17
--- NOTE | 2018-03-18 11:19 | HHI.DS ---
Discharge Summary Admission Date March 06, 2018 at 05:54 Discharge Date: March 18, 2018 Admitting Diagnosis Pneumonia (1) Pneumonia Diagnosis: Principal ICD Codes: J18.9 - Pneumonia, unspecified organism Status: Acute (2) UTI (urinary tract infection) Diagnosis: Principal ICD Codes: N39.0 - Urinary tract infection, site not specified (3) COPD (chronic obstructive pulmonary disease) Diagnosis: Principal ICD Codes: J44.9 - COPD (chronic obstructive pulmonary disease) Status: Chronic (4) Paroxysmal atrial fibrillation Diagnosis: Secondary ICD Codes: I48.0 - Paroxysmal atrial fibrillation Status: Chronic (5) HTN (hypertension) Diagnosis: Secondary ICD Codes: I10 - Hypertension Status: Chronic (6) Hx of deep venous thrombosis Diagnosis: Secondary ICD Codes: Z86.718 - History of deep venous thrombosis Status: Acute Consultants Dr. Kc, ID Procedures None Brief History This is an 82-year-old female patient with past medical history which includes COPD with chronic respiratory failure on 2 L nasal cannula 24 hours a day, small cell lung CA diagnosed in 2009 s/p chemo and radiation in remission follows with Dr. Box, diverticulosis status post colectomy and colonoscopy with Dr. Macario, anxiety, essential tremors, coronary artery disease, paroxysmal atrial fibrillation, left lower extremity DVT on Eliquis, chronic kidney disease stage III, GERD, hyperlipidemia, hypertension, osteoporosis, pulmonary hypertension and pelvic abscess. Patient reports she was in her normal state of health on Monday recalls a sore throat on Monday. Monday patient began to have a cough productive of yellow phlegm associated with congestion and shortness of breath. Patient also reports that through the night she woke up and had had urinary incontinence in the bed. Patient also endorses increased urinary frequency over the past 4-5 days but denies burning or pain with urination. Patient denies having any known fevers, however she has had chills. Patient denies chest pain, abdominal pain, vomiting, diarrhea. The patient reports that she does have a colostomy. She denies having any blood in her stool. CBC/BMP: 03/17/18 1015 03/15/18 1429 Significant Findings Laboratory Tests Test 03/15/18 14:29 03/17/18 10:15 White Blood Count 29.8 TH/MM3 (4.0-11.0) 25.0 TH/MM3 (4.0-11.0) Red Blood Count 3.00 MIL/MM3 (4.00-5.30) 2.88 MIL/MM3 (4.00-5.30) Hemoglobin 9.0 GM/DL (11.6-15.3) 9.0 GM/DL (11.6-15.3) Hematocrit 28.2 % (35.0-46.0) 27.3 % (35.0-46.0) Neutrophils (%) (Auto) 95.6 % (16.0-70.0) 94.8 % (16.0-70.0) Lymphocytes (%) (Auto) 1.7 % (9.0-44.0) 1.7 % (9.0-44.0) Neutrophils # (Auto) 28.4 TH/MM3 (1.8-7.7) 23.6 TH/MM3 (1.8-7.7) Lymphocytes # (Auto) 0.5 TH/MM3 (1.0-4.8) 0.4 TH/MM3 (1.0-4.8) Neutrophils % (Manual) 93 % (16-70) 89 % (16-70) Lymphocytes % 3 % (9-44) 2 % (9-44) Neutrophils # (Manual) 28.3 TH/MM3 (1.8-7.7) 23.5 TH/MM3 (1.8-7.7) Blood Urea Nitrogen 43 MG/DL (7-18) Creatinine 1.11 MG/DL (0.50-1.00) Random Glucose 181 MG/DL (74-106) Total Protein 5.6 GM/DL (6.4-8.2) Calcium Level 7.1 MG/DL (8.5-10.1) Estimat Glomerular Filtration Rate 47 ML/MIN (>89) Protein Corrected Calcium 7.9 MG/DL (8.5-10.1) Myelocytes 1 % (0-0) Ovalocytes 1+ (NORMAL) Imaging Last Impressions Abdomen X-Ray 03/14/18 06 Signed Impressions: CONCLUSION: Nonspecific, nonobstructive bowel gas pattern. This is not significantly pierre ed. Chest X-Ray 03/09/18 06 Signed Impressions: Service Date/Time: Friday, March 09, 2018 06:19 - CONCLUSION: No significant interval change. Marino Salazar MD Renal Ultrasound 03/07/18 0000 Signed Impressions: Service Date/Time: Wednesday, March 07, 2018 12:50 - CONCLUSION: 1. Nonobstructing subcentimeter calculus in the upper pole collecting system of the right kidney. Both kidneys are otherwise sonographically normal. 2. Cholelithiasis. 3. Left-sided pleural effusion. Len Cárdenas MD Chest CT 03/06/18 0000 Signed Impressions: Service Date/Time: Tuesday, March 06, 2018 17:20 - CONCLUSION: There is right upper lobe atelectasis, post radiation changes and right hilar mass focus again seen. Bilateral right greater than left tree in bud infiltrates are new from the previous study. The right effusion has resolved. Remote T12 superior endplate compression fracture and previous kyphoplasty at T6. Demar Booth MD PE at Discharge General: NAD, AAOx3 Chest: few scattered wheezes Cardiac: Regular Abd: +BS, soft, colostomy in right mid abdomen and wound bandage is c/d/i in LLQ , pain with palpation in suprapubic Ext: No edema Hospital Course Patient has a history of small cell lung CA treated with radiation and chemotherapy, follows with Dr. Box. Patient also has advanced COPD is on Oxygen via 2L 24 hours a day at home. On Monday patient began to have a cough productive of yellow phlegm associated with congestion and shortness of breath. Patient also reports that through the night she woke up and had had urinary incontinence in the bed. Patient also endorses increased urinary frequency over the past 4-5 days but denies burning or pain with urination. Patient denies having any known fevers, however she has had chills. PNA COPD exacerbation Leukocytosis 23.1 on admission - Patient is chronically on 2 L nasal cannula 24 hours a day but currently requiring 4L of supplemental O2 - CXR (03/06/18) --> Stable chronic right apical pleural thickening without hilar retraction. Mild airspace disease right perihilar region and left base predominantly. Differential diagnosis includes mild bronchial pneumonia - Chest CT (03/06/18) --> There is right upper lobe atelectasis, post radiation changes and right hilar mass focus again seen. Bilateral right greater than left tree in bud infiltrates are new from the previous study. The right effusion has resolved. Remote T12 superior endplate compression fracture and previous kyphoplasty at T6. - Duonbes Q6h and PRN - Patient given 125 mg Solu-Medrol in the emergency department. Currently on Solu-Medrol 40 mg Q12H x 2 dose given on 03/06 - On 03/08 pt with more wheezing and feeling more SOB, pt started back on Solu- Medrol 125mg x one dose and then continued on 60mg q6h, given Lasix 20mg IV x one dose on 03/08, and increased frequency of Duonebs to Q4H and Q2H PRN on 03/08 - CXR (03/08) --> Mild improvement in the right perihilar infiltrate. Stable left lower lung infiltrate. No new significant change - CXR (03/09) --> No significant change - Pt was seen by speech therapy for swallow evaluation and no s/s of aspiration - Cont. lozenges - Throat culture is negative for Strep - Sputum culture with heavy growth of normal respiratory dennis - Urine for legionella and pneumococcal antigen are negative - Cont. Mucinex BID - ID following as well - Cont nebs - change solumedrol to PO prednisone (03/17) - Dr. Elena met with pt/family at bedside (03/18) - Pt remains extremely weak, worse since admission. - Pt has prior h/o falls at home with hip fractures. - Pt agrees to go to SNF following hospitalization for PT and rehabilitation. UTI - UA was abnormal at admission and Urine culture now growing ESBL. - Patient started on Azactam and Levaquin in the ER - Appreciate ID consult for the ESBL in the urine - Levaquin converted to PO on 03/10. Azactam stopped on 03/09 by ID - ID recommending Levaquin 50 mg PO till 03/19 - Renal US (03/07) --> Nonobstructing subcentimeter calculus in the upper pole collecting system of the right kidney. Both kidneys are otherwise sonographically normal. Cholelithiasis. Left-sided pleural effusion. - Recheck UA (03/13) no nitrates, neg leukocyte esterase no culture indicated Suprapubic/lower abdominal pain - KUB on 03/12 with moderate to large amount of stool in the right colon which may reflect constipation. - Pt started on Colace and MOM - Still with lower abd pain on 03/13 - Recheck KUB (03/14) nonspecific, nonobstructive bowel gas pattern. This is not significantly changed Left lower extremity DVT Paroxysmal Atrial fib - Pt was continued on home Eliquis and amiodarone - rate currently controlled Hypertension - Patient's home medication includes amlodipine 5 mg daily, Telmisartan 80 mg daily - These were held at admission, BP is stable - Monitor BP Tremors - Cont. Propranolol 20 mg PO BID for tremors Deconditioned - Weakness bilateral lower extremities - discharge to SNF. Pt Condition on Discharge: Stable Discharge Disposition: Disch w/ Home Health Serv Discharge Instructions DIET: Follow Instructions for: Heart Healthy Diet Activities you can perform: Weight Bearing as Ok Follow up Referrals: PCP Follow-up - [address] Steinberg New Medications: Albuterol Neb (Albuterol Neb) 2.5 Mg/3 Ml Neb 2.5 MG NEB Q6HR PRN for SHORTNESS OF BREATH, #60 NEBULE 0 Refills Ipratropium Neb (Ipratropium Neb) 0.5 Mg/2.5 Ml Amp 0.5 MG NEB Q6HR for Breathing Treatment, #60 NEBULE 0 Refills Prednisone (Prednisone) 10 Mg Tab 10 MG PO DIRECTED for steroid taper, #35 TAB 0 Refills prednisone 20 mg by mouth twice a day for 5 days, then prednisone 20 mg by mouth once a day for 5 days, then prednisone 10 mg by mouth once a day for 5 days, then stop Levofloxacin (Levaquin) 500 Mg Tablet 500 MG PO Q48H for antibiotic for 1 Day, #1 TAB 0 Refills Continued Medications: Amiodarone (Amiodarone) 200 Mg Tab 200 MG PO DAILY for Regulate Heart Beat, #30 TAB 0 Refills Apixaban (Eliquis) 5 Mg Tab 5 MG PO BID for Blood Clot Prevention, #60 TAB 0 Refills Ascorbic Acid (Vitamin C) 250 Mg Chew 500 MG PO DAILY for Nutritional Supplement, #30 TAB 0 Refills Calcium Carbonate (Calcium) 600 Mg Tab 1200 MG PO BID Ferrous Sulfate (Iron) 325 Mg Capsule.er 325 MG PO DAILY for Nutritional Supplement Gabapentin (Gabapentin) 100 Mg Cap 100 MG PO TID for Pain Management, #30 CAP Magnesium Chloride-Calcium Carbonate (Slow-Mag) 71.5-119 Mg Tab 143 MG PO DAILY Multiple Vitamin (Multi Vitamin Daily) 1 Tab Tab 1 TAB PO DAILY Potassium Chloride ER (Potassium Chloride ER) 10 Meq Cap 10 MEQ PO DAILY for Electrolyte Replacement, #30 CAP 0 Refills Propranolol (Propranolol) 20 Mg Tab 20 MG PO Q12HR, #60 TAB 0 Refills Discontinued Medications: Hydrochlorothiazide (Hydrochlorothiazide) 25 Mg Tab 25 MG PO DAILY, #30 TAB 0 Refills Additional Information Patient examined. Assessment and plan formulated with Valerie Clements PA-C. I agree with the above. Discharge plan was changed from home with C to SNF. Discharge took a few extra days d/t change in plans and holiday weekend. Valerie Clements March 18, 2018 11:19 Papito Elena DO March 18, 2018 23:21
--- NOTE | 2018-03-18 11:52 | HHI.FF ---
Face to Face Verification Diagnosis: (1) Pneumonia (2) UTI (urinary tract infection) (3) Hx of deep venous thrombosis (4) COPD (chronic obstructive pulmonary disease) (5) Atrial fibrillation (6) HTN (hypertension) Physical Therapy Order: Evaluate and Treat Occupational Therapy Order: Evaluate and Treat Home Health Nursing Order: Medical education Signs/symptoms of disease process Oxygen administration education Nursing assessment with vital signs Software Lead Order: To Evaluate: Living conditions/environment Order: To Provide: Long range planning I have seen patient Maria Eugenia Vallejo on 03/18/18. My clinical findings support the need for the requested home health care services because: Ltd mobility - disease progression Deconditioned w/ increased weakness Med compliance is questionable Limited ability to care for self I certify that my clinical findings support that this patient is homebound because: Hx COPD- exertion dyspnea/weakness Unsteady gait/balance Valerie Clements March 18, 2018 11:52
[2018-03-19 01:02] VITALS: BP 111/55; PULSE 68; RESP 18; TEMP 98.1; O2SAT 98
[2018-03-19 04:35] VITALS: BP 141/63; PULSE 74; RESP 20; TEMP 98.6; O2SAT 99
[2018-03-19] MEDS: predniSONE 10 MG TAB PO SCH ×2 (08:25→21:59)
[2018-03-19] MEDS: AMIODARONE 200 MG TAB PO SCH (08:25)
[2018-03-19] MEDS: GABAPENTIN 100 MG CAP PO SCH ×3 (08:25→17:49)
[2018-03-19] MEDS: guaiFENesin E.R. 600 MG TAB PO SCH ×2 (08:25→21:58)
[2018-03-19] MEDS: DOCUSATE SODIUM 100 MG CAP PO SCH ×2 (08:25→21:59)
[2018-03-19] MEDS: PROPRANOLOL HCL 20 MG TAB PO SCH ×2 (08:25→21:59)
[2018-03-19] MEDS: FERROUS SULFATE 325 MG (65 MG ELEMENTAL IRON) TAB PO SCH (08:25)
[2018-03-19] MEDS: LORATADINE 10 MG TAB PO SCH (08:25)
[2018-03-19 08:27] VITALS: BP 143/67; PULSE 67; RESP 18; TEMP 98; O2SAT 98
[2018-03-19] MEDS: APIXABAN 2.5 MG TABLET PO SCH ×2 (08:31→21:58)
[2018-03-19] MEDS: SODIUM CHLORIDE 0.9% FLUSH 10 ML FLUSH IV FLUSH SCH ×2 (08:32→21:58)
[2018-03-19 12:28] VITALS: BP 138/62; PULSE 64; RESP 18; TEMP 98.5; O2SAT 95
[2018-03-19 16:15] VITALS: BP 135/64; PULSE 76; RESP 18; TEMP 98.3; O2SAT 94
[2018-03-19 20:00] VITALS: BP 115/56; PULSE 67; RESP 18; TEMP 97.8; O2SAT 97
--- NOTE | 2018-03-19 21:13 | HHI.PR ---
Subjective Remarks no new complaint awaiting snf bed Objective Vitals heart reg lung course bs abd s/nt ext no edema Vital Signs Date Time Temp Pulse Resp B/P (MAP) Pulse Ox O2 Delivery O2 Flow Rate FiO2 03/19/18 16:15 98.3 76 18 135/64 (87) 94 03/19/18 12:28 98.5 64 18 138/62 (87) 95 03/19/18 08:30 Nasal Cannula 2.00 03/19/18 08:27 98.0 67 18 143/67 (92) 98 03/19/18 04:35 98.6 74 20 141/63 (89) 99 03/19/18 01:02 98.1 68 18 111/55 (73) 98 03/19/18 00:38 Nasal Cannula 2.00 03/18/18 22:11 Nasal Cannula 2.00 Result Diagram: 03/17/18 1015 03/15/18 1429 Imaging Last Impressions Abdomen X-Ray 03/14/18 0600 Signed Impressions: CONCLUSION: Nonspecific, nonobstructive bowel gas pattern. This is not significantly pierre ed. Chest X-Ray 03/09/18 0600 Signed Impressions: Service Date/Time: Friday, March 09, 2018 06:19 - CONCLUSION: No significant interval change. Marino Salazar MD Renal Ultrasound 03/07/18 0000 Signed Impressions: Service Date/Time: Wednesday, March 07, 2018 12:50 - CONCLUSION: 1. Nonobstructing subcentimeter calculus in the upper pole collecting system of the right kidney. Both kidneys are otherwise sonographically normal. 2. Cholelithiasis. 3. Left-sided pleural effusion. Len Cárdenas MD Chest CT 03/06/18 0000 Signed Impressions: Service Date/Time: Tuesday, March 06, 2018 17:20 - CONCLUSION: There is right upper lobe atelectasis, post radiation changes and right hilar mass focus again seen. Bilateral right greater than left tree in bud infiltrates are new from the previous study. The right effusion has resolved. Remote T12 superior endplate compression fracture and previous kyphoplasty at T6. Demar Booth MD Procedures None A/P Problem List: (1) Pneumonia ICD Codes: J18.9 - Pneumonia, unspecified organism Status: Acute Plan: Patient has a history of small cell lung CA treated with radiation and chemotherapy, follows with Dr. Box. Patient also has advanced COPD is on Oxygen via 2L 24 hours a day at home. On Monday patient began to have a cough productive of yellow phlegm associated with congestion and shortness of breath. Patient also reports that through the night she woke up and had had urinary incontinence in the bed. Patient also endorses increased urinary frequency over the past 4-5 days but denies burning or pain with urination. Patient denies having any known fevers, however she has had chills. PNA COPD exacerbation Leukocytosis 23.1 on admission - Patient is chronically on 2 L nasal cannula 24 hours a day but currently requiring 4L of supplemental O2 - CXR (03/06/18) --> Stable chronic right apical pleural thickening without hilar retraction. Mild airspace disease right perihilar region and left base predominantly. Differential diagnosis includes mild bronchial pneumonia - Chest CT (03/06/18) --> There is right upper lobe atelectasis, post radiation changes and right hilar mass focus again seen. Bilateral right greater than left tree in bud infiltrates are new from the previous study. The right effusion has resolved. Remote T12 superior endplate compression fracture and previous kyphoplasty at T6. - Duonbes Q6h and PRN - Patient given 125 mg Solu-Medrol in the emergency department. Currently on Solu-Medrol 40 mg Q12H x 2 dose given on 03/06 - On 03/08 pt with more wheezing and feeling more SOB, pt started back on Solu- Medrol 125mg x one dose and then continued on 60mg q6h, given Lasix 20mg IV x one dose on 03/08, and increased frequency of Duonebs to Q4H and Q2H PRN on 03/08 - CXR (03/08) --> Mild improvement in the right perihilar infiltrate. Stable left lower lung infiltrate. No new significant change - CXR (03/09) --> No significant change - Pt was seen by speech therapy for swallow evaluation and no s/s of aspiration - Cont. lozenges - Throat culture is negative for Strep - Sputum culture with heavy growth of normal respiratory dennis - Urine for legionella and pneumococcal antigen are negative - Cont. Mucinex BID - ID following as well - Cont nebs - change solumedrol to PO prednisone (03/17) - awaiting bed at snf. d/c orders written over the weekend. UTI - UA was abnormal at admission and Urine culture now growing ESBL. - Patient started on Azactam and Levaquin in the ER - Appreciate ID consult for the ESBL in the urine - Levaquin converted to PO on 03/10. Azactam stopped on 03/09 by ID - Renal US (03/07) --> Nonobstructing subcentimeter calculus in the upper pole collecting system of the right kidney. Both kidneys are otherwise sonographically normal. Cholelithiasis. Left-sided pleural effusion. - Recheck UA (03/13) no nitrates, neg leukocyte esterase no culture indicated Suprapubic/lower abdominal pain - KUB on 03/12 with moderate to large amount of stool in the right colon which may reflect constipation. - Pt started on Colace and MOM - Still with lower abd pain on 03/13 - Recheck KUB (03/14) nonspecific, nonobstructive bowel gas pattern. This is not significantly changed Left lower extremity DVT Paroxysmal Atrial fib - Pt was continued on home Eliquis and amiodarone - rate currently controlled Hypertension - Patient's home medication includes amlodipine 5 mg daily, Telmisartan 80 mg daily - These were held at admission, BP is stable - Monitor BP Tremors - Cont. Propranolol 20 mg PO BID for tremors Deconditioned - Weakness bilateral lower extremities - discussed rehab with the patient. (2) UTI (urinary tract infection) ICD Codes: N39.0 - Urinary tract infection, site not specified (3) COPD (chronic obstructive pulmonary disease) ICD Codes: J44.9 - COPD (chronic obstructive pulmonary disease) Status: Chronic (4) Paroxysmal atrial fibrillation ICD Codes: I48.0 - Paroxysmal atrial fibrillation Status: Chronic (5) HTN (hypertension) ICD Codes: I10 - Hypertension Status: Chronic (6) Hx of deep venous thrombosis ICD Codes: Z86.718 - History of deep venous thrombosis Status: Acute Problem Qualifiers (1) Pneumonia: Qualified Codes: J18.9 - Pneumonia, unspecified organism Ghanshyam Mock MD March 19, 2018 21:13
[2018-03-19] MEDS: SODIUM CHLORIDE 0.9% FLUSH 10 ML FLUSH IV FLUSH PRN (21:58)
[2018-03-20] VITALS: BP 138/63; PULSE 66; RESP 18; TEMP 97.8; O2SAT 94
[2018-03-20 04:00] VITALS: BP 109/62; PULSE 64; RESP 18; TEMP 97.9; O2SAT 96
[2018-03-20 09:14] VITALS: BP 119/63; PULSE 66; RESP 20; TEMP 99.1; O2SAT 96
[2018-03-20] MEDS: AMIODARONE 200 MG TAB PO SCH (09:14)
[2018-03-20] MEDS: LEVOFLOXACIN 500 MG TAB PO SCH (09:14)
[2018-03-20] MEDS: predniSONE 10 MG TAB PO SCH (09:14)
[2018-03-20] MEDS: guaiFENesin E.R. 600 MG TAB PO SCH (09:14)
[2018-03-20] MEDS: LORATADINE 10 MG TAB PO SCH (09:14)
[2018-03-20] MEDS: PROPRANOLOL HCL 20 MG TAB PO SCH (09:14)
[2018-03-20] MEDS: APIXABAN 2.5 MG TABLET PO SCH (09:14)
[2018-03-20] MEDS: FERROUS SULFATE 325 MG (65 MG ELEMENTAL IRON) TAB PO SCH (09:14)
[2018-03-20] MEDS: DOCUSATE SODIUM 100 MG CAP PO SCH (09:14)
[2018-03-20] MEDS: GABAPENTIN 100 MG CAP PO SCH ×2 (09:14→13:41)
[2018-03-20] MEDS: SODIUM CHLORIDE 0.9% FLUSH 10 ML FLUSH IV FLUSH SCH (09:23)
[2018-03-20 09:32] VITALS: O2SAT 96
[2018-03-20] MEDS ORDERED: SODIUM CHLORIDE 0.9% FLUSH 10 ML FLUSH IVF PRN (09:45)
[2018-03-20 11:14] VITALS: BP 139/63; PULSE 66; RESP 20; TEMP 98.7; O2SAT 94
== END 2018-03-20 15:14 | DRG 194 ==
LOC: NEPE 03:15 → NEDA 05:54 → N05A 11:22
PROVIDERS: ADMIT Hospitalist; ATTEND Hospitalist
DX: J18.9 Pneumonia, unspecified organism (principal); J44.0 Chronic obstructive pulmonary disease with (acute) lower respiratory infection; J96.10 Chronic respiratory failure, unspecified whether with hypoxia or hypercapnia; I27.20 Pulmonary hypertension, unspecified; N39.0 Urinary tract infection, site not specified; J44.1 Chronic obstructive pulmonary disease with (acute) exacerbation; M81.0 Age-related osteoporosis without current pathological fracture; I48.0 Paroxysmal atrial fibrillation; N18.3 Chronic kidney disease, stage 3 (moderate); K21.9 Gastro-esophageal reflux disease without esophagitis; B96.20 Unspecified Escherichia coli [E. coli] as the cause of diseases classified elsewhere; I25.10 Atherosclerotic heart disease of native coronary artery without angina pectoris; E78.5 Hyperlipidemia, unspecified; N20.0 Calculus of kidney; R32 Unspecified urinary incontinence; R25.1 Tremor, unspecified; K59.00 Constipation, unspecified; K80.20 Calculus of gallbladder without cholecystitis without obstruction; I12.9 Hypertensive chronic kidney disease with stage 1 through stage 4 chronic kidney disease, or unspecified chronic kidney disease; Z86.718 Personal history of other venous thrombosis and embolism; Z87.891 Personal history of nicotine dependence; Z85.118 Personal history of other malignant neoplasm of bronchus and lung; Z88.5 Allergy status to narcotic agent; Z88.0 Allergy status to penicillin; Z79.01 Long term (current) use of anticoagulants; Z92.21 Personal history of antineoplastic chemotherapy; Z92.3 Personal history of irradiation; Z93.3 Colostomy status; Z99.81 Dependence on supplemental oxygen; Z16.12 Extended spectrum beta lactamase (ESBL) resistance
CPT/HCPCS: 71045; 71250; 74018; 76775; 80048; 80053; 81001; 82550; 83605; 83690; 83735; 83880; 84155; 84484; 85007; 85025; 85027; 85610; 85730; 87040; 87070; 87077; 87086; 87186; 87205; 87449; 93005; 94150; 94640; 94664; 94667; 94668; 99285; G8987-GP; G8988-GP; J1642; J1940; J1956; J2920; J2930; J3480; J7050; J7512; J7608

== ENCOUNTER 2018-04-07 13:57 | Emergency (ER) | payer MEDICARE ==
[~2018-04-07] VITALS: Ht 165.1 cm; Wt 66.0 kg
[~2018-04-07 13:57] MED LIST changes: +ALBU0.08 NEB; -FORM20NE INH; -HYDR25TA5 PO; +IPRA0.02 NEB; -IPRASOL NEB; +LEVA500T33 PO; -LOSA50TA PO; +PRED10 PO; -VENL1CAP38 PO; -VITA500012 PO
[2018-04-07 14:00] VITALS: BP 0/0; PULSE 0; RESP 0; O2SAT 82
--- NOTE | 2018-04-07 14:46 | PD ---
HPI Chief Complaint: Code Blue Time Seen by Provider: 14:21 Travel History International Travel<30 days: No Contact w/Intl Traveler<30days: No History of Present Illness HPI 82-year-old female patient presents to the ER today brought in by EMS, CPR in progress, initially had complaints of respiratory distress, and when EMS got there, started to decompensate and went into asystole. CPR had been initiated by EMS, intubated with a Combitube, and had done 3 rounds of CPR with epinephrine, normal glucose on scene. She arrives with CPR in progress, we have continued CPR in the ER. After multiple rounds of CPR, using bicarb, epinephrine, we were not able to get her out of asystole. Transthoracic ultrasound was done which shows cardiac standstill and code was called at 2:16 PM. 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) Heart Rhythm Problems: Yes (AFIB) Cancer: Yes (small cell lung cancer years ago) Cardiac Catheterization: Yes Cardiovascular Problems: Yes High Cholesterol: Yes Chemotherapy: Yes Chest Pain: Yes Congestive Heart Failure: No COPD: Yes Cerebrovascular Accident: No Diabetes: No Diminished Hearing: Yes ([place]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) Deep Vein Thrombosis: Yes (LEFT LEG) Endocrine: No Gastrointestinal Disorders: Yes ((HX ONLY)BLOOD IN STOOL 2 YRS AGO) GERD: Yes Glaucoma: No Genitourinary: Yes (frequent UTIs) Headaches: No Hepatitis: No Hiatal Hernia: No Hypertension: Yes Immune Disorder: No Implanted Vascular Access Dvce: Yes (LEFT CHEST) Kidney Stones: No Musculoskeletal: Yes (multiple broken bones, including hips) Neurologic: Yes (neuropathy in feet) Psychiatric: Yes Reproductive: No Respiratory: Yes Immunizations Current: Yes Migraines: No Pneumonia: Yes Radiation Therapy: Yes Renal Failure: No Seizures: No Sickle Cell Disease: No Sleep Apnea: No Thyroid Disease: No Ulcer: No ?: Not Menopausal: Yes : 4 Para: 3 Miscarriage: 1 Past Surgical History Abdominal Surgery: Yes (colectomy with colostomy to R ABD) AICD: No Appendectomy: No Arteriovenous Shunt: No Body Medical Devices: LEFT CHEST PORT Cardiac Surgery: No Section: Yes (x 2) Cholecystectomy: No Ear Surgery: No Endocrine Surgery: No Eye Surgery: Yes (cataract sx) Genitourinary Surgery: No Gynecologic Surgery: Yes (2 C-sections) Insulin Pump: No Joint Replacement: Yes (RIGHT ELBOW WIRES AND SCREWS, Pins Right Hip) Oral Surgery: No Pacemaker: No Thoracic Surgery: No Other Surgery: Yes (PORT INSERTION-LEFT CHEST) Social History Alcohol Use: No Tobacco Use: No (QUIT 2008) Substance Use: No Allergies-Medications (Allergen,Severity, Reaction): Coded Allergies: adhesive (Unverified Allergy, Unknown, 04/07/18) codeine (Unverified Allergy, Unknown, N/V, 04/07/18) penicillin G (Unverified Allergy, Unknown, rash, 04/07/18) *MDRO Multi-Drug Resistant Organism (Verified Adverse Reaction, Unknown, 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 Allergies: plastic bandages (Adverse Reaction, Intermediate, reddness , 10/01/14) Reported Meds & Prescriptions Reported Meds & Active Scripts Active Levaquin (Levofloxacin) 500 Mg Tablet 500 Mg PO Q48H 1 Days Prednisone 10 Mg Tab 10 Mg PO DIRECTED prednisone 20 mg by mouth twice a day for 5 days, then prednisone 20 mg by mouth once a day for 5 days, then prednisone 10 mg by mouth once a day for 5 days, then stop Ipratropium Neb (Ipratropium [place]) 0.5 Mg/2.5 Ml Amp 0.5 Mg NEB Q6HR Albuterol Neb (Albuterol Sulfate) 2.5 Mg/3 Ml Neb 2.5 Mg NEB Q6HR PRN Potassium Chloride ER (Potassium Chloride) 10 Meq Cap 10 Meq PO DAILY Gabapentin 100 Mg Cap 100 Mg PO TID Reported Propranolol (Propranolol HCl) 20 Mg Tab 20 Mg PO Q12HR Eliquis (Apixaban) 5 Mg Tab 5 Mg PO BID Calcium (Calcium Carbonate) 600 Mg Tab 1,200 Mg PO BID Multi Vitamin Daily (Multiple Vitamin) 1 Tab Tab 1 Tab PO DAILY Iron (Ferrous Sulfate) 325 Mg Capsule.er 325 Mg PO DAILY Slow-Mag (Magnesium Chloride-Calcium Carbonate) 71.5-119 Mg Tab 143 Mg PO DAILY Vitamin C (Ascorbic Acid) 250 Mg Chew 500 Mg PO DAILY Amiodarone (Amiodarone HCl) 200 Mg Tab 200 Mg PO DAILY Review of Systems ROS Limitations: Intubated Physical Exam Narrative GENERAL: Well-developed elderly white female patient currently unresponsive, in extremis, CPR in progress, back valve mask in progress. SKIN: Focused skin assessment warm/dry. HEAD: Atraumatic. Normocephalic. EYES: Pupils large, equal and round, not reactive to light bilaterally. No scleral icterus. No injection or drainage. ENT: No nasal bleeding or discharge. Mucous membranes pale and moist. NECK: Trachea midline. No JVD. CARDIOVASCULAR: Asystole. RESPIRATORY: No accessory muscle use. Back valve mask in progress. Breath sounds equal bilaterally. GASTROINTESTINAL: Abdomen soft, nondistended, colostomy site intact with brown stool notable in bag. Hepatic and splenic margins not palpable. MUSCULOSKELETAL: No obvious deformities. No clubbing. No edema. NEUROLOGICAL: GCS 3, unresponsive.. PSYCHIATRIC: Unable to evaluate, unresponsive to painful stimuli, nonverbal. Data Data Last Documented VS Vital Signs Date Time Temp Pulse Resp B/P (MAP) Pulse Ox O2 Delivery O2 Flow Rate FiO2 04/07/18 14:00 0 0 0/0 (0) MDM Medical Decision Making Medical Screen Exam Complete: Yes Emergency Medical Condition: Yes Medical Record Reviewed: Yes Differential Diagnosis Asystolic code Narrative Course Please see code sheet for further information. We were not able to bring the patient out of asystole after 25 minutes of total CPR between EMS and ER, multiple rounds of epi, patient was declared at 2:16 PM, cardiac standstill identified, pupils are fixed and dilated. Procedures Procedure Narrative CPR was continued after EMS had to move the patient to a stretcher, provider had placed heel of the hand on the patient's sternum and the other hand on top of the first hand with fingers interlaced, and pressed down 2 inches with chest compressions continuously at a rate of 100 bpm, and [id number] with oxygen was used 8-10 times a minute. Rhythm check was performed every 2 minutes and epinephrine was given every 2 minutes. After every 3-4 rhythm checks, we had also given her 1 dose of bicarb. She did not have any significant cardiac activity after total of 25 minutes of CPR. Cardiac ultrasound done by me shows cardiac standstill and code was discontinued. Emergency department cardiac ultrasound was performed with patient consent. Cardiac probe was used in the epigastric, parasternal long/short access, four- chamber apical revealing no evidence of pericardial effusion. Patient's overall cardiac squeeze was adynamic, cardiac standstill. Diagnosis Primary Impression: Asystole Disposition: 20 Condition: Crystal Carreno MD Apr 07, 2018 14:46
== END 2018-04-07 14:16 | disposition expired ==
LOC: NEPE 13:57 → NEPI 14:16
DX: I46.9 Cardiac arrest, cause unspecified (principal); J45.909 Unspecified asthma, uncomplicated; I48.91 Unspecified atrial fibrillation; F32.9 Major depressive disorder, single episode, unspecified; E78.00 Pure hypercholesterolemia, unspecified; J44.9 Chronic obstructive pulmonary disease, unspecified; K21.9 Gastro-esophageal reflux disease without esophagitis; I10 Essential (primary) hypertension; G62.9 Polyneuropathy, unspecified; Z79.51 Long term (current) use of inhaled steroids; Z79.899 Other long term (current) drug therapy; Z88.5 Allergy status to narcotic agent; Z85.118 Personal history of other malignant neoplasm of bronchus and lung; Z86.718 Personal history of other venous thrombosis and embolism; Z87.440 Personal history of urinary (tract) infections; Z88.0 Allergy status to penicillin; Z87.891 Personal history of nicotine dependence
CPT/HCPCS: 92950